=== PATIENT | male | born 1965 | race Caucasian/White ===

== ENCOUNTER 2018-02-02 13:21 | Emergency (ER) | payer OTHER, SELFPAY ==
[2018-02-02 13:27] VITALS: BP 182/104; PULSE 71; RESP 22; TEMP 36.3; O2SAT 99; BMI 25.4
--- NOTE | 2018-02-02 13:41 | ED_ITS ---
HPI - Fall <KEERTHI Chavez - Last Filed: 02/02/18 17:56> General Chief Complaint: Fall Stated Complaint: FELL, PAIN IN RIBS Time Seen by Provider: 02/02/18 13:38 Source: patient Mode of arrival: ambulatory Limitations: no limitations History of Present Illness HPI Narrative: tripped, landed on R side of chest, bruise to front of chest, ribs hurt and pain increases with movement, cough and breathing, denies any other injury MD complaint: fall Onset (ago): day(s) (Saturday) Fall from: standing Place fall occurred: other (hotel) Loss of consciousness: none Symptoms prior to fall: none Context: tripped/slipped (on uneven ground) Location of injury: chest (R side of front of chest) Severity: moderate Associated symptoms (after fall): headache, neck pain, numbness, weakness, shortness of breath and abdominal pain Related Data Home Medications Medication Instructions Recorded Confirmed aspirin 81 mg PO QDAY #0 02/25/16 02/02/18 atorvastatin [Lipitor] 20 mg PO HS #30 tab 02/25/16 02/02/18 esomeprazole magnesium [Nexium] 40 mg PO QDAY #0 02/25/16 02/02/18 hydrochlorothiazide 25 mg PO DAILY #0 02/25/16 02/02/18 [id number]-[id number] acid 1 tab PO DAILY 02/02/18 02/02/18 [Centrum] Previous Rx's Medication Instructions Recorded tramadol [Ultram] 50 mg PO Q6H PRN #20 tab 02/02/18 Allergies Allergy/AdvReac Type Severity Reaction Status Date / Time No Known Drug Allergies Allergy Verified 02/02/18 13:32 Review of Systems <KEERTHI Chavez - Last Filed: 02/02/18 17:56> Review of Systems All systems reviewed & are unremarkable except as noted in HPI and below Constitutional Reports as per HPI, Reports system reviewed and no additional complaints, except as docu and Denies frequent falls ENT Ears, Nose, Mouth, and Throat: Reports nasal congestion Cardiovascular Reports system reviewed and no additional complaints, except as docu, Denies chest pain, Denies chest pain at rest, Denies chest pain with activity, Denies irregular heart rhythm and Denies dyspnea Respiratory Denies chest congestion, Reports cough, Denies hemoptysis, Reports pain on inspiration, Reports pain with cough, Denies dyspnea and Denies wheezing Gastrointestinal Gastrointestinal: Denies abdominal pain Musculoskeletal Reports as per HPI, Denies abnormal gait, Denies back pain and Denies limited range of motion Neurologic Denies abnormal gait and Denies frequent falls Allergic/Immunologic Denies wheezing Exam <Radha GuadalupeKEERTHI - Last Filed: 02/02/18 17:56> Initial Vital Signs Initial Vital Signs: Vital Signs Temperature 97.3 F L 02/02/18 13:27 Pulse Rate 71 02/02/18 13:27 Respiratory Rate 22 02/02/18 13:27 Blood Pressure 182/104 H 02/02/18 13:27 Pulse Oximetry 99 02/02/18 13:27 Const General: cooperative, healthy appearing, comfortable, well developed, well groomed and acute distress Nutritional Appearance: average body habitus Orientation: alert, awake and oriented x3 HENMT Head: normal to inspection, normocephalic and atraumatic Ears: hearing grossly normal bilaterally and external ears normal Nose: external nose normal Face and sinus: normal facial exam Mouth: oral mucosae normal and lip normal Eyes General: appearance normal, both eyes and all related structures Visual Cisneros: normal visual cisneros by confrontation Eyelids: eyelids normal Conjunctivae: conjunctivae normal Sclera: sclerae normal Pupils: PERRL EOM: EOM intact bilaterally Neck Neck: normal visual inspection, full ROM, trachea midline and supple Chest Chest: abnormal inspection of the chest (contusion noted R side of front of chest under nipple area) and localized rib tenderness with anteroposterior compression (tender anterior rib 8-10 area) Resp Effort & Inspection: normal respiratory effort and able to speak in complete sentences Auscultation: clear to auscultation bilaterally Cardio Rate: regular rate Rhythm: regular rhythm Heart Sounds: S1 normal and S2 normal GI Inspection: normal to inspection Palpation: soft Back/Spine/Pelvis Back: normal to inspection Cervical Spine: cervical ROM normal Thoracic/Lumbar Spine: thoracic and lumbar spine normal to inspection Skin General: no rashes or lesions noted, elasticity normal and turgor normal Neuro General: alert, awake and oriented x3 Cranial Nerves: CN's II-XI intact bilaterally Cognition: normal cognition Speech: speech normal Gait: normal gait Motor: muscle tone normal throughout Sensory Exam: no sensory deficits noted Extrem General: normal to inspection and full ROM Psych Appearance: grossly normal Mental Status: mental status grossly normal Speech and Movement: speech and movement normal Mood: congruent mood Affect: normal affect Attitude: cooperative Thought Process: normal Thought Content: normal Judgment: judgment good <Damaris Aguiar DO - Last Filed: 02/03/18 07:47> Initial Vital Signs Initial Vital Signs: Vital Signs Temperature 97.3 F L 02/02/18 13:27 Pulse Rate 71 02/02/18 13:27 Respiratory Rate 22 02/02/18 13:27 Blood Pressure 182/104 H 02/02/18 13:27 Pulse Oximetry 99 02/02/18 13:27 Course <KEERTHI Chavez - Last Filed: 02/02/18 17:56> Course Narrative: results and dc plan discussed, and pt thanked me for the care Orders Ordered: ED Orders 02/02/18 13:45 XR ribs RT min 3V w CXR1V Stat Vital Signs - 8 hr 02/02/18 13:27 02/02/18 15:49 Temperature 97.3 F L Pulse Rate 71 71 Respiratory Rate 22 20 Blood Pressure 182/104 H 162/106 H Pulse Oximetry 99 97 <Damaris Aguiar DO - Last Filed: 02/03/18 07:47> Orders Ordered: ED Orders 02/02/18 13:45 XR ribs RT min 3V w CXR1V Stat Vital Signs - 8 hr 02/02/18 13:27 02/02/18 15:49 Temperature 97.3 F L Pulse Rate 71 71 Respiratory Rate 22 20 Blood Pressure 182/104 H 162/106 H Pulse Oximetry 99 97 MDM - Fall <KEERTHI Chavez - Last Filed: 02/02/18 17:56> Differential Diagnosis Likely other (fall, fx rib, rib contusion, chest wall pain, pneumo, pneumonia, uri, viral illess, bronchitis, abrasion) Imaging Data ribs: Radiologist's impression: PROCEDURE: XR RIBS RT MIN 3V W CXR 1V INDICATIONS: fall and contusion to R anterior ribs TECHNIQUE: 2 views of the right ribs were acquired, along with a single view chest. COMPARISON: None. FINDINGS: Surgical changes and devices: None. Bones and chest wall: Possible nondisplaced fracture of the anterolateral right seventh rib. No suspicious bony lesions. Overlying soft tissues appear unremarkable. Lungs and pleura: No pleural effusions or pneumothorax. Lungs appear clear. Mediastinum: Mediastinal contours appear normal. Heart size is normal. IMPRESSION: Possible nondisplaced fracture of the anterolateral right seventh rib. Correlation for point tenderness suggested. Dictated by: Otis Joe M.D. on 02/02/2018 at 15:01 Approved by: Otis Joe M.D. on 02/02/2018 at 15:05 Discharge Plan Departure Patient Disposition: Home Clinical Impression: Closed rib fracture, Fall Discharge Date/Time: 02/02/18 15:49 Interventions: ED Discharge Assessment Last Done: 02/02/18 15:49 Instructions: DI for Rib Fracture Prescriptions: New tramadol [Ultram] 50 mg tablet 50 mg PO Q6H PRN (Reason: pain) Qty: 20 RF: 0 No Action atorvastatin [Lipitor] 20 MG tablet 20 mg PO HS Qty: 30 RF: 0 esomeprazole magnesium [Nexium] 40 MG capsule,delayed release(DR/EC) 40 mg PO QDAY Qty: 0 RF: 0 hydrochlorothiazide 12.5 mg Capsule 25 mg PO DAILY Qty: 0 RF: 0 aspirin 81 MG tablet,chewable 81 mg PO QDAY Qty: 0 RF: 0 nkqfecytrtjq-serk-hludr acid [Centrum] 18-400 mg-mcg Tablet 1 tab PO DAILY RF: 0 Referrals: William Castrejon MD [Physician] - [facility] [Medical Student] - Lul Gibbons MD [Physician] - Gretchen Leahy [Medical Student] - Brandon Zelaya MD [Physician] - Jaimee Lauren MD [Physician] - (follow up recommended in 5-7 days) <Damaris Aguiar DO - Last Filed: 02/03/18 07:47> Cosign ED Attending Cosignature Attestation: I was immediately available in the department for consultation. Documentation has been reviewed. I agree with assessment and plan.
--- NOTE | 2018-02-02 13:45 | DI.RAD.S_ITS ---
PROCEDURE: XR RIBS RT MIN 3V W CXR 1V INDICATIONS: fall and contusion to R anterior ribs TECHNIQUE: 2 views of the right ribs were acquired, along with a single view chest. COMPARISON: None. FINDINGS: Surgical changes and devices: None. Bones and chest wall: Possible nondisplaced fracture of the anterolateral right seventh rib. No suspicious bony lesions. Overlying soft tissues appear unremarkable. Lungs and pleura: No pleural effusions or pneumothorax. Lungs appear clear. Mediastinum: Mediastinal contours appear normal. Heart size is normal. IMPRESSION: Possible nondisplaced fracture of the anterolateral right seventh rib. Correlation for point tenderness suggested. Dictated by: Otis Joe M.D. on 02/02/2018 at 15:01 Approved by: Otis Joe M.D. on 02/02/2018 at 15:05
[2018-02-02 15:49] VITALS: BP 162/106; PULSE 71; RESP 20; O2SAT 97
== END 2018-02-02 15:49 | disposition home or self-care (01) ==
PROVIDERS: Emergency Provider Nurse Practitioner
DX: S22.31XA Fracture of one rib, right side, initial encounter for closed fracture (principal); W01.0XXA Fall on same level from slipping, tripping and stumbling without subsequent striking against object, initial encounter
CPT/HCPCS: 71101; 99282; 99283

== ENCOUNTER 2018-05-22 00:17 | Emergency (ER) | payer OTHER, SELFPAY ==
--- NOTE | 2018-05-22 00:23 | DI.RAD.S_ITS ---
PROCEDURE: XR CHEST 1V INDICATIONS: chest pain TECHNIQUE: One view of the chest was acquired. COMPARISON: [facility], CR, XR RIBS RT MIN 3V W CXR 1V, 02/02/2018, 13:54. FINDINGS: Surgical changes and devices: None. Lungs and pleura: No pleural effusions or pneumothorax. Bibasilar opacities are likely atelectasis. Mediastinum: Mediastinal contours appear normal. Heart size is normal. Bones and chest wall: No suspicious bony lesions. Old right inferior rib fracture is noted. Overlying soft tissues appear unremarkable. IMPRESSION: Bibasilar atelectasis. Dictated by: Kamar Abdalla M.D. on 05/22/2018 at 8:56 Approved by: Kamar Abdalla M.D. on 05/22/2018 at 8:58
[2018-05-22 00:26] VITALS: BP 122/83; PULSE 98; RESP 17; TEMP 36.4; O2SAT 96; BMI 27.5
[2018-05-22 00:29] VITALS: PULSE 96; RESP 18; O2SAT 93
[2018-05-22] MEDS: ALBUTEROL/IPRATROPIUM 3 ML AMPUL INH (00:29)
[2018-05-22 00:48] LABS: Add Manual Diff / Slide Review NO; Basophils Absolute Auto 100 /uL (0-100); Basophils Percent Auto 0.9 % (0-2); Eosinophils Absolute Auto 400 /uL (0-450); Eosinophils Percent Auto 5.1 % (2-4); Hematocrit 42.5 % (41-53); Hemoglobin 14.7 g/dL (13.5-17.5); Lymphocytes Absolute Auto 1500 /uL (1100-4500); Lymphocytes Percent Auto 21.8 % (25-40); Mean Corpuscular HGB Conc 34.6 % (30-36); Mean Corpuscular Hemoglobin 31.1 PG (26-34); Monocytes Absolute Auto 700 /uL (0-900); Monocytes Percent Auto 9.5 % (3-14); Neutrophils Absolute Auto 4400 /uL (1500-7000); Neutrophils Percent Auto 62.7 % (50-75); Platelet Count 254 X10^3/uL (150-400); Red Blood Cell Count 4.72 X10^6/uL (4.5-5.9); Red Cell Distribution Width 12.5 % (11.6-14.8)
[2018-05-22 01:00] VITALS: BP 102/66; PULSE 99; RESP 15; O2SAT 96
[2018-05-22 01:32] LABS: Alanine Aminotransferase 67 IU/L (21-72); Albumin Globulin Ratio 1.4 (1.0-2.8); Alkaline Phosphatase 71 U/L (38-126); Aspartate Aminotransferase 50 IU/L (17-59); BUN Creatinine Ratio 18.6 (6-22); Bilirubin Total 0.5 mg/dL (0.2-1.3); Blood Urea Nitrogen 13 mg/dL (9-20); Calcium 9.7 mg/dL (8.4-10.2); Carbon Dioxide 27 mmol/L (22-32); Chloride 96 mmol/L (98-107); Creatine Kinase 44 U/L (55-170); Estimated Glomerular Filt Rate > 60.0 mL/min (>60); Globulin 2.9 g/dL (1.7-4.1); Glucose 140 mg/dL (70-100); HEMOLYSIS < 15 (0-50); Lipase 108 U/L (23-300); Potassium 3.5 mmol/L (3.4-5.1); Sodium 133 mmol/L (137-145); Total Protein 6.9 g/dL (6.3-8.2)
[2018-05-22 01:44] LABS: Troponin I < 0.012 ng/mL (0.01-0.034)
--- NOTE | 2018-05-22 01:52 | ED.CHESTPAIN ---
HPI - Chest Pain General Chief Complaint: Chest Pain Stated Complaint: Rib Pain Time Seen by Provider: 05/22/18 00:22 Source: patient and EMS Mode of arrival: EMS Limitations: no limitations History of Present Illness HPI narrative: Patient is a 53-year-old male presenting with chest pain. 1 week ago he had CPR performed he had a syncopal episode and bystander CPR was done. He says his heart never actually stop. Is admitted to a hospital in [place] and released. He said he passed out because his potassium was 3.1. He said it was recheck yesterday by his primary and he says it is 5. He has been having a severe coughing episodes and spells. He has known rib fractures from CPR that was performed. He is having increasing pain and shortness of breath. No fevers. He is on amoxicillin for possible pneumonia. MD complaint: chest pain Related Data Home Medications Medication Instructions Recorded Confirmed aspirin 81 mg PO QDAY #0 02/25/16 05/22/18 atorvastatin [Lipitor] 20 mg PO HS #30 tab 02/25/16 05/22/18 hydrochlorothiazide 25 mg PO DAILY #0 02/25/16 05/22/18 lisinopril 20 mg PO DAILY 05/22/18 05/22/18 omeprazole 40 mg PO DAILY 05/22/18 05/22/18 Previous Rx's Medication Instructions Recorded hydrocodone-acetaminophen [Concord] 1 tab PO Q6H PRN #10 tab 05/22/18 Allergies Allergy/AdvReac Type Severity Reaction Status Date / Time No Known Drug Allergies Allergy Verified 02/02/18 13:32 Review of Systems Review of Systems GENERAL: Denies chills, fatigue, malaise, fever, sweats, travel HEENT: Denies sinus pain, ear pain, sore throat, difficulty swallowing, neck pain RESPIRATORY: Denies dyspnea, cough, wheezing, hemoptysis, sputum. CARDIOVASCULAR: See HPI GASTROINTESTINAL: Denies nausea, vomiting, abdominal pain, diarrhea, constipation, melena. : Denies dysuria, frequency, incontinence, hematuria, urinary retention, flank pain. MUSCULOSKELETAL: Denies weakness, joint pain, or bony pain SKIN: No rash, no erythema, no pruritus NEUROLOGIC: Denies weakness, dizziness, headache, numbness, change in speech, confusion PSYCHIATRIC: No concerning psychosocial issues. 12 point review of systems is negative except for those stated above and HPI [facility] Medical History Hyperlipidemia (Acute) Hypertension (Acute) Social History Smoking Status: Current every day smoker Exam Initial Vital Signs Initial Vital Signs: Vital Signs Temperature 97.6 F 05/22/18 00:26 Pulse Rate 98 H 05/22/18 00:26 Respiratory Rate 17 05/22/18 00:26 Blood Pressure 122/83 05/22/18 00:26 Pulse Oximetry 96 05/22/18 00:26 GENERAL: Well-appearing, well-nourished and in no acute distress. HEENT: Head atraumatic,EOMI, pupils reactive, face symmetric, CARDIOVASCULAR: Regular rate and rhythm without murmurs, rubs or gallops. RESPIRATORY: Coughing with deep breathing no respiratory distress no tachypnea no wheezes rales or rhonchi ABDOMEN: Soft, nontender. Normoactive bowel sounds all 4 quadrants. No guarding or rebound. EXTREMITIES: Normal range of motion, no clubbing or edema. Neurovascularly intact NEUROLOGICAL: Alert and oriented x4.Normal gait and speech. Cranial nerves II through XII grossly intact. SKIN: Warm, dry, no laceration, no petechiae, no rashes or lesions. Course Orders Ordered: ED Orders 05/22/18 00:23 XR chest 1V Stat EKG-12 Lead Stat 05/22/18 00:35 Complete Blood Count AUTO DIFF Stat Comprehensive Metabolic Panel Stat Lipase Stat Troponin & CK Cardiac Panel Stat Discontinued Medications Hydrocodone Bitart/Acetaminophen (Vicodin Prepack) 1 bottle MISC SEEINSTR ONE Stop: 05/22/18 02:15 Last Admin: 05/22/18 02:27 Dose: 1 bottle Albuterol (Ventolin Hfa Prepack) 1 box MISC SEEINSTR ONE Stop: 05/22/18 02:15 Last Admin: 05/22/18 02:27 Dose: 1 box Albuterol/Ipratropium (Duoneb) 3 ml INH NOW ONE Stop: 05/22/18 00:23 Last Admin: 05/22/18 00:29 Dose: 3 ml Vital Signs - 8 hr 05/22/18 00:26 05/22/18 00:29 05/22/18 01:00 Temperature 97.6 F Pulse Rate 98 H 96 H 99 H Respiratory Rate 17 18 15 Blood Pressure 122/83 Blood Pressure [Left Arm] 102/66 Pulse Oximetry 96 93 96 05/22/18 02:21 Temperature Pulse Rate 88 Respiratory Rate 19 Blood Pressure Blood Pressure [Left Arm] 101/61 Pulse Oximetry 95 MDM - Chest Pain Lab Data Attestation: I reviewed the patient's lab results. Result diagrams: 05/22/18 00:35 05/22/18 00:35 Lab Results 05/22/18 05/22/18 Range/Units 00:35 00:35 WBC 7.0 (4.5-11.0) X10^3/uL RBC 4.72 (4.5-5.9) X10^6/uL Hgb 14.7 (13.5-17.5) g/dL Hct 42.5 (41-53) % MCV 90.0 (80-100) fL MCH 31.1 (26-34) PG MCHC 34.6 (30-36) % RDW 12.5 (11.6-14.8) % Plt Count 254 (150-400) X10^3/uL Neut % (Auto) 62.7 (50-75) % Lymph % (Auto) 21.8 L (25-40) % Callaway % (Auto) 9.5 (3-14) % Eos % (Auto) 5.1 H (2-4) % Baso % (Auto) 0.9 (0-2) % Neut # (Auto) 4400 (1738-2261) /uL Lymph # (Auto) 1500 (9036-2386) /uL Callaway # (Auto) 700 (0-900) /uL Eos # (Auto) 400 (0-450) /uL Baso # (Auto) 100 (0-100) /uL Sodium 133 L (137-145) mmol/L Potassium 3.5 (3.4-5.1) mmol/L Chloride 96 L (98-107) mmol/L Carbon Dioxide 27 (22-32) mmol/L BUN 13 (9-20) mg/dL Creatinine 0.70 (0.66-1.25) mg/dL Estimated GFR > 60.0 (>60) mL/min BUN/Creatinine Ratio 18.6 (6-22) Glucose 140 H (70-100) mg/dL Calcium 9.7 (8.4-10.2) mg/dL Total Bilirubin 0.5 (0.2-1.3) mg/dL AST 50 (17-59) IU/L ALT 67 (21-72) IU/L Alkaline Phosphatase 71 (38-126) U/L Total Creatine Kinase 44 L (55-170) U/L CK-MB (CK-2) TNP CK-MB (CK-2) Rel Index TNP Troponin I < 0.012 (0.01-0.034) ng/mL Total Protein 6.9 (6.3-8.2) g/dL Albumin 4.0 (3.5-5.0) g/dL Globulin 2.9 (1.7-4.1) g/dL Albumin/Globulin Ratio 1.4 (1.0-2.8) Lipase 108 (23-300) U/L Imaging Data Chest x-ray: Attestation: I personally reviewed and interpreted this imaging study as follows: My impression: No pneumothorax right-sided rib fractures 4 and 5, left side with 6 fracture no pneumonia ECG Data Attestation: I personally reviewed and interpreted this ECG as follows: Prior ECG tracings: not available for review Interpretation: Normal sinus rhythm rate 93 Q-waves noted in lead [address] changes no priors to compare MDM Narrative Medical decision making narrative: Breathing improved after albuterol. Sleeping. X-ray does reveal is have bilateral rib fractures. Hydrocodone given for pain. He is taught how to use a spacer and given albuterol. All questions have been addressed. Discharge Plan Departure Patient Disposition: Home Clinical Impression: Mild reactive airways disease, Fracture of rib Discharge Date/Time: 05/22/18 02:45 Interventions: ED Discharge Assessment Last Done: 05/22/18 02:45 Instructions: DI for Reactive Airway Disease-Adult Activity Restrictions/Additional Instructions: *You have been diagnosed with reactive airway disease, rib fractures *What to do: Increase activity as tolerated. *Continue to take medications as directed Albuterol with spacer every 4 hr if needed for coughing spell NORCO 1-2 TABLETS EVERY 6 HR IF NEEDED FOR PAIN *Follow up with your primary care provider in 2-3 days *Return to ER if you should have increasing shortness of breath, increasing pain, or any new, worsening or concerning symptoms CONTROLLED SUBSTANCE DISCHARGE (Narcotoic/benzodiazepine/Flexeril/Phenergan) 1. You have been prescribed narcotic medications, it does have acetaminophen/Tylenol/paracetamol in it so do not take extra Tylenol or Tylenol containing products 2. Please understand that we cannot provide further refills of narcotics, benzodiazepines or controlled substances through the ED and her pain management will need to be through your provider. 3. While on these medications you cannot drive or operate heavy machinery. 4. You cannot sign legal documents or perform any duties such as this. 5. As long as you're taking opiate pain medications he should also be taking a stool softener such as Colace, Dulcolax, MiraLAX or prune juice, to help avoid constipation. Prescriptions: New hydrocodone-acetaminophen [Concord] 5-325 mg tablet 1 tab PO Q6H PRN (Reason: pain) Qty: 10 RF: 0 No Action atorvastatin [Lipitor] 20 MG tablet 20 mg PO HS Qty: 30 RF: 0 hydrochlorothiazide 12.5 mg Capsule 25 mg PO DAILY Qty: 0 RF: 0 aspirin 81 MG tablet,chewable 81 mg PO QDAY Qty: 0 RF: 0 lisinopril 20 mg Tablet 20 mg PO DAILY RF: 0 omeprazole 20 mg Capsule,Delayed Release(Dr/Ec) 40 mg PO DAILY RF: 0
[2018-05-22 02:21] VITALS: BP 101/61; PULSE 88; RESP 19; O2SAT 95
[2018-05-22] MEDS: HYDROCODONE/ACET 5/325 PREPACK 1 BOTTLE MISC (02:27)
[2018-05-22] MEDS: ALBUTEROL HFA PREPACK 1 BOX MISC (02:27)
--- NOTE | 2018-05-22 03:28 | ED_ITS ---
HPI - Chest Pain General Chief Complaint: Chest Pain Stated Complaint: Rib Pain Time Seen by Provider: 05/22/18 00:22 Source: patient and EMS Mode of arrival: EMS Limitations: no limitations History of Present Illness HPI narrative: Patient is a 53-year-old male presenting with chest pain. 1 week ago he had CPR performed he had a syncopal episode and bystander CPR was done. He says his heart never actually stop. Is admitted to a hospital in [place] and released. He said he passed out because his potassium was 3.1. He said it was recheck yesterday by his primary and he says it is 5. He has been having a severe coughing episodes and spells. He has known rib fractures from CPR that was performed. He is having increasing pain and shortness of breath. No fevers. He is on amoxicillin for possible pneumonia. MD complaint: chest pain Related Data Home Medications Medication Instructions Recorded Confirmed aspirin 81 mg PO QDAY #0 02/25/16 05/22/18 atorvastatin [Lipitor] 20 mg PO HS #30 tab 02/25/16 05/22/18 hydrochlorothiazide 25 mg PO DAILY #0 02/25/16 05/22/18 lisinopril 20 mg PO DAILY 05/22/18 05/22/18 omeprazole 40 mg PO DAILY 05/22/18 05/22/18 Previous Rx's Medication Instructions Recorded hydrocodone-acetaminophen [Sycamore] 1 tab PO Q6H PRN #10 tab 05/22/18 Allergies Allergy/AdvReac Type Severity Reaction Status Date / Time No Known Drug Allergies Allergy Verified 02/02/18 13:32 Review of Systems Review of Systems GENERAL: Denies chills, fatigue, malaise, fever, sweats, travel HEENT: Denies sinus pain, ear pain, sore throat, difficulty swallowing, neck pain RESPIRATORY: Denies dyspnea, cough, wheezing, hemoptysis, sputum. CARDIOVASCULAR: See HPI GASTROINTESTINAL: Denies nausea, vomiting, abdominal pain, diarrhea, constipation, melena. : Denies dysuria, frequency, incontinence, hematuria, urinary retention, flank pain. MUSCULOSKELETAL: Denies weakness, joint pain, or bony pain SKIN: No rash, no erythema, no pruritus NEUROLOGIC: Denies weakness, dizziness, headache, numbness, change in speech, confusion PSYCHIATRIC: No concerning psychosocial issues. 12 point review of systems is negative except for those stated above and HPI [facility] [place] Medical History Hyperlipidemia (Acute) Hypertension (Acute) Social History Smoking Status: Current every day smoker Exam Initial Vital Signs Initial Vital Signs: Vital Signs Temperature 97.6 F 05/22/18 00:26 Pulse Rate 98 H 05/22/18 00:26 Respiratory Rate 17 05/22/18 00:26 Blood Pressure 122/83 05/22/18 00:26 Pulse Oximetry 96 05/22/18 00:26 GENERAL: Well-appearing, well-nourished and in no acute distress. HEENT: Head atraumatic,EOMI, pupils reactive, face symmetric, CARDIOVASCULAR: Regular rate and rhythm without murmurs, rubs or gallops. RESPIRATORY: Coughing with deep breathing no respiratory distress no tachypnea no wheezes rales or rhonchi ABDOMEN: Soft, nontender. Normoactive bowel sounds all 4 quadrants. No guarding or rebound. EXTREMITIES: Normal range of motion, no clubbing or edema. Neurovascularly intact NEUROLOGICAL: Alert and oriented x4.Normal gait and speech. Cranial nerves II through XII grossly intact. SKIN: Warm, dry, no laceration, no petechiae, no rashes or lesions. Course Orders Ordered: ED Orders 05/22/18 00:23 XR chest 1V Stat EKG-12 Lead Stat 05/22/18 00:35 Complete Blood Count AUTO DIFF Stat Comprehensive Metabolic Panel Stat Lipase Stat Troponin & CK Cardiac Panel Stat Discontinued Medications Hydrocodone Bitart/Acetaminophen (Vicodin Prepack) 1 bottle MISC SEEINSTR ONE Stop: 05/22/18 02:15 Last Admin: 05/22/18 02:27 Dose: 1 bottle Albuterol (Ventolin Hfa Prepack) 1 box MISC SEEINSTR ONE Stop: 05/22/18 02:15 Last Admin: 05/22/18 02:27 Dose: 1 box Albuterol/Ipratropium (Duoneb) 3 ml INH NOW ONE Stop: 05/22/18 00:23 Last Admin: 05/22/18 00:29 Dose: 3 ml Vital Signs - 8 hr 05/22/18 00:26 05/22/18 00:29 05/22/18 01:00 Temperature 97.6 F Pulse Rate 98 H 96 H 99 H Respiratory Rate 17 18 15 Blood Pressure 122/83 Blood Pressure [Left Arm] 102/66 Pulse Oximetry 96 93 96 05/22/18 02:21 Temperature Pulse Rate 88 Respiratory Rate 19 Blood Pressure Blood Pressure [Left Arm] 101/61 Pulse Oximetry 95 MDM - Chest Pain Lab Data Attestation: I reviewed the patient's lab results. Result diagrams: 05/22/18 00:35 05/22/18 00:35 Lab Results 05/22/18 05/22/18 Range/Units 00:35 00:35 WBC 7.0 (4.5-11.0) X10^3/uL RBC 4.72 (4.5-5.9) X10^6/uL Hgb 14.7 (13.5-17.5) g/dL Hct 42.5 (41-53) % MCV 90.0 (80-100) fL MCH 31.1 (26-34) PG MCHC 34.6 (30-36) % RDW 12.5 (11.6-14.8) % Plt Count 254 (150-400) X10^3/uL Neut % (Auto) 62.7 (50-75) % Lymph % (Auto) 21.8 L (25-40) % Blair % (Auto) 9.5 (3-14) % Eos % (Auto) 5.1 H (2-4) % Baso % (Auto) 0.9 (0-2) % Neut # (Auto) 4400 (4184-6922) /uL Lymph # (Auto) 1500 (5821-2287) /uL Blair # (Auto) 700 (0-900) /uL Eos # (Auto) 400 (0-450) /uL Baso # (Auto) 100 (0-100) /uL Sodium 133 L (137-145) mmol/L Potassium 3.5 (3.4-5.1) mmol/L Chloride 96 L (98-107) mmol/L Carbon Dioxide 27 (22-32) mmol/L BUN 13 (9-20) mg/dL Creatinine 0.70 (0.66-1.25) mg/dL Estimated GFR > 60.0 (>60) mL/min BUN/Creatinine Ratio 18.6 (6-22) Glucose 140 H (70-100) mg/dL Calcium 9.7 (8.4-10.2) mg/dL Total Bilirubin 0.5 (0.2-1.3) mg/dL AST 50 (17-59) IU/L ALT 67 (21-72) IU/L Alkaline Phosphatase 71 (38-126) U/L Total Creatine Kinase 44 L (55-170) U/L CK-MB (CK-2) TNP CK-MB (CK-2) Rel Index TNP Troponin I < 0.012 (0.01-0.034) ng/mL Total Protein 6.9 (6.3-8.2) g/dL Albumin 4.0 (3.5-5.0) g/dL Globulin 2.9 (1.7-4.1) g/dL Albumin/Globulin Ratio 1.4 (1.0-2.8) Lipase 108 (23-300) U/L Imaging Data Chest x-ray: Attestation: I personally reviewed and interpreted this imaging study as follows: My impression: No pneumothorax right-sided rib fractures 4 and 5, left side with 6 fracture no pneumonia ECG Data Attestation: I personally reviewed and interpreted this ECG as follows: Prior ECG tracings: not available for review Interpretation: Normal sinus rhythm rate 93 Q-waves noted in lead [address] changes no priors to compare MDM Narrative Medical decision making narrative: Breathing improved after albuterol. Sleeping. X-ray does reveal is have bilateral rib fractures. Hydrocodone given for pain. He is taught how to use a spacer and given albuterol. All questions have been addressed. Discharge Plan Departure Patient Disposition: Home Clinical Impression: Mild reactive airways disease, Fracture of rib Discharge Date/Time: 05/22/18 02:45 Interventions: ED Discharge Assessment Last Done: 05/22/18 02:45 Instructions: DI for Reactive Airway Disease-Adult Activity Restrictions/Additional Instructions: *You have been diagnosed with reactive airway disease, rib fractures *What to do: Increase activity as tolerated. *Continue to take medications as directed Albuterol with spacer every 4 hr if needed for coughing spell NORCO 1-2 TABLETS EVERY 6 HR IF NEEDED FOR PAIN *Follow up with your primary care provider in 2-3 days *Return to ER if you should have increasing shortness of breath, increasing pain , or any new, worsening or concerning symptoms CONTROLLED SUBSTANCE DISCHARGE (Narcotoic/benzodiazepine/Flexeril/Phenergan) 1. You have been prescribed narcotic medications, it does have acetaminophen/ Tylenol/paracetamol in it so do not take extra Tylenol or Tylenol containing products 2. Please understand that we cannot provide further refills of narcotics, benzodiazepines or controlled substances through the ED and her pain management will need to be through your provider. 3. While on these medications you cannot drive or operate heavy machinery. 4. You cannot sign legal documents or perform any duties such as this. 5. As long as you're taking opiate pain medications he should also be taking a stool softener such as Colace, Dulcolax, MiraLAX or prune juice, to help avoid constipation. Prescriptions: New hydrocodone-acetaminophen [Sycamore] 5-325 mg tablet 1 tab PO Q6H PRN (Reason: pain) Qty: 10 RF: 0 No Action atorvastatin [Lipitor] 20 MG tablet 20 mg PO HS Qty: 30 RF: 0 hydrochlorothiazide 12.5 mg Capsule 25 mg PO DAILY Qty: 0 RF: 0 aspirin 81 MG tablet,chewable 81 mg PO QDAY Qty: 0 RF: 0 lisinopril 20 mg Tablet 20 mg PO DAILY RF: 0 omeprazole 20 mg Capsule,Delayed Release(Dr/Ec) 40 mg PO DAILY RF: 0
== END 2018-05-22 02:45 | disposition home or self-care (01) ==
PROVIDERS: Emergency Provider Emergency Medicine
DX: J45.909 Unspecified asthma, uncomplicated (principal); S22.39XA Fracture of one rib, unspecified side, initial encounter for closed fracture
CPT/HCPCS: 36591; 71045; 80053; 82550; 83690; 84484; 85025; 93005; 93010; 94640; 99283

== ENCOUNTER 2019-05-07 00:59 | Emergency (ER) | payer OTHER, SELFPAY ==
[2019-05-07 01:06] VITALS: BP 123/81; PULSE 97; RESP 21; TEMP 37; O2SAT 93
--- NOTE | 2019-05-07 01:51 | ED.URI ---
HPI - URI/Sore Throat General Chief Complaint: Upper Respiratory Symptoms Stated Complaint: Coughing since yesterday/chest hurts/hard breath Time Seen by Provider: 05/07/19 01:45 Source: patient Mode of arrival: Family Vehicle Limitations: no limitations History of Present Illness HPI Narrative: 54-year-old male with no known lung issues however does have an inhaler prescribed in by his primary doctor and has also had pulmonary function test recently which he states he was told he was unremarkable here for evaluation of approximately 24 hours of a cough and wheezing. No fevers. Nonproductive cough. Given this evening because he thought that the cough is getting worse. Related Data Home Medications Medication Instructions Recorded Confirmed aspirin 81 mg PO QDAY #0 02/25/16 05/22/18 atorvastatin [Lipitor] 20 mg PO HS #30 tab 02/25/16 05/22/18 hydrochlorothiazide 25 mg PO DAILY #0 02/25/16 05/22/18 lisinopril 20 mg PO DAILY 05/22/18 05/22/18 omeprazole 40 mg PO DAILY 05/22/18 05/22/18 Previous Rx's Medication Instructions Recorded hydrocodone-acetaminophen [Devens] 1 tab PO Q6H PRN #10 tab 05/22/18 Allergies Allergy/AdvReac Type Severity Reaction Status Date / Time No Known Drug Allergies Allergy Verified 02/02/18 13:32 Review of Systems Constitutional Constitutional: Denies fever(s) Cardiovascular Cardiovascular: Reports dyspnea and Reports dyspnea on exertion Comments: Chest pain with cough Respiratory Respiratory: Reports cough, Reports dyspnea, Reports dyspnea on exertion and Reports wheezing Gastrointestinal Gastrointestinal: Denies abdominal pain, Denies nausea and Denies vomiting Musculoskeletal Musculoskeletal: Denies myalgias and Denies arthralgias Integumentary/Breasts Skin/Breast: Denies rash Neurologic Neurologic: Denies behavioral changes Psychiatric Psychiatric: Denies behavioral changes Hematologic/Lymphatic Hematologic/Lymphatic: Denies easy bleeding and Denies easy bruising Allergic/Immunologic Allergic/Immunologic: Reports wheezing Patient History Medical History Hyperlipidemia (Acute) Hypertension (Acute) Social History Smoking Status: Current every day smoker Smoking Status: Current every day smoker tobacco type: cigarettes alcohol intake frequency: a few times a week Substance Use Type: does not use Exam Initial Vital Signs Initial Vital Signs: Vital Signs Temperature 98.6 F 05/07/19 01:06 Pulse Rate 97 H 05/07/19 01:06 Respiratory Rate 21 05/07/19 01:06 Blood Pressure 123/81 05/07/19 01:06 Pulse Oximetry 93 05/07/19 01:06 Const General: cooperative and comfortable Orientation: awake and oriented x3 Resp Effort & Inspection: normal respiratory effort, not labored, no retractions and not tachypneic Auscultation: wheezes Cardio Rate: regular rate Rhythm: regular rhythm Skin Lesions: no lesions Rashes: no rashes Neuro General: alert and awake Cognition: normal cognition Speech: speech normal Extrem General: normal to inspection and capillary refill normal Psych Appearance: grossly normal and well kempt Course Orders Ordered: Discontinued Medications Albuterol (Ventolin) 5 mg INH NOW ONE Stop: 05/07/19 01:52 Last Admin: 05/07/19 02:13 Dose: 5 mg Documented by: MAY Albuterol (Ventolin) 2.5 mg INH NOW ONE Stop: 05/07/19 02:11 Last Admin: 05/07/19 02:12 Dose: Not Given Documented by: MAY Albuterol (Ventolin) 2.5 mg INH NOW ONE Stop: 05/07/19 02:36 Last Admin: 05/07/19 02:37 Dose: 2.5 mg Documented by: MAY Dexamethasone (Decadron) 12 mg PO NOW ONE Stop: 05/07/19 03:01 Last Admin: 05/07/19 03:02 Dose: 12 mg Documented by: JENNYFER Vital Signs Vital signs: Vital Signs - 8 hr 05/07/19 01:06 05/07/19 02:17 05/07/19 02:39 Temperature 98.6 F Pulse Rate 97 H 76 77 Respiratory Rate 21 20 16 Blood Pressure 123/81 Pulse Oximetry 93 93 94 05/07/19 03:06 05/07/19 03:09 Temperature Pulse Rate 74 86 Respiratory Rate 16 19 Blood Pressure 138/96 H Pulse Oximetry 94 94 MDM - URI/Sore Throat MDM Narrative Medical decision making narrative: Patient was wheezing bilaterally upon arrival with right being greater than left and right upper being greater than right lower. Was given 2 nebulizer treatments which clinically improved his symptoms however patient states that he felt only slightly better. He was sleeping in the room in between the albuterol treatments. I felt like his cough did improve. He is afebrile. Is been a nonproductive cough. I feel that pneumonia is unlikely. Will wait on a chest x-ray for now. He was given a dose of Decadron. He does have an albuterol inhaler with him. He was given a spacer for use with this. Feel free start him on steroids and have him do frequent albuterol treatments at home that this would improve his symptoms. He was given return precautions and follow-up instructions. He expressed understanding and agreement with plan. Discharge Plan Departure Patient Disposition: Home Clinical Impression: Acute bronchospasm Discharge Date/Time: 05/07/19 03:10 Instructions: DI for Reactive Airway Disease-Adult Activity Restrictions/Additional Instructions: Every 4 hours for the next 24 hours while your awake take 3-4 puffs of the albuterol with the spacer. Contact her primary provider for follow-up. Return to the emergency department for any new or worsening symptoms Prescriptions: No Action atorvastatin [Lipitor] 20 MG tablet 20 mg PO HS Qty: 30 RF: 0 hydrochlorothiazide 12.5 mg Capsule 25 mg PO DAILY Qty: 0 RF: 0 aspirin 81 MG tablet,chewable 81 mg PO QDAY Qty: 0 RF: 0 lisinopril 20 mg Tablet 20 mg PO DAILY RF: 0 omeprazole 20 mg Capsule,Delayed Release(Dr/Ec) 40 mg PO DAILY RF: 0 hydrocodone-acetaminophen [Devens] 5-325 mg tablet 1 tab PO Q6H PRN (Reason: pain) Qty: 10 RF: 0
[2019-05-07] MEDS: ALBUTEROL 2.5 MG/3 ML NEB (ADULT) 5 MG INH (02:13)
[2019-05-07 02:17] VITALS: PULSE 76; RESP 20; O2SAT 93
[2019-05-07] MEDS: ALBUTEROL 2.5 MG/3 ML NEB (ADULT) INH (02:37)
[2019-05-07 02:39] VITALS: PULSE 77; RESP 16; O2SAT 94
[2019-05-07] MEDS: dexAMETHasone 4 MG TABLET 12 MG PO (03:02)
[2019-05-07 03:06] VITALS: PULSE 74; RESP 16; O2SAT 94
[2019-05-07 03:09] VITALS: BP 138/96; PULSE 86; RESP 19; O2SAT 94
== END 2019-05-07 03:10 | disposition home or self-care (01) ==
PROVIDERS: Emergency Provider Emergency Medicine
DX: J98.01 Acute bronchospasm (principal); F17.200 Nicotine dependence, unspecified, uncomplicated
CPT/HCPCS: 94640; 99282; 99283; J7613

== ENCOUNTER 2019-06-07 08:32 | Emergency (ER) | payer OTHER, SELFPAY ==
[2019-06-07 08:33] VITALS: BP 123/77; PULSE 94; RESP 18; TEMP 36.6; O2SAT 95
--- NOTE | 2019-06-07 08:40 | DI.RAD.S_ITS ---
PROCEDURE: XR CHEST 1V INDICATIONS: Cough, smoker, eval for pneumonia TECHNIQUE: One view of the chest was acquired. COMPARISON: [facility], CR, XR CHEST 1V, 05/22/2018, 0:53. FINDINGS: Surgical changes and devices: None. Lungs and pleura: Lungs are clear. No pleural effusions or pneumothorax. Mediastinum: Mediastinal contours appear normal. Heart size is normal. Bones and chest wall: No suspicious bony lesions. Overlying soft tissues appear unremarkable. IMPRESSION: No acute process. Dictated by: Bobbi Gonzalez M.D. on 06/07/2019 at 7:53 Approved by: Bobbi Gonzalez M.D. on 06/07/2019 at 7:54
--- NOTE | 2019-06-07 08:53 | ED.URI ---
HPI - URI/Sore Throat General Chief Complaint: Upper Respiratory Symptoms Stated Complaint: Cough,sore body Time Seen by Provider: 06/07/19 08:39 Source: patient Mode of arrival: Ambulatory Limitations: no limitations History of Present Illness HPI Narrative: 54-year-old male here for evaluation of a cough. Been going on for the past several days. No fevers. It is productive. No recent travel. Within the past month he has been treated with steroids and antibiotics for bronchitis. He does have an albuterol inhaler at home. He states that he is having problems sleeping at night because of the cough. Related Data Home Medications Medication Instructions Recorded Confirmed aspirin 81 mg PO QDAY #0 02/25/16 05/22/18 atorvastatin [Lipitor] 20 mg PO HS #30 tab 02/25/16 05/22/18 hydrochlorothiazide 25 mg PO DAILY #0 02/25/16 05/22/18 lisinopril 20 mg PO DAILY 05/22/18 05/22/18 omeprazole 40 mg PO DAILY 05/22/18 05/22/18 Previous Rx's Medication Instructions Recorded hydrocodone-acetaminophen [Sullivan] 1 tab PO Q6H PRN #10 tab 05/22/18 benzonatate [Tessalon Perles] 100 mg PO BID-TID PRN #14 cap 06/07/19 prednisone 40 mg PO DAILY 7 Days #14 tab 06/07/19 Allergies Allergy/AdvReac Type Severity Reaction Status Date / Time No Known Drug Allergies Allergy Verified 02/02/18 13:32 Review of Systems Constitutional Constitutional: Denies fever(s) Cardiovascular Cardiovascular: Denies chest pain Respiratory Respiratory: Reports cough and Reports wheezing Gastrointestinal Gastrointestinal: Denies abdominal pain Integumentary/Breasts Skin/Breast: Denies lesions and Denies rash Neurologic Neurologic: Denies behavioral changes Psychiatric Psychiatric: Denies behavioral changes Hematologic/Lymphatic Hematologic/Lymphatic: Denies easy bleeding and Denies easy bruising Allergic/Immunologic Allergic/Immunologic: Reports wheezing Patient History Medical History Hyperlipidemia (Acute) Hypertension (Acute) Social History Smoking Status: Current every day smoker Smoking Status: Current every day smoker tobacco type: cigarettes alcohol intake frequency: a few times a week Substance Use Type: does not use Exam Initial Vital Signs Initial Vital Signs: Vital Signs Temperature 97.9 F 06/07/19 08:33 Pulse Rate 94 H 06/07/19 08:33 Respiratory Rate 18 06/07/19 08:33 Blood Pressure 123/77 06/07/19 08:33 Pulse Oximetry 95 06/07/19 08:33 Const General: cooperative, comfortable and well developed Limitations: mental status not altered Resp Effort & Inspection: normal respiratory effort, no grunting and not labored Auscultation: wheezes Cardio Rate: regular rate Rhythm: regular rhythm Skin Lesions: no lesions Rashes: no rashes Neuro General: alert, awake and oriented x3 Cognition: normal cognition Speech: speech normal Extrem General: normal to inspection and capillary refill normal Course Orders Ordered: ED Orders 06/07/19 08:40 XR chest 1V Stat Vital Signs Vital signs: Vital Signs - 8 hr 06/07/19 08:33 Temperature 97.9 F Pulse Rate 94 H Respiratory Rate 18 Blood Pressure 123/77 Pulse Oximetry 95 [facility] - URI/Sore Throat Imaging Data Chest x-ray: Radiologist's Impression: [address] [address] XRay Report Signed Patient: Delvin Louis#: [id number] : 1965Acct:[id number] Age/Sex: 54 / MDate of Service: 06/07/19 Loc: ED Accession Number: [id number] Procedure: XR chest 1V Ordering Provider: Lul Barrios D.O. PROCEDURE: XR CHEST 1V INDICATIONS: Cough, smoker, eval for pneumonia TECHNIQUE: One view of the chest was acquired. COMPARISON: [facility], DEJA, XR CHEST 1V, 05/22/2018, 0:53. FINDINGS: Surgical changes and devices: None. Lungs and pleura: Lungs are clear. No pleural effusions or pneumothorax. Mediastinum: Mediastinal contours appear normal. Heart size is normal. Bones and chest wall: No suspicious bony lesions. Overlying soft tissues appear unremarkable. IMPRESSION: No acute process. Dictated by: Bobbi Gonzalez M.D. on 06/07/2019 at 7:53 Approved by: Bobbi Gonzalez M.D. on 06/07/2019 at 7:54 MDM Narrative Medical decision making narrative: Patient is afebrile, chest x-ray shows no signs of pneumonia, does have bilateral wheezing with right being greater than left. Not hypoxic, not tachypneic. Recently treated for bronchitis with antibiotics and steroids. I feel we can hold on antibiotics again. He has albuterol at home. Will send him a with more steroids. Also given Tessalon Perles. He was given return precautions and follow-up instructions. He expressed understanding and agreement plan. Discharge Plan Departure Patient Disposition: Home Clinical Impression: Bronchitis Instructions: DI for Acute Bronchitis Activity Restrictions/Additional Instructions: Continue with the albuterol inhaler. Take the other medications as directed. Contact your primary provider for follow-up. Return to the emergency department for any new or worsening symptoms Prescriptions: New benzonatate [Tessalon Perles] 100 mg capsule 100 mg PO BID-TID PRN (Reason: cough) Qty: 14 RF: 0 prednisone 20 mg tablet 40 mg PO DAILY 7 Days Qty: 14 RF: 0 No Action atorvastatin [Lipitor] 20 MG tablet 20 mg PO HS Qty: 30 RF: 0 hydrochlorothiazide 12.5 mg Capsule 25 mg PO DAILY Qty: 0 RF: 0 aspirin 81 MG tablet,chewable 81 mg PO QDAY Qty: 0 RF: 0 lisinopril 20 mg Tablet 20 mg PO DAILY RF: 0 omeprazole 20 mg Capsule,Delayed Release(Dr/Ec) 40 mg PO DAILY RF: 0 hydrocodone-acetaminophen [Sullivan] 5-325 mg tablet 1 tab PO Q6H PRN (Reason: pain) Qty: 10 RF: 0
== END 2019-06-07 09:15 | disposition home or self-care (01) ==
PROVIDERS: Emergency Provider Emergency Medicine
DX: J40 Bronchitis, not specified as acute or chronic (principal)
CPT/HCPCS: 71045; 99283

== ENCOUNTER 2019-06-22 05:47 | Emergency (ER) | payer OTHER, SELFPAY ==
[2019-06-22 05:48] VITALS: BP 138/81; PULSE 111; RESP 26; TEMP 36.6; O2SAT 93
--- NOTE | 2019-06-22 06:14 | ED_ITS ---
HPI - URI/Sore Throat General Chief Complaint: Upper Respiratory Symptoms Stated Complaint: coughing, body aches Time Seen by Provider: 06/22/19 05:48 Source: patient Mode of arrival: Ambulatory Limitations: no limitations History of Present Illness HPI Narrative: 54-year-old male smoker with history of COPD presents by himself and a chief complaint of persistent nasal congestion cough which is occasionally productive of sputum and wheezing for about 6 weeks. He has been seen 3 times now for similar circumstances and seems to do better on cough medications steroids and occasionally antibiotics. He has seen his primary care provider once for this but still has no resolution. He denies any chest pain nor significant shortness of breath. He does not have any fever or chills. He has had no nausea, vomiting or diarrhea. He states that is no worse today than has been at any point but he is tired of the persistent cough. He denies any hemoptysis, recent travel or history of clot. MD Complaint: cough and nasal congestion Onset (ago): week(s) Duration: constant Severity: moderate Relieving factors: nothing Exacerbating factors: nothing Description of mucous: yellow Able to tolerate fluids by mouth: Yes Associated symptoms: rhinorrhea, nasal congestion and cough Treatments prior to arrival: none Related Data Home Medications Medication Instructions Recorded Confirmed aspirin 81 mg PO QDAY #0 02/25/16 05/22/18 atorvastatin [Lipitor] 20 mg PO HS #30 tab 02/25/16 05/22/18 hydrochlorothiazide 25 mg PO DAILY #0 02/25/16 05/22/18 lisinopril 20 mg PO DAILY 05/22/18 05/22/18 omeprazole 40 mg PO DAILY 05/22/18 05/22/18 Previous Rx's Medication Instructions Recorded hydrocodone-acetaminophen [[place]] 1 tab PO Q6H PRN #10 tab 05/22/18 benzonatate [Tessalon Perles] 100 mg PO BID-TID PRN #14 cap 06/07/19 prednisone 40 mg PO DAILY 7 Days #14 tab 06/07/19 albuterol sulfate 2.5 mg INHALATION Q4-6H PRN #90 ml 06/22/19 benzonatate [Tessalon Perles] 100 mg PO TID PRN #14 cap 06/22/19 doxycycline monohydrate 100 mg PO BID 10 Days #20 cap 06/22/19 prednisone 20 mg PO DAILY #5 tab 06/22/19 Allergies Allergy/AdvReac Type Severity Reaction Status Date / Time No Known Drug Allergies Allergy Verified 02/02/18 13:32 Review of Systems Constitutional Constitutional: Denies chills, Denies fatigue, Denies fever(s), Denies frequent falls, Denies lethargy and Denies weakness Eyes Eyes: Denies change in vision, Denies eye discharge, Denies irritation and Denies loss of vision ENT Ears, Nose, Mouth, and Throat: Denies change in voice, Denies dizziness, Denies neck pain, Denies sore throat and Denies throat swelling Cardiovascular Cardiovascular: Denies chest pain, Denies irregular heart rhythm, Denies lightheadedness, Denies palpitations, Denies dyspnea, Denies dyspnea on exertion and Denies orthopnea Respiratory Respiratory: Reports cough, Denies dyspnea, Denies dyspnea on exertion and Reports wheezing Gastrointestinal Gastrointestinal: Denies abdominal pain, Denies change in bowel habits, Denies diarrhea, Denies nausea and Denies vomiting Genitourinary Genitourinary: Denies hematuria, Denies flank pain, Denies urinary incontinence and Denies urinary urgency Musculoskeletal Musculoskeletal: Denies back pain, Denies muscle weakness, Denies neck pain, Denies numbness and Denies tingling Integumentary/Breasts Skin/Breast: Denies pruritus, Denies erythema, Denies rash and Denies wounds Neurologic Neurologic: Denies behavioral changes, Denies confusion, Denies dizziness, Denies frequent falls, Denies loss of vision, Denies numbness, Denies tingling and Denies weakness Psychiatric Psychiatric: Denies anxiety, Denies behavioral changes, Denies confusion, Denies depression, Denies homicidal ideation and Denies suicidal ideation Endocrine Endocrine: Denies fatigue, Denies flushing and Denies palpitations Hematologic/Lymphatic Hematologic/Lymphatic: Denies easy bruising Allergic/Immunologic Allergic/Immunologic: Denies urticaria, Denies throat swelling and Reports wheezing Patient History Medical History Hyperlipidemia (Acute) Hypertension (Acute) Social History Smoking Status: Current every day smoker Smoking Status: Current every day smoker tobacco type: cigarettes alcohol intake frequency: a few times a week Substance Use Type: does not use Exam Narrative Exam Narrative: GENERAL: [54] year old patient appears stated age. Well- nourished, well-developed patient, in mild distress. HEAD: Atraumatic. Normocephalic. EYES: Pupils equal round and reactive. Extraocular motions intact. No scleral icterus. No injection or drainage. ENT: Nose without bleeding, purulent drainage. Throat without erythema, tonsillar hypertrophy or exudate. Airway patent. NECK: Trachea midline. Non tender CARDIOVASCULAR: Regular rate and rhythm without murmurs, gallops, or rubs. RESPIRATORY: Decreased breath sounds bilaterally with prolonged expiratory phase. Very faint mild crackles in the right base greater than left. GASTROINTESTINAL: Abdomen soft, non-tender, nondistended. EXTREMITIES: No edema or joint tenderness. BACK: Nontender without deformity or crepitance. No flank tenderness. NEURO: AOx3. SKIN: No rash or erythema of visible areas Initial Vital Signs Initial Vital Signs: Vital Signs Temperature 97.8 F 06/22/19 05:48 Pulse Rate 111 H 06/22/19 05:48 Respiratory Rate 26 H 06/22/19 05:48 Blood Pressure 138/81 06/22/19 05:48 Pulse Oximetry 93 06/22/19 05:48 Course Orders Ordered: ED Orders 06/22/19 06:25 XR chest 2V Stat Discontinued Medications Albuterol/Ipratropium (Duoneb) 3 ml INH NOW ONE Stop: 06/22/19 06:41 Last Admin: 06/22/19 06:52 Dose: 3 ml Documented by: SENAIT Doxycycline Hyclate (Vibramycin) 100 mg PO NOW ONE Stop: 06/22/19 06:26 Last Admin: 06/22/19 06:54 Dose: 100 mg Documented by: NILDA Prednisone (Deltasone) 40 mg PO NOW ONE Stop: 06/22/19 06:26 Last Admin: 06/22/19 06:54 Dose: 40 mg Documented by: NILDA Vital Signs Vital signs: Vital Signs - 8 hr 06/22/19 05:48 06/22/19 06:18 Temperature 97.8 F Pulse Rate 111 H 92 H Respiratory Rate 26 H Blood Pressure 138/81 Pulse Oximetry 93 Discharge Plan Departure Patient Disposition: Home Clinical Impression: Acute exacerbation of chronic obstructive pulmonary disease, Atypical pneumonia Instructions: DI for Atypical Pneumonia Activity Restrictions/Additional Instructions: *You have been diagnosed with [atypical pneumonia, exacerbation of COPD] *What to do: *Take medications as directed: Prescriptions have been electronically transmitted to [facility] in [place] *Follow up with your primary care provider in 2-3 days, call for an appointment. Let them know you were seen in the Emergency Department and that we ask that you be seen in follow up *Return to ER if you should have any new, worsening or concerning symptoms Prescriptions: New prednisone 20 mg tablet 20 mg PO DAILY Qty: 5 RF: 0 benzonatate [Tessalon Perles] 100 mg capsule 100 mg PO TID PRN (Reason: cough) Qty: 14 RF: 0 doxycycline monohydrate 100 mg capsule 100 mg PO BID 10 Days Qty: 20 RF: 0 albuterol sulfate 2.5 mg /3 mL (0.083 %) solution for nebulization 2.5 mg INHALATION Q4-6H PRN (Reason: shortness of breath or wheezing) Qty: 90 RF: 0 No Action atorvastatin [Lipitor] 20 MG tablet 20 mg PO HS Qty: 30 RF: 0 hydrochlorothiazide 12.5 mg Capsule 25 mg PO DAILY Qty: 0 RF: 0 aspirin 81 MG tablet,chewable 81 mg PO QDAY Qty: 0 RF: 0 lisinopril 20 mg Tablet 20 mg PO DAILY RF: 0 omeprazole 20 mg Capsule,Delayed Release(Dr/Ec) 40 mg PO DAILY RF: 0 hydrocodone-acetaminophen [[place]] 5-325 mg tablet 1 tab PO Q6H PRN (Reason: pain) Qty: 10 RF: 0 benzonatate [Tessalon Perles] 100 mg capsule 100 mg PO BID-TID PRN (Reason: cough) Qty: 14 RF: 0 prednisone 20 mg tablet 40 mg PO DAILY 7 Days Qty: 14 RF: 0
[2019-06-22 06:18] VITALS: PULSE 92
--- NOTE | 2019-06-22 06:25 | DI.RAD.S_ITS ---
PROCEDURE: XR CHEST 2V INDICATIONS: persistent cough TECHNIQUE: 2 views of the chest were acquired. COMPARISON: [facility], CR, XR CHEST 1V, 06/07/2019, 8:42. FINDINGS: Surgical changes and devices: None. Lungs and pleura: Lungs are clear. No pleural effusions or pneumothorax. Mediastinum: Mediastinal contours are normal. Heart size is normal. Bones and chest wall: Multiple old right anterior fractures are noted. No suspicious bony abnormalities. Soft tissues appear unremarkable. IMPRESSION: No acute cardiopulmonary disease. Dictated by: Kamar Abdalla M.D. on 06/22/2019 at 9:55 Approved by: Kamar Abdalla M.D. on 06/22/2019 at 9:55
[2019-06-22 06:52] VITALS: RESP 18
[2019-06-22] MEDS: ALBUTEROL/IPRATROPIUM 3 ML AMPUL INH (06:52)
[2019-06-22] MEDS: predniSONE 20 MG TABLET 40 MG PO (06:54)
[2019-06-22] MEDS: DOXYCYCLINE HYCLATE 100 MG TABLET PO (06:54)
[2019-06-22 07:15] VITALS: BP 129/77; PULSE 88; RESP 18; TEMP 36.7; O2SAT 96
== END 2019-06-22 07:15 | disposition home or self-care (01) ==
LOC: ED 06:38
PROVIDERS: Emergency Provider Emergency Medicine
DX: J44.1 Chronic obstructive pulmonary disease with (acute) exacerbation (principal); J18.9 Pneumonia, unspecified organism; F17.200 Nicotine dependence, unspecified, uncomplicated
CPT/HCPCS: 71046; 94640; 99283

== ENCOUNTER 2019-07-08 22:44 | Inpatient (IN) | payer OTHER, SELFPAY ==
[2019-07-08 22:54] VITALS: BP 118/78; PULSE 60; RESP 30; TEMP 36.6; O2SAT 98
--- NOTE | 2019-07-08 22:54 | DI.RAD.S_ITS ---
PROCEDURE: XR CHEST 2V INDICATIONS: Shortness of breath, cough for 9 weeks TECHNIQUE: 2 views of the chest were acquired. COMPARISON: [facility], CR, XR CHEST 2V, 06/22/2019, 6:23. FINDINGS: Surgical changes and devices: None. Lungs and pleura: Lungs are clear. No pleural effusions or pneumothorax. Mediastinum: Mediastinal contours are normal. Heart size is normal. Bones and chest wall: No suspicious bony abnormalities. Soft tissues appear unremarkable. IMPRESSION: No acute cardiopulmonary disease process. Dictated by: Ivy Iniguez MD, PhD on 07/09/2019 at 8:19 Approved by: Ivy Iniguez MD, PhD on 07/09/2019 at 8:20
[2019-07-08 23:02] VITALS: PULSE 111; RESP 26; O2SAT 90
[2019-07-08] MEDS: ALBUTEROL/IPRATROPIUM 3 ML AMPUL INH (23:02)
--- NOTE | 2019-07-08 23:17 | ED_ITS ---
HPI - SOB/Dyspnea General Chief Complaint: Shortness of Breath/Dyspnea Stated Complaint: cough, pain Time Seen by Provider: 07/08/19 22:45 Source: patient Mode of arrival: Ambulatory Limitations: no limitations History of Present Illness HPI Narrative: 54-year-old male daily smoker with a history of hypertension and hyperlipidemia presents with ongoing difficulty breathing and a harsh cough with worsening shortness of breath. He denies any headache, runny nose or sore throat. He denies any fever. He has had no nausea or vomiting. He denies any chest pain. He has had upwards of 7 visits to emergency departments and [facility] since early May and [place] does not know the results. He has been on multiple courses of antibiotics and steroids without any resolution or even improvement of symptoms MD Complaint: cough Related Data Home Medications Medication Instructions Recorded Confirmed aspirin 81 mg PO QDAY #0 02/25/16 05/22/18 atorvastatin [Lipitor] 20 mg PO HS #30 tab 02/25/16 05/22/18 hydrochlorothiazide 25 mg PO DAILY #0 02/25/16 05/22/18 lisinopril 20 mg PO DAILY 05/22/18 05/22/18 omeprazole 40 mg PO DAILY 05/22/18 05/22/18 Previous Rx's Medication Instructions Recorded hydrocodone-acetaminophen [[place]] 1 tab PO Q6H PRN #10 tab 05/22/18 benzonatate [Tessalon Perles] 100 mg PO BID-TID PRN #14 cap 06/07/19 albuterol sulfate 2.5 mg INHALATION Q4-6H PRN #90 ml 06/22/19 benzonatate [Tessalon Perles] 100 mg PO TID PRN #14 cap 06/22/19 doxycycline monohydrate 100 mg PO BID 10 Days #20 cap 06/22/19 prednisone 20 mg PO DAILY #5 tab 06/22/19 Allergies Allergy/AdvReac Type Severity Reaction Status Date / Time No Known Drug Allergies Allergy Verified 02/02/18 13:32 Review of Systems Constitutional Constitutional: Denies chills, Denies fatigue, Denies fever(s), Denies frequent falls, Denies lethargy and Reports weakness Eyes Eyes: Denies change in vision, Denies eye discharge, Denies irritation and Den ies loss of vision ENT Ears, Nose, Mouth, and Throat: Denies change in voice, Denies dizziness, Denies neck pain, Denies sore throat and Denies throat swelling Cardiovascular Cardiovascular: Denies chest pain, Denies irregular heart rhythm, Denies lightheadedness, Denies palpitations, Reports dyspnea, Denies dyspnea on exert ion and Denies orthopnea Respiratory Respiratory: Reports cough, Reports dyspnea, Denies dyspnea on exertion and Reports wheezing Gastrointestinal Gastrointestinal: Denies abdominal pain, Denies change in bowel habits, Denies diarrhea, Denies nausea and Denies vomiting Genitourinary Genitourinary: Denies hematuria, Denies flank pain, Denies urinary incontinence and Denies urinary urgency Musculoskeletal Musculoskeletal: Denies back pain, Denies muscle weakness, Denies neck pain, Denies numbness and Denies tingling Integumentary/Breasts Skin/Breast: Denies pruritus, Denies erythema, Denies rash and Denies wounds Neurologic Neurologic: Denies behavioral changes, Denies confusion, Denies dizziness, Denies frequent falls, Denies loss of vision, Denies numbness, Denies tingling and Reports weakness Psychiatric Psychiatric: Denies anxiety, Denies behavioral changes, Denies confusion, Denies depression, Denies homicidal ideation and Denies suicidal ideation Endocrine Endocrine: Denies fatigue, Denies flushing and Denies palpitations Hematologic/Lymphatic Hematologic/Lymphatic: Denies easy bruising Allergic/Immunologic Allergic/Immunologic: Denies urticaria, Denies throat swelling and Reports wheezing Patient History Medical History Hyperlipidemia (Acute) Hypertension (Acute) Social History household members: significant other Smoking Status: Current every day smoker alcohol intake: current Smoking Status: Current every day smoker tobacco type: cigarettes alcohol intake frequency: a few times a week Substance Use Type: does not use Exam Narrative Exam Narrative: GENERAL: [54] year old patient appears stated age. Well- nourished, well-developed patient, in moderate distress with increased work of breathing and use of accessory muscles HEAD: Atraumatic. Normocephalic. EYES: Pupils equal round and reactive. Extraocular motions intact. No scleral icterus. No injection or drainage. ENT: Nose without bleeding, purulent drainage. Throat without erythema, tonsillar hypertrophy or exudate. Airway patent. NECK: Trachea midline. Non tender CARDIOVASCULAR: Regular rate and rhythm without murmurs, gallops, or rubs. RESPIRATORY: Decreased breath sounds bilaterally with prolonged expiratory phase and wheeze noted on left greater than right, crackles on the right GASTROINTESTINAL: Abdomen soft, non-tender, nondistended. EXTREMITIES: No edema or joint tenderness. BACK: Nontender without deformity or crepitance. No flank tenderness. NEURO: AOx3. SKIN: No rash or erythema of visible areas Initial Vital Signs Initial Vital Signs: Vital Signs Temperature 97.9 F 07/08/19 22:54 Pulse Rate 60 07/08/19 22:54 Respiratory Rate 30 H 07/08/19 22:54 Blood Pressure 118/78 07/08/19 22:54 Pulse Oximetry 98 07/08/19 22:54 Scores CURB-65 Confusion: No BUN >19mg/dL (>7mmol/L): No Respiratory rate greater or equal to 30: Yes SBP <90mmHg or DBP less or equal to 60mmHg: No Age 65 or Older: No CURB-65 Total: 1 Score 0-1 Outpatient care, Score 2 Inpt vs. Obs, Score 3 or over Inpt admit with ICU for score of 4-5 Citation:: PSI/PORT Score: Pneumonia Severity Index for CAP from Swarm on 07/09/2019 All calculations should be rechecked by clinician prior to use RESULT SUMMARY: 75 points Risk Class III, 0.9-2.8% mortality. Outpatient or inpatient treatment, depending on clinical judgment. INPUTS: Age ?> 54 years Sex ?> 0 = Male group home resident ?> 0 = No Neoplastic disease ?> 0 = No Liver disease history ?> 0 = No CHF history ?> 0 = No Cerebrovascular disease history ?> 0 = No Renal disease history ?> 0 = No Altered mental status ?> 0 = No Respiratory rate ?30 breaths/min ?> 20 = Yes Systolic blood pressure ?> 0 = No Temperature 39.9?C (103.8?F) ?> 0 = No Pulse ?125 beats/min ?> 0 = No pH ?> 0 = No BUN ?30 mg/dL or ?11 mmol/L ?> 0 = No Sodium ?> 0 = No Glucose ?250 mg/dL or ?14 mmol/L ?> 0 = No Hematocrit ?> 0 = No Partial pressure of oxygen ?> 0 = No Pleural effusion on x-ray ?> 0 = No Course Course Course Narrative: Patient with increased work of breathing and chest x-ray demonstrating pneumonia require supplemental oxygen to remain in the 90s. On room air he had dips into the mid to upper 80s. Patient is flu negative. For respiratory swab ordered. Though patient has not traveled or been exposed to any persons of interest for COVID-19, due to the severity of this patient's lower respiratory symptoms placed a call to Dr. Sachin Arnold whom does recommend I speak with [facility] regarding testing for COVID. After a 2 hour wait, we called back and still no answer at [facility]. Case revisited with Dr. Arnold whom states to admit patient on droplet precautions, obtain nasopharyngeal and oropharyngeal specimens and send to lab. We will continue to pursue input from [facility]. Patient has received about 1L fluids between various meds and saline. Orders Ordered: ED Orders 07/08/19 22:54 XR chest 2V Stat EKG-12 Lead Stat 07/08/19 23:25 Basic Metabolic Panel Stat Complete Blood Count AUTO DIFF Stat D Dimer Stat Influenza A & B (PCR) Stat NT-proBNP (BNP-Adult 18+) Stat Partial Thromboplastin Time Stat Procalcitonin Stat Prothrombin Time INR Stat Troponin & CK Cardiac Panel Stat 07/08/19 23:50 Lactate (Lactic Acid) Stat 07/08/19 23:52 Arterial Blood Gas Stat 07/08/19 23:55 Blood Culture Stat 07/09/19 00:27 Respiratory Panel (Film Array) Stat Sodium Chloride (Normal Saline 0.9%) 1,000 mls @ 125 mls/hr IV CONT MEG Last Infusion: 07/09/19 03:15 Dose: 0 mls/hr Documented by: Admin: 07/08/19 23:28 Dose: 125 mls/hr Documented by: MERCEDES Discontinued Medications Albuterol (Ventolin) 5 mg INH NOW ONE Stop: 07/08/19 23:59 Last Admin: 07/08/19 23:59 Dose: 5 mg Documented by: ALEJANDRO Albuterol/Ipratropium (Duoneb) 3 ml INH NOW ONE Stop: 07/08/19 22:53 Last Admin: 07/08/19 23:02 Dose: 3 ml Documented by: ALEJANDRO Ceftriaxone Sodium/Dextrose (Rocephin) 1 gm in 50 mls @ 100 mls/hr IV NOW ONE Stop: 07/08/19 23:47 Last Infusion: 07/09/19 00:29 Dose: 0 mls/hr Documented by: Admin: 07/08/19 23:31 Dose: 100 mls/hr Documented by: MERCEDES Azithromycin 500 mg/ Dextrose 250 mls @ 250 mls/hr IV NOW ONE Stop: 07/08/19 23:19 Last Infusion: 07/09/19 03:16 Dose: 0 mls/hr Documented by: Admin: 07/09/19 02:06 Dose: 250 mls/hr Documented by: GRECIA Magnesium Sulfate (Magnesium Sulfate) 2 gm in 50 mls @ 25 mls/hr IV NOW ONE Stop: 07/09/19 01:27 Last Infusion: 07/09/19 02:50 Dose: 0 mls/hr Documented by: GRECIA Cosigned by: [email or web address] Admin: 07/09/19 00:48 Dose: 25 mls/hr Documented by: MERCEDES Cosigned by: GRECIA Methylprednisolone (Solu-Medrol 125 Mg Vial) 125 mg IV NOW ONE Stop: 07/08/19 22:53 Last Admin: 07/08/19 23:27 Dose: 125 mg Documented by: MERCEDES Vital Signs Vital signs: Vital Signs - 8 hr 07/08/19 22:54 07/08/19 23:02 07/08/19 23:55 Temperature 97.9 F Pulse Rate 60 111 H 85 Respiratory Rate 30 H 26 H 22 Blood Pressure 118/78 Blood Pressure [Left Arm] 131/72 Pulse Oximetry 98 90 L 92 07/08/19 23:59 07/09/19 01:35 07/09/19 02:34 Temperature Pulse Rate 80 80 76 Respiratory Rate 24 24 24 Blood Pressure Blood Pressure [Left Arm] 136/77 139/88 Pulse Oximetry 92 95 95 MDM - SOB/Dyspnea Lab Data Result diagrams: 07/08/19 23:25 07/08/19 23:25 Labs: Lab Results 07/08/19 07/08/19 07/08/19 Range/Units 23:25 23:25 23:25 WBC 9.6 (4.5-11.0) X10^3/uL RBC 4.61 (4.5-5.9) X10^6/uL Hgb 14.6 (13.5-17.5) g/dL Hct 41.7 (41-53) % MCV 90.4 (80-100) fL MCH 31.6 (26-34) PG MCHC 35.0 (30-36) % RDW 12.7 (11.6-14.8) % Plt Count 278 (150-400) X10^3/uL Neut % (Auto) 56.4 (50-75) % Lymph % (Auto) 18.6 L (25-40) % [place] % (Auto) 8.3 (3-14) % Eos % (Auto) 15.8 H (2-4) % Baso % (Auto) 0.9 (0-2) % Neut # (Auto) 5400 (6038-7721) /uL Lymph # (Auto) 1800 (0087-8482) /uL [place] # (Auto) 800 (0-900) /uL Eos # (Auto) 1500 H (0-450) /uL Baso # (Auto) 100 (0-100) /uL PT 11.3 (10.1-12.7) SECONDS INR 1.0 (0.9-1.3) APTT 32 (26.4-36.2) SECONDS D-Dimer (<230) ng/mL ABG pH (7.35-7.45) ABG pCO2 (35-45) mmHg ABG pO2 (80-100) mmHg ABG HCO3 (22-26) mmol/L ABG Total CO2 (21-31) mmol/L ABG O2 Saturation (95-100) % ABG Base Excess (-2-2) mmol/L FiO2 Sodium 135 L (137-145) mmol/L Potassium 4.4 (3.4-5.1) mmol/L Chloride 100 (98-107) mmol/L Carbon Dioxide 25 (22-32) mmol/L BUN 10 (9-20) mg/dL Creatinine 0.80 (0.66-1.25) mg/dL Estimated GFR > 60.0 (>60) mL/min BUN/Creatinine Ratio 12.5 (6-22) Glucose 120 H (70-100) mg/dL Lactate (0.7-2.1) mmol/L Calcium 9.9 (8.4-10.2) mg/dL Total Creatine Kinase 91 (55-170) U/L CK-MB (CK-2) TNP CK-MB (CK-2) Rel Index TNP Troponin I < 0.012 (0.01-0.034) ng/mL NT-Pro-B Natriuret Pep 26 (<125) pg/mL Procalcitonin (<0.5) ng/mL Chlamy pneumoniae PCR (Not Detect) Adenovirus (PCR) (Not Detect) B.parapertussis DNA PCR (Not Detect) Coronavirus OC43 (PCR) (Not Detect) Coronavirus HKU1 (PCR) (Not Detect) Coronavirus 229E (PCR) (Not Detect) Coronavirus NL63 (PCR) (Not Detect) Human Metapneumovir PCR (Not Detect) Influenza A (RT-PCR) (NEGATIVE) Influenza Type A (PCR) (Not Detect) Influenza B (RT-PCR) (NEGATIVE) Influenza Type B (PCR) (Not Detect) M. pneumoniae (PCR) (Not Detect) Parainfluenza 1 (PCR) (Not Detect) Parainfluenza 2 (PCR) (Not Detect) Parainfluenza 3 (PCR) (Not Detect) Parainfluenza 4 (PCR) (Not Detect) RSV (PCR) (Not Detect) Entero/Rhino (PCR) (Not Detect) 07/08/19 07/08/19 07/08/19 Range/Units 23:25 23:25 23:25 WBC (4.5-11.0) X10^3/uL RBC (4.5-5.9) X10^6/uL Hgb (13.5-17.5) g/dL Hct (41-53) % MCV (80-100) fL MCH (26-34) PG MCHC (30-36) % RDW (11.6-14.8) % Plt Count (150-400) X10^3/uL Neut % (Auto) (50-75) % Lymph % (Auto) (25-40) % [place] % (Auto) (3-14) % Eos % (Auto) (2-4) % Baso % (Auto) (0-2) % Neut # (Auto) (9905-1404) /uL Lymph # (Auto) (0670-7177) /uL [place] # (Auto) (0-900) /uL Eos # (Auto) (0-450) /uL Baso # (Auto) (0-100) /uL PT (10.1-12.7) SECONDS INR (0.9-1.3) APTT (26.4-36.2) SECONDS D-Dimer < 200 (<230) ng/mL ABG pH (7.35-7.45) ABG pCO2 (35-45) mmHg ABG pO2 (80-100) mmHg ABG HCO3 (22-26) mmol/L ABG Total CO2 (21-31) mmol/L ABG O2 Saturation (95-100) % ABG Base Excess (-2-2) mmol/L FiO2 Sodium (137-145) mmol/L Potassium (3.4-5.1) mmol/L Chloride (98-107) mmol/L Carbon Dioxide (22-32) mmol/L BUN (9-20) mg/dL Creatinine (0.66-1.25) mg/dL Estimated GFR (>60) mL/min BUN/Creatinine Ratio (6-22) Glucose (70-100) mg/dL Lactate (0.7-2.1) mmol/L Calcium (8.4-10.2) mg/dL Total Creatine Kinase (55-170) U/L CK-MB (CK-2) CK-MB (CK-2) Rel Index Troponin I (0.01-0.034) ng/mL NT-Pro-B Natriuret Pep (<125) pg/mL Procalcitonin < 0.05 (<0.5) ng/mL Chlamy pneumoniae PCR (Not Detect) Adenovirus (PCR) (Not Detect) B.parapertussis DNA PCR (Not Detect) Coronavirus OC43 (PCR) (Not Detect) Coronavirus HKU1 (PCR) (Not Detect) Coronavirus 229E (PCR) (Not Detect) Coronavirus NL63 (PCR) (Not Detect) Human Metapneumovir PCR (Not Detect) Influenza A (RT-PCR) Flu a negative (NEGATIVE) Influenza Type A (PCR) (Not Detect) Influenza B (RT-PCR) Flu b negative (NEGATIVE) Influenza Type B (PCR) (Not Detect) M. pneumoniae (PCR) (Not Detect) Parainfluenza 1 (PCR) (Not Detect) Parainfluenza 2 (PCR) (Not Detect) Parainfluenza 3 (PCR) (Not Detect) Parainfluenza 4 (PCR) (Not Detect) RSV (PCR) (Not Detect) Entero/Rhino (PCR) (Not Detect) 07/08/19 07/08/19 07/08/19 Range/Units 23:25 23:50 23:52 WBC (4.5-11.0) X10^3/uL RBC (4.5-5.9) X10^6/uL Hgb (13.5-17.5) g/dL Hct (41-53) % MCV (80-100) fL MCH (26-34) PG MCHC (30-36) % RDW (11.6-14.8) % Plt Count (150-400) X10^3/uL Neut % (Auto) (50-75) % Lymph % (Auto) (25-40) % [place] % (Auto) (3-14) % Eos % (Auto) (2-4) % Baso % (Auto) (0-2) % Neut # (Auto) (6747-8444) /uL Lymph # (Auto) (8611-3027) /uL [place] # (Auto) (0-900) /uL Eos # (Auto) (0-450) /uL Baso # (Auto) (0-100) /uL PT (10.1-12.7) SECONDS INR (0.9-1.3) APTT (26.4-36.2) SECONDS D-Dimer (<230) ng/mL ABG pH 7.39 (7.35-7.45) ABG pCO2 35.9 (35-45) mmHg ABG pO2 64 L (80-100) mmHg ABG HCO3 22 (22-26) mmol/L ABG Total CO2 23 (21-31) mmol/L ABG O2 Saturation 92 L (95-100) % ABG Base Excess -4.0 L (-2-2) mmol/L FiO2 21 Sodium (137-145) mmol/L Potassium (3.4-5.1) mmol/L Chloride (98-107) mmol/L Carbon Dioxide (22-32) mmol/L BUN (9-20) mg/dL Creatinine (0.66-1.25) mg/dL Estimated GFR (>60) mL/min BUN/Creatinine Ratio (6-22) Glucose (70-100) mg/dL Lactate 0.8 (0.7-2.1) mmol/L Calcium (8.4-10.2) mg/dL Total Creatine Kinase (55-170) U/L CK-MB (CK-2) CK-MB (CK-2) Rel Index Troponin I (0.01-0.034) ng/mL NT-Pro-B Natriuret Pep (<125) pg/mL Procalcitonin (<0.5) ng/mL Chlamy pneumoniae PCR Not detected (Not Detect) Adenovirus (PCR) Not detected (Not Detect) B.parapertussis DNA PCR Not detected (Not Detect) Coronavirus OC43 (PCR) Not detected (Not Detect) Coronavirus HKU1 (PCR) Not detected (Not Detect) Coronavirus 229E (PCR) Not detected (Not Detect) Coronavirus NL63 (PCR) Not detected (Not Detect) Human Metapneumovir PCR Not detected (Not Detect) Influenza A (RT-PCR) (NEGATIVE) Influenza Type A (PCR) Not detected (Not Detect) Influenza B (RT-PCR) (NEGATIVE) Influenza Type B (PCR) Not detected (Not Detect) M. pneumoniae (PCR) Not detected (Not Detect) Parainfluenza 1 (PCR) Not detected (Not Detect) Parainfluenza 2 (PCR) Not detected (Not Detect) Parainfluenza 3 (PCR) Not detected (Not Detect) Parainfluenza 4 (PCR) Not detected (Not Detect) RSV (PCR) Not detected (Not Detect) Entero/Rhino (PCR) Not detected (Not Detect) Imaging Data Chest x-ray: Attestation: I personally reviewed and interpreted this imaging study as follows: My Impression: RML airspace disease Discharge Plan Departure Patient Disposition: Admitted As Inpatient Clinical Impression: Pneumonia Qualifiers: Pneumonia type: due to unspecified organism Laterality: right Lung location: middle lobe of lung Qualified Code(s): J18.9 - Pneumonia, unspecified organism Respiratory failure with hypoxia Qualifiers: Chronicity: acute Qualified Code(s): J96.01 - Acute respiratory failure with hypoxia Discharge Date/Time: 07/09/19 03:43 Admit Date/Time: 07/09/19 03:09 Admit Provider: Katerin Diane
[2019-07-08] MEDS: methylPREDNISolone 125 MG/2 ML VIAL IV (23:27)
[2019-07-08] MEDS: SODIUM CHLORIDE 0.9% 1,000 ML 125 ML IV (23:28)
[2019-07-08] MEDS: CEFTRIAXONE 1 GM/50 ML FROZ.PIGGY IV (23:31)
[2019-07-08 23:41] LABS: Prothrombin Time 11.3 SECONDS (10.1-12.7)
[2019-07-08 23:44] LABS: PTT Partial Thromboplastin Tim 32 SECONDS (26.4-36.2)
[2019-07-08 23:47] LABS: BUN Creatinine Ratio 12.5 (6-22); Blood Urea Nitrogen 10 mg/dL (9-20); Calcium 9.9 mg/dL (8.4-10.2); Carbon Dioxide 25 mmol/L (22-32); Chloride 100 mmol/L (98-107); Creatine Kinase 91 U/L (55-170); Estimated Glomerular Filt Rate > 60.0 mL/min (>60); Glucose 120 mg/dL (70-100); HEMOLYSIS < 15 (0-50); Potassium 4.4 mmol/L (3.4-5.1); Sodium 135 mmol/L (137-145)
[2019-07-08 23:49] LABS: Add Manual Diff / Slide Review NO; Basophils Absolute Auto 100 /uL (0-100); Basophils Percent Auto 0.9 % (0-2); Eosinophils Absolute Auto 1500 /uL (0-450); Eosinophils Percent Auto 15.8 % (2-4); Hematocrit 41.7 % (41-53); Hemoglobin 14.6 g/dL (13.5-17.5); Lymphocytes Absolute Auto 1800 /uL (1100-4500); Lymphocytes Percent Auto 18.6 % (25-40); Mean Corpuscular Hemoglobin 31.6 PG (26-34); Mean Corpuscular Volume 90.4 fL (80-100); Monocytes Absolute Auto 800 /uL (0-900); Monocytes Percent Auto 8.3 % (3-14); Neutrophils Absolute Auto 5400 /uL (1500-7000); Neutrophils Percent Auto 56.4 % (50-75); Platelet Count 278 X10^3/uL (150-400); Red Blood Cell Count 4.61 X10^6/uL (4.5-5.9); Red Cell Distribution Width 12.7 % (11.6-14.8); White Blood Cell Count 9.6 X10^3/uL (4.5-11.0)
[2019-07-08 23:55] VITALS: BP 131/72; PULSE 85; RESP 22; O2SAT 92
[2019-07-08 23:59] VITALS: PULSE 80; RESP 24; O2SAT 92
[2019-07-08 23:59] LABS: NT-proBNP (BNP-Adult 18+) 26 pg/mL (<125); Troponin I < 0.012 ng/mL (0.01-0.034)
[2019-07-08] MEDS: ALBUTEROL 2.5 MG/3 ML NEB (ADULT) 5 MG INH (23:59)
[2019-07-09] VITALS (12 sets, daily range): BP systolic 128–150; BP diastolic 69–88; PULSE 76–98; RESP 18–24; TEMP 36.4–36.7; O2SAT 91–98; BMI 29.9
[2019-07-09 00:04] LABS: Procalcitonin < 0.05 ng/mL (<0.5)
[2019-07-09 00:05] LABS: D Dimer < 200 ng/mL (<230)
[2019-07-09 00:06] LABS: Fractionated Inspired Oxygen 21; HCO3 ABG 22 mmol/L (22-26); Oxygen Saturation ABG 92 % (95-100); PCO2 ABG 35.9 mmHg (35-45); PO2 ABG 64 mmHg (80-100); TCO2 ABG 23 mmol/L (21-31); pH ABG 7.39 (7.35-7.45)
[2019-07-09 00:16] LABS: Influenza A - CEPHEID Flu A NEGATIVE (NEGATIVE); Influenza B - CEPHEID Flu B NEGATIVE (NEGATIVE)
[2019-07-09 00:21] LABS: Lactate (Lactic Acid) 0.8 mmol/L (0.7-2.1)
[2019-07-09] MEDS: MAGNESIUM SULFATE 2 GM/50 ML PIGGYBACK IV (00:48)
[2019-07-09] MEDS: AZITHROMYCIN 500 MG in DEXTROSE 5% IN WATER 250 ML IV ×2 (02:06→22:24)
--- NOTE | 2019-07-09 03:43 | PC.NURSE ---
Per infection control,droplet precautions maintained while I cared for him in ED and when transported to room 230.
[2019-07-09 04:05] LABS: Adenovirus Not Detected (Not Detect); Bordetella pertussis Not Detected (Not Detect); Chlamydophila pneumoniae Not Detected (Not Detect); Coronavirus 229E Not Detected (Not Detect); Coronavirus HKU1 Not Detected (Not Detect); Coronavirus NL 63 Not Detected (Not Detect); Coronavirus OC43 Not Detected (Not Detect); Human Metapneumovirus Not Detected (Not Detect); Human Rhinovirus/Enterovirus Not Detected (Not Detect); Influenza A Not Detected (Not Detect); Influenza B Not Detected (Not Detect); Mycoplasma pneumoniae Not Detected (Not Detect); Parainfluenza Virus 1 Not Detected (Not Detect); Parainfluenza Virus 2 Not Detected (Not Detect); Parainfluenza Virus 3 Not Detected (Not Detect); Parainfluenza Virus 4 Not Detected (Not Detect); Respiratory Syncytial Virus Not Detected (Not Detect)
[2019-07-09] MEDS: SODIUM CHLORIDE 0.9% 1,000 ML 125 ML IV (06:20)
--- NOTE | 2019-07-09 07:35 | PC.ADMIT ---
[email or web address] [facility] Admission Note: The patient,Delvin Louis,54 y/o, was given written information regarding hospital policies, unit procedures and contact persons. Patient's smoking status: Current every day smoker. Vital Signs - 8 hr 07/08/19 23:55 07/08/19 23:59 07/09/19 01:35 Temperature Pulse Rate 85 80 80 Respiratory Rate 22 24 24 Blood Pressure Blood Pressure [Left Arm] 131/72 136/77 Pulse Oximetry 92 92 95 07/09/19 02:34 07/09/19 03:20 07/09/19 04:39 Temperature 97.8 F Pulse Rate 76 92 H 98 H Respiratory Rate 24 22 24 Blood Pressure 150/84 H Blood Pressure [Left Arm] 139/88 139/88 Pulse Oximetry 95 96 98 Admit Note-Patient admitted to room 230 at 0335-A/Ox4, short of breath with exertion. Placed on 2L NC, SpO2 90-94%, brief apnea noted while asleep, says he does have a C-pap but hasn't used it in a few months Lung sounds have end expiratory rhonchi/wheezes. Patient placed in Droplet Precautions per ED RN who gave report.
[2019-07-09] MEDS: ALBUTEROL/IPRATROPIUM 3 ML AMPUL INH ×3 (08:44→19:06)
--- NOTE | 2019-07-09 09:24 | RT ---
PT IS CURRENTLY IN [facility] PRECAUTIONS.
--- NOTE | 2019-07-09 09:34 | DI.ECHO.S_ITS ---
[facility] +---------+ [facility] +---------+ : : [address] [place] : : : : [id number] : : : : Phone: [phone]+ Echocardiogram Report + + :Name: BRADEN AGUILAR Study Date: 07/10/2019 Height: 72 in : :[facility] Weight: 220 lb : : Gender: Male BSA: 2.2 m2 : :: 1965 Age: 54 yrs BP: 135/89 mmHg: :Reason For Study: BUI : : Performed By: Melvin Campbell : :Referring: RED MARTIN : + + Interpretation Summary The ejection fraction is estimated to be 60-65%. There is no significant valvular heart disease. Procedure: A two-dimensional transthoracic echocardiogram with color flow and Doppler was performed. The study quality was technically difficult. There is no prior echocardiogram noted for this patient. A contrast injection of Definity was performed to improve assessment of LV function. The patient was in normal sinus rhythm during the exam. Left Ventricle: The left ventricle is normal in size. There is normal left ventricular wall thickness. The ejection fraction is estimated to be 60-65%. There are no focal wall motion abnormalities. Right Ventricle: The right ventricle is normal in size and function. Atria: Both atria are normal in size. The interatrial septum is intact with no evidence for an atrial septal defect. Mitral Valve: The mitral valve is normal in structure and function. There is trace mitral regurgitation. Aortic Valve: The aortic valve is trileaflet. The aortic valve opens well. There is trace aortic regurgitation. Tricuspid Valve: The tricuspid valve is normal in structure and function. No tricuspid regurgitation. Pulmonary artery pressures cannot be estimated because of the lack of a measurable TR jet velocity. Pulmonic Valve: The pulmonic valve is normal in structure and function. There is trace pulmonic regurgitation. Great Vessels: The aortic root is normal size. The dimensions of the ascending aorta are normal. The pulmonary artery is normal size. The IVC is of normal diameter and collapses greater than 50% with a sniff. This suggests a low right atrial pressure of 3 mm Hg. Pericardium/ Pleura There is no pericardial effusion. There is no pleural effusion. MMode/2D Measurements & Calculations LVIDd: 4.7 cm LVOT diam: 2.1 cm LVIDs: 3.1 cm Ao root diam: 3.6 cm FS: 34.3 % Aortic Jxn: 2.6 cm EPSS: 0.78 cm asc Aorta Diam: 2.9 cm IVSd: 0.84 cm LVPWd: 0.96 cm LV vázquez. diameter/BSA (cm/m^2): 2.1 LV sys. diameter/BSA (cm/m^2): 1.4 LA dimension: 3.6 cm RA long axis: 4.1 cm LA A2 area: 23.2 cm2 RA area: 13.3 cm2 LA A4 area: 13.8 cm2 RA vol: 36.6 ml LA length (vol): 4.5 cm RA : 16.5 ml/m2 LA vol: 60.6 ml IVC diam: 1.9 cm LA vol index: 27.3 ml/m2 Doppler Measurements & Calculations Ao V2 max: 140.5 cm/sec LVOT Max Hung: 135.4 cm/sec Ao V2 mean: 105.1 cm/sec LV V1 max P.3 mmHg Ao max P.9 mmHg LV V1 VTI: 25.9 cm Ao mean P.8 mmHg JOSE LUIS(I,D): 3.2 cm2 Ao V2 VTI: 28.6 cm JOSE LUIS(V,D): 3.4 cm2 sev ratio: 0.90 JOSE LUIS indexed to BSA (cm^2/m^2): 1.4 MV E max hung: 78.8 cm/sec PA V2 max: 78.1 cm/sec MV A max hung: 68.6 cm/sec PA V2 mean: 55.3 cm/sec MV E/A: 1.1 PA mean P.4 mmHg Med Peak E' Hung: 6.8 cm/sec PA pr(Accel): 26.1 mmHg E/E' med: 11.5 Lat Peak E' Hung: 8.3 cm/sec E/E' lat: 9.5 E/e' average: 10.5 MV dec time: 0.19 sec SV(LVOT): 91.5 ml Reading Physician:12:34 PM
--- NOTE | 2019-07-09 09:35 | P.HP_ITS ---
History of Present Illness History of Present Illness Date Patient Seen: 07/09/19 Time Patient Seen: 09:35 Chief complaint: cough, pain Narrative: Delvin Louis is a 54 year old male with PMH of HTN and HLD who presented to the emergency room with shortness of breath and cough. Patient has been experiencing in dyspnea on exertion intermittently over the past 9 weeks. He has periods where he is completely asymptomatic, but recently he has been getting worse especially over the past 2-3 days with exertion limited to about 15 ft before he gets short of breath. He has been to multiple emergency rooms and clinics for evaluation, including the [facility] yesterday where he had a CT scan done. He has received multiple antibiotics, inhalers, and steroids without much effect in the outpatient setting. 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 He denies any occupational exposures. He denies any fevers. He does endorse a productive cough. He denies any sick contacts or recent travel, and the patient lives in [place] with his girlfriend, 2 children, and a grandchild. He further denies any chills, sore throat, headache, muscle aches, vomiting, abdominal pain or burning, diarrhea, or constipation. He does state that his cough worsens when he lays in bed on his left side but denies orthopnea. He denies any recent lower extremity edema. He denies any chest pain. In the emergency room, patient was tachycardic and tachypneic, and did desaturate into the mid 80s on room air per ED documentation. Lowest documented oxygen is 90%. He was placed on 2 L of nasal cannula and is saturating in the mid 90s now. Chest x-ray performed is read as no acute infiltrate, however there appears to be a right middle lobe infiltrate which is a new finding since his prior x-ray approximately a month ago. Am currently awaiting report to be faxed from the [facility] with his CT. Patient was given a dose of ceftriaxone and azithromycin, as well as a dose of steroids. He was admitted for community-acquired pneumonia. There was concern for possible COVID-19 infection, and the emergency room was unable to contact the health department. I did contact the [facility] department an given the lack of fever, no travel history, time of onset of symptoms, and no known contacts the patient does not meet criteria for COVID 19 testing at this time and can be safely taken off of airborne isolation. Patient History Medical History Hyperlipidemia (Acute) Hypertension (Acute) Family & Social History Social History: household members significant other Prior Living Arrangements House Safety & Behavioral: Feels Safe in Current Yes Environment Been Physically Hurt or No Threatened By a Person Suicidal Ideation Description None Suicide Plan Description No Plan Tobacco & Substance use: Tobacco type cigarettes Smoking Status Current every day smoker alcohol intake current alcohol intake frequency a few times a week Substance Use Type does not use Meds Home Medications and Allergies Home Medications Medication Instructions Recorded Confirmed Type aspirin 81 mg PO QDAY #0 02/25/16 07/09/19 History atorvastatin [Lipitor] 20 mg PO HS #30 tab 02/25/16 07/09/19 History lisinopril 20 mg PO DAILY 05/22/18 07/09/19 History omeprazole 40 mg PO DAILY 05/22/18 07/09/19 History benzonatate [Tessalon Perles] 100 mg PO BID-TID PRN #14 cap 06/07/19 07/09/19 Rx albuterol sulfate 2.5 mg INHALATION Q4-6H PRN #90 ml 06/22/19 07/09/19 Rx doxycycline monohydrate 100 mg PO BID 10 Days #20 cap 06/22/19 07/09/19 Rx prednisone 20 mg PO DAILY #5 tab 06/22/19 07/09/19 Rx amlodipine 10 mg PO DAILY 07/09/19 07/09/19 History Allergies Allergy/AdvReac Type Severity Reaction Status Date / Time No Known Drug Allergies Allergy Verified 02/02/18 13:32 Review of Systems Review of Systems Narrative: All other systems reviewed with the patient and are negative unless otherwise stated. Exam Vital Signs (past 8 hours): - 07/09/19 02:34 07/09/19 03:20 07/09/19 04:39 Temperature 97.8 F Pulse Rate 76 92 H 98 H Respiratory Rate 24 22 24 Blood Pressure 150/84 H Blood Pressure [Left Arm] 139/88 139/88 Pulse Oximetry 95 96 98 07/09/19 07:43 07/09/19 08:44 Temperature 98.0 F Pulse Rate 83 92 H Respiratory Rate 24 20 Blood Pressure 133/69 Blood Pressure [Left Arm] Pulse Oximetry 94 93 Oxygen Delivery Method Room Air Oxygen Flow Rate 2 Narrative Exam Narrative: GENERAL APPEARANCE: Well developed, well nourished, in no acute distress, mildly ill appearing. SKIN: Inspection of the skin reveals no rashes, ulcerations or petechiae. HEENT: The sclerae were anicteric and conjunctivae were pink and moist. Extraocular movements were intact and pupils were equal, round with normal accommodation. External inspection of the ears and nose showed no scars, lesions, or masses. Lips, teeth, and gums showed normal mucosa. The oral mucosa, hard and soft palate, tongue and posterior pharynx were unremarkable. NECK: Supple and symmetric. There was no thyroid enlargement, and no tenderness, or masses were felt. CHEST: Normal AP diameter and normal contour without any kyphoscoliosis. LUNGS: Auscultation of the lungs revealed diminished breath sounds over the right middle lobe, no wheezes rhonchi or rales, poor air movement. CARDIOVASCULAR: There was a regular rate and rhythm without any murmurs, gal lops, rubs. Peripheral pulses were 2+ and symmetric. ABDOMEN: Soft and nontender with normal bowel sounds. No ascites was noted. MUSCULOSKELETAL: There was no tenderness or effusions noted. Muscle strength and tone were normal. EXTREMITIES: No cyanosis, clubbing or edema. NEUROLOGIC: Alert and oriented x 3. Normal affect. Strength is +5/5 in the Upper Extremities and Lower Extremities Bilaterally. Sensation to touch was normal. Objective Labs Result Diagrams: 07/08/19 23:25 07/08/19 23:25 Labs: Laboratory Results - last 24 hr 07/08/19 07/08/19 07/08/19 23:25 23:25 23:25 WBC 9.6 RBC 4.61 Hgb 14.6 Hct 41.7 MCV 90.4 MCH 31.6 MCHC 35.0 RDW 12.7 Plt Count 278 Neut % (Auto) 56.4 Lymph % (Auto) 18.6 L [place] % (Auto) 8.3 Eos % (Auto) 15.8 H Baso % (Auto) 0.9 Neut # (Auto) 5400 Lymph # (Auto) 1800 [place] # (Auto) 800 Eos # (Auto) 1500 H Baso # (Auto) 100 PT 11.3 INR 1.0 APTT 32 D-Dimer ABG pH ABG pCO2 ABG pO2 ABG HCO3 ABG Total CO2 ABG O2 Saturation ABG Base Excess FiO2 Sodium 135 L Potassium 4.4 Chloride 100 Carbon Dioxide 25 BUN 10 Creatinine 0.80 Estimated GFR > 60.0 BUN/Creatinine Ratio 12.5 Glucose 120 H Lactate Calcium 9.9 Total Creatine Kinase 91 CK-MB (CK-2) TNP CK-MB (CK-2) Rel Index TNP Troponin I < 0.012 NT-Pro-B Natriuret Pep 26 Procalcitonin Chlamy pneumoniae PCR Adenovirus (PCR) B.parapertussis DNA PCR Coronavirus OC43 (PCR) Coronavirus HKU1 (PCR) Coronavirus 229E (PCR) Coronavirus NL63 (PCR) Human Metapneumovir PCR Influenza A (RT-PCR) Influenza Type A (PCR) Influenza B (RT-PCR) Influenza Type B (PCR) M. pneumoniae (PCR) Parainfluenza 1 (PCR) Parainfluenza 2 (PCR) Parainfluenza 3 (PCR) Parainfluenza 4 (PCR) RSV (PCR) Entero/Rhino (PCR) 07/08/19 07/08/19 07/08/19 23:25 23:25 23:25 WBC RBC Hgb Hct MCV MCH MCHC RDW Plt Count Neut % (Auto) Lymph % (Auto) [place] % (Auto) Eos % (Auto) Baso % (Auto) Neut # (Auto) Lymph # (Auto) [place] # (Auto) Eos # (Auto) Baso # (Auto) PT INR APTT D-Dimer < 200 ABG pH ABG pCO2 ABG pO2 ABG HCO3 ABG Total CO2 ABG O2 Saturation ABG Base Excess FiO2 Sodium Potassium Chloride Carbon Dioxide BUN Creatinine Estimated GFR BUN/Creatinine Ratio Glucose Lactate Calcium Total Creatine Kinase CK-MB (CK-2) CK-MB (CK-2) Rel Index Troponin I NT-Pro-B Natriuret Pep Procalcitonin < 0.05 Chlamy pneumoniae PCR Adenovirus (PCR) B.parapertussis DNA PCR Coronavirus OC43 (PCR) Coronavirus HKU1 (PCR) Coronavirus 229E (PCR) Coronavirus NL63 (PCR) Human Metapneumovir PCR Influenza A (RT-PCR) Flu a negative Influenza Type A (PCR) Influenza B (RT-PCR) Flu b negative Influenza Type B (PCR) M. pneumoniae (PCR) Parainfluenza 1 (PCR) Parainfluenza 2 (PCR) Parainfluenza 3 (PCR) Parainfluenza 4 (PCR) RSV (PCR) Entero/Rhino (PCR) 07/08/19 07/08/19 07/08/19 23:25 23:50 23:52 WBC RBC Hgb Hct MCV MCH MCHC RDW Plt Count Neut % (Auto) Lymph % (Auto) [place] % (Auto) Eos % (Auto) Baso % (Auto) Neut # (Auto) Lymph # (Auto) [place] # (Auto) Eos # (Auto) Baso # (Auto) PT INR APTT D-Dimer ABG pH 7.39 ABG pCO2 35.9 ABG pO2 64 L ABG HCO3 22 ABG Total CO2 23 ABG O2 Saturation 92 L ABG Base Excess -4.0 L FiO2 21 Sodium Potassium Chloride Carbon Dioxide BUN Creatinine Estimated GFR BUN/Creatinine Ratio Glucose Lactate 0.8 Calcium Total Creatine Kinase CK-MB (CK-2) CK-MB (CK-2) Rel Index Troponin I NT-Pro-B Natriuret Pep Procalcitonin Chlamy pneumoniae PCR Not detected Adenovirus (PCR) Not detected B.parapertussis DNA PCR Not detected Coronavirus OC43 (PCR) Not detected Coronavirus HKU1 (PCR) Not detected Coronavirus 229E (PCR) Not detected Coronavirus NL63 (PCR) Not detected Human Metapneumovir PCR Not detected Influenza A (RT-PCR) Influenza Type A (PCR) Not detected Influenza B (RT-PCR) Influenza Type B (PCR) Not detected M. pneumoniae (PCR) Not detected Parainfluenza 1 (PCR) Not detected Parainfluenza 2 (PCR) Not detected Parainfluenza 3 (PCR) Not detected Parainfluenza 4 (PCR) Not detected RSV (PCR) Not detected Entero/Rhino (PCR) Not detected Assessment & Plan Assessment & Plan narrative: Delvin Louis is a 54 year old male with PMH of HTN and HLD who presented to the emergency room with shortness of breath and cough. Patient has been experiencing in dyspnea on exertion intermittently over the past 9 weeks. 1. Dyspnea on exertion, acute, present on admission - -patient experiencing intermittent episodes of dyspnea on exertion that seemed to have been more progressive. Dyspnea on exertion has been worse over the past 2-3 days, and his exercise tolerance was limited to 15 ft yesterday. -chest x-ray showed a right middle lobe infiltrate based on my read and emergency room read that is new since his last imaging in June. -patient started on ceftriaxone and azithromycin in the emergency room, will continue for treatment of community-acquired pneumonia. Respiratory panel is negative. Sputum culture ordered, blood cultures pending, urine strep and Legionella also pending. -currently working on obtaining CT chest that was done at [facility] yesterday. There is evidence of chronic lung disease on his chest x-ray. If unable to obtain this will order a high-resolution CT chest. -will discontinue lisinopril as patient does have a dry cough in between episodes of dyspnea, however I do not believe that this is related to his symptoms. -will obtain TTE to evaluate for possible cardiac etiologies, however cardiac exam was unremarkable. -there is no evidence of wheezing on exam, however the patient was given steroids in the emergency room. Depending on CT report may initiate prednisone for possible COPD exacerbation, however the patient does not have a known diagnosis of COPD. 2. Community-acquired pneumonia, right middle lobe, acute, present on admission -patient presented with shortness of breath and cough, as well as some right- sided chest pain when he coughs. Chest radiograph does show a right middle lobe infiltrate which appears new since his last radiograph a month ago. -continue ceftriaxone and azithromycin as noted above -patient has had multiple course of outpatient therapies which have not helped his symptoms, including most recently doxycycline. -in the emergency room patient did drop into the mid 80s on room air and required supplemental oxygen to maintain his oxygen saturation in the low 90s. 3. hypertension, essential, present on admission -will discontinue lisinopril as noted above, but continue amlodipine. Will add losartan if necessary based on patient's blood pressures while admitted. 4. Hyperlipidemia, chronic -continue home statin and aspirin daily. Code: Full Dispo: admitted under observation status at this time for community-acquired pneumonia.
[2019-07-09] MEDS: HEPARIN 5,000 UNIT/ML VIAL 5000 UNIT SUBCUT ×2 (11:12→21:12)
--- NOTE | 2019-07-09 11:20 | CM.DANOTE ---
DCP: Case received, EMR reviewed, and discussed at team rounds. Was able to review EMAR, and discuss patient's situation with hospitalist team. DCP assessment was completed based on information available on patient. Patient is a 54 year old male who admitted early this morning to the care of the hospitalist team. PCP: [facility] in [place]. Payer: confirmed: Jered Banks. Patient came to the hospital via family vehicle secondary to increased coughing and shortness of breath. Patient had recently been to the [facility] with same symptoms, and these symptoms have been occurring for some time. At the [facility], they did CT, and hospitalist is attempting to get records sent over here. There had been some concern with COVID 19, and [facility] Department was contacted. Since patient has not travelled outside of the country, and no fever, [facility] indicated that there is no need for further testing, and he can be taken off droplet precautions. Patient does hold diagnosis of community-acquired pneumonia. Patient has been employed at [employer], but has not worked there since December. He is independent, goes to the [facility] for care, but primary care provider name is not known. He resides with his significant other, Poonam, and 2 children, and grand children. P: DCP to continue to follow and be available for any resources needed. Patient should be able to go home when he is medically stable for discharge. Marcela Cifuentes RN/Staffing Recruiter
[2019-07-09] MEDS: ATORVASTATIN 20 MG TABLET PO (21:12)
[2019-07-09] MEDS: CEFTRIAXONE 1 GM/50 ML FROZ.PIGGY IV (21:13)
[2019-07-09] MEDS: SODIUM CHLORIDE 0.9% FLUSH 10 ML IV (21:13)
[2019-07-10] VITALS (9 sets, daily range): BP systolic 118–135; BP diastolic 69–93; PULSE 64–94; RESP 18–22; TEMP 36.4–37.2; O2SAT 91–96
[2019-07-10 05:04] LABS: Add Manual Diff / Slide Review NO; Basophils Absolute Auto 100 /uL (0-100); Basophils Percent Auto 1.1 % (0-2); Eosinophils Absolute Auto 100 /uL (0-450); Eosinophils Percent Auto 1.2 % (2-4); Hematocrit 37.6 % (41-53); Hemoglobin 12.8 g/dL (13.5-17.5); Lymphocytes Absolute Auto 2000 /uL (1100-4500); Lymphocytes Percent Auto 17.1 % (25-40); Mean Corpuscular HGB Conc 33.9 % (30-36); Mean Corpuscular Hemoglobin 30.6 PG (26-34); Mean Corpuscular Volume 90.3 fL (80-100); Monocytes Absolute Auto 800 /uL (0-900); Monocytes Percent Auto 6.8 % (3-14); Neutrophils Absolute Auto 8800 /uL (1500-7000); Neutrophils Percent Auto 73.8 % (50-75); Platelet Count 266 X10^3/uL (150-400); Red Blood Cell Count 4.17 X10^6/uL (4.5-5.9); Red Cell Distribution Width 12.7 % (11.6-14.8); White Blood Cell Count 11.9 X10^3/uL (4.5-11.0)
[2019-07-10 05:09] LABS: Alanine Aminotransferase 30 IU/L (<50); Albumin 3.9 g/dL (3.5-5.0); Albumin Globulin Ratio 1.4 (1.0-2.8); Alkaline Phosphatase 66 U/L (38-126); Aspartate Aminotransferase 23 IU/L (17-59); BUN Creatinine Ratio 14.3 (6-22); Bilirubin Total 0.3 mg/dL (0.2-1.3); Bilirubin Unconjugated 0.3 mg/dL (0.0-1.1); Blood Urea Nitrogen 10 mg/dL (9-20); Calcium 9.8 mg/dL (8.4-10.2); Carbon Dioxide 26 mmol/L (22-32); Chloride 102 mmol/L (98-107); Estimated Glomerular Filt Rate > 60.0 mL/min (>60); Globulin 2.8 g/dL (1.7-4.1); Glucose 125 mg/dL (70-100); HEMOLYSIS < 15 (0-50); Magnesium 2.1 mg/dL (1.6-2.3); Potassium 4.6 mmol/L (3.4-5.1); Sodium 137 mmol/L (137-145); Total Protein 6.7 g/dL (6.3-8.2)
[2019-07-10 05:21] LABS: Hemoglobin A1C% w Est Avg Glu 6.5 % (4.0-6.0)
--- NOTE | 2019-07-10 06:00 | DI.RAD.S_ITS ---
PROCEDURE: XR CHEST 2V INDICATIONS: pneumonia, acute respiratory failure with hypoxia TECHNIQUE: 2 views of the chest were acquired. COMPARISON: [facility], CR, XR CHEST 2V, 07/08/2019, 23:04. FINDINGS: Surgical changes and devices: None. Lungs and pleura: Lungs are clear. No pleural effusions or pneumothorax. Mediastinum: Mediastinal contours are normal. Heart size is normal. Bones and chest wall: No suspicious bony abnormalities. Soft tissues appear unremarkable. IMPRESSION: No acute pulmonary process. Dictated by: Aury Phillips M.D. on 07/10/2019 at 10:42 Approved by: Aury Phillips M.D. on 07/10/2019 at 10:46
[2019-07-10 06:20] LABS: Free T4, Direct Thyroxine 1.52 ng/dL (0.78-2.19)
[2019-07-10] MEDS: AMLODIPINE 5 MG TABLET 10 MG PO (09:54)
[2019-07-10] MEDS: ENOXAPARIN 40 MG/0.4 ML SYRINGE SUBCUT (09:55)
[2019-07-10] MEDS: SODIUM CHLORIDE 0.9% FLUSH 10 ML IV ×2 (09:55→22:09)
[2019-07-10] MEDS: ASPIRIN 81 MG CHEW TAB PO (09:55)
[2019-07-10] MEDS: ALBUTEROL/IPRATROPIUM 3 ML AMPUL INH ×3 (10:11→21:26)
[2019-07-10] MEDS: PANTOPRAZOLE 40 MG TABLET PO (12:05)
--- NOTE | 2019-07-10 12:07 | CM.DPNOTE ---
DCP: continued: case received and discussed in Team Rounds. EMR reviewed. Workup continued for full dx and treatment plan. DCP team will continue to follow up as POC unfolds to assist with any d/c needs that may arise. PT is currently sitting up in bed, eating lunch, appears comfortable. GERMAIN Dukes confirms that pt is no longer on any special precautions (including droplet).
--- NOTE | 2019-07-10 14:44 | PC.NURSE ---
Day Shift Note SpO2 96-98% on RA at rest, ambulated in hospital halls this afternoon. Maintained oxygen saturations 91% or greater, did reports some minor shortness of breath throughout. Sputum sent to lab this AM, sputum white/yellow. Denies pain. Call light within reach. Independent in room.
--- NOTE | 2019-07-10 18:21 | P.PN_ITS ---
Subjective Subjective Date Patient Seen: 07/10/19 Time Patient Seen: 08:20 Interval history: Delvin Louis is a 54 year old male with PMH of HTN and HLD who presented to the emergency room with shortness of breath and cough. He is admitted for community-acquired pneumonia with hypoxia that failed outpatient antibiotic therapy. CT scan was obtained from outside hospital, and it showed evidence of pneumonia, but no evidence of underlying structural lung disease. Patient seems to be slowly improving with antibiotics, however he has not gotten up and ambulated much today. Will ambulate with the nursing staff to see if his dyspnea on exertion is improved. Exam Vital Signs (past 8 hours): - 07/10/19 12:19 07/10/19 15:08 07/10/19 16:07 Temperature 97.8 F 97.9 F Pulse Rate 79 76 94 H Respiratory Rate 18 20 20 Blood Pressure 133/93 H 120/77 Pulse Oximetry 95 96 Oxygen Delivery Method Room Air Oxygen Flow Rate 0 Narrative Exam Narrative: GENERAL APPEARANCE: Well developed, well nourished, in no acute distress. SKIN: Inspection of the skin reveals no rashes, ulcerations or petechiae. HEENT: The sclerae were anicteric and conjunctivae were pink and moist. E xtraocular movements were intact and pupils were equal, round with normal accommodation. External inspection of the ears and nose showed no scars, lesions, or masses. Lips, teeth, and gums showed normal mucosa. The oral mucosa, hard and soft palate, tongue and posterior pharynx were unremarkable. NECK: Supple and symmetric. There was no thyroid enlargement, and no tenderness, or masses were felt. CHEST: Normal AP diameter and normal contour without any kyphoscoliosis. LUNGS: Auscultation of the lungs revealed diminished breath sounds over the right middle lobe, no wheezes rhonchi or rales, improved air movement today. CARDIOVASCULAR: There was a regular rate and rhythm without any murmurs, g allops, rubs. Peripheral pulses were 2+ and symmetric. ABDOMEN: Soft and nontender with normal bowel sounds. No ascites was noted. MUSCULOSKELETAL: There was no tenderness or effusions noted. Muscle strength and tone were normal. EXTREMITIES: No cyanosis, clubbing or edema. NEUROLOGIC: Alert and oriented x 3. Normal affect. Strength is +5/5 in the Upper Extremities and Lower Extremities Bilaterally. Sensation to touch was normal. Objective Labs Result Diagrams: 07/10/19 04:30 07/10/19 04:30 Labs: Laboratory Results - last 24 hr 07/10/19 07/10/19 07/10/19 04:30 04:30 04:30 WBC 11.9 H RBC 4.17 L Hgb 12.8 L Hct 37.6 L MCV 90.3 MCH 30.6 MCHC 33.9 RDW 12.7 Plt Count 266 Neut % (Auto) 73.8 Lymph % (Auto) 17.1 L [place] % (Auto) 6.8 Eos % (Auto) 1.2 L Baso % (Auto) 1.1 Neut # (Auto) 8800 H Lymph # (Auto) 2000 [place] # (Auto) 800 Eos # (Auto) 100 Baso # (Auto) 100 Sodium 137 Potassium 4.6 Chloride 102 Carbon Dioxide 26 BUN 10 Creatinine 0.70 Estimated GFR > 60.0 BUN/Creatinine Ratio 14.3 Glucose 125 H Hemoglobin A1c 6.5 H Calcium 9.8 Magnesium 2.1 Total Bilirubin 0.3 Conjugated Bilirubin 0.0 Unconjugated Bilirubin 0.3 AST 23 ALT 30 Alkaline Phosphatase 66 Total Protein 6.7 Albumin 3.9 Globulin 2.8 Albumin/Globulin Ratio 1.4 TSH Free T4 07/10/19 04:30 WBC RBC Hgb Hct MCV MCH MCHC RDW Plt Count Neut % (Auto) Lymph % (Auto) [place] % (Auto) Eos % (Auto) Baso % (Auto) Neut # (Auto) Lymph # (Auto) [place] # (Auto) Eos # (Auto) Baso # (Auto) Sodium Potassium Chloride Carbon Dioxide BUN Creatinine Estimated GFR BUN/Creatinine Ratio Glucose Hemoglobin A1c Calcium Magnesium Total Bilirubin Conjugated Bilirubin Unconjugated Bilirubin AST ALT Alkaline Phosphatase Total Protein Albumin Globulin Albumin/Globulin Ratio TSH 0.30 L Free T4 1.52 Assessment & Plan Assessment & Plan narrative: Delvin Louis is a 54 year old male with PMH of HTN and HLD who presented to the emergency room with shortness of breath and cough. Patient has been experiencing in dyspnea on exertion intermittently over the past 9 weeks. 1. Dyspnea on exertion, acute, present on admission - -patient experiencing intermittent episodes of dyspnea on exertion that seemed to have been more progressive. Dyspnea on exertion has been worse over the past 2-3 days, and his exercise tolerance was limited to 15 ft yesterday. -chest x-ray showed a right middle lobe infiltrate based on my read and emergency room read that is new since his last imaging in June. -patient started on ceftriaxone and azithromycin in the emergency room, will continue for treatment of community-acquired pneumonia. Respiratory panel is negative. Sputum culture ordered, blood cultures pending, urine strep and Legionella also pending. -CT chest that was done at [facility] on day prior to admission showed no evidence of underlying lung disease, but did show a right middle lobe infiltrate. CT chest is currently located in the patient's paper chart. -will discontinue lisinopril as patient does have a dry cough in between episodes of dyspnea, however I do not believe that this is related to his symp toms. -echocardiogram was unremarkable. -there is no evidence of wheezing on exam, however the patient was given steroids in the emergency room. Have not continued at this point as there has been no evidence of wheezing or COPD exacerbation. 2. Community-acquired pneumonia, right middle lobe, acute, present on admission -patient presented with shortness of breath and cough, as well as some right- sided chest pain when he coughs. Chest radiograph does show a right middle lobe infiltrate which appears new since his last radiograph a month ago. -continue ceftriaxone and azithromycin as noted above -patient has had multiple course of outpatient therapies which have not helped his symptoms, including most recently doxycycline. -in the emergency room patient did drop into the mid 80s on room air and required supplemental oxygen to maintain his oxygen saturation in the low 90s. 3. hypertension, essential, present on admission -will discontinue lisinopril as noted above, but continue amlodipine. Will add losartan if necessary based on patient's blood pressures while admitted. 4. Hyperlipidemia, chronic -continue home statin and aspirin daily. Code: Full Dispo: admitted under inpatient status at this time for community-acquired pneumonia with hypoxia.
[2019-07-10] MEDS: ATORVASTATIN 20 MG TABLET PO (22:09)
[2019-07-10] MEDS: CEFTRIAXONE 1 GM/50 ML FROZ.PIGGY IV (22:10)
[2019-07-10] MEDS: AZITHROMYCIN 500 MG in DEXTROSE 5% IN WATER 250 ML IV (22:41)
[2019-07-11 01:00] VITALS: BP 128/75; PULSE 97; RESP 18; TEMP 36.7; O2SAT 95
[2019-07-11 04:56] VITALS: BP 119/57; PULSE 61; RESP 16; TEMP 36.7; O2SAT 93
[2019-07-11 05:01] LABS: Add Manual Diff / Slide Review NO; Basophils Absolute Auto 100 /uL (0-100); Basophils Percent Auto 0.7 % (0-2); Eosinophils Absolute Auto 1000 /uL (0-450); Eosinophils Percent Auto 13.3 % (2-4); Hematocrit 38.9 % (41-53); Hemoglobin 13.1 g/dL (13.5-17.5); Lymphocytes Absolute Auto 1800 /uL (1100-4500); Lymphocytes Percent Auto 24.9 % (25-40); Mean Corpuscular HGB Conc 33.6 % (30-36); Mean Corpuscular Hemoglobin 30.9 PG (26-34); Mean Corpuscular Volume 92.1 fL (80-100); Monocytes Absolute Auto 600 /uL (0-900); Neutrophils Absolute Auto 3900 /uL (1500-7000); Neutrophils Percent Auto 53.1 % (50-75); Platelet Count 229 X10^3/uL (150-400); Red Blood Cell Count 4.22 X10^6/uL (4.5-5.9); Red Cell Distribution Width 12.6 % (11.6-14.8); White Blood Cell Count 7.3 X10^3/uL (4.5-11.0)
[2019-07-11 05:11] LABS: Alanine Aminotransferase 37 IU/L (<50); Albumin 3.8 g/dL (3.5-5.0); Albumin Globulin Ratio 1.4 (1.0-2.8); Alkaline Phosphatase 77 U/L (38-126); Aspartate Aminotransferase 22 IU/L (17-59); BUN Creatinine Ratio 18.6 (6-22); Bilirubin Total 0.2 mg/dL (0.2-1.3); Bilirubin Unconjugated 0.1 mg/dL (0.0-1.1); Blood Urea Nitrogen 13 mg/dL (9-20); Calcium 9.2 mg/dL (8.4-10.2); Carbon Dioxide 26 mmol/L (22-32); Chloride 102 mmol/L (98-107); Estimated Glomerular Filt Rate > 60.0 mL/min (>60); Globulin 2.8 g/dL (1.7-4.1); Glucose 109 mg/dL (70-100); HEMOLYSIS < 15 (0-50); Magnesium 1.9 mg/dL (1.6-2.3); Potassium 4.3 mmol/L (3.4-5.1); Sodium 135 mmol/L (137-145); Total Protein 6.6 g/dL (6.3-8.2)
[2019-07-11] MEDS: PANTOPRAZOLE 40 MG TABLET PO (06:05)
--- NOTE | 2019-07-11 06:18 | PC.NURSE ---
Afebrile, 2L NC when asleep. Pt. does not have his home CPAP. Lung sounds clear with occasional upper airway wheeze, denies shortness of breath. Tele sinus rhythm. IV TKO on left wrist. Pt. is independent in room.
[2019-07-11 08:36] VITALS: BP 124/89; PULSE 81; RESP 21; TEMP 36.3; O2SAT 94
[2019-07-11 08:46] VITALS: PULSE 81; RESP 19; O2SAT 95
[2019-07-11] MEDS: SODIUM CHLORIDE 0.9% FLUSH 10 ML IV (08:46)
[2019-07-11] MEDS: AMLODIPINE 5 MG TABLET 10 MG PO (08:46)
[2019-07-11] MEDS: ASPIRIN 81 MG CHEW TAB PO (08:46)
[2019-07-11] MEDS: ENOXAPARIN 40 MG/0.4 ML SYRINGE SUBCUT (08:46)
[2019-07-11] MEDS: ALBUTEROL/IPRATROPIUM 3 ML AMPUL INH (08:46)
--- NOTE | 2019-07-11 11:01 | P.DS_ITS ---
History of Present Illness History of Present Illness Date Patient Seen: 07/11/19 Chief complaint: cough, pain Narrative: Delvin Louis is a 54 year old male with PMH of HTN and HLD who p resented to the emergency room with shortness of breath and cough. Patient has been experiencing in dyspnea on exertion intermittently over the past 9 weeks. He has periods where he is completely asymptomatic, but recently he has been getting worse especially over the past 2-3 days with exertion limited to about 15 ft before he gets short of breath. He has been to multiple emergency rooms and clinics for evaluation, including the [facility] yesterday where he had a CT scan done. He has received multiple antibiotics, inhalers, and steroids without much effect in the outpatient setting. Patient works as a milk pickup driver at [employer], however he has not worked since December. He denies any occupational exposures. He denies any fevers. He does endorse a productive cough. He denies any sick contacts or recent travel, and the patient lives in [place] with his girlfriend, 2 children, and a grandchild. He further denies any chills, sore throat, headache, muscle aches, vomiting, abdominal pain or burning, diarrhea, or constipation. He does state that his cough worsens when he lays in bed on his left side but denies orthopnea. He denies any recent lower extremity edema. He denies any chest pain. In the emergency room, patient was tachycardic and tachypneic, and did d esaturate into the mid 80s on room air per ED documentation. Lowest documented oxygen is 90%. He was placed on 2 L of nasal cannula and is saturating in the mid 90s now. Chest x-ray performed is read as no acute infiltrate, however there appears to be a right middle lobe infiltrate which is a new finding since his prior x-ray approximately a month ago. Am currently awaiting report to be faxed from the [facility] with his CT. Patient was given a dose of ceftriaxone and azithromycin, as well as a dose of steroids. He was admitted for community-acquired pneumonia. There was concern for possible COVID-19 infection, and the emergency room was unable to contact the health department. I did contact the [facility] department an given the lack of fever, no travel history, time of onset of symptoms, and no known contacts the patient does not meet criteria for COVID 19 testing at this time and can be safely taken off of airborne isolation. Discharge Providers Provider Date of admission: 07/09/19 03:09 Discharge Date: 07/11/19 Consults: 07/09/19 05:50 Consult to Respiratory Therapy Evaluate & Treat Comment: Physician Instructions: Evaluate and treat Discharge provider: Gely Kearns MD Summary Hospital Course Discharge Diagnosis: 1. Community-acquired pneumonia 2. hypertension 3. hyperlipidemia 4. GERD 5. Obstructive sleep apnea Hospital Course: patient was admitted to the hospital after treatment and evaluation of persistent shortness of breath and cough. Patient was found to be hypoxic in the emergency department with O2 sat of 90%. A CT scan done at an outside hospital was reviewed which revealed right middle lobe pneumonia. Patient was treated with ceftriaxone and azithromycin. He had improvement of his shortness of breath. He was no longer hypoxic at rest or with activity. Patient does use CPAP at night and was noted to be hypoxic when sleeping. the patient was afebrile during his hospital course. White count improved. Patient clinically was deemed appropriate for discharge and arrangements were made for him to be discharged home. Patient will follow-up with his primary care [facility]. Status at Discharge Cognitive/behavioral status at discharge: oriented Functional status at discharge: independent ambulation Overall status at discharge: patient is back to baseline Time Spent with Patient Time spent: Less than 30 minutes Exam Vital Signs (past 8 hours): - 07/11/19 04:56 07/11/19 08:36 07/11/19 08:46 Temperature 98.0 F 97.4 F L Pulse Rate 61 81 81 Respiratory Rate 16 21 19 Blood Pressure 119/57 L 124/89 Pulse Oximetry 93 94 95 Oxygen Delivery Method Room Air Oxygen Flow Rate 0 Narrative Exam Narrative: Pleasant gentleman in no obvious distress lungs: Decreased breath sounds but clear to auscultation cardiac exam: Regular rate and rhythm normal S1-S2 abdomen: Soft nontender nondistended, nontender extremities: No edema Objective Labs Result Diagrams: 07/11/19 04:35 07/11/19 04:35 Labs: Laboratory Results - last 24 hr 07/11/19 07/11/19 04:35 04:35 WBC 7.3 RBC 4.22 L Hgb 13.1 L Hct 38.9 L MCV 92.1 MCH 30.9 MCHC 33.6 RDW 12.6 Plt Count 229 Neut % (Auto) 53.1 D Lymph % (Auto) 24.9 L [place] % (Auto) 8.0 Eos % (Auto) 13.3 H Baso % (Auto) 0.7 Neut # (Auto) 3900 Lymph # (Auto) 1800 [place] # (Auto) 600 Eos # (Auto) 1000 H Baso # (Auto) 100 Sodium 135 L Potassium 4.3 Chloride 102 Carbon Dioxide 26 BUN 13 Creatinine 0.70 Estimated GFR > 60.0 BUN/Creatinine Ratio 18.6 Glucose 109 H Calcium 9.2 Magnesium 1.9 Total Bilirubin 0.2 Conjugated Bilirubin 0.0 Unconjugated Bilirubin 0.1 AST 22 ALT 37 Alkaline Phosphatase 77 Total Protein 6.6 Albumin 3.8 Globulin 2.8 Albumin/Globulin Ratio 1.4 Discharge Plan Discharge Plan Patient Disposition: Home Discharge orders & Medications Prescriptions: New levofloxacin 750 mg tablet 750 mg PO DAILY Qty: 5 RF: 0 Continued atorvastatin [Lipitor] 20 MG tablet 20 mg PO HS Qty: 30 RF: 0 aspirin 81 MG tablet,chewable 81 mg PO QDAY Qty: 0 RF: 0 prednisone 20 mg tablet 20 mg PO DAILY Qty: 5 RF: 0 albuterol sulfate 2.5 mg /3 mL (0.083 %) solution for nebulization 2.5 mg INHALATION Q4-6H PRN (Reason: shortness of breath or wheezing) Qty: 90 RF: 0 lisinopril 20 mg Tablet 20 mg PO DAILY RF: 0 omeprazole 20 mg Capsule,Delayed Release(Dr/Ec) 40 mg PO DAILY RF: 0 benzonatate [Tessalon Perles] 100 mg capsule 100 mg PO BID-TID PRN (Reason: cough) Qty: 14 RF: 0 amlodipine 10 mg Tablet 10 mg PO DAILY RF: 0 Discontinued doxycycline monohydrate 100 mg capsule 100 mg PO BID 10 Days Qty: 20 RF: 0
--- NOTE | 2019-07-11 12:08 | CM.DPC ---
DCP: continued: met with pt during Bedside Team Rounds this morning. Dr. Kearns stated pt would likely be ok for d/c and continue his recovery from pneumonia in the home setting. A d/c order is now in place and pt has called his family with update and is waiting now for ride back home. [facility]. No concern re the d/c home plan for today are noted.
--- NOTE | 2019-07-11 13:03 | PC.NURSE ---
Nursing note Pt A/o x4, indep in room, IV TKO. Removed for shower. Tele off, Pt rec'd d/c orders, Rx sent locally. Reviewed all instructions and follow up care. SO arrived and Pt ambulated to private vehicle with out assist.
[2019-07-11 17:03] LABS: Strep pneumoniae Ag, Urine NOT DETECTED
== END 2019-07-11 13:05 | disposition home or self-care (01) | DRG 193 ==
LOC: ED 22:51 → AC 07-09 03:10 → ICU 07-09 03:50
PROVIDERS: Internal Medicine; Admitting Provider Nurse Practitioner Gerontology; Emergency Provider Emergency Medicine; Referring Provider Emergency Medicine; Visit Provider Nurse Practitioner Gerontology
DX: J18.9 Pneumonia, unspecified organism (principal); J96.01 Acute respiratory failure with hypoxia; I10 Essential (primary) hypertension; E78.5 Hyperlipidemia, unspecified; F17.210 Nicotine dependence, cigarettes, uncomplicated; G47.33 Obstructive sleep apnea (adult) (pediatric)
CPT/HCPCS: 36415; 36600; 71046; 80048; 80076; 82550; 82805; 83036; 83605; 83735; 83880; 84145; 84439; 84443; 84484; 85025; 85379; 85610; 85730; 87040; 87070; 87205; 87449; 87502; 87633; 87797; 93306; 94640; 96365; 96367; 96368; 96375; 99285; J1644; J1650; J2930; J7613; Q9957

== ENCOUNTER 2019-07-18 08:44 | Emergency (ER) | payer OTHER, SELFPAY ==
[2019-07-09 04:00] VITALS: BMI 29.9
[2019-07-18 08:57] VITALS: BP 160/93; PULSE 93; RESP 16; TEMP 36.5; O2SAT 99; BMI 29.8
--- NOTE | 2019-07-18 09:13 | DI.CT.S_ITS ---
PROCEDURE: CT CHEST W CON INDICATIONS: severe back pain, cough, right rib pain, T spine tenderness TECHNIQUE: After the administration of intravenous contrast, 5 mm thick sections acquired from the pulmonary apices to the posterior costophrenic angles. 1 mm axial lung, 5 mm thick coronal and sagittal reformats and 7 mm axial MIP were acquired. For radiation dose reduction, the following was used: automated exposure control, adjustment of mA and/or kV according to patient size. COMPARISON: None. FINDINGS: Image quality: Excellent. Lungs and pleura: There is a single small fairly centralized groundglass opacity in the right middle lobe adjacent to the major fissure. No other airspace consolidations. Moderate bilateral peribronchial thickening, particularly in the lower lobes. No pleural effusions or pneumothorax. The central airway is patent. Mediastinum: Scattered, mildly prominent mediastinal lymph nodes and minor right greater than left hilar adenopathy. Heart size is normal. No pericardial effusion. No mediastinal or hilar adenopathy by size criteria. Thoracic aorta and central pulmonary arteries are normal in size. Esophagus is normal in caliber. No hiatal hernia. Bones and chest wall: Mildly distracted acute posterior right ninth rib fracture. Mild surrounding soft tissue swelling. Partially healed, chronic appearing nondisplaced midsternal fracture. No vertebral body compression fractures. No axillary or supraclavicular adenopathy by size criteria. Thyroid gland is normal. Abdomen: Visualized upper abdominal solid organs appear normal. Upper abdominal bowel loops are normal in caliber. IMPRESSION: 1. Diffuse bilateral peribronchial thickening suggestive of bronchitis. 2. Single very small groundglass opacity in the right middle lobe, nonspecific, but can be seen in early pneumonia, infectious or aspiration. 3. Acute displacement ninth posterior right rib fracture. 4. No visible thoracic spine lesion. Dictated by: Anna Lai M.D. on 07/18/2019 at 10:15 Approved by: Anna Lai M.D. on 07/18/2019 at 10:31
--- NOTE | 2019-07-18 09:17 | ED.BACK ---
HPI - Back Pain/Injury General Chief Complaint: Back Pain/Injury Stated Complaint: Cough, Back Pain Time Seen by Provider: 07/18/19 08:45 Source: EMS Limitations: no limitations History of Present Illness HPI Narrative: The patient is a 54-year-old male who was recently discharged with a diagnosis of pneumonia. He has completed his course of antibiotics. He continues to cough. He denies any fever. He states that the pain in his back started of couple hours ago immediately after coughing. The pain is in his mid and right back underneath his right shoulder blade. The pain is sharp and stabbing worse with coughing deep breathing and sometimes with movement. He is most comfortable sitting upright. He states that he continues to smoke cigarettes and periodically drinks alcohol. He denies a history of asthma COPD myocardial infarction congestive heart failure or diabetes. He admits to having hypertension. He has not fallen or injured himself recently. At present time he denies any fever chills sweats headache nasal drainage sinus congestion sore throat nausea vomiting diarrhea change in bowel habits urinary symptoms. He has had no incontinence of urine or stool with coughing or since he has developed the pain in his back. He has had no shooting pain or discomfort no numbness tingling paresthesias in his seizures paresis or paralysis. He continues to cough. His cough is intermittently productive of a white clear sputum without any blood. Related Data Home Medications Medication Instructions Recorded Confirmed aspirin 81 mg PO QDAY #0 02/25/16 07/09/19 atorvastatin [Lipitor] 20 mg PO HS #30 tab 02/25/16 07/09/19 lisinopril 20 mg PO DAILY 05/22/18 07/09/19 omeprazole 40 mg PO DAILY 05/22/18 07/09/19 amlodipine 10 mg PO DAILY 07/09/19 07/09/19 Previous Rx's Medication Instructions Recorded benzonatate [Tessalon Perles] 100 mg PO BID-TID PRN #14 cap 06/07/19 albuterol sulfate 2.5 mg INHALATION Q4-6H PRN #90 ml 06/22/19 prednisone 20 mg PO DAILY #5 tab 06/22/19 levofloxacin 750 mg PO DAILY #5 tab 07/11/19 cyclobenzaprine 10 mg PO TID PRN #15 tab 07/18/19 hydrocodone-acetaminophen [[place]] 1 tab PO Q4-6H PRN #15 tab 07/18/19 levofloxacin [Levaquin] 500 mg PO DAILY #7 tab 07/18/19 lidocaine [Lidoderm] 1 patch TOP DAILY #14 each 07/18/19 naproxen [Naprosyn] 500 mg PO BID PRN #20 tab 07/18/19 Allergies Allergy/AdvReac Type Severity Reaction Status Date / Time No Known Drug Allergies Allergy Verified 02/02/18 13:32 Review of Systems Review of Systems Narrative: Review of systems is all negative except for those mentioned in history of present illness. Patient History Medical History Hyperlipidemia (Acute) Hypertension (Acute) Social History household members: significant other Smoking Status: Current every day smoker alcohol intake: current Smoking Status: Current every day smoker tobacco type: cigarettes alcohol intake frequency: a few times a week Substance Use Type: does not use Exam Narrative Exam Narrative: PHYSICAL EXAM: CONSTITUTIONAL: Awake, Alert, Oriented, Coherent, Cooperative in moderate distress. The patient appears very uncomfortable leaning forward. Sitting upright and leaning forward is most comfortable. He is not tachypneic. HEAD: AT/NC EENT: PERRL, FROM of eyes, no discharge, No epistaxis or nasal drainage Oral mucosa is moist and pink, posterior pharynx is without erythema or exudate. NECK: Supple, no obvious JVD, Trachea is midline without stridor, no palpable LN or masses. SPINE: No gross deformity, tender to palpation diffusely over the lower thoracic spine but most tender over the posterior right ribs and upper costovertebral angle. No left CVA tenderness. THORAX: No deformity, retractions, , subcutaneous air or crepitice. LUNGS: Clear with symmetrical breath sounds without respiratory distress HEART: Normal heart tones, regular rhythm and rate without murmur. ABDOMEN: Soft, non-tender, normal bowel sounds without guarding, rebound, rigidity or palpable mass EXTREMITIES: No edema, cyanosis, deformity or tenderness. SKIN: No rash, bruising, petechiae or purpura. NEURO: Awake, alert, oriented, conversive, cranial nerves II-XII are symmetrical and normal, moves all 4 extremities and is ambulatory Initial Vital Signs Initial Vital Signs: Vital Signs Temperature 97.7 F 07/18/19 08:57 Pulse Rate 93 H 07/18/19 08:57 Respiratory Rate 16 07/18/19 08:57 Blood Pressure 160/93 H 07/18/19 08:57 Pulse Oximetry 99 07/18/19 08:57 Course Course Course Narrative: 1138 CT scan of the patient's chest reveals diffuse bilateral peribronchial thickening suggestive of bronchitis. 2. Single very small ground-glass opacity in the right middle lobe, nonspecific but can be seen in early pneumonia infectious or aspiration. 3. Acute displacement of the 9th posterior right rib fracture. 4. No visible thoracic spine lesion. The patient will be treated as though he has an acute rib fracture. He will be discharged home on a nonsteroidal anti-inflammatory medication, [place], and a muscle relaxant. He will also be placed on Levaquin 500 mg per day for the next 7 days. Orders Ordered: Discontinued Medications Cyclobenzaprine HCl (Flexeril) 10 mg PO NOW ONE Stop: 07/18/19 09:14 Last Admin: 07/18/19 09:30 Dose: 10 mg Documented by: JUAQUIN Sodium Chloride (Normal Saline 0.9%) 1,000 mls @ 1,000 mls/hr IV BOLUS ONE Stop: 07/18/19 10:12 Last Infusion: 07/18/19 12:39 Dose: 0 mls/hr Documented by: Admin: 07/18/19 09:31 Dose: 1,000 mls/hr Documented by: JUAQUIN Ketorolac Tromethamine (Toradol) 30 mg IV NOW ONE Stop: 07/18/19 09:14 Last Admin: 07/18/19 09:31 Dose: 30 mg Documented by: JUAQUIN Morphine Sulfate (Morphine) 4 mg IV NOW ONE Stop: 07/18/19 09:14 Last Admin: 07/18/19 09:30 Dose: 4 mg Documented by: JUAQUIN Vital Signs Vital signs: Vital Signs - 8 hr 07/18/19 08:57 07/18/19 10:05 Temperature 97.7 F Pulse Rate 93 H 82 Respiratory Rate 16 18 Blood Pressure 160/93 H Pulse Oximetry 99 98 MDM - Back Pain/Injury Lab Data Result diagrams: 07/18/19 09:35 07/18/19 09:35 Labs: Lab Results 07/18/19 07/18/19 07/18/19 Range/Units 09:35 09:35 09:35 WBC 7.8 (4.5-11.0) X10^3/uL RBC 4.60 (4.5-5.9) X10^6/uL Hgb 14.1 (13.5-17.5) g/dL Hct 41.7 (41-53) % MCV 90.6 (80-100) fL MCH 30.6 (26-34) PG MCHC 33.8 (30-36) % RDW 12.7 (11.6-14.8) % Plt Count 298 (150-400) X10^3/uL Neut % (Auto) 61.3 (50-75) % Lymph % (Auto) 16.7 L (25-40) % [place] % (Auto) 6.7 (3-14) % Eos % (Auto) 14.3 H (2-4) % Baso % (Auto) 1.0 (0-2) % Neut # (Auto) 4800 (2217-0964) /uL Lymph # (Auto) 1300 (5196-8362) /uL [place] # (Auto) 500 (0-900) /uL Eos # (Auto) 1100 H (0-450) /uL Baso # (Auto) 100 (0-100) /uL Sodium 134 L (137-145) mmol/L Potassium 4.7 (3.4-5.1) mmol/L Chloride 101 (98-107) mmol/L Carbon Dioxide 25 (22-32) mmol/L BUN 9 (9-20) mg/dL Creatinine 0.70 (0.66-1.25) mg/dL Estimated GFR > 60.0 (>60) mL/min BUN/Creatinine Ratio 12.9 (6-22) Glucose 126 H (70-100) mg/dL Lactate (0.7-2.1) mmol/L Calcium 9.9 (8.4-10.2) mg/dL Total Bilirubin 0.4 (0.2-1.3) mg/dL AST 25 (17-59) IU/L ALT 34 (<50) IU/L Alkaline Phosphatase 88 (38-126) U/L Total Protein 7.4 (6.3-8.2) g/dL Albumin 4.4 (3.5-5.0) g/dL Globulin 3.0 (1.7-4.1) g/dL Albumin/Globulin Ratio 1.5 (1.0-2.8) Procalcitonin < 0.05 (<0.5) ng/mL 07/18/19 Range/Units 09:35 WBC (4.5-11.0) X10^3/uL RBC (4.5-5.9) X10^6/uL Hgb (13.5-17.5) g/dL Hct (41-53) % MCV (80-100) fL MCH (26-34) PG MCHC (30-36) % RDW (11.6-14.8) % Plt Count (150-400) X10^3/uL Neut % (Auto) (50-75) % Lymph % (Auto) (25-40) % [place] % (Auto) (3-14) % Eos % (Auto) (2-4) % Baso % (Auto) (0-2) % Neut # (Auto) (9595-6763) /uL Lymph # (Auto) (4223-5831) /uL [place] # (Auto) (0-900) /uL Eos # (Auto) (0-450) /uL Baso # (Auto) (0-100) /uL Sodium (137-145) mmol/L Potassium (3.4-5.1) mmol/L Chloride (98-107) mmol/L Carbon Dioxide (22-32) mmol/L BUN (9-20) mg/dL Creatinine (0.66-1.25) mg/dL Estimated GFR (>60) mL/min BUN/Creatinine Ratio (6-22) Glucose (70-100) mg/dL Lactate 1.3 (0.7-2.1) mmol/L Calcium (8.4-10.2) mg/dL Total Bilirubin (0.2-1.3) mg/dL AST (17-59) IU/L ALT (<50) IU/L Alkaline Phosphatase (38-126) U/L Total Protein (6.3-8.2) g/dL Albumin (3.5-5.0) g/dL Globulin (1.7-4.1) g/dL Albumin/Globulin Ratio (1.0-2.8) Procalcitonin (<0.5) ng/mL Discharge Plan Departure Patient Disposition: Home Clinical Impression: Rib pain on right side, Cough, Bronchitis Acute back pain Qualifiers: Back pain location: thoracic back pain Back pain laterality: right Qualified Code(s): M54.6 - Pain in thoracic spine Fracture of rib Qualifiers: Encounter type: initial encounter Rib fracture type: single rib Fracture type: closed Laterality: right Qualified Code(s): S22.31XA - Fracture of one rib, right side, initial encounter for closed fracture Discharge Date/Time: 07/18/19 12:58 Instructions: DI for Rib Fracture, DI for Acute Bronchitis Activity Restrictions/Additional Instructions: 1. You need to follow-up with your primary care physician in the next 48-[address] scan of the chest shows that you have acute bronchitis with a displaced fracture of the right 9th rib. 2. For the pain and discomfort you need to take the cyclobenzaprine 10 mg 3 times a day as a muscle relaxant, Naprosyn 500 mg every 12 hours for pain and discomfort, [place] 5 3 25 1-2 tablets every 4-6 hours for severe pain and discomfort. You can apply a lidocaine patch over the area of pain and discomfort. 3. Take the Levaquin orally for your acute bronchitis. 4. Return to the emergency department if you develop worsening pain or discomfort as well as shortness of breath.. Prescriptions: New cyclobenzaprine 10 mg tablet 10 mg PO TID PRN (Reason: muscle spasm) Qty: 15 RF: 0 naproxen [Naprosyn] 500 mg tablet 500 mg PO BID PRN (Reason: pain) Qty: 20 RF: 0 hydrocodone-acetaminophen [[place]] 5-325 mg tablet 1 tab PO Q4-6H PRN (Reason: pain) Qty: 15 RF: 0 levofloxacin [Levaquin] 500 mg tablet 500 mg PO DAILY Qty: 7 RF: 0 lidocaine [Lidoderm] 5 % adhesive patch,medicated 1 patch TOP DAILY Qty: 14 RF: 0 No Action atorvastatin [Lipitor] 20 MG tablet 20 mg PO HS Qty: 30 RF: 0 aspirin 81 MG tablet,chewable 81 mg PO QDAY Qty: 0 RF: 0 prednisone 20 mg tablet 20 mg PO DAILY Qty: 5 RF: 0 albuterol sulfate 2.5 mg /3 mL (0.083 %) solution for nebulization 2.5 mg INHALATION Q4-6H PRN (Reason: shortness of breath or wheezing) Qty: 90 RF: 0 lisinopril 20 mg Tablet 20 mg PO DAILY RF: 0 omeprazole 20 mg Capsule,Delayed Release(Dr/Ec) 40 mg PO DAILY RF: 0 benzonatate [Tessalon Perles] 100 mg capsule 100 mg PO BID-TID PRN (Reason: cough) Qty: 14 RF: 0 amlodipine 10 mg Tablet 10 mg PO DAILY RF: 0 levofloxacin 750 mg tablet 750 mg PO DAILY Qty: 5 RF: 0
[2019-07-18] MEDS: CYCLOBENZAPRINE 10 MG TABLET PO (09:30)
[2019-07-18] MEDS: MORPHINE 4 MG/ML INJ IV (09:30)
[2019-07-18] MEDS: SODIUM CHLORIDE 0.9% 1,000 ML 1000 ML IV (09:31)
[2019-07-18] MEDS: KETOROLAC 60 MG/2 ML VIAL 30 MG IV (09:31)
[2019-07-18 09:42] LABS: Add Manual Diff / Slide Review NO; Basophils Absolute Auto 100 /uL (0-100); Eosinophils Absolute Auto 1100 /uL (0-450); Eosinophils Percent Auto 14.3 % (2-4); Hematocrit 41.7 % (41-53); Hemoglobin 14.1 g/dL (13.5-17.5); Lymphocytes Absolute Auto 1300 /uL (1100-4500); Lymphocytes Percent Auto 16.7 % (25-40); Mean Corpuscular HGB Conc 33.8 % (30-36); Mean Corpuscular Hemoglobin 30.6 PG (26-34); Mean Corpuscular Volume 90.6 fL (80-100); Monocytes Absolute Auto 500 /uL (0-900); Monocytes Percent Auto 6.7 % (3-14); Neutrophils Absolute Auto 4800 /uL (1500-7000); Neutrophils Percent Auto 61.3 % (50-75); Platelet Count 298 X10^3/uL (150-400); Red Cell Distribution Width 12.7 % (11.6-14.8); White Blood Cell Count 7.8 X10^3/uL (4.5-11.0)
[2019-07-18 09:52] LABS: Lactate (Lactic Acid) 1.3 mmol/L (0.7-2.1)
[2019-07-18 09:53] LABS: Alanine Aminotransferase 34 IU/L (<50); Albumin 4.4 g/dL (3.5-5.0); Albumin Globulin Ratio 1.5 (1.0-2.8); Alkaline Phosphatase 88 U/L (38-126); Aspartate Aminotransferase 25 IU/L (17-59); BUN Creatinine Ratio 12.9 (6-22); Bilirubin Total 0.4 mg/dL (0.2-1.3); Blood Urea Nitrogen 9 mg/dL (9-20); Calcium 9.9 mg/dL (8.4-10.2); Carbon Dioxide 25 mmol/L (22-32); Chloride 101 mmol/L (98-107); Estimated Glomerular Filt Rate > 60.0 mL/min (>60); Glucose 126 mg/dL (70-100); HEMOLYSIS < 15 (0-50); Potassium 4.7 mmol/L (3.4-5.1); Sodium 134 mmol/L (137-145); Total Protein 7.4 g/dL (6.3-8.2)
[2019-07-18 10:05] VITALS: PULSE 82; RESP 18; O2SAT 98
[2019-07-18 10:12] LABS: Procalcitonin < 0.05 ng/mL (<0.5)
[2019-07-18 12:04] VITALS: BP 133/88; PULSE 75; O2SAT 95
== END 2019-07-18 12:58 | disposition home or self-care (01) ==
PROVIDERS: Emergency Provider Emergency Medicine
DX: S22.31XA Fracture of one rib, right side, initial encounter for closed fracture (principal); R07.81 Pleurodynia; R05 Cough; J40 Bronchitis, not specified as acute or chronic; M54.6 Pain in thoracic spine
CPT/HCPCS: 36415; 71260; 80053; 83605; 84145; 85025; 96361; 96374; 96375; 99285; J1885; J2270; Q9967

== ENCOUNTER 2019-07-22 15:10 | Inpatient (IN) | payer OTHER, SELFPAY ==
[2019-07-09 04:00] VITALS: BMI 29.9
[2019-07-22] VITALS (10 sets, daily range): BP systolic 128–151; BP diastolic 69–89; PULSE 101–134; RESP 22–40; TEMP 36.5–36.6; O2SAT 91–96; BMI 29.8
[2019-07-22] MEDS: ALBUTEROL/IPRATROPIUM 3 ML AMPUL INH (15:15)
--- NOTE | 2019-07-22 15:15 | ED_ITS ---
HPI - General Adult General Chief complaint: Shortness of Breath/Dyspnea Stated complaint: Short of breath Time Seen by Provider: 07/22/19 15:12 Source: patient and EMS Mode of arrival: EMS Limitations: no limitations History of Present Illness HPI narrative: 54-year-old male arrived by EMS for shortness of breath. EMS states that they were called to patient's home for problems breathing. Has recently been diagnosed and treated with antibiotics for pneumonia. Is currently on antibiotics. Was seen here in the emergency department a couple days ago because he states he coughs so hard that he fractured a rib. He stated that a couple days ago he was feeling better but today started having more problems breathing. No chest pain. EMS reports that they found him hypoxic into the 70s and try potting. He was placed on a non-rebreather and given a nebulizer treatment. This did seem to improve his symptoms tremendously although upon arrival here to the emergency department he states that his symptoms were beginning to worsen again. Patient also has right lower extremity swelling which is new today. Related Data Home Medications Medication Instructions Recorded Confirmed aspirin 81 mg PO QDAY #0 02/25/16 07/09/19 atorvastatin [Lipitor] 20 mg PO HS #30 tab 02/25/16 07/09/19 lisinopril 20 mg PO DAILY 05/22/18 07/09/19 omeprazole 40 mg PO DAILY 05/22/18 07/09/19 amlodipine 10 mg PO DAILY 07/09/19 07/09/19 Previous Rx's Medication Instructions Recorded benzonatate [Tessalon Perles] 100 mg PO BID-TID PRN #14 cap 06/07/19 albuterol sulfate 2.5 mg INHALATION Q4-6H PRN #90 ml 06/22/19 prednisone 20 mg PO DAILY #5 tab 06/22/19 levofloxacin 750 mg PO DAILY #5 tab 07/11/19 cyclobenzaprine 10 mg PO TID PRN #15 tab 07/18/19 hydrocodone-acetaminophen [[place]] 1 tab PO Q4-6H PRN #15 tab 07/18/19 levofloxacin [Levaquin] 500 mg PO DAILY #7 tab 07/18/19 lidocaine [Lidoderm] 1 patch TOP DAILY #14 each 07/18/19 naproxen [Naprosyn] 500 mg PO BID PRN #20 tab 07/18/19 Allergies Allergy/AdvReac Type Severity Reaction Status Date / Time No Known Drug Allergies Allergy Verified 02/02/18 13:32 Review of Systems Constitutional Constitutional: Denies fever(s) and Denies headache(s) ENT Ears, Nose, Mouth, and Throat: Denies headache(s) Cardiovascular Cardiovascular: Denies chest pain, Reports rapid heart rate, Reports leg edema, Reports dyspnea and Reports dyspnea on exertion Respiratory Respiratory: Reports dyspnea and Reports dyspnea on exertion Gastrointestinal Gastrointestinal: Denies abdominal pain, Denies nausea and Denies vomiting Genitourinary Genitourinary: Denies dysuria Musculoskeletal Musculoskeletal: Denies myalgias and Denies arthralgias Integumentary/Breasts Skin/Breast: Denies lesions and Denies rash Neurologic Neurologic: Denies behavioral changes and Denies headache(s) Psychiatric Psychiatric: Denies behavioral changes Hematologic/Lymphatic Hematologic/Lymphatic: Denies easy bleeding and Denies easy bruising Patient History Medical History Hyperlipidemia (Acute) Hypertension (Acute) Social History household members: significant other Smoking Status: Current every day smoker alcohol intake: current Smoking Status: Current every day smoker tobacco type: cigarettes alcohol intake frequency: a few times a week Substance Use Type: does not use Exam Initial Vital Signs Initial Vital Signs: Vital Signs Temperature 97.7 F 07/22/19 15:13 Pulse Rate 134 H 07/22/19 15:13 Respiratory Rate 40 H 07/22/19 15:13 Blood Pressure 149/80 H 07/22/19 15:13 Pulse Oximetry 92 07/22/19 15:13 Const General: cooperative and in distress Limitations: mental status not altered [facility] Head: normal to inspection and normocephalic Resp Effort & Inspection: grunting, labored, retractions and tachypneic Auscultation: rhonchi and wheezes Cardio Rate: tachycardic Rhythm: regular rhythm GI Inspection: non-distended Palpation: soft Skin Lesions: no lesions Rashes: no rashes Neuro General: alert, awake and oriented x3 Cognition: normal cognition Speech: speech normal Extrem General: edema (Right lower extremity) Psych Appearance: grossly normal and well kempt Scores GCS [place] coma scale eye opening: Spontaneous [place] coma scale verbal response: Orientated [place] coma scale motor response: Obey commands [place] coma scale total score: 15 Course Orders Ordered: ED Orders 07/22/19 15:13 Sputum Culture Stat 07/22/19 15:14 EKG-12 Lead Stat 07/22/19 15:20 C-Reactive Protein Quant Stat Complete Blood Count AUTO DIFF Stat Comprehensive Metabolic Panel Stat D Dimer Stat Lactate Dehydrogenase Stat Lipase Stat NT-proBNP (BNP-Adult 18+) Stat Procalcitonin Stat Troponin I Stat 07/22/19 15:28 CT angio chest PE protocol Stat 07/22/19 15:30 Lactate (Lactic Acid) Stat Discontinued Medications Albuterol/Ipratropium (Duoneb) 3 ml INH NOW ONE Stop: 07/22/19 15:14 Last Admin: 07/22/19 15:15 Dose: 3 ml Documented by: KIRAN Albuterol/Ipratropium (Duoneb) 3 ml INH NOW ONE Stop: 07/22/19 15:20 Last Admin: 07/22/19 16:24 Dose: Not Given Documented by: KIRAN Methylprednisolone (Solu-Medrol 125 Mg Vial) 125 mg IV NOW ONE Stop: 07/22/19 15:17 Last Admin: 07/22/19 15:47 Dose: 125 mg Documented by: JONATHAN Vital Signs Vital signs: Vital Signs - 8 hr 07/22/19 15:13 07/22/19 15:20 07/22/19 15:49 Temperature 97.7 F Pulse Rate 134 H 101 H 116 H Respiratory Rate 40 H 36 H Blood Pressure 149/80 H Blood Pressure [Right Arm] 150/79 H Pulse Oximetry 92 96 93 07/22/19 16:20 Temperature Pulse Rate 102 H Respiratory Rate 30 H Blood Pressure Blood Pressure [Right Arm] 128/69 Pulse Oximetry 96 Medical Decision Making Medical Records Medical records reviewed: Yes I reviewed the patient's medical records. Lab Data Lab results reviewed: Yes I reviewed the patient's lab results. Result diagrams: 07/22/19 15:20 07/22/19 15:20 Labs: Lab Results 07/22/19 07/22/19 07/22/19 Range/Units 15:20 15:20 15:20 WBC 10.5 (4.5-11.0) X10^3/uL RBC 4.48 L (4.5-5.9) X10^6/uL Hgb 13.8 (13.5-17.5) g/dL Hct 40.5 L (41-53) % MCV 90.5 (80-100) fL MCH 30.8 (26-34) PG MCHC 34.0 (30-36) % RDW 12.7 (11.6-14.8) % Plt Count 291 (150-400) X10^3/uL Neut % (Auto) 70.0 (50-75) % Lymph % (Auto) 13.6 L (25-40) % [place] % (Auto) 5.1 (3-14) % Eos % (Auto) 10.5 H (2-4) % Baso % (Auto) 0.8 (0-2) % Neut # (Auto) 7300 H (2413-0544) /uL Lymph # (Auto) 1400 (8200-3870) /uL [place] # (Auto) 500 (0-900) /uL Eos # (Auto) 1100 H (0-450) /uL Baso # (Auto) 100 (0-100) /uL D-Dimer (<230) ng/mL Sodium Cancelled 134 L Potassium Cancelled 5.0 Chloride Cancelled 100 Carbon Dioxide Cancelled 24 BUN Cancelled 10 Creatinine Cancelled 0.72 Estimated GFR Cancelled > 60.0 BUN/Creatinine Ratio Cancelled 13.9 Glucose Cancelled 101 H Lactate (0.7-2.1) mmol/L Calcium Cancelled 10.1 Total Bilirubin Cancelled 0.7 AST Cancelled 43 ALT Cancelled 24 Alkaline Phosphatase Cancelled 72 Lactate Dehydrogenase 525 (313-618) U/L Troponin I < 0.012 (0.01-0.034) ng/mL C-Reactive Protein 1.6 H (<1.0) mg/dL Total Protein Cancelled 7.6 Albumin Cancelled 4.4 Globulin Cancelled 3.2 Albumin/Globulin Ratio Cancelled 1.4 Lipase 30 (23-300) U/L Procalcitonin (<0.5) ng/mL 07/22/19 07/22/19 07/22/19 Range/Units 15:20 15:20 15:30 WBC (4.5-11.0) X10^3/uL RBC (4.5-5.9) X10^6/uL Hgb (13.5-17.5) g/dL Hct (41-53) % MCV (80-100) fL MCH (26-34) PG MCHC (30-36) % RDW (11.6-14.8) % Plt Count (150-400) X10^3/uL Neut % (Auto) (50-75) % Lymph % (Auto) (25-40) % [place] % (Auto) (3-14) % Eos % (Auto) (2-4) % Baso % (Auto) (0-2) % Neut # (Auto) (7700-6308) /uL Lymph # (Auto) (8307-7702) /uL [place] # (Auto) (0-900) /uL Eos # (Auto) (0-450) /uL Baso # (Auto) (0-100) /uL D-Dimer 465 H (<230) ng/mL Sodium Potassium Chloride Carbon Dioxide BUN Creatinine Estimated GFR BUN/Creatinine Ratio Glucose Lactate 0.9 (0.7-2.1) mmol/L Calcium Total Bilirubin AST ALT Alkaline Phosphatase Lactate Dehydrogenase (313-618) U/L Troponin I (0.01-0.034) ng/mL C-Reactive Protein (<1.0) mg/dL Total Protein Albumin Globulin Albumin/Globulin Ratio Lipase (23-300) U/L Procalcitonin < 0.05 (<0.5) ng/mL Imaging Data CT scan - chest: Radiologist's Impression: [place] [address] CT Scan Report Signed Patient: Delvin Louis#: [id number] : 1965Acct:[id number] Age/Sex: 54 / MDate of Service: 07/22/19 Loc: ED Accession Number: [id number] Procedure: CT angio chest PE protocol Ordering Provider: Lul Barrios D.O. PROCEDURE: CT ANGIO CHEST PE PROTOCOL INDICATIONS: shortness of breath, tachycardia TECHNIQUE: After the administration of intravenous contrast, 2 mm thick sections acquired from the pulmonary apices to the posterior costophrenic angles. 3-dimensional maximum intensity projection (MIP) coronal and sagittal reformats were then acquired through the thorax. For radiation dose reduction, the following was used: automated exposure control, adjustment of mA and/or kV according to patient size. COMPARISON: None. FINDINGS: Image quality: Timing is slightly off, with suboptimal opacification of small pulmonary material vessels. No motion artifact. Pulmonary arteries: Pulmonary arteries are normal in size. Large and moderate sized pulmonary emboli are not present. Small peripheral pulmonary emboli could potentially be missed. Lungs and pleura: Minimal peripheral density, extreme right lung base, consistent with atelectasis versus consolidation. Subtle groundglass opacities, anterior segment right upper lobe and focally in the medial portion of the left upper lobe., No pleural effusions or pneumothorax. Small peripheral mucous plug, basilar bronchus, left lower lobe. Central and peripheral airways are otherwise patent. Mild diffuse bronchial wall thickening. Mediastinum: Heart size is normal, without pericardial effusion. No mediastinal or hilar adenopathy. Thoracic aorta is normal in caliber and enhancement. Esophagus is normal in caliber, without hiatal hernia. Bones and chest wall: No suspicious bony lesions. Ribs and thoracic spine appear intact throughout. Thyroid gland is unremarkable. No axillary or supraclavicular adenopathy. Abdomen: Visualized upper abdominal solid organs appear normal in the early arterial phase of enhancement. IMPRESSION: 1. Somewhat suboptimal bolus timing. No large or moderate sized pulmonary emboli. Cannot exclude small peripheral pulmonary emboli. 2. Small focal area of consolidation versus atelectasis, extreme right lung base. 3. Subtle groundglass opacities, anterior segment right upper lobe and medial focal area in left upper lobe. Cannot exclude viral pneumonia. 4. Mild diffuse bronchial wall thickening. Dictated by: Mo Cardenas M.D. on 07/22/2019 at 16:03 Approved by: Mo Cardenas M.D. on 07/22/2019 at 16:10 ECG Data Attestation: I personally reviewed and interpreted this ECG as follows: Prior ECG tracings: not available for review Interpretation: Sinus rhythm Ventricular rate of 100 Normal axis Normal QRS Normal QTC No ST T wave changes MDM Narrative Medical decision making narrative: Patient without prior history of lung issues. Was admitted earlier in the month for pneumonia. Was treated with antibiotics. He states that he did start to feel better afterwards. On Saturday of last week started having coughing. At the end of last week cough so hard that he fractured a rib. Came into the emergency department. Since then has had continued coughing and then today had shortness of breath. Was found hypoxic and tachypneic by EMS. Did improve with a nebulizer treatment EN route. Upon arrival here patient again stated that he was feeling worse. Had coarse breath sounds bilateral. Was given another nebulizer treatment which again helped his symptoms. He does state that he thinks that the coughing makes symptoms worse. No fevers. Here in the ER he was afebrile. Was tachycardic. Maintain oxygen saturations with 2 L of nasal cannula however became hypoxic when he was taken off of the oxygen. Does not have a white count. Procalcitonin is negative. CT scan of the chest shows no signs of pulmonary embolism however potentially has right-sided lower lobe atelectasis and bilateral ground-glass opacities. Given the current situation with COVID-19 he was tested for this. Patient is currently taking antibiotics for his pneumonia per his report. Will hold on antibiotics here in the emergency department. I have a stronger suspicion for viral illness. Discussed the case with Dr. Vernon who will admit for further evaluation and treatment. Discussed the admission with the patient. He expressed understanding and agreement. Discharge Plan Departure Patient Disposition: Admitted As Inpatient Clinical Impression: Acute respiratory distress, Hypoxia Reactive airway disease Qualifiers: Asthma severity: unspecified severity Asthma persistence: unspecified Asthma complication type: uncomplicated Qualified Code(s): J45.909 - Unspecified asthma, uncomplicated Admit Date/Time: 07/22/19 16:49 Admit Provider: Brennen Vernon
--- NOTE | 2019-07-22 15:28 | DI.CT.S_ITS ---
PROCEDURE: CT ANGIO CHEST PE PROTOCOL INDICATIONS: shortness of breath, tachycardia TECHNIQUE: After the administration of intravenous contrast, 2 mm thick sections acquired from the pulmonary apices to the posterior costophrenic angles. 3-dimensional maximum intensity projection (MIP) coronal and sagittal reformats were then acquired through the thorax. For radiation dose reduction, the following was used: automated exposure control, adjustment of mA and/or kV according to patient size. COMPARISON: None. FINDINGS: Image quality: Timing is slightly off, with suboptimal opacification of small pulmonary material vessels. No motion artifact. Pulmonary arteries: Pulmonary arteries are normal in size. Large and moderate sized pulmonary emboli are not present. Small peripheral pulmonary emboli could potentially be missed. Lungs and pleura: Minimal peripheral density, extreme right lung base, consistent with atelectasis versus consolidation. Subtle groundglass opacities, anterior segment right upper lobe and focally in the medial portion of the left upper lobe., No pleural effusions or pneumothorax. Small peripheral mucous plug, basilar bronchus, left lower lobe. Central and peripheral airways are otherwise patent. Mild diffuse bronchial wall thickening. Mediastinum: Heart size is normal, without pericardial effusion. No mediastinal or hilar adenopathy. Thoracic aorta is normal in caliber and enhancement. Esophagus is normal in caliber, without hiatal hernia. Bones and chest wall: No suspicious bony lesions. Ribs and thoracic spine appear intact throughout. Thyroid gland is unremarkable. No axillary or supraclavicular adenopathy. Abdomen: Visualized upper abdominal solid organs appear normal in the early arterial phase of enhancement. IMPRESSION: 1. Somewhat suboptimal bolus timing. No large or moderate sized pulmonary emboli. Cannot exclude small peripheral pulmonary emboli. 2. Small focal area of consolidation versus atelectasis, extreme right lung base. 3. Subtle groundglass opacities, anterior segment right upper lobe and medial focal area in left upper lobe. Cannot exclude viral pneumonia. 4. Mild diffuse bronchial wall thickening. Dictated by: Mo Cardenas M.D. on 07/22/2019 at 16:03 Approved by: Mo Cardenas M.D. on 07/22/2019 at 16:10
[2019-07-22 15:31] LABS: Add Manual Diff / Slide Review NO; Basophils Absolute Auto 100 /uL (0-100); Basophils Percent Auto 0.8 % (0-2); Eosinophils Absolute Auto 1100 /uL (0-450); Eosinophils Percent Auto 10.5 % (2-4); Hematocrit 40.5 % (41-53); Hemoglobin 13.8 g/dL (13.5-17.5); Lymphocytes Absolute Auto 1400 /uL (1100-4500); Lymphocytes Percent Auto 13.6 % (25-40); Mean Corpuscular Hemoglobin 30.8 PG (26-34); Mean Corpuscular Volume 90.5 fL (80-100); Monocytes Absolute Auto 500 /uL (0-900); Monocytes Percent Auto 5.1 % (3-14); Neutrophils Absolute Auto 7300 /uL (1500-7000); Platelet Count 291 X10^3/uL (150-400); Red Blood Cell Count 4.48 X10^6/uL (4.5-5.9); Red Cell Distribution Width 12.7 % (11.6-14.8); White Blood Cell Count 10.5 X10^3/uL (4.5-11.0)
[2019-07-22] MEDS: methylPREDNISolone 125 MG/2 ML VIAL IV (15:47)
[2019-07-22 15:50] LABS: Lactate (Lactic Acid) 0.9 mmol/L (0.7-2.1)
[2019-07-22 15:56] LABS: Alanine Aminotransferase 24 IU/L (<50); Albumin 4.4 g/dL (3.5-5.0); Albumin Globulin Ratio 1.4 (1.0-2.8); Alkaline Phosphatase 72 U/L (38-126); Aspartate Aminotransferase 43 IU/L (17-59); BUN Creatinine Ratio 13.9 (6-22); Bilirubin Total 0.7 mg/dL (0.2-1.3); Blood Urea Nitrogen 10 mg/dL (9-20); C-Reactive Protein Quant 1.6 mg/dL (<1.0); Calcium 10.1 mg/dL (8.4-10.2); Carbon Dioxide 24 mmol/L (22-32); Chloride 100 mmol/L (98-107); D Dimer 465 ng/mL (<230); Estimated Glomerular Filt Rate > 60.0 mL/min (>60); Globulin 3.2 g/dL (1.7-4.1); Glucose 101 mg/dL (70-100); Lactate Dehydrogenase 525 U/L (313-618); Lipase 30 U/L (23-300); Sodium 134 mmol/L (137-145); Total Protein 7.6 g/dL (6.3-8.2)
[2019-07-22 15:57] LABS: HEMOLYSIS 67 (0-50)
[2019-07-22 16:04] LABS: Troponin I < 0.012 ng/mL (0.01-0.034)
[2019-07-22 16:08] LABS: Procalcitonin < 0.05 ng/mL (<0.5)
--- NOTE | 2019-07-22 17:54 | P.HP_ITS ---
History of Present Illness History of Present Illness Date Patient Seen: 07/22/19 Time Patient Seen: 17:00 Chief complaint: Short of breath Narrative: Patient is a 54-year-old male smoker who was transported to the ER due to persistent cough and shortness of breath. He was admitted here from July 08, 2019 to July 11, 2019 due to right middle lobe pneumonia. The pneumonia was not apparent on x-ray but was seen on a CT from the [facility]. However he was not having fever and his presentation was more subacute or chronic symptoms of cough and dyspnea over the preceding couple of months. His sputum culture, blood culture and urine Legionella antigen were all negative. Patient got discharged on Levaquin and 5 day prednisone course. He was feeling better for a few days but came back into the ER on July 17 because of severe pain due to rib fracture from coughing. He had another CT done at that ER visit which showed diffuse peribronchial thickening suggestive of bronchitis and a very small right middle lobe infiltrate and he was discharged a gain on Levaquin for 7 day course which she has been taking to present time. He states his rib pain has completely resolved. He was had also been seen in the ER in May and June for his cough and treated for bronchitis. Patient states he has had no improvement in his cough since the last ER visit on July 17. He uses albuterol nebulizer as needed. Upon evaluation by medics patient was noted to be acutely dyspnea and wheezing with sats in the 70s. He was put on non-rebreather and given nebulizer treatment which consider bili helped his breathing. His sats in the ER have been 94-96% on 2 L nasal cannula but he does desaturate to the upper 80s on room air. The ER provider also noted wheezing on exam and provided additional nebulizer treatment and IV Solu-Medrol. Patient continues to deny fever or chills and cough is productive of clear sputum. He does note some new swelling in the right lower leg. His D-dimer was mildly elevated and a chest CTA of was done which showed no PE, small focal area of consolidation right lung base which could also be atelectasis, subtle ground- glass opacities right upper lobe and left upper lobe and mild diffuse bronchial wall thickening. Patient's labs indicate normal WBC, procalcitonin less than 0.05, CRP 1.6. Patient History Medical History Hyperlipidemia (Acute) Hypertension (Acute) Family & Social History Social History: household members significant other Safety & Behavioral: Feels Safe in Current Yes Environment Been Physically Hurt or No Threatened By a Person Tobacco & Substance use: Tobacco type cigarettes Smoking Status Current every day smoker alcohol intake current alcohol intake frequency a few times a week Substance Use Type does not use Meds Home Medications and Allergies Home Medications Medication Instructions Recorded Confirmed Type aspirin 81 mg PO QDAY #0 02/25/16 07/09/19 History atorvastatin [Lipitor] 20 mg PO HS #30 tab 02/25/16 07/09/19 History lisinopril 20 mg PO DAILY 05/22/18 07/09/19 History omeprazole 40 mg PO DAILY 05/22/18 07/09/19 History benzonatate [Tessalon Perles] 100 mg PO BID-TID PRN #14 cap 06/07/19 07/09/19 Rx albuterol sulfate 2.5 mg INHALATION Q4-6H PRN #90 ml 06/22/19 07/09/19 Rx prednisone 20 mg PO DAILY #5 tab 06/22/19 07/09/19 Rx amlodipine 10 mg PO DAILY 07/09/19 07/09/19 History levofloxacin 750 mg PO DAILY #5 tab 07/11/19 Rx cyclobenzaprine 10 mg PO TID PRN #15 tab 07/18/19 Rx hydrocodone-acetaminophen [[place]] 1 tab PO Q4-6H PRN #15 tab 07/18/19 Rx levofloxacin [Levaquin] 500 mg PO DAILY #7 tab 07/18/19 Rx lidocaine [Lidoderm] 1 patch TOP DAILY #14 each 07/18/19 Rx naproxen [Naprosyn] 500 mg PO BID PRN #20 tab 07/18/19 Rx Allergies Allergy/AdvReac Type Severity Reaction Status Date / Time No Known Drug Allergies Allergy Verified 02/02/18 13:32 Review of Systems Review of Systems ROS: Yes All systems reviewed with the patient and are negative except as otherwise documented Exam Vital Signs (past 8 hours): - 07/22/19 15:13 07/22/19 15:20 07/22/19 15:49 Temperature 97.7 F Pulse Rate 134 H 101 H 116 H Respiratory Rate 40 H 36 H Blood Pressure 149/80 H Blood Pressure [Right Arm] 150/79 H Pulse Oximetry 92 96 93 07/22/19 16:20 07/22/19 17:09 Temperature Pulse Rate 102 H 102 H Respiratory Rate 30 H 22 Blood Pressure Blood Pressure [Right Arm] 128/69 138/81 Pulse Oximetry 96 94 Oxygen Delivery Method Nasal Cannula Oxygen Flow Rate 2 Narrative Exam Narrative: General: Patient is alert sitting up in ER bed and appears mildly short of breath HEENT: Pupils equal and reactive Neck: No lymphadenopathy Lungs: Clear to auscultation except mild prolonged expiratory phase, no crackles or wheeze Heart: Regular rhythm without murmur Abdomen: Soft and nontender, no organomegaly Extremities: Trace right lower extremity pretibial edema Neurological: Normal affect, oriented x3, nonfocal Objective Labs Result Diagrams: 07/22/19 15:20 07/22/19 15:20 Labs: Laboratory Results - last 24 hr 07/22/19 07/22/19 07/22/19 15:20 15:20 15:20 WBC 10.5 RBC 4.48 L Hgb 13.8 Hct 40.5 L MCV 90.5 MCH 30.8 MCHC 34.0 RDW 12.7 Plt Count 291 Neut % (Auto) 70.0 Lymph % (Auto) 13.6 L [place] % (Auto) 5.1 Eos % (Auto) 10.5 H Baso % (Auto) 0.8 Neut # (Auto) 7300 H Lymph # (Auto) 1400 [place] # (Auto) 500 Eos # (Auto) 1100 H Baso # (Auto) 100 D-Dimer Sodium Cancelled 134 L Potassium Cancelled 5.0 Chloride Cancelled 100 Carbon Dioxide Cancelled 24 BUN Cancelled 10 Creatinine Cancelled 0.72 Estimated GFR Cancelled > 60.0 BUN/Creatinine Ratio Cancelled 13.9 Glucose Cancelled 101 H Lactate Calcium Cancelled 10.1 Total Bilirubin Cancelled 0.7 AST Cancelled 43 ALT Cancelled 24 Alkaline Phosphatase Cancelled 72 Lactate Dehydrogenase 525 Troponin I < 0.012 C-Reactive Protein 1.6 H NT-Pro-B Natriuret Pep 30 Total Protein Cancelled 7.6 Albumin Cancelled 4.4 Globulin Cancelled 3.2 Albumin/Globulin Ratio Cancelled 1.4 Lipase 30 Procalcitonin 07/22/19 07/22/19 07/22/19 15:20 15:20 15:30 WBC RBC Hgb Hct MCV MCH MCHC RDW Plt Count Neut % (Auto) Lymph % (Auto) [place] % (Auto) Eos % (Auto) Baso % (Auto) Neut # (Auto) Lymph # (Auto) [place] # (Auto) Eos # (Auto) Baso # (Auto) D-Dimer 465 H Sodium Potassium Chloride Carbon Dioxide BUN Creatinine Estimated GFR BUN/Creatinine Ratio Glucose Lactate 0.9 Calcium Total Bilirubin AST ALT Alkaline Phosphatase Lactate Dehydrogenase Troponin I C-Reactive Protein NT-Pro-B Natriuret Pep Total Protein Albumin Globulin Albumin/Globulin Ratio Lipase Procalcitonin < 0.05 Assessment & Plan Assessment & Plan narrative: 1. Acute hypoxic respiratory failure, present on admission, active -patient presenting as severe bronchospasm with sats in the 70s by medics and quickly recovered with non-rebreather and nebulizer treatment, currently satting in the high 90s on 2 L nasal cannula but desaturates to upper 80s on room air, clinical presentation supports bronchospastic disease -CT scan with appearance of chronic bronchiectasis, as well there is subtle consolidation in the right upper and lower lung and left upper lobe, no PE -clinically he is not presenting as having a bacterial pneumonia, noting absence of fever, elevated WBC, and procalcitonin less than 0.05 -negative respiratory panel including for influenza a and B -COVID-19 sent from ER due to presence of ground-glass infiltrates on CT although both viral and bacterial pneumonia are unlikely based on chronicity of symptoms -CHF ruled out, echo 07/10/2019 showed normal LVEF 60-65%, no significant valvular disease, troponin negative 2. Chronic bronchitis/COPD with exacerbation, present on admission, active -CT scan current and July 17 both noting appearance of chronic bronchiectasis which is likely associated with COPD in this patient who is a smoker -not sure what to make of subtle opacities on his CT -patient needs more aggressive inhaler management and might benefit from another course of prednisone -prednisone 40 mg q.d. x 10 days -start Combivent Respimat 1 puff Q 6 hours with RT -start Advair 250/50 1 puff b.i.d. with RT -albuterol MDI with spacer 2 puffs q.4 hours as needed -benzonatate 100 mg t.i.d. as needed -continue Levaquin 500 mg q.d. started on 07/17 through 07/23 to complete 1 week course -consider outpatient pulmonology consultation, patient states he had PFTs done in April last year which were normal, however report is not available to verify findings 3. Hypertension, chronic, active -continue routine meds lisinopril, amlodipine 4. Cigarette dependency, active -encouraged smoking cessation -nicotine patch DVT prophylaxis: Lovenox Patient admitted to hospital observation services due to COPD exacerbation and respiratory failure expecting rapid resolution.
--- NOTE | 2019-07-22 18:23 | PC.NURSE ---
1745 Pt arrived on unit via gurney from ED, A/Ox4, connected to 2LNC, pulse ox placed on Left index finger, oriented to room and call light, dinner has arrived, no further needs at this time will continue to monitor.
[2019-07-22] MEDS: FLUTICASONE/SALMETEROL 250/50 60 PUFF DISKUS INH (20:28)
[2019-07-22] MEDS: NICOTINE 21 MG PATCH TOP (20:28)
[2019-07-22] MEDS: ATORVASTATIN 20 MG TABLET PO (20:28)
[2019-07-22 21:01] LABS: NT-proBNP (BNP-Adult 18+) 30 pg/mL (<125)
[2019-07-22] MEDS: ALBUTEROL/IPRATROPIUM MDI 1 PUFF INH (21:04)
--- NOTE | 2019-07-22 22:03 | PM.EVENT ---
Event Note Event Note: Despite having a nasal cannula, patient continued to complain of shortness of breath. ABG was order and his PO2 was 69 and recommended for humidified high flow O2. Due to current precautions, and his pending Coronavirus rule out will need to be placed in a negative pressure room and managed with airborne precautions.
[2019-07-22 22:10] LABS: Fractionated Inspired Oxygen 28; HCO3 ABG 26 mmol/L (22-26); Oxygen Saturation ABG 93 % (95-100); PCO2 ABG 43.2 mmHg (35-45); PO2 ABG 69 mmHg (80-100); TCO2 ABG 28 mmol/L (21-31)
[2019-07-23] VITALS (17 sets, daily range): BP systolic 130–142; BP diastolic 76–92; PULSE 80–121; RESP 18–22; TEMP 36–36.8; O2SAT 89–99
[2019-07-23] MEDS: ALBUTEROL/IPRATROPIUM MDI 1 PUFF INH ×4 (02:02→20:30)
[2019-07-23] MEDS: guaiFENesin ER 600 MG TAB PO ×2 (02:55→14:03)
--- NOTE | 2019-07-23 06:00 | DI.US.S_ITS ---
PROCEDURE: US PERIPH VENOUS LOW EXTREM RT INDICATIONS: RIGHT LEG PAIN TECHNIQUE: Real-time imaging, as well as color and pulse Doppler interrogation, were performed of the lower extremity deep veins from the inguinal ligament to the popliteal fossa. COMPARISON: None. FINDINGS: The common femoral, femoral and popliteal veins are normally compressible, and free of intraluminal thrombus. Color and pulse Doppler demonstrate normal phasic intraluminal flow. There is normal augmentation response to distal compression maneuver. IMPRESSION: No evidence for deep venous thrombosis in the right lower extremity. Dictated by: Kamar Abdalla M.D. on 07/23/2019 at 8:27 Approved by: Kamar Abdalla M.D. on 07/23/2019 at 8:27
[2019-07-23] MEDS: PANTOPRAZOLE 40 MG TABLET PO (06:20)
--- NOTE | 2019-07-23 06:37 | PC.NURSE ---
Noc Note Pt has been up for most of the night with a rattling moist cough, guaifenesin given per orders with minimal relief, encouraged pt to take it every 12 routinely for full effectiveness. LS are coarse but clear somewhat with cough and occ wheezes noted bilat. Pt on HFLC with FIO2 at 50% and 40L O2 keeping sats in upper 90's. Pt is SOB with exertion even with the HFNC. Using the urinal with SBA at the bedside. Pt has denied pain this shift. HR 87-100. HOB elevated and pt is independent with bed mobility.
[2019-07-23] MEDS: ENOXAPARIN 40 MG/0.4 ML SYRINGE SUBCUT (08:30)
[2019-07-23] MEDS: ASPIRIN 81 MG CHEW TAB PO (08:30)
[2019-07-23] MEDS: SODIUM CHLORIDE 0.9% FLUSH 10 ML IV ×2 (08:30→21:07)
[2019-07-23] MEDS: AMLODIPINE 5 MG TABLET 10 MG PO (08:30)
[2019-07-23] MEDS: predniSONE 20 MG TABLET 40 MG PO (08:30)
[2019-07-23] MEDS: BENZONATATE 100 MG CAPSULE PO (08:30)
[2019-07-23] MEDS: LIDOCAINE PATCH 1 EACH ADH..PATCH TOP (08:31)
[2019-07-23] MEDS: FLUTICASONE/SALMETEROL 250/50 60 PUFF DISKUS INH ×2 (09:29→20:30)
[2019-07-23] MEDS: lisinopriL 20 MG TABLET PO (10:28)
--- NOTE | 2019-07-23 11:07 | CM.DANOTE ---
DCP: Case received, EMR reviewed and spoke to patient over the phone. Introduced self and role. Was able to obtain some information from patient regarding baseline health, activity, and living situation. DCP assessment completed with information currently available. Patient is a 54 year old male who admitted yesterday afternoon to the care of the hospitalist team. PCP: ABEL Hunter. Payer: confirmed: [facility]. Patient came to the hospital via ambulance secondary to increased shortness of breath, and fever. Patient was recently here in the hospital from 07-07 to 07-08 for middle lobe pneumonia, and was discharged on antibiotics. Patient was starting to feel worse, having difficulty breathing. Patient had rib fracture due to excessive coughing. Patient holds diagnosis of COPD, and is being ruled out for COVID-19, and is on droplet precautions. He has been treated for middle lobe pneumonia. He is currently on oxygen. Called patient on the phone in his room. He is alert and oriented. Patient is retired [employer], and is independent. Confirmed that he does reside with his significant other, Poonam Warren, in [place]. He seeks medical care at the [facility] in [place]. P: DCP to continue to follow and be available for any resources that are needed. He should be able to go home when he is medically stable, but is unclear if he will need home oxygen. Marcela Cifuentes RN/Slp
[2019-07-23] MEDS: levoFLOXacin 500 MG TABLET PO (12:26)
--- NOTE | 2019-07-23 16:43 | P.PN_ITS ---
Subjective Subjective Date Patient Seen: 07/23/19 Interval history: Delvin Louis is a 54-year-old male with a past medical history significant for hypertension, hyperlipidemia, and current active smoker who presented to the ED for persistent and progressive cough and shortness of breath for the last 2 months. The patient is resting in bed comfortably. He continues to be on heated high- flow oxygen for work of breathing and will plan to slowly titrate off of heated high-flow to supplemental oxygen as tolerated. The patient is no longer having subjective shortness of breath and feels that his breathing and cough overall have improved. Requested records from his help desk assistant Dr. Kent at [facility] which show mild COPD. The patient inquires as to why he continues to be short of breath several months after that this initially started in May. Discussed COPD in detail and the progression of his lung disease if he continues smoking. Recommend he quit smoking indefinitely. The patient reports that he is not ?an addictive smoker? and it will not be difficult for him to quit. He is voiding without difficulty. He is up ambulating independently in the room. Exam Vital Signs (past 8 hours): - 07/23/19 09:00 07/23/19 09:01 07/23/19 10:19 Temperature 97.4 F L Pulse Rate 85 88 Respiratory Rate 22 18 Blood Pressure 141/84 H Pulse Oximetry 98 99 98 07/23/19 10:27 07/23/19 10:29 07/23/19 12:00 Temperature 97.5 F L Pulse Rate 91 H Respiratory Rate 22 Blood Pressure 142/78 H Pulse Oximetry 97 98 99 07/23/19 13:15 07/23/19 15:49 07/23/19 16:22 Temperature 98.1 F Pulse Rate 89 121 H Respiratory Rate 18 22 Blood Pressure 137/77 Pulse Oximetry 99 99 89 L Fraction of Inspired Oxygen 40 Oxygen Delivery Method Heated High Flow Oxygen Flow Rate 40 Narrative Exam Narrative: General: Middle-aged gentleman sitting in bed and in no acute distress, well- developed, well-nourished, appropriately interactive. HEENT: Normocephalic, atraumatic. External ears without defect. Pupils equal, round, and reactive to light. Anicteric sclerae, moist conjunctivae, and no lid lag. Oropharynx free of erythema and cobble stoning with moist mucosa. Neck: Supple with full range of motion. No jugular venous distension. No lymphadenopathy or thyromegaly. Cardiovascular: Regular rhythm, tachycardic, without murmurs, rubs, or gallops appreciated. Pulmonary: Difficult to auscultate due to PAPR but appears to be moving air well with scattered rhonchi throughout all lung smyth. No wheezes or crackles. Normal respiratory effort with no use of accessory muscles. Abdomen: Soft, bowel sounds present, nontender, nondistended. No hepatosplen omegaly or masses appreciated. Extremities: No clubbing or cyanosis. Mild pitting edema of right lower extremity to ankle. Skin: Normal temperature, turgor, and texture; no rash, ulcers, or subcutaneous nodules appreciated. Neurological: Cranial nerves grossly intact. Psychiatric: Normal mood and affect. Alert and oriented to person, place, and time. Objective Labs Result Diagrams: 07/22/19 15:20 07/22/19 15:20 Labs: Laboratory Results - last 24 hr 07/22/19 07/22/19 15:20 21:55 ABG pH 7.40 ABG pCO2 43.2 ABG pO2 69 L ABG HCO3 26 ABG Total CO2 28 ABG O2 Saturation 93 L ABG Base Excess 2.0 FiO2 28 NT-Pro-B Natriuret Pep 30 Assessment & Plan Assessment & Plan narrative: Delvin Louis is a 54-year-old male with a past medical history significant for hypertension, hyperlipidemia, and current active smoker who presented to the ED for persistent and progressive cough and shortness of breath for the last 2 months. 1. Acute hypoxemic respiratory failure, present on admission. Resolving. -Patient presented with severe bronchospasm and oxygen saturations in the 70s recorded by EMS. The patient quickly recovered with non-rebreather and nebulizer treatments. -CTA chest demonstrated no large or moderate sized pulmonary emboli but cannot exclude small peripheral pulmonary emboli; small focal area of consolidation versus atelectasis, extreme right lung base, subtle groundglass opacities, anterior segment right upper lobe and medial focal area in left upper lobe and mild diffuse bronchial wall thickening. -Clinically he is not presenting as having a bacterial or viral pneumonia, noting absence of fever, elevated WBC, and procalcitonin less than 0.05. -Previously completed pneumonia workup including: Respiratory viral PCR negative but will plan to repeat since 3 weeks since tested. Sputum Gram stain demonstrated WBC, gram-positive cocci, Gram-negative francisca and gram variable francisca with sputum culture with early growth and reincubated. Blood cultures x2 not obtained. -COVID 19 PCR ordered and pending from ED due to presence of ground-glass infiltrates on CT although both viral and bacterial pneumonia are unlikely based on chronicity of symptoms. -CHF ruled out, echo 07/10/2019 showed normal LVEF 60-65%, no significant valvular disease, troponin negative. -Continue respiratory therapy evaluation and treatment. Continue supplemental oxygen to keep oxygen saturations 88-92%. Patient currently titrated off heated high-flow to 2 L supplemental oxygen and maintaining saturations in low 90s. 2. Acute on chronic bronchitis/COPD with exacerbation, present on admission. Improving. -CTA chest demonstrated no large or moderate sized pulmonary emboli but cannot exclude small peripheral pulmonary emboli; small focal area of consolidation versus atelectasis, extreme right lung base, subtle groundglass opacities, anterior segment right upper lobe and medial focal area in left upper lobe and mild diffuse bronchial wall thickening. -Patient needs more aggressive inhaler management and another round of glucocorticoids. Continue prednisone 40 mg daily for 10 days. Started and continue Combivent Respimat 1 puff every 6 hours, Advair 250/51 puff twice daily, and albuterol MDI with spacer 2 puffs every 4 hours as needed. Continue benzonatate 100 mg 3 times daily as needed for cough. Continue Mucinex 1200 mg twice daily. Continue Acapella 10 times every 1 hour while awake. -Continue respiratory therapy evaluation and treatment. Continue supplemental oxygen to keep oxygen saturations 88-92%. Patient currently titrated off heated high-flow to 2 L supplemental oxygen and maintaining saturations in low 90s. -Continue Levaquin 500 mg daily started on 07/17 through 07/23 to complete 1 week course. -Recommend follow-up with outpatient pulmonology, Dr. Kent. Reviewed outpatient PFTs which demonstrated mild COPD. 3. Hypertension, chronic, present on admission. Stable. -Continue home amlodipine 10 mg daily and lisinopril 20 mg daily. 4. Tobacco dependency, present on admission. Active. -Discussed and highly recommended smoking cessation indefinitely. Patient reports he does not have an addictive personality and it would not be hard for him to quit. -Ordered nicotine patch daily as needed for nicotine withdrawal. Code status: Full code DVT prophylaxis: Lovenox Disposition: Patient likely to discharge home in 1-2 days depending on i mprovement in COPD exacerbation with glucocorticoids and Levaquin. Quality VTE Deep Vein Thrombosis/Pulmonary Embolism Present on Admission: No
[2019-07-23 19:33] LABS: Add Manual Diff / Slide Review NO; Basophils Absolute Auto 100 /uL (0-100); Basophils Percent Auto 0.6 % (0-2); Eosinophils Absolute Auto 100 /uL (0-450); Eosinophils Percent Auto 0.4 % (2-4); Hematocrit 38.9 % (41-53); Hemoglobin 13.1 g/dL (13.5-17.5); Lymphocytes Absolute Auto 1000 /uL (1100-4500); Lymphocytes Percent Auto 7.6 % (25-40); Mean Corpuscular HGB Conc 33.7 % (30-36); Mean Corpuscular Hemoglobin 30.7 PG (26-34); Mean Corpuscular Volume 91.2 fL (80-100); Monocytes Absolute Auto 600 /uL (0-900); Monocytes Percent Auto 4.9 % (3-14); Neutrophils Absolute Auto 11300 /uL (1500-7000); Neutrophils Percent Auto 86.5 % (50-75); Platelet Count 288 X10^3/uL (150-400); Red Blood Cell Count 4.26 X10^6/uL (4.5-5.9); Red Cell Distribution Width 12.5 % (11.6-14.8); White Blood Cell Count 13.1 X10^3/uL (4.5-11.0)
[2019-07-23 19:48] LABS: Alanine Aminotransferase 29 IU/L (<50); Albumin 4.3 g/dL (3.5-5.0); Albumin Globulin Ratio 1.4 (1.0-2.8); Alkaline Phosphatase 76 U/L (38-126); Aspartate Aminotransferase 27 IU/L (17-59); BUN Creatinine Ratio 26.3 (6-22); Bilirubin Total 0.3 mg/dL (0.2-1.3); Blood Urea Nitrogen 20 mg/dL (9-20); Calcium 10.1 mg/dL (8.4-10.2); Carbon Dioxide 26 mmol/L (22-32); Chloride 98 mmol/L (98-107); Estimated Glomerular Filt Rate > 60.0 mL/min (>60); Glucose 148 mg/dL (70-100); HEMOLYSIS < 15 (0-50); Potassium 3.9 mmol/L (3.4-5.1); Sodium 132 mmol/L (137-145); Total Protein 7.3 g/dL (6.3-8.2)
[2019-07-23 19:49] LABS: Magnesium 1.9 mg/dL (1.6-2.3)
[2019-07-23 20:29] LABS: Procalcitonin < 0.05 ng/mL (<0.5)
[2019-07-23] MEDS: guaiFENesin ER 600 MG TAB 1200 MG PO (21:06)
[2019-07-23] MEDS: ATORVASTATIN 20 MG TABLET PO (21:06)
[2019-07-23] MEDS: NAPROXEN 250 MG TABLET 500 MG PO (22:45)
[2019-07-23 23:35] LABS: Adenovirus Not Detected (Not Detect); Bordetella pertussis Not Detected (Not Detect); Chlamydophila pneumoniae Not Detected (Not Detect); Coronavirus 229E Not Detected (Not Detect); Coronavirus HKU1 Not Detected (Not Detect); Coronavirus NL 63 Not Detected (Not Detect); Coronavirus OC43 Not Detected (Not Detect); Human Metapneumovirus Not Detected (Not Detect); Human Rhinovirus/Enterovirus Not Detected (Not Detect); Influenza A Not Detected (Not Detect); Influenza B Not Detected (Not Detect); Mycoplasma pneumoniae Not Detected (Not Detect); Parainfluenza Virus 1 Not Detected (Not Detect); Parainfluenza Virus 2 Not Detected (Not Detect); Parainfluenza Virus 3 Not Detected (Not Detect); Parainfluenza Virus 4 Not Detected (Not Detect); Respiratory Syncytial Virus Not Detected (Not Detect)
[2019-07-24] VITALS (15 sets, daily range): BP systolic 115–140; BP diastolic 72–86; PULSE 76–95; RESP 18–20; TEMP 36.3–36.6; O2SAT 90–95
[2019-07-24 05:08] LABS: Add Manual Diff / Slide Review NO; Basophils Absolute Auto 100 /uL (0-100); Basophils Percent Auto 0.7 % (0-2); Eosinophils Absolute Auto 100 /uL (0-450); Eosinophils Percent Auto 1.3 % (2-4); Hematocrit 37.3 % (41-53); Hemoglobin 12.4 g/dL (13.5-17.5); Lymphocytes Absolute Auto 1800 /uL (1100-4500); Lymphocytes Percent Auto 17.3 % (25-40); Mean Corpuscular HGB Conc 33.4 % (30-36); Mean Corpuscular Hemoglobin 30.5 PG (26-34); Mean Corpuscular Volume 91.3 fL (80-100); Monocytes Absolute Auto 700 /uL (0-900); Monocytes Percent Auto 6.2 % (3-14); Neutrophils Absolute Auto 7900 /uL (1500-7000); Neutrophils Percent Auto 74.5 % (50-75); Platelet Count 289 X10^3/uL (150-400); Red Blood Cell Count 4.08 X10^6/uL (4.5-5.9); Red Cell Distribution Width 12.8 % (11.6-14.8); White Blood Cell Count 10.7 X10^3/uL (4.5-11.0)
[2019-07-24 05:13] LABS: Alanine Aminotransferase 25 IU/L (<50); Albumin 3.6 g/dL (3.5-5.0); Albumin Globulin Ratio 1.3 (1.0-2.8); Alkaline Phosphatase 63 U/L (38-126); Aspartate Aminotransferase 25 IU/L (17-59); Bilirubin Total 0.3 mg/dL (0.2-1.3); Blood Urea Nitrogen 19 mg/dL (9-20); Calcium 9.5 mg/dL (8.4-10.2); Carbon Dioxide 27 mmol/L (22-32); Chloride 100 mmol/L (98-107); Estimated Glomerular Filt Rate > 60.0 mL/min (>60); Globulin 2.8 g/dL (1.7-4.1); Glucose 117 mg/dL (70-100); HEMOLYSIS < 15 (0-50); Sodium 134 mmol/L (137-145); Total Protein 6.4 g/dL (6.3-8.2)
[2019-07-24 05:37] LABS: Procalcitonin < 0.05 ng/mL (<0.5)
[2019-07-24] MEDS: PANTOPRAZOLE 40 MG TABLET PO (06:12)
[2019-07-24] MEDS: guaiFENesin ER 600 MG TAB 1200 MG PO ×2 (07:31→21:07)
[2019-07-24] MEDS: BENZONATATE 100 MG CAPSULE PO (07:31)
[2019-07-24] MEDS: ALBUTEROL/IPRATROPIUM MDI 1 PUFF INH ×3 (08:34→20:08)
[2019-07-24] MEDS: FLUTICASONE/SALMETEROL 250/50 60 PUFF DISKUS INH ×2 (08:35→20:08)
[2019-07-24] MEDS: levoFLOXacin 500 MG TABLET PO (09:26)
[2019-07-24] MEDS: ENOXAPARIN 40 MG/0.4 ML SYRINGE SUBCUT (09:26)
[2019-07-24] MEDS: ASPIRIN 81 MG CHEW TAB PO (09:26)
[2019-07-24] MEDS: AMLODIPINE 5 MG TABLET 10 MG PO (09:26)
[2019-07-24] MEDS: predniSONE 20 MG TABLET 40 MG PO (09:27)
[2019-07-24] MEDS: lisinopriL 20 MG TABLET PO (09:27)
[2019-07-24] MEDS: LIDOCAINE PATCH 1 EACH ADH..PATCH TOP (09:27)
[2019-07-24] MEDS: ACETAMINOPHEN 325 MG TABLET 650 MG PO (09:27)
[2019-07-24] MEDS: NAPROXEN 250 MG TABLET 500 MG PO (09:27)
--- NOTE | 2019-07-24 12:08 | P.PN_ITS ---
Subjective Subjective Date Patient Seen: 07/24/19 Interval history: He is seen in his room today to follow-up the COPD exacerbation and rule out ko virus 19. His CBC, CMP and procalcitonin are all normal today. His sputum is growing mold which upon further discussion with microbiology is likely to be aspergillosis, partly because it is such a fast grower. Apparently identifying cultures can take up to 6 weeks. They are not routinely sent. With his recurrent steroid treatments and his somewhat resistant COPD symptoms aspergillosis is certainly a possible contributing explanation for his persisting and recurrent Pulmonary symptoms.. Exam Vital Signs (past 8 hours): - 07/24/19 05:00 07/24/19 07:23 07/24/19 08:35 Temperature 97.4 F L Pulse Rate 76 89 Respiratory Rate 18 18 Blood Pressure 127/79 Pulse Oximetry 90 L 92 92 07/24/19 09:00 Temperature Pulse Rate Respiratory Rate Blood Pressure Pulse Oximetry 95 Fraction of Inspired Oxygen 40 Oxygen Delivery Method Nasal Cannula Oxygen Flow Rate 2 Narrative Exam Narrative: He remains quite symptomatic with wheezing and coughing and also anxious about the outcome and understanding of his illness. Heart is regular rate and rhythm without murmur. Lungs have mild wheezes bilaterally. Extremities have no ankle edema. Objective Labs Result Diagrams: 07/24/19 04:30 07/24/19 04:30 Labs: Laboratory Results - last 24 hr 07/23/19 07/23/19 07/23/19 19:25 19:25 19:25 WBC 13.1 H RBC 4.26 L Hgb 13.1 L Hct 38.9 L MCV 91.2 MCH 30.7 MCHC 33.7 RDW 12.5 Plt Count 288 Neut % (Auto) 86.5 H Lymph % (Auto) 7.6 L [place] % (Auto) 4.9 Eos % (Auto) 0.4 L Baso % (Auto) 0.6 Neut # (Auto) 07318 H Lymph # (Auto) 1000 L [place] # (Auto) 600 Eos # (Auto) 100 Baso # (Auto) 100 Sodium 132 L Potassium 3.9 Chloride 98 Carbon Dioxide 26 BUN 20 Creatinine 0.76 Estimated GFR > 60.0 BUN/Creatinine Ratio 26.3 H Glucose 148 H Calcium 10.1 Magnesium 1.9 Total Bilirubin 0.3 AST 27 ALT 29 Alkaline Phosphatase 76 Total Protein 7.3 Albumin 4.3 Globulin 3.0 Albumin/Globulin Ratio 1.4 Procalcitonin Chlamy pneumoniae PCR Adenovirus (PCR) B.parapertussis DNA PCR Coronavirus OC43 (PCR) Coronavirus HKU1 (PCR) Coronavirus 229E (PCR) Coronavirus NL63 (PCR) Human Metapneumovir PCR Influenza Type A (PCR) Influenza Type B (PCR) M. pneumoniae (PCR) Parainfluenza 1 (PCR) Parainfluenza 2 (PCR) Parainfluenza 3 (PCR) Parainfluenza 4 (PCR) RSV (PCR) Entero/Rhino (PCR) 07/23/19 07/23/19 07/24/19 19:25 21:29 04:30 WBC 10.7 RBC 4.08 L Hgb 12.4 L Hct 37.3 L MCV 91.3 MCH 30.5 MCHC 33.4 RDW 12.8 Plt Count 289 Neut % (Auto) 74.5 Lymph % (Auto) 17.3 L [place] % (Auto) 6.2 Eos % (Auto) 1.3 L Baso % (Auto) 0.7 Neut # (Auto) 7900 H Lymph # (Auto) 1800 [place] # (Auto) 700 Eos # (Auto) 100 Baso # (Auto) 100 Sodium Potassium Chloride Carbon Dioxide BUN Creatinine Estimated GFR BUN/Creatinine Ratio Glucose Calcium Magnesium Total Bilirubin AST ALT Alkaline Phosphatase Total Protein Albumin Globulin Albumin/Globulin Ratio Procalcitonin < 0.05 Chlamy pneumoniae PCR Not detected Adenovirus (PCR) Not detected B.parapertussis DNA PCR Not detected Coronavirus OC43 (PCR) Not detected Coronavirus HKU1 (PCR) Not detected Coronavirus 229E (PCR) Not detected Coronavirus NL63 (PCR) Not detected Human Metapneumovir PCR Not detected Influenza Type A (PCR) Not detected Influenza Type B (PCR) Not detected M. pneumoniae (PCR) Not detected Parainfluenza 1 (PCR) Not detected Parainfluenza 2 (PCR) Not detected Parainfluenza 3 (PCR) Not detected Parainfluenza 4 (PCR) Not detected RSV (PCR) Not detected Entero/Rhino (PCR) Not detected 07/24/19 07/24/19 04:30 04:30 WBC RBC Hgb Hct MCV MCH MCHC RDW Plt Count Neut % (Auto) Lymph % (Auto) [place] % (Auto) Eos % (Auto) Baso % (Auto) Neut # (Auto) Lymph # (Auto) [place] # (Auto) Eos # (Auto) Baso # (Auto) Sodium 134 L Potassium 4.0 Chloride 100 Carbon Dioxide 27 BUN 19 Creatinine 0.76 Estimated GFR > 60.0 BUN/Creatinine Ratio 25.0 H Glucose 117 H Calcium 9.5 Magnesium 2.0 Total Bilirubin 0.3 AST 25 ALT 25 Alkaline Phosphatase 63 Total Protein 6.4 Albumin 3.6 Globulin 2.8 Albumin/Globulin Ratio 1.3 Procalcitonin < 0.05 Chlamy pneumoniae PCR Adenovirus (PCR) B.parapertussis DNA PCR Coronavirus OC43 (PCR) Coronavirus HKU1 (PCR) Coronavirus 229E (PCR) Coronavirus NL63 (PCR) Human Metapneumovir PCR Influenza Type A (PCR) Influenza Type B (PCR) M. pneumoniae (PCR) Parainfluenza 1 (PCR) Parainfluenza 2 (PCR) Parainfluenza 3 (PCR) Parainfluenza 4 (PCR) RSV (PCR) Entero/Rhino (PCR) Assessment & Plan Assessment & Plan narrative: Delvin Louis is a 54-year-old male with a past medical history significant for hypertension, hyperlipidemia, and current active smoker who presented to the ED for persistent and progressive cough and shortness of breath for the last 2 months. 1. Acute hypoxemic respiratory failure, present on admission. -Patient presented with severe bronchospasm and oxygen saturations in the 70s recorded by EMS. The patient quickly recovered with non-rebreather and nebulizer treatments. -CTA chest demonstrated no large or moderate sized pulmonary emboli but cannot exclude small peripheral pulmonary emboli; small focal area of consolidation versus atelectasis, extreme right lung base, subtle groundglass opacities, anterior segment right upper lobe and medial focal area in left upper lobe and mild diffuse bronchial wall thickening. -Clinically he is not presenting as having a bacterial or viral pneumonia, noting absence of fever, elevated WBC, and procalcitonin less than 0.05. The sputum culture is growing mold, due to the rapid growth microbiology suspects this is aspergillosis. Identifying cultures are not routinely sent as they would take up to 6 weeks. -Previously completed pneumonia workup including: Respiratory viral PCR negative. Sputum Gram stain demonstrated WBC, gram-positive cocci, Gram-negative francisca and gram variable francisca with sputum culture with early growth and reincubated. Blood cultures x2 not obtained. -COVID 19 PCR ordered and pending from ED due to presence of ground-glass infilt rates on CT although both viral and bacterial pneumonia are unlikely based on chronicity of symptoms. -CHF ruled out, echo 07/10/2019 showed normal LVEF 60-65%, no significant valvular disease, troponin negative. -Continue respiratory therapy evaluation and treatment. Continue supplemental oxygen to keep oxygen saturations 88-92%. Patient currently titrated off heated high-flow to 2 L supplemental oxygen and maintaining saturations in low 90s. 2. Acute on chronic bronchitis/COPD with exacerbation, present on admission. Improving. -CTA chest demonstrated no large or moderate sized pulmonary emboli but cannot exclude small peripheral pulmonary emboli; small focal area of consolidation versus atelectasis, extreme right lung base, subtle groundglass opacities, anterior segment right upper lobe and medial focal area in left upper lobe and mild diffuse bronchial wall thickening. -Continue prednisone 40 mg daily for 10 days. Started and continue Combivent Respimat 1 puff every 6 hours, Advair 250/51 puff twice daily, and albuterol MDI with spacer 2 puffs every 4 hours as needed. Continue benzonatate 100 mg 3 times daily as needed for cough. Continue Mucinex 1200 mg twice daily. Con tinue Acapella 10 times every 1 hour while awake. -Continue respiratory therapy evaluation and treatment. Continue supplemental oxygen to keep oxygen saturations 88-92%. Patient currently titrated off heated high-flow to 2 L supplemental oxygen and maintaining saturations in low 90s. -Levaquin 500 mg daily 07/17 through 07/23 completed 1 week course. -Recommend follow-up with outpatient pulmonology, Dr. Kent. Reviewed outpatient PFTs which demonstrated mild COPD. -probable aspergillosis, will begin voriconazole 200 mg oral b.i.d. 3. Hypertension, chronic, present on admission. Stable. -Continue home amlodipine 10 mg daily and lisinopril 20 mg daily. 4. Tobacco dependency, present on admission. Active. -Discussed and highly recommended smoking cessation indefinitely. Patient says that he does not have an addictive personality and it would not be hard for him to quit. -Ordered nicotine patch daily as needed for nicotine withdrawal. 5. Fungal Pneumonia -Begin oral Voriconazole as first line Aspergillosis treatment Code status: Full code DVT prophylaxis: Lovenox Quality VTE Deep Vein Thrombosis/Pulmonary Embolism Present on Admission: No
--- NOTE | 2019-07-24 16:00 | CM.DPC ---
DCP: continued: case received, EMR reviewed. Discussed in Team Rounds. READMIT: noted: pt was here 07/08-07/10 with a d/c to home setting to continue recovery from dx of pneumonia. Sputum now with dx of fungal pneumonia. Dr. Estrada stated he would be discussing this today with ID. His progress note/in draft currently states mold is likely aspergillosis and he has been started on an oral antibiotic specific for same. Pt is also on a rule out COVID 19 protocol. Will be following for d/c issues and options as these unfold.
[2019-07-24] MEDS: VORICONAZOLE 200 MG TABLET PO (19:22)
[2019-07-24] MEDS: SODIUM CHLORIDE 0.9% FLUSH 10 ML IV (21:07)
[2019-07-24] MEDS: ATORVASTATIN 20 MG TABLET PO (21:08)
[2019-07-25] VITALS (12 sets, daily range): BP systolic 129–142; BP diastolic 75–88; PULSE 62–99; RESP 16–24; TEMP 36.4–36.8; O2SAT 88–98
[2019-07-25] MEDS: ALBUTEROL/IPRATROPIUM MDI 1 PUFF INH ×4 (02:05→19:29)
[2019-07-25] MEDS: BENZONATATE 100 MG CAPSULE PO ×3 (02:17→21:23)
[2019-07-25] MEDS: PANTOPRAZOLE 40 MG TABLET PO (05:41)
[2019-07-25] MEDS: FLUTICASONE/SALMETEROL 250/50 60 PUFF DISKUS INH ×2 (07:46→19:29)
[2019-07-25] MEDS: lisinopriL 20 MG TABLET PO (08:57)
[2019-07-25] MEDS: LIDOCAINE PATCH 1 EACH ADH..PATCH TOP (08:57)
[2019-07-25] MEDS: guaiFENesin ER 600 MG TAB 1200 MG PO ×2 (08:57→21:23)
[2019-07-25] MEDS: AMLODIPINE 5 MG TABLET 10 MG PO (08:57)
[2019-07-25] MEDS: predniSONE 20 MG TABLET 40 MG PO (08:57)
[2019-07-25] MEDS: ASPIRIN 81 MG CHEW TAB PO (08:57)
[2019-07-25] MEDS: ENOXAPARIN 40 MG/0.4 ML SYRINGE SUBCUT (08:58)
[2019-07-25] MEDS: VORICONAZOLE 200 MG TABLET PO ×2 (10:45→21:23)
[2019-07-25] MEDS: NAPROXEN 250 MG TABLET 500 MG PO ×2 (13:33→21:23)
--- NOTE | 2019-07-25 15:43 | PC.NURSE ---
Pt denies pain except with forceful cough. Morena escobedo given x1. Lost iv access, pt on po's. Dr Vernon ok'd no access. Per pulmonology, pt should stay until covid, results are in. Pt agreeable. Less fatigued and sob this shift. 2L 88-92 goal.
--- NOTE | 2019-07-25 16:27 | P.PN_ITS ---
Subjective Subjective Date Patient Seen: 07/25/19 Interval history: Patient is 54-year-old male being treated for COPD exacerbation and rule out ko virus 19. His sputum is growing mold which upon further discussion with microbiology is likely to be aspergillosis, partly because it is such a fast grower. Apparently identifying cultures can take up to 6 weeks. He was empirically started on voriconazole for possible invasive aspergillosis or allergic bronchopulmonary aspergillosis. Patient states his cough and shortness of breath are improving. Exam Vital Signs (past 8 hours): - 07/25/19 09:00 07/25/19 12:20 07/25/19 14:48 Temperature 97.5 F L Pulse Rate 82 Respiratory Rate 22 18 Blood Pressure 129/84 Pulse Oximetry 88 L 93 95 Fraction of Inspired Oxygen 40 Oxygen Delivery Method Nasal Cannula Oxygen Flow Rate 2.5 Narrative Exam Narrative: General: Alert and cooperative male in no acute distress Lungs: Slight increased expiration otherwise clear to auscultation bilaterally Heart: Regular rhythm Extremities: No edema Objective Labs Result Diagrams: 07/24/19 04:30 07/24/19 04:30 Labs: Laboratory Results - last 24 hr 07/22/19 21:52 ABG pH 7.40 ABG pCO2 43.2 ABG pO2 69 L ABG HCO3 26 ABG Total CO2 28 ABG O2 Saturation 93 L ABG Base Excess 2.0 FiO2 28 Assessment & Plan Assessment & Plan narrative: Delvin Louis is a 54-year-old male with a past medical history significant for hypertension, hyperlipidemia, and current active smoker who presented to the ED for persistent and progressive cough and sh ortness of breath for at least the last 2 months. 1. Acute hypoxemic respiratory failure, present on admission. -Patient presented with severe bronchospasm and oxygen saturations in the 70s recorded by EMS. The patient quickly recovered with non-rebreather and nebulizer treatments. -CTA chest demonstrated no large or moderate sized pulmonary emboli but cannot exclude small peripheral pulmonary emboli; small focal area of consolidation versus atelectasis, extreme right lung base, subtle groundglass opacities, anterior segment right upper lobe and medial focal area in left upper lobe and mild diffuse bronchial wall thickening. -Clinically he is not presenting as having a typical bacterial or viral pneumonia, noting absence of fever, elevated WBC, and procalcitonin less than 0.05. The sputum culture is growing mold, due to the rapid growth microbiology suspects this is aspergillosis. -Previously completed pneumonia workup including: Respiratory viral PCR negative. Sputum culture positive for mixed marie and scant mole. Blood cultures x2 not obtained. -COVID 19 PCR ordered and pending from ED due to presence of ground-glass infiltrates on CT although both viral and bacterial pneumonia are unlikely based on chronicity of symptoms. -CHF ruled out, echo 07/10/2019 showed normal LVEF 60-65%, no significant valvular disease, troponin negative. -Continue respiratory therapy evaluation and treatment. Continue supplemental oxygen to keep oxygen saturations 88-92%. Patient currently titrated off heated high-flow to 2 L supplemental oxygen and maintaining saturations in low 90s. On room air his O2 sat is 88%. 2. Rule out allergic bronchopulmonary aspergillosis, present on admission, active -patient who is chronic smoker presenting with chronic cough, peripheral eosinophilia, central bronchiectasis on CT, and mold growing in sputum concerning for ABPA -differential includes other causes of bronchiectasis, diffuse interstitial pneumonitis, and pulmonary disease associated with hypereosinophilia syndromes -patient is established with Dr. Colt Kent at [facility] pulmonology clinic; reviewed clinical findings with on-call provider, Dr. Juan Neal, who recommended we obtain aspergillus specific IgE and total IgE, and we could empirically start patient on itraconazole 200 mg b.i.d. and prednisone 40 mg q.d. if he tests negative for COVID -19 -after findings of mold in sputum, patient was started on voriconazole 200 mg b.i.d. and continued on prednisone 40 mg q.d. empiric treatment for ABPA pending further workup and outpatient pulmonary consultation -Dr Neal recommended we keep patient in hospital until ruled out COVID 19 3. COPD with possible exacerbation, present on admission, active -Continue prednisone 40 mg daily. Started and continue Combivent Respimat 1 puff every 6 hours, Advair 250/51 puff twice daily, and albuterol MDI with spacer 2 puffs every 4 hours as needed. Continue benzonatate 100 mg 3 times daily as needed for cough. Continue Mucinex 1200 mg twice daily. Continue Acapella 10 times every 1 hour while awake. 4. Hypertension, chronic, present on admission. Stable. -Continue home amlodipine 10 mg daily and lisinopril 20 mg daily. 5. Tobacco dependency, present on admission. Active. -Discussed and highly recommended smoking cessation indefinitely. Patient says that he does not have an addictive personality and it would not be hard for him to quit. -Ordered nicotine patch daily as needed for nicotine withdrawal. Quality VTE Deep Vein Thrombosis/Pulmonary Embolism Present on Admission: No
[2019-07-25] MEDS: ATORVASTATIN 20 MG TABLET PO (21:23)
[2019-07-26] VITALS (15 sets, daily range): BP systolic 131–159; BP diastolic 71–92; PULSE 65–94; RESP 16–20; TEMP 36.5–37.1; O2SAT 91–99
[2019-07-26] MEDS: PANTOPRAZOLE 40 MG TABLET PO (05:09)
[2019-07-26] MEDS: lisinopriL 20 MG TABLET PO (08:26)
[2019-07-26] MEDS: predniSONE 20 MG TABLET 40 MG PO (08:26)
[2019-07-26] MEDS: ENOXAPARIN 40 MG/0.4 ML SYRINGE SUBCUT (08:26)
[2019-07-26] MEDS: AMLODIPINE 5 MG TABLET 10 MG PO (08:26)
[2019-07-26] MEDS: ASPIRIN 81 MG CHEW TAB PO (08:27)
[2019-07-26] MEDS: BENZONATATE 100 MG CAPSULE PO ×2 (08:27→20:52)
[2019-07-26] MEDS: guaiFENesin ER 600 MG TAB 1200 MG PO ×2 (08:27→20:43)
[2019-07-26] MEDS: VORICONAZOLE 200 MG TABLET PO ×2 (08:35→20:44)
[2019-07-26] MEDS: FLUTICASONE/SALMETEROL 250/50 60 PUFF DISKUS INH ×2 (12:33→20:44)
[2019-07-26] MEDS: ALBUTEROL/IPRATROPIUM MDI 1 PUFF INH ×2 (12:34→20:45)
--- NOTE | 2019-07-26 13:50 | CM.DPC ---
DCP: continued: pt has now moved to room 213. Discussed case in Team Rounds with Dr. Vernon confirming that he had reached out yesterday afternoon to the pulmonology clinic pt is established with and talked to the telephone installer side seam envelope machine operator. Plan is now in place to continue a rule out of bronchopulmonary aspergillosis and continued treatment for the mold growing in pt's sputum. Painter Barrel advised not to send pt home until the COVID -19 test result is received and Dr. Vernon agreed with same. Dr. Castañeda was present in Rounds and aware of this plan.j Pt's brought him some personal items today but did not enter building. Pt and are aware of the POC thus far and plan for a d/c to home once pt is stable for same.
--- NOTE | 2019-07-26 14:15 | PC.NURSE ---
Patient alert, oriented, denies pain shortness of breath. Sats on RA94-95%.
--- NOTE | 2019-07-26 16:00 | PM.PN.1 ---
Subjective Subjective Date Patient Seen: 07/26/19 Interval history: Patient is 54-year-old male being treated for COPD exacerbation and rule out ko virus 19. His sputum is growing mold which upon further discussion with microbiology is likely to be aspergillosis, partly because it is such a fast grower. Apparently identifying cultures can take up to 6 weeks. He was empirically started on voriconazole for possible allergic bronchopulmonary aspergillosis. Patient endorses his cough and shortness of breath are continuing to improve and actually we were able to take him off of O2 nasal cannula today. Exam Vital Signs (past 8 hours): - 07/26/19 08:55 07/26/19 08:58 07/26/19 12:00 Temperature 97.7 F 98.7 F Pulse Rate 74 78 Respiratory Rate 20 20 Blood Pressure 140/89 138/92 H Pulse Oximetry 98 96 92 07/26/19 12:14 07/26/19 12:42 07/26/19 14:15 Temperature Pulse Rate 94 H Respiratory Rate 16 Blood Pressure Pulse Oximetry 92 98 94 Fraction of Inspired Oxygen 40 Oxygen Delivery Method Room Air Oxygen Flow Rate 0 Narrative Exam Narrative: General: Alert and cooperative male in no acute distress Lungs: Slight increased expiration otherwise clear to auscultation bilaterally Heart: Regular rhythm Extremities: No edema Objective Labs Result Diagrams: 07/24/19 04:30 07/24/19 04:30 Assessment & Plan Assessment & Plan narrative: Delvin Louis is a 54-year-old male with a past medical history significant for hypertension, hyperlipidemia, and current active smoker who presented to the ED for persistent and progressive cough and shortness of breath for at least the last 2 months. 1. Acute hypoxemic respiratory failure, present on admission. -Patient presented with severe bronchospasm and oxygen saturations in the 70s recorded by EMS. The patient quickly recovered with non-rebreather and nebulizer treatments. -CTA chest demonstrated no large or moderate sized pulmonary emboli but cannot exclude small peripheral pulmonary emboli; small focal area of consolidation versus atelectasis, extreme right lung base, subtle groundglass opacities, anterior segment right upper lobe and medial focal area in left upper lobe and mild diffuse bronchial wall thickening. -Clinically he is not presenting as having a typical bacterial or viral pneumonia, noting absence of fever, elevated WBC, and procalcitonin less than 0.05. The sputum culture is growing mold, due to the rapid growth microbiology suspects this is aspergillosis. -Previously completed pneumonia workup including: Respiratory viral PCR negative. Sputum culture positive for mixed marie and scant mole. Blood cultures x2 not obtained. -COVID 19 PCR ordered and pending from ED due to presence of ground-glass infiltrates on CT although both viral and bacterial pneumonia are unlikely based on chronicity of symptoms. -CHF ruled out, echo 07/10/2019 showed normal LVEF 60-65%, no significant valvular disease, troponin negative. -definite improving course and now off nasal cannula with O2 sat 94-95% room air 2. Rule out allergic bronchopulmonary aspergillosis, present on admission, active -patient who is chronic smoker presenting with chronic cough, peripheral eosinophilia, central bronchiectasis on CT, and mold growing in sputum concerning for ABPA -differential includes other causes of bronchiectasis, diffuse interstitial pneumonitis, and pulmonary disease associated with hypereosinophilia syndromes -patient is established with Dr. Colt Kent at [facility] pulmonology clinic; reviewed clinical findings with Dr. Juan Neal at [facility], who recommended we obtain aspergillus specific IgE and total IgE, and we could empirically start patient on itraconazole 200 mg b.i.d. and prednisone 40 mg q.d. if he tests negative for COVID -19 -after findings of mold in sputum, patient had already been started on voriconazole 200 mg b.i.d. and continued on prednisone 40 mg q.d. empiric treatment for ABPA pending further workup and outpatient pulmonary consultation -Dr Neal recommended we keep patient in hospital until ruled out COVID 19 3. COPD with possible exacerbation, present on admission, active -Continue prednisone 40 mg daily. Started and continue Combivent Respimat 1 puff every 6 hours, Advair 250/51 puff twice daily, and albuterol MDI with spacer 2 puffs every 4 hours as needed. -Continue benzonatate 100 mg 3 times daily as needed for cough. Continue Mucinex 1200 mg twice daily. Continue Acapella 10 times every 1 hour while awake. -definite improving course 4. Hypertension, chronic, present on admission. Stable. -Continue home amlodipine 10 mg daily and lisinopril 20 mg daily. 5. Tobacco dependency, present on admission. Active. -Discussed and highly recommended smoking cessation indefinitely. Patient says that he does not have an addictive personality and it would not be hard for him to quit. -Ordered nicotine patch daily as needed for nicotine withdrawal. Quality VTE Deep Vein Thrombosis/Pulmonary Embolism Present on Admission: No
[2019-07-26] MEDS: ATORVASTATIN 20 MG TABLET PO (20:43)
--- NOTE | 2019-07-26 22:50 | PC.NURSE ---
Pt is A and O x 4, LS exp wheezes LLL, otherwise clear. Dry infrequent cough. Other VSS. Afebrile. Eating, drinking, voiding and +BT x 4. Pt is frustrated because his COVID-19 results are not all in.
[2019-07-27] VITALS (13 sets, daily range): BP systolic 126–148; BP diastolic 79–94; PULSE 73–102; RESP 17–20; TEMP 36.1–36.8; O2SAT 92–97
[2019-07-27] MEDS: PANTOPRAZOLE 40 MG TABLET PO (06:10)
[2019-07-27] MEDS: BENZONATATE 100 MG CAPSULE PO ×2 (07:52→21:01)
[2019-07-27] MEDS: guaiFENesin ER 600 MG TAB 1200 MG PO ×2 (07:52→21:00)
[2019-07-27] MEDS: ENOXAPARIN 40 MG/0.4 ML SYRINGE SUBCUT (07:52)
[2019-07-27] MEDS: LIDOCAINE PATCH 1 EACH ADH..PATCH TOP (07:52)
[2019-07-27] MEDS: predniSONE 20 MG TABLET 40 MG PO (07:53)
[2019-07-27] MEDS: lisinopriL 20 MG TABLET PO (07:53)
[2019-07-27] MEDS: ASPIRIN 81 MG CHEW TAB PO (07:53)
[2019-07-27] MEDS: AMLODIPINE 5 MG TABLET 10 MG PO (07:53)
[2019-07-27] MEDS: VORICONAZOLE 200 MG TABLET PO ×2 (07:54→21:00)
[2019-07-27] MEDS: FLUTICASONE/SALMETEROL 250/50 60 PUFF DISKUS INH ×2 (07:55→18:13)
[2019-07-27] MEDS: ALBUTEROL/IPRATROPIUM MDI 1 PUFF INH ×3 (07:55→18:13)
--- NOTE | 2019-07-27 14:16 | CM.DPC ---
DCP Cont: Spoke to Prasad, he is patient's insurance case manager from [facility] [employer]. Asked if there were any needs for patient. Asked Prasad how to put in home health referral, if he needs it, for agencies rely on hospital piano case maker to do this before discharge. Stated to go to [employer], and click on providers. Under authorization, a form may be printed out and faxed to [facility], or this can be filled on-line. Prasad asked about discharge plan, and indicated that the plan is for patient to go home with support of . Let him also know that there is a possibility that he can benefit with home health, but will depend upon how he does, and if he is home bound. Tc's phone number at [facility] is: [phone]. P: DCP to continue to follow closely, and be available for any needs. Marcela Cifuentes RN/[employer]
--- NOTE | 2019-07-27 16:54 | PM.PN.1 ---
Subjective Subjective Date Patient Seen: 07/27/19 Interval history: Delvin Louis is a 54-year-old male with a past medical history significant for hypertension, hyperlipidemia, and current active smoker who presented to the ED for persistent and progressive cough and shortness of breath for the last 2 months. The patient is resting in bed comfortably and in no acute distress. He reports his cough continues to improve. His shortness of breath has resolved. He is currently off of oxygen and maintaining oxygen saturations in low to mid 90s. He has no other complaints and denies headache, sore throat, shortness of breath, chest pain, abdominal pain, nausea, vomiting, fever, chills, dysuria, diarrhea or constipation. Consulted patient's pulmonology group over the phone and recommended ruling out ko virus before discharge. Due to previous CoV-2 PCR being a send out with long turnaround have reordered CoV-2 PCR which is now being sent to the [facility] with faster turnaround time. He is voiding and eliminating without difficulty. He is up ambulating independently. Exam Vital Signs (past 8 hours): - 07/27/19 12:48 07/27/19 14:02 07/27/19 15:50 Temperature 97.7 F Pulse Rate 90 102 H Respiratory Rate 20 17 Blood Pressure 130/79 148/80 H Pulse Oximetry 93 95 94 Fraction of Inspired Oxygen 40 Oxygen Delivery Method Room Air Oxygen Flow Rate 0 Narrative Exam Narrative: General: Middle-aged gentleman sitting in bed and in no acute distress, well-developed, well-nourished, appropriately interactive. HEENT: Normocephalic, atraumatic. External ears without defect. Pupils equal, round, and reactive to light. Anicteric sclerae, moist conjunctivae, and no lid lag. Oropharynx free of erythema and cobble stoning with moist mucosa. Neck: Supple with full range of motion. No jugular venous distension. No lymphadenopathy or thyromegaly. Cardiovascular: Regular rhythm, mild tachycardia, without murmurs, rubs, or gallops appreciated. Pulmonary: Clear to auscultation bilaterally throughout all lung [place] without wheeze, rhonchi or crackles. Normal respiratory effort with no use of accessory muscles. Abdomen: Soft, bowel sounds present, nontender, nondistended. No hepatosplenomegaly or masses appreciated. Extremities: No clubbing, cyanosis or edema. Skin: Normal temperature, turgor, and texture; no rash, ulcers, or subcutaneous nodules appreciated. Neurological: Cranial nerves grossly intact. Psychiatric: Normal mood and affect. Alert and oriented to person, place, and time. Objective Labs Result Diagrams: 07/24/19 04:30 07/24/19 04:30 Assessment & Plan Assessment & Plan narrative: Delvin Louis is a 54-year-old male with a past medical history significant for hypertension, hyperlipidemia, and current active smoker who presented to the ED for persistent and progressive cough and shortness of breath for at least the last 2 months. 1. Acute hypoxemic respiratory failure, present on admission. Resolved. -Patient presented with severe bronchospasm and oxygen saturations in the 70s recorded by EMS. The patient quickly recovered with non-rebreather and nebulizer treatments. -CTA chest demonstrated no large or moderate sized pulmonary emboli but cannot exclude small peripheral pulmonary emboli; small focal area of consolidation versus atelectasis, extreme right lung base, subtle groundglass opacities, anterior segment right upper lobe and medial focal area in left upper lobe and mild diffuse bronchial wall thickening. -Clinically he is not presenting as having a typical bacterial or viral pneumonia, noting absence of fever, elevated WBC, and procalcitonin less than 0.05. The sputum culture is growing mold, due to the rapid growth microbiology lab suspects this is aspergillosis. -Previously completed pneumonia workup including: Respiratory viral PCR negative. Sputum culture positive for mixed marie and scant mold. Blood cultures x2 not obtained. -COVID 19 PCR ordered and pending from ED due to presence of ground-glass infiltrates on CT although both viral and bacterial pneumonia are unlikely based on chronicity of symptoms. -CHF ruled out, echo 07/10/2019 showed normal LVEF 60-65%, no significant valvular disease, troponin negative. -Definite improving course and now off nasal cannula with O2 sat 94-95% room air. 2. 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 Active. -Patient who is chronic smoker presenting with chronic cough, peripheral eosinophilia, central bronchiectasis on CT, and mold growing in sputum concerning for ABPA -Differential includes other causes of bronchiectasis, diffuse interstitial pneumonitis, and pulmonary disease associated with hypereosinophilia syndromes. -Patient is established with Dr. Colt Kent at [facility] pulmonology clinic; previous provider reviewed clinical findings with Dr. Juan Neal at [facility], who recommended we obtain aspergillus specific IgE and total IgE, and we could empirically start patient on itraconazole 200 mg twice daily and prednisone 40 mg daily if he tests negative for COVID -19. However, after findings of mold in sputum, patient had already been started on voriconazole 200 mg twice daily and continued on prednisone 40 mg daily for empiric treatment of ABPA pending further workup and outpatient pulmonary evaluation. -Dr. Neal recommended we keep patient in hospital until COVID 19 has been ruled out. Re-sent CoV-2 PCR to [facility] as we now have faster turnaround times and is pending. 3. COPD with possible exacerbation, present on admission. Resolved. -Continue prednisone 40 mg daily. Started and continue Combivent Respimat 1 puff every 6 hours, Advair 250/51 puff twice daily, and albuterol MDI with spacer 2 puffs every 4 hours as needed. -Continue benzonatate 100 mg 3 times daily as needed for cough. Continue Mucinex 1200 mg twice daily. Continue Acapella 10 times every 1 hour while awake. 4. Hypertension, chronic, present on admission. Stable. -Continue home amlodipine 10 mg daily and lisinopril 20 mg daily. 5. Tobacco dependency, present on admission. Active. -Discussed and highly recommended smoking cessation indefinitely. Patient says that he does not have an addictive personality and it would not be hard for him to quit. -Ordered nicotine patch daily as needed for nicotine withdrawal. Disposition: Patient likely to discharge home in 1-2 days once CoV-2 PCR results. Quality VTE Deep Vein Thrombosis/Pulmonary Embolism Present on Admission: No
[2019-07-27] MEDS: ATORVASTATIN 20 MG TABLET PO (21:00)
[2019-07-28] VITALS (7 sets, daily range): BP systolic 121–129; BP diastolic 79–89; PULSE 75–97; RESP 16–19; TEMP 35.8–36.3; O2SAT 93–96
--- NOTE | 2019-07-28 00:12 | PC.NURSE ---
Patient is alert and oriented. Breath sounds diminished with scattered inspiratory wheezes. On oxygen at 2L/min per NC with sat of 95%; has sleep apnea and did not bring in home CPAP machine. Occasional cough reportedly productive of small amounts white sputum. HRR. Denies nausea. BT present and abdomen is soft. Denies dysuria, frequency or urgency with urination. Independent with bed mobility and up in room independently; fall risk score is low. Denies pain. Contact + droplet isolation until results back on COVID-19 swab.
[2019-07-28] MEDS: PANTOPRAZOLE 40 MG TABLET PO (05:56)
[2019-07-28] MEDS: FLUTICASONE/SALMETEROL 250/50 60 PUFF DISKUS INH (07:10)
[2019-07-28] MEDS: ALBUTEROL/IPRATROPIUM MDI 1 PUFF INH ×2 (07:10→13:07)
[2019-07-28] MEDS: predniSONE 20 MG TABLET 40 MG PO (08:33)
[2019-07-28] MEDS: guaiFENesin ER 600 MG TAB 1200 MG PO (08:33)
[2019-07-28] MEDS: VORICONAZOLE 200 MG TABLET PO (08:33)
[2019-07-28] MEDS: LIDOCAINE PATCH 1 EACH ADH..PATCH TOP (08:33)
[2019-07-28] MEDS: ENOXAPARIN 40 MG/0.4 ML SYRINGE SUBCUT (08:33)
[2019-07-28] MEDS: AMLODIPINE 5 MG TABLET 10 MG PO (08:33)
[2019-07-28] MEDS: lisinopriL 20 MG TABLET PO (08:33)
[2019-07-28] MEDS: ASPIRIN 81 MG CHEW TAB PO (08:33)
[2019-07-28] MEDS: BENZONATATE 100 MG CAPSULE PO (08:45)
--- NOTE | 2019-07-28 09:22 | PM.DS.1 ---
History of Present Illness History of Present Illness Date Patient Seen: 07/22/19 Chief complaint: Short of breath Narrative: Written by Dr. Vernon: Patient is a 54-year-old male smoker who was transported to the ER due to persistent cough and shortness of breath. He was admitted here from July 08, 2019 to July 11, 2019 due to right middle lobe pneumonia. The pneumonia was not apparent on x-ray but was seen on a CT from the [facility]. However he was not having fever and his presentation was more subacute or chronic symptoms of cough and dyspnea over the preceding couple of months. His sputum culture, blood culture and urine Legionella antigen were all negative. Patient got discharged on Levaquin and 5 day prednisone course. He was feeling better for a few days but came back into the ER on July 17 because of severe pain due to rib fracture from coughing. He had another CT done at that ER visit which showed diffuse peribronchial thickening suggestive of bronchitis and a very small right middle lobe infiltrate and he was discharged again on Levaquin for 7 day course which she has been taking to present time. He states his rib pain has completely resolved. He was had also been seen in the ER in May and June for his cough and treated for bronchitis. Patient states he has had no improvement in his cough since the last ER visit on July 17. He uses albuterol nebulizer as needed. Upon evaluation by medics patient was noted to be acutely dyspnea and wheezing with sats in the 70s. He was put on non-rebreather and given nebulizer treatment which consider bili helped his breathing. His sats in the ER have been 94-96% on 2 L nasal cannula but he does desaturate to the upper 80s on room air. The ER provider also noted wheezing on exam and provided additional nebulizer treatment and IV Solu-Medrol. Patient continues to deny fever or chills and cough is productive of clear sputum. He does note some new swelling in the right lower leg. His D-dimer was mildly elevated and a chest CTA of was done which showed no PE, small focal area of consolidation right lung base which could also be atelectasis, subtle ground-glass opacities right upper lobe and left upper lobe and mild diffuse bronchial wall thickening. Patient's labs indicate normal WBC, procalcitonin less than 0.05, CRP 1.6. Discharge Providers Provider Date of admission: 07/22/19 16:49 Discharge Date: 07/29/19 Discharge provider: Brenda Duff DO Summary Hospital Course Discharge Diagnosis: 1. Acute hypoxemic respiratory failure, present on admission. Resolved. 2. 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 Improving. 3. COPD with possible exacerbation, present on admission. Resolved. 4. Hypertension, chronic, present on admission. Stable. 5. Tobacco dependency, present on admission. Active. Hospital Course: Delvin Louis is a 54-year-old male with a past medical history significant for hypertension, hyperlipidemia, and current active smoker who presented to the ED for persistent and progressive cough and shortness of breath for at least the last 2 months. 1. Acute hypoxemic respiratory failure, present on admission. Resolved. -Patient presented with severe bronchospasm and oxygen saturations in the 70s recorded by EMS. The patient quickly recovered with non-rebreather and nebulizer treatments. -CTA chest demonstrated no large or moderate sized pulmonary emboli but cannot exclude small peripheral pulmonary emboli; small focal area of consolidation versus atelectasis, extreme right lung base, subtle groundglass opacities, anterior segment right upper lobe and medial focal area in left upper lobe and mild diffuse bronchial wall thickening. -Clinically he is not presenting as having a typical bacterial or viral pneumonia, noting absence of fever, elevated WBC, and procalcitonin less than 0.05. The sputum culture is growing mold, due to the rapid growth microbiology lab suspects this is aspergillosis. -Previously completed pneumonia workup including: Respiratory viral PCR negative. Sputum culture positive for mixed marie and scant mold. Blood cultures x2 not obtained. -COVID 19 PCR ordered and pending from ED due to presence of ground-glass infiltrates on CT although both viral and bacterial pneumonia are unlikely based on chronicity of symptoms. -CHF ruled out, echo 07/10/2019 showed normal LVEF 60-65%, no significant valvular disease, troponin negative. -Patient course improved with treatment ABPA. Continue supplemental oxygen as necessary to maintain oxygen saturations 88-92%. Patient off oxygen and maintaining oxygen saturation in mid 90s. 2. 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 Improving. -Patient who is chronic smoker presenting with chronic cough, peripheral eosinophilia, central bronchiectasis on CT, and mold growing in sputum concerning for ABPA -Differential includes other causes of bronchiectasis, diffuse interstitial pneumonitis, and pulmonary disease associated with hypereosinophilia syndromes. -Patient is established with Dr. Colt Kent at [facility] pulmonology clinic; previous provider reviewed clinical findings with Dr. Juan Neal at [facility], who recommended we obtain aspergillus specific IgE and total IgE, and we could empirically start patient on itraconazole 200 mg twice daily and prednisone 40 mg daily if he tests negative for COVID -19. However, after findings of mold in sputum, patient had already been started on voriconazole 200 mg twice daily and continued on prednisone 40 mg daily for empiric treatment of ABPA pending further workup and outpatient pulmonary evaluation. -Re-sent CoV-2 PCR to [facility] as we now have faster turnaround times and is pending. Discharged patient home with treatment for ABPA as patient was off oxygen and was stable and improving from a respiratory standpoint with treatment for APBA. 3. COPD with possible exacerbation, present on admission. Resolved. -Continued prednisone 40 mg daily. Started and continued Combivent Respimat 1 puff every 6 hours, Advair 250/51 puff twice daily, and albuterol MDI with spacer 2 puffs every 4 hours as needed. -Continued benzonatate 100 mg 3 times daily as needed for cough. Continued Mucinex 1200 mg twice daily. Continued Acapella 10 times every 1 hour while awake. 4. Hypertension, chronic, present on admission. Stable. -Continued home amlodipine 10 mg daily and lisinopril 20 mg daily. 5. Tobacco dependency, present on admission. Active. -Discussed and highly recommended smoking cessation indefinitely. Patient says that he does not have an addictive personality and it would not be hard for him to quit. -Ordered nicotine patch daily as needed for nicotine withdrawal. Exam Vital Signs (past 8 hours): - 07/28/19 05:55 07/28/19 07:18 07/28/19 08:10 Temperature 97.2 F L 96.4 F L Pulse Rate 84 16 L 75 Respiratory Rate 19 16 Blood Pressure 127/87 121/89 Pulse Oximetry 93 95 95 07/28/19 08:30 Temperature Pulse Rate Respiratory Rate Blood Pressure Pulse Oximetry 95 Fraction of Inspired Oxygen 40 Oxygen Delivery Method Room Air Oxygen Flow Rate 0 Narrative Exam Narrative: General: Middle-aged gentleman sitting in bed and in no acute distress, well-developed, well-nourished, appropriately interactive. HEENT: Normocephalic, atraumatic. External ears without defect. Pupils equal, round, and reactive to light. Anicteric sclerae, moist conjunctivae, and no lid lag. Oropharynx free of erythema and cobble stoning with moist mucosa. Neck: Supple with full range of motion. No lymphadenopathy or thyromegaly. Cardiovascular: Regular rhythm, mild tachycardia, without murmurs, rubs, or gallops appreciated. Pulmonary: Clear to auscultation bilaterally throughout all lung [place] without wheeze, rhonchi or crackles. Normal respiratory effort with no use of accessory muscles. Abdomen: Soft, bowel sounds present, nontender, nondistended. No hepatosplenomegaly or masses appreciated. Extremities: No clubbing, cyanosis or edema. Skin: Normal temperature, turgor, and texture; no rash, ulcers, or subcutaneous nodules appreciated. Neurological: Cranial nerves grossly intact. Psychiatric: Normal mood and affect. Alert and oriented to person, place, and time. Objective Labs Result Diagrams: 07/24/19 04:30 07/24/19 04:30 Discharge Plan Discharge Plan Patient Disposition: Home Discharge comment: You are being discharged home. You have mold growing in your sputum which is likely aspergillosis and you have been prescribed voriconazole 200 mg twice daily and prednisone 40 mg daily and you will likely need to be on this treatment long-term and possibly up to 6 months. 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 Kent as soon as possible to continue treatment. You are being ruled out for COVID-19 and will need to remain in self isolation until your test has resulted and we will call you with your results. You will need to remain in self isolation until you're at least 3 days without fever (without the aid of medication such as Tylenol or Ibuprofen), you have improvement in your respiratory symptoms, and 7 days have elapsed since your symptoms first developed. If you go out into public after this you will need to wear mask at all times until your symptoms have resolved or until 14 days after illness onset. Please try to stay well hydrated get plenty of rest. You may take Tylenol as directed on bottle and as needed for fever and/or muscle aches. Please do not take ibuprofen or any NSAID as early studies show this has been associated with bad outcomes with novel coronavirus. Discharge orders & Medications Prescriptions: New fluticasone propion-salmeterol [Advair Diskus] 250-50 mcg/dose Blister With Device 1 puff INH BID Qty: 1 RF: 0 Combivent Respimat 20-100 mcg/actuation Mist 1 puff inhalation Q6H Qty: 4 RF: 0 prednisone 20 mg Tablet 40 mg PO DAILY Qty: 30 RF: 0 voriconazole [Vfend] 200 mg Tablet 200 mg PO BID Qty: 60 RF: 0 benzonatate 100 mg Capsule 100 mg PO TID PRN (Reason: cough) Qty: 20 RF: 0 guaifenesin [Mucus Relief ER] 600 mg Tablet Extended Release 12hr 1,200 mg PO BID Qty: 20 RF: 0 Continued atorvastatin [Lipitor] 20 MG tablet 20 mg PO HS Qty: 30 RF: 0 aspirin 81 MG tablet,chewable 81 mg PO QDAY Qty: 0 RF: 0 prednisone 20 mg tablet 20 mg PO DAILY Qty: 5 RF: 0 albuterol sulfate 2.5 mg /3 mL (0.083 %) solution for nebulization 2.5 mg INHALATION Q4-6H PRN (Reason: shortness of breath or wheezing) Qty: 90 RF: 0 cyclobenzaprine 10 mg tablet 10 mg PO TID PRN (Reason: muscle spasm) Qty: 15 RF: 0 naproxen [Naprosyn] 500 mg tablet 500 mg PO BID PRN (Reason: pain) Qty: 20 RF: 0 hydrocodone-acetaminophen [[place]] 5-325 mg tablet 1 tab PO Q4-6H PRN (Reason: pain) Qty: 15 RF: 0 levofloxacin [Levaquin] 500 mg tablet 500 mg PO DAILY Qty: 7 RF: 0 lidocaine [Lidoderm] 5 % adhesive patch,medicated 1 patch TOP DAILY Qty: 14 RF: 0 lisinopril 20 mg Tablet 20 mg PO DAILY RF: 0 omeprazole 20 mg Capsule,Delayed Release(Dr/Ec) 40 mg PO DAILY RF: 0 benzonatate [Tessalon Perles] 100 mg capsule 100 mg PO BID-TID PRN (Reason: cough) Qty: 14 RF: 0 amlodipine 10 mg Tablet 10 mg PO DAILY RF: 0 levofloxacin 750 mg tablet 750 mg PO DAILY Qty: 5 RF: 0 Diet/Activity/Treatments Diet: Diet as Tolerated, Low-fat, Low-sodium and Low-cholesterol Activity: Activity as tolerated Visit Report/Discharge Packet Instructions: Allergic Bronchopulmonary Aspergillosis (ABPA), Voriconazole, DI for Allergic Bronchopulmonary Aspergillosis Discharges patient from system. Discharge Date/Time: 07/28/19 17:30 Quality VTE Deep Vein Thrombosis/Pulmonary Embolism Present on Admission: No
--- NOTE | 2019-07-28 13:34 | PC.NURSE ---
Addendum entered by Sophia Dillard R.N. 07/28/19 15:01: Called Dr Kent's office at [facility]-pulmonology. They will call pt back to set up a f/u apt within 1 month for medication refills. Original Note: Discharge Pt needs Rx for Voriconazole at d/c. Rx were sent to [facility] in [place], they were out of stock of this medication. Called multiple pharmacies in [facility] and surrounding areas and only location that has medication is in [place], pt states he is unable to pick that up in [place]. He would like med at [facility]. Called over there and Voriconazole and itraconazole are both non-formulary at [facility]. THey are unable to even order the medications there to be picked up. Pt notified and aware that he will not be able to get those medications at the [facility]. He states it is fine and he will get all his medications at [facility] this evening. Pt is receiving 6 pills of Voriconazole from pharmacy here at hospital on emergency basis since they are out of stock everywhere pt could pick them up.
--- NOTE | 2019-07-28 21:09 | PC.NURSE ---
Discharge Note-m Patient discharged home. Discahrge [facility] and [facility] Paperwork signed. Patient packed up personal belongings and got dressed. No IV access noted. Patient left via wheelchair to private car with all personal belongings at 1730.
[2019-07-29 11:44] LABS: Immunoglobulin E 300 IU/mL (6-495)
[2019-07-29 12:40] LABS: Aspergillus fumigatus IgE <0.10 kU/L (Class 0)
[2019-07-30 10:10] LABS: COVID19 Sendout NONE DETECTED
== END 2019-07-28 17:30 | disposition home or self-care (01) | DRG 196 ==
LOC: ED 16:25 → AC 16:49 → ICU 07-23 09:43 → AC 07-26 08:03
PROVIDERS: Internal Medicine; Nurse Practitioner Family; Admitting Provider Internal Medicine; Emergency Provider Emergency Medicine; Referring Provider Emergency Medicine; Visit Provider Internal Medicine
DX: B44.81 Allergic bronchopulmonary aspergillosis (principal); J96.01 Acute respiratory failure with hypoxia; J44.1 Chronic obstructive pulmonary disease with (acute) exacerbation; M79.604 Pain in right leg; I10 Essential (primary) hypertension; E78.5 Hyperlipidemia, unspecified; F17.210 Nicotine dependence, cigarettes, uncomplicated; Z03.818 Encounter for observation for suspected exposure to other biological agents ruled out
CPT/HCPCS: 36415; 36600; 71275; 80053; 82785; 82805; 83605; 83615; 83690; 83735; 83880; 84145; 84484; 85025; 85379; 86003; 86140; 87070; 87077; 87107; 87205; 87633; 87635; 93005; 93971; 94640; 94760; 96374; 99285; J1650; J2930; Q9967

== ENCOUNTER 2019-09-13 09:43 | Emergency (ER) | payer OTHER, SELFPAY ==
[2019-07-22 17:43] VITALS: BMI 29.8
[2019-09-13] VITALS (7 sets, daily range): BP systolic 114–125; BP diastolic 67–75; PULSE 71–110; RESP 14–24; TEMP 36.1; O2SAT 93–99; BMI 30.5
--- NOTE | 2019-09-13 11:05 | DI.RAD.S_ITS ---
PROCEDURE: XR CHEST 1V INDICATIONS: Cough, wheezing, tachypnea, COPD flair TECHNIQUE: One view of the chest was acquired. COMPARISON: [facility], CT, CT ANGIO CHEST PE PROTOCOL, 07/22/2019, 15:47. [facility], CR, XR CHEST 1V, 05/22/2018, 0:53. [facility], CR, XR CHEST 1V, 06/07/2019, 8:42. [facility], CR, XR CHEST 2V, 06/22/2019, 6:23. [facility], CR, XR CHEST 2V, 07/08/2019, 23:04. [facility], CT, CT ABDOMEN PELVIS WO CON, 09/13/2019, 11:29. [facility], CR, XR CHEST 2V, 07/10/2019, 8:50. FINDINGS: Surgical changes and devices: None. Lungs and pleura: Lungs are clear. No pleural effusions or pneumothorax. Mediastinum: Mediastinal contours appear normal. Heart size is normal. Bones and chest wall: No suspicious bony lesions. Age-appropriate bony degenerative changes are seen. Overlying soft tissues appear unremarkable. IMPRESSION: Unremarkable imaging examination for age. Dictated by: Joaquín Saxena M.D. on 09/13/2019 at 10:42 Approved by: Joaquín Saxena M.D. on 09/13/2019 at 10:43
--- NOTE | 2019-09-13 11:11 | DI.CT.S_ITS ---
PROCEDURE: CT ABDOMEN PELVIS WO CON INDICATIONS: right falnk pain, stone study. TECHNIQUE: Noncontrast 5 mm thick sections acquired from the diaphragms to the symphysis. 5 mm thick coronal and sagittal reformats were then performed. For radiation dose reduction, the following was used: automated exposure control, adjustment of mA and/or kV according to patient size. COMPARISON: [facility], CR, XR CHEST 1V, 09/13/2019, 11:29. [facility], CT, CT ANGIO CHEST PE PROTOCOL, 07/22/2019, 15:47. FINDINGS: Image quality: Excellent. Lung bases: Lung bases are clear. Heart size is normal. Urinary system: Both kidneys are. No right-sided kidney stones. No hydronephrosis. Bilateral symmetric senescent perinephric cobwebbing can be seen. Both ureters appear non-dilated throughout their expected courses. Bladder wall thickness is normal; no calcified bladder stones. Other solid organs: Liver is normal in size. Gallbladder wall is not thickened. Pancreas is normal in contours. Spleen is normal in size. No adrenal nodules. Peritoneum and bowel: Unenhanced bowel loops demonstrate normal wall thickness and caliber. No free fluid or air. Diverticulosis is seen, without findings of active diverticulitis. Incidental note is made of a normal-appearing appendix. Nodes and vessels: No retroperitoneal or mesenteric adenopathy by size criteria. Aorta and inferior vena cava are normal in caliber. Abdominal wall: A mild periumbilical hernia is seen, containing fat. Pelvis: No free pelvic fluid. No inguinal adenopathy. Bilateral fat-containing inguinal hernias are seen. Bones: Remote right posterior rib fractures are seen, with relatively poor healing. No suspicious bony lesions. No vertebral body compression fractures. Mild dextroconvex scoliotic curvature is seen. IMPRESSION: No ureteral stones. Negative for obstructive uropathy. No hydronephrosis. There is a 1 mm nonobstructing stone noted within the left kidney. Normal appendix. Incidental note is made of: Remote right posterior rib fractures. Mild fat-containing periumbilical hernia Diverticulosis, without findings of active diverticulitis. Fat-containing bilateral inguinal hernias Dictated by: Joaquín Saxena M.D. on 09/13/2019 at 10:43 Approved by: Joaquín Saxena M.D. on 09/13/2019 at 10:48
--- NOTE | 2019-09-13 11:14 | ED_ITS ---
HPI - Back Pain/Injury General Chief Complaint: Back Pain/Injury Stated Complaint: right lower back pain/Prednisone doseage incorrect Time Seen by Provider: 09/13/19 10:49 Source: patient Limitations: no limitations History of Present Illness HPI Narrative: CC:right flank pain HPI: The patient is a 54-year-old male who appears older than his stated age. He is complaining of right flank and back pain today. He states that for the last 3 weeks he has been taking prednisone. He has been taking 2 tablets per day for the last 3 weeks and has developed increased swelling of his legs and fluid retention. He denies any fall or injury. He believes that he has overdosed on his some steroids and developed the pain and discomfort in his right back. The patient admits to being a type 2 diabetic. He denies a previous history of kidney stones pyelonephritis burning dysuria. He denies any fall or injury. He denies a history of being exposed to coronavirus or having COVID-19. He has had a persistent cough for the last 3 weeks productive of a clear sputum without hemoptysis. He has been short of breath with wheezing. He has had no significant chest pain palpitations or dizziness. He has had backache as described. He has had increased bruising of his arms and hands. He only takes a baby aspirin. He is on no other anti coagulant. He denies any nasal drainage sinus drainage sore throat headache numbness tingling paresthe shanel anesthesia is or paralysis. He has had no fever chills or sweats. He denies any other abdominal pain nausea vomiting diarrhea change in bowel habits melena hematochezia. He continues to smoke cigarettes but does not drink alcohol or use any drugs. Related Data Home Medications Medication Instructions Recorded Confirmed aspirin 81 mg PO QDAY #0 02/25/16 07/23/19 atorvastatin [Lipitor] 20 mg PO HS #30 tab 02/25/16 07/23/19 lisinopril 20 mg PO DAILY 05/22/18 07/23/19 omeprazole 40 mg PO DAILY 05/22/18 07/23/19 amlodipine 10 mg PO DAILY 07/09/19 07/23/19 Previous Rx's Medication Instructions Recorded benzonatate [Tessalon Perles] 100 mg PO BID-TID PRN #14 cap 06/07/19 albuterol sulfate 2.5 mg INHALATION Q4-6H PRN #90 ml 06/22/19 prednisone 20 mg PO DAILY #5 tab 06/22/19 levofloxacin 750 mg PO DAILY #5 tab 07/11/19 cyclobenzaprine 10 mg PO TID PRN #15 tab 07/18/19 hydrocodone-acetaminophen [Glenwood] 1 tab PO Q4-6H PRN #15 tab 07/18/19 levofloxacin [Levaquin] 500 mg PO DAILY #7 tab 07/18/19 lidocaine [Lidoderm] 1 patch TOP DAILY #14 each 07/18/19 naproxen [Naprosyn] 500 mg PO BID PRN #20 tab 07/18/19 benzonatate 100 mg PO TID PRN #20 cap 07/28/19 fluticasone propion-salmeterol 1 puff INH BID #1 ea 07/28/19 [Advair Diskus] guaifenesin [Mucus Relief ER] 1,200 mg PO BID #20 tab 07/28/19 ipratropium-albuterol [Combivent 1 puff INHALATION Q6H #4 gram 07/28/19 Respimat] prednisone 40 mg PO DAILY #30 tab 07/28/19 voriconazole [Vfend] 200 mg PO BID #60 tab 07/28/19 hydrocodone-acetaminophen [G[place]wood] 1 tab PO Q6H PRN #10 tab 09/13/19 ipratropium-albuterol [Combivent 1 puff INHALATION Q6H #4 gram 09/13/19 Respimat] Allergies Allergy/AdvReac Type Severity Reaction Status Date / Time No Known Drug Allergies Allergy Verified 09/13/19 10:31 Review of Systems Review of Systems Narrative: Does review of systems were all negative except for those mentioned in the history of present illness per Patient History Medical History Hyperlipidemia (Acute) Hypertension (Acute) Social History household members: significant other Smoking Status: Current some day smoker alcohol intake: current Smoking Status: Current some day smoker tobacco type: cigarettes alcohol intake frequency: 0-2 drinks per day Substance Use Type: does not use Exam Narrative Exam Narrative: PHYSICAL EXAM: CONSTITUTIONAL: Awake, Alert, Oriented, Coherent, Cooperative . He appears to be mildly uncomfortable tachypneic with audible wheezing and her raspy respirations. HEAD: AT/NC EENT: PERRL, FROM of eyes, no discharge, no nystagmus MOUTH: Is wearing a mask. NECK: Supple, no obvious JVD, Trachea is midline without stridor, no palpable LN. He has a short neck SPINE: Palpationof the cervical, Thoracic, Lumbar or Sacral spine reveals no gross deformity or tenderness. The patient's right costovertebral angle is very tender. THORAX: No deformity, retractions, chest wall tenderness. LUNGS: Decreased breath sounds bilaterally with inspiratory crackles and diffuse expiratory wheezes and rhonchi bilaterally. HEART: Normal heart tones, regular rhythm and rate without murmur. ABDOMEN: Soft, globular, doughy, rotund, no palpable organomegaly. No specific point tenderness guarding or rebound. LYMPHATIC: no palpable spleen. EXTREMITIES: No calf tenderness. The patient has asymmetrical swelling of his legs with 2+ pitting edema of his right leg compared to the left leg. Left leg is 1+ pitting edema SKIN: No rash,. There is extensive bruising of the patient's right upper arm. NEURO: Awake, alert, oriented, conversive, cranial nerves II-XII are symmetrical , moves all 4 extremities and is ambulatory. Initial Vital Signs Initial Vital Signs: Vital Signs Temperature 97.0 F L 09/13/19 10:19 Pulse Rate 80 09/13/19 10:19 Respiratory Rate 22 09/13/19 10:19 Blood Pressure 114/70 09/13/19 10:19 Pulse Oximetry 97 09/13/19 10:19 Course Course Course Narrative: 1400: The patient is not being discharged. I do not know how the button got pushed for discharge. The patient has been hypoxic and cannot explain other than a flare of his COPD. A D-dimer will be checked to see if he has a possible pulmonary embolism. We are waiting for his Covid 19 to be resulted. Re-examination of his right posterior costovertebral angle it is not at as tender as it was when he was initially evaluated. 0126 I discussed the patient with Dr. Massey, he will come down and evaluate the patient. He reviewed Dr. Duff's note from his last admission. The patient has extensive pulmonary disease. It sounds like he desatted when he was snoring and sleeping and is consistent with his sleep apnea. His D-dimer is 222 within the normal range. A CT scan of his chest will not be obtained at this time. His Covid Swab is pending. He has had multiple negative Covid tests in the past. Will take the patient off oxygen and see what he does at his bedside and will ambulate the patient and see what his oxygen saturation does when he is ambulating. The patient may be able to be discharged home. The patient admits to using his apnea machine when sleeping at home. 1614: Waiting for Dr. Og to evaluate the patient. The patient has sleep apnea and uses his apnea monitor at nighttime. He does not have oxygen to use at nighttime. On ambulation his oxygen was approximately 95% without nasal oxygen, at rest his oxygen saturation is between 93 and 95%. I just entered the room and was watching the patient as he was sleeping and snoring. His oxygen saturation dropped to 81% and was 85% without oxygen. I question whether not the patient needs oxygen at night along with his sleep apnea. I explained this to the patient. The patient needs to be evaluated for the possibility of home oxygen therapy at night. 1630: The patient was evaluated by . 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 The patient will follow up tomorrow with the [facility] to have his sleep apnea machine adjusted in settings changed. The patient understands the risk and would like to be discharged and will be discharged. Orders Ordered: Discontinued Medications Albuterol (Ventolin Hfa) 2 puff INH NOW ONE Stop: 09/13/19 12:53 Last Admin: 09/13/19 13:06 Dose: Not Given Documented by: SENAIT Albuterol/Ipratropium (Duoneb) 3 ml INH Q1H PRN PRN Reason: Shortness Of Breath Albuterol/Ipratropium (Combivent Respimat) 4 puff INH NOW ONE Stop: 09/13/19 12:53 Last Admin: 09/13/19 13:05 Dose: 4 puff Documented by: SENAIT Furosemide (Lasix) 40 mg IV NOW ONE Stop: 09/13/19 13:22 Last Admin: 09/13/19 13:48 Dose: 40 mg Documented by: JONATHAN Morphine Sulfate (Morphine) 4 mg IV NOW ONE Stop: 09/13/19 11:08 Last Admin: 09/13/19 11:50 Dose: 4 mg Documented by: BILLY Ondansetron HCl (Zofran) 4 mg IV NOW ONE Stop: 09/13/19 11:08 Last Admin: 09/13/19 11:50 Dose: 4 mg Documented by: BILLY Vital Signs Vital signs: Vital Signs - 8 hr 09/13/19 10:19 09/13/19 12:30 09/13/19 13:07 Temperature 97.0 F L Pulse Rate 80 71 Respiratory Rate 22 14 18 Blood Pressure [Right Arm] 114/70 116/72 Pulse Oximetry 97 97 95 09/13/19 13:57 09/13/19 15:30 09/13/19 15:32 Temperature Pulse Rate 76 110 H 81 Respiratory Rate 18 24 18 Blood Pressure [Right Arm] 115/75 125/67 Pulse Oximetry 97 93 99 MDM - Back Pain/Injury Lab Data Result diagrams: 09/13/19 10:50 09/13/19 10:50 Labs: Lab Results 09/13/19 09/13/19 09/13/19 Range/Units 10:50 10:50 10:50 WBC 9.6 (4.5-11.0) X10^3/uL RBC 4.05 L (4.5-5.9) X10^6/uL Hgb 12.5 L (13.5-17.5) g/dL Hct 36.3 L (41-53) % MCV 89.7 (80-100) fL MCH 31.0 (26-34) PG MCHC 34.5 (30-36) % RDW 14.1 (11.6-14.8) % Plt Count 243 (150-400) X10^3/uL Neut % (Auto) 85.4 H (50-75) % Lymph % (Auto) 9.4 L (25-40) % Creek % (Auto) 3.8 (3-14) % Eos % (Auto) 0.5 L (2-4) % Baso % (Auto) 0.9 (0-2) % Neut # (Auto) 8200 H (8361-3515) /uL Lymph # (Auto) 900 L (8923-6470) /uL Creek # (Auto) 400 (0-900) /uL Eos # (Auto) 100 (0-450) /uL Baso # (Auto) 100 (0-100) /uL ESR 9 (0-15) MM/HR D-Dimer (<230) ng/mL Sodium 131 L (137-145) mmol/L Potassium 4.9 (3.4-5.1) mmol/L Chloride 97 L (98-107) mmol/L Carbon Dioxide 30 (22-32) mmol/L BUN 13 (9-20) mg/dL Creatinine 0.69 (0.66-1.25) mg/dL Estimated GFR > 60.0 (>60) mL/min BUN/Creatinine Ratio 18.8 (6-22) Glucose 156 H (70-100) mg/dL Lactate (0.7-2.1) mmol/L Calcium 9.8 (8.4-10.2) mg/dL Total Bilirubin 0.7 (0.2-1.3) mg/dL AST 42 (17-59) IU/L ALT 41 (<50) IU/L Alkaline Phosphatase 58 (38-126) U/L Total Creatine Kinase 37 L (55-170) U/L CK-MB (CK-2) TNP CK-MB (CK-2) Rel Index TNP Troponin I < 0.012 (0.01-0.034) ng/mL NT-Pro-B Natriuret Pep 265 H (<125) pg/mL Total Protein 6.7 (6.3-8.2) g/dL Albumin 4.2 (3.5-5.0) g/dL Globulin 2.5 (1.7-4.1) g/dL Albumin/Globulin Ratio 1.7 (1.0-2.8) Urine Color Urine Appearance Urine pH (4.5-8.0) Ur Specific Bailey (1.000-1.035) Urine Protein (Negative) Urine Glucose (UA) (Negative) g/dL Urine Ketones (NEGATIVE) Urine Occult Blood (Negative) Urine Nitrate (Negative) Urine Bilirubin (NEGATIVE) Urine Urobilinogen (0.2) E.U./dL Ur Leukocyte Esterase (NEGATIVE) Urine RBC (0-5/HPF) Urine WBC (0-5/HPF) Urine Bacteria (None) Ur Culture Indicated? COVID-19 PCR 09/13/19 09/13/19 09/13/19 Range/Units 10:50 10:50 11:58 WBC (4.5-11.0) X10^3/uL RBC (4.5-5.9) X10^6/uL Hgb (13.5-17.5) g/dL Hct (41-53) % MCV (80-100) fL MCH (26-34) PG MCHC (30-36) % RDW (11.6-14.8) % Plt Count (150-400) X10^3/uL Neut % (Auto) (50-75) % Lymph % (Auto) (25-40) % Creek % (Auto) (3-14) % Eos % (Auto) (2-4) % Baso % (Auto) (0-2) % Neut # (Auto) (8692-3903) /uL Lymph # (Auto) (6412-7448) /uL Creek # (Auto) (0-900) /uL Eos # (Auto) (0-450) /uL Baso # (Auto) (0-100) /uL ESR (0-15) MM/HR D-Dimer 222 (<230) ng/mL Sodium (137-145) mmol/L Potassium (3.4-5.1) mmol/L Chloride (98-107) mmol/L Carbon Dioxide (22-32) mmol/L BUN (9-20) mg/dL Creatinine (0.66-1.25) mg/dL Estimated GFR (>60) mL/min BUN/Creatinine Ratio (6-22) Glucose (70-100) mg/dL Lactate 1.3 (0.7-2.1) mmol/L Calcium (8.4-10.2) mg/dL Total Bilirubin (0.2-1.3) mg/dL AST (17-59) IU/L ALT (<50) IU/L Alkaline Phosphatase (38-126) U/L Total Creatine Kinase (55-170) U/L CK-MB (CK-2) CK-MB (CK-2) Rel Index Troponin I (0.01-0.034) ng/mL NT-Pro-B Natriuret Pep (<125) pg/mL Total Protein (6.3-8.2) g/dL Albumin (3.5-5.0) g/dL Globulin (1.7-4.1) g/dL Albumin/Globulin Ratio (1.0-2.8) Urine Color Yellow Urine Appearance Clear Urine pH 7.5 (4.5-8.0) Ur Specific Bailey 1.010 (1.000-1.035) Urine Protein Negative (Negative) Urine Glucose (UA) Negative (Negative) g/dL Urine Ketones Negative (NEGATIVE) Urine Occult Blood Negative (Negative) Urine Nitrate Negative (Negative) Urine Bilirubin Negative (NEGATIVE) Urine Urobilinogen 0.2 (0.2) E.U./dL Ur Leukocyte Esterase Negative (NEGATIVE) Urine RBC None seen (0-5/HPF) Urine WBC None seen (0-5/HPF) Urine Bacteria None seen (None) Ur Culture Indicated? Cult not indicated COVID-19 PCR 09/13/19 09/13/19 Range/Units 11:58 11:58 WBC (4.5-11.0) X10^3/uL RBC (4.5-5.9) X10^6/uL Hgb (13.5-17.5) g/dL Hct (41-53) % MCV (80-100) fL MCH (26-34) PG MCHC (30-36) % RDW (11.6-14.8) % Plt Count (150-400) X10^3/uL Neut % (Auto) (50-75) % Lymph % (Auto) (25-40) % Creek % (Auto) (3-14) % Eos % (Auto) (2-4) % Baso % (Auto) (0-2) % Neut # (Auto) (3302-9092) /uL Lymph # (Auto) (6927-0600) /uL Creek # (Auto) (0-900) /uL Eos # (Auto) (0-450) /uL Baso # (Auto) (0-100) /uL ESR (0-15) MM/HR D-Dimer (<230) ng/mL Sodium (137-145) mmol/L Potassium (3.4-5.1) mmol/L Chloride (98-107) mmol/L Carbon Dioxide (22-32) mmol/L BUN (9-20) mg/dL Creatinine (0.66-1.25) mg/dL Estimated GFR (>60) mL/min BUN/Creatinine Ratio (6-22) Glucose (70-100) mg/dL Lactate (0.7-2.1) mmol/L Calcium (8.4-10.2) mg/dL Total Bilirubin (0.2-1.3) mg/dL AST (17-59) IU/L ALT (<50) IU/L Alkaline Phosphatase (38-126) U/L Total Creatine Kinase (55-170) U/L CK-MB (CK-2) CK-MB (CK-2) Rel Index Troponin I (0.01-0.034) ng/mL NT-Pro-B Natriuret Pep (<125) pg/mL Total Protein (6.3-8.2) g/dL Albumin (3.5-5.0) g/dL Globulin (1.7-4.1) g/dL Albumin/Globulin Ratio (1.0-2.8) Urine Color Urine Appearance Urine pH (4.5-8.0) Ur Specific Bailey (1.000-1.035) Urine Protein (Negative) Urine Glucose (UA) (Negative) g/dL Urine Ketones (NEGATIVE) Urine Occult Blood (Negative) Urine Nitrate (Negative) Urine Bilirubin (NEGATIVE) Urine Urobilinogen (0.2) E.U./dL Ur Leukocyte Esterase (NEGATIVE) Urine RBC (0-5/HPF) Urine WBC (0-5/HPF) Urine Bacteria (None) Ur Culture Indicated? COVID-19 PCR Cancelled Negative Discharge Plan Departure Patient Disposition: Home Clinical Impression: COPD exacerbation, Productive cough, Edema, peripheral, Acute right flank pain, Hypoxia, Periumbilical hernia Right rib fracture Qualifiers: Encounter type: initial encounter Rib fracture type: single rib Fracture type: closed Qualified Code(s): S22.31XA - Fracture of one rib, right side, initial encounter for closed fracture Bilateral inguinal hernia Qualifiers: Obstruction and gangrene presence: with obstruction but without gangrene Recurrence: not specified as recurrent Qualified Code(s): K40.00 - Bilateral inguinal hernia, with obstruction, without gangrene, not specified as recurrent Discharge Date/Time: 09/13/19 17:05 Instructions: DI for Chronic Obstructive Pulmonary Disease, DI for Obstructive Sleep Apnea -- Adult, DI for Back Spasm Activity Restrictions/Additional Instructions: 1. As directed and per follow-up with the [facility] tomorrow and pulmonary to evaluate your lungs and your apnea machine. 2. If you develop worsening shortness of breath chest pain return to the emergency department. 3 you sure Combivent inhalers. You can take 1-2 puffs every 4-6 hours. 4. Older steroids at this time until you are seen and re-evaluated at the [facility]. Prescriptions: New Combivent Respimat 20-100 mcg/actuation mist 1 puff INHALATION Q6H Qty: 4 RF: 0 hydrocodone-acetaminophen [Glenwood] 5-325 mg tablet 1 tab PO Q6H PRN (Reason: pain) Qty: 10 RF: 0 No Action atorvastatin [Lipitor] 20 MG tablet 20 mg PO HS Qty: 30 RF: 0 aspirin 81 MG tablet,chewable 81 mg PO QDAY Qty: 0 RF: 0 prednisone 20 mg tablet 20 mg PO DAILY Qty: 5 RF: 0 albuterol sulfate 2.5 mg /3 mL (0.083 %) solution for nebulization 2.5 mg INHALATION Q4-6H PRN (Reason: shortness of breath or wheezing) Qty: 90 RF: 0 cyclobenzaprine 10 mg tablet 10 mg PO TID PRN (Reason: muscle spasm) Qty: 15 RF: 0 naproxen [Naprosyn] 500 mg tablet 500 mg PO BID PRN (Reason: pain) Qty: 20 RF: 0 hydrocodone-acetaminophen [G[place]wood] 5-325 mg tablet 1 tab PO Q4-6H PRN (Reason: pain) Qty: 15 RF: 0 levofloxacin [Levaquin] 500 mg tablet 500 mg PO DAILY Qty: 7 RF: 0 lidocaine [Lidoderm] 5 % adhesive patch,medicated 1 patch TOP DAILY Qty: 14 RF: 0 lisinopril 20 mg Tablet 20 mg PO DAILY RF: 0 omeprazole 20 mg Capsule,Delayed Release(Dr/Ec) 40 mg PO DAILY RF: 0 benzonatate [Tessalon Perles] 100 mg capsule 100 mg PO BID-TID PRN (Reason: cough) Qty: 14 RF: 0 amlodipine 10 mg Tablet 10 mg PO DAILY RF: 0 levofloxacin 750 mg tablet 750 mg PO DAILY Qty: 5 RF: 0 fluticasone propion-salmeterol [Advair Diskus] 250-50 mcg/dose Blister With Device 1 puff INH BID Qty: 1 RF: 0 Combivent Respimat 20-100 mcg/actuation Mist 1 puff inhalation Q6H Qty: 4 RF: 0 prednisone 20 mg Tablet 40 mg PO DAILY Qty: 30 RF: 0 voriconazole [Vfend] 200 mg Tablet 200 mg PO BID Qty: 60 RF: 0 benzonatate 100 mg Capsule 100 mg PO TID PRN (Reason: cough) Qty: 20 RF: 0 guaifenesin [Mucus Relief ER] 600 mg Tablet Extended Release 12hr 1,200 mg PO BID Qty: 20 RF: 0 Referrals: Janet Graham [Primary Care Provider] -
[2019-09-13 11:21] LABS: Add Manual Diff / Slide Review NO; Basophils Absolute Auto 100 /uL (0-100); Basophils Percent Auto 0.9 % (0-2); Eosinophils Absolute Auto 100 /uL (0-450); Eosinophils Percent Auto 0.5 % (2-4); Hematocrit 36.3 % (41-53); Hemoglobin 12.5 g/dL (13.5-17.5); Lymphocytes Absolute Auto 900 /uL (1100-4500); Lymphocytes Percent Auto 9.4 % (25-40); Mean Corpuscular HGB Conc 34.5 % (30-36); Mean Corpuscular Volume 89.7 fL (80-100); Monocytes Absolute Auto 400 /uL (0-900); Monocytes Percent Auto 3.8 % (3-14); Neutrophils Absolute Auto 8200 /uL (1500-7000); Neutrophils Percent Auto 85.4 % (50-75); Platelet Count 243 X10^3/uL (150-400); Red Blood Cell Count 4.05 X10^6/uL (4.5-5.9); Red Cell Distribution Width 14.1 % (11.6-14.8); White Blood Cell Count 9.6 X10^3/uL (4.5-11.0)
[2019-09-13 11:26] LABS: Alanine Aminotransferase 41 IU/L (<50); Albumin 4.2 g/dL (3.5-5.0); Albumin Globulin Ratio 1.7 (1.0-2.8); Alkaline Phosphatase 58 U/L (38-126); Aspartate Aminotransferase 42 IU/L (17-59); BUN Creatinine Ratio 18.8 (6-22); Bilirubin Total 0.7 mg/dL (0.2-1.3); Blood Urea Nitrogen 13 mg/dL (9-20); Calcium 9.8 mg/dL (8.4-10.2); Carbon Dioxide 30 mmol/L (22-32); Chloride 97 mmol/L (98-107); Creatine Kinase 37 U/L (55-170); Estimated Glomerular Filt Rate > 60.0 mL/min (>60); Globulin 2.5 g/dL (1.7-4.1); Glucose 156 mg/dL (70-100); Potassium 4.9 mmol/L (3.4-5.1); Sodium 131 mmol/L (137-145); Total Protein 6.7 g/dL (6.3-8.2)
[2019-09-13 11:27] LABS: Lactate (Lactic Acid) 1.3 mmol/L (0.7-2.1)
[2019-09-13 11:36] LABS: Erythrocyte Sedimentation Rate 9 MM/HR (0-15); HEMOLYSIS 115 (0-50)
[2019-09-13 11:37] LABS: NT-proBNP (BNP-Adult 18+) 265 pg/mL (<125); Troponin I < 0.012 ng/mL (0.01-0.034)
[2019-09-13] MEDS: ONDANSETRON 4 MG/2 ML INJ IV (11:50)
[2019-09-13] MEDS: MORPHINE 4 MG/ML INJ IV (11:50)
[2019-09-13 12:13] LABS: Bacteria Urine None Seen; RBC Urine None Seen (0-5/HPF); WBC Urine None Seen (0-5/HPF)
[2019-09-13 12:15] LABS: Appearance Urine UA CLEAR; Bilirubin Urine UA NEGATIVE (NEGATIVE); Color Urine UA YELLOW; Glucose Urine UA NEGATIVE (Negative); Ketones Urine UA NEGATIVE (NEGATIVE); Leukocyte Esterase Urine UA NEGATIVE (NEGATIVE); Nitrite Urine UA NEGATIVE (Negative); Occult Blood Urine UA NEGATIVE (Negative); Protein Urine UA NEGATIVE (Negative); Urobilinogen Urine UA 0.2 E.U./dL (0.2); pH Urine UA 7.5 (4.5-8.0)
[2019-09-13 12:28] LABS: Culture Indicated Urine Cult Not Indicated
[2019-09-13] MEDS: ALBUTEROL/IPRATROPIUM MDI 4 PUFF INH (13:05)
[2019-09-13] MEDS: FUROSEMIDE 40 MG/4 ML VIAL IV (13:48)
[2019-09-13 14:23] LABS: D Dimer 222 ng/mL (<230)
--- NOTE | 2019-09-13 15:31 | PC.NURSE ---
Dr. Galvez aware. room air sat prior to ambulation 95 percent. heart rate 73
--- NOTE | 2019-09-13 16:31 | P.CONS_ITS ---
History of Present Illness Consult details Date Patient Seen: 09/13/19 Time Patient Seen: 16:31 Chief complaint: right lower back pain/Prednisone doseage incorrect Reason for consult: hypoxi Requesting provider: Farhat Galvez Narrative: Delvin Louis is a 54-year-old male with past medical history of hypertension, hyperlipidemia, ABPA, EVELYN, and current smoker who presented with right lower back pain concerned that he had a problem with his kidneys. Patient has a known right rib fracture, but states that his pain worsened this morning. He denies increased frequency of cough, worsening dyspnea on exertion, and increased sputum production. He states over the past week or so he has been waking up frequently to P during the middle the night, and not getting as much sleep as he usually does. He is still taking her steroids in antifungals for the ABPA but is due to stop steroids hopefully in a couple of months. In the emergency room, vital signs were unremarkable, except for noted hypoxia when the patient was sleeping. Patient does have a CPAP at home and endorses using it. He was not hypoxic when ambulating around the nursing station. His labs showed a WBC of 9.6, hemoglobin of 12.5, platelet count of 243. Chemistry shows sodium of 131, chloride of 97, normal creatinine at 0.69 and a D-dimer 222 . Sed rate was unremarkable. UA was negative. COVID-19 PCR was sent and is pending. Chest x-ray was unremarkable, CT abdomen pelvis did not show any obstructing nephrolithiasis. Meds Home Medications and Allergies Home Medications Medication Instructions Recorded Confirmed Type aspirin 81 mg PO QDAY #0 02/25/16 07/23/19 History atorvastatin [Lipitor] 20 mg PO HS #30 tab 02/25/16 07/23/19 History lisinopril 20 mg PO DAILY 05/22/18 07/23/19 History omeprazole 40 mg PO DAILY 05/22/18 07/23/19 History benzonatate [Tessalon Perles] 100 mg PO BID-TID PRN #14 cap 06/07/19 07/23/19 Rx albuterol sulfate 2.5 mg INHALATION Q4-6H PRN #90 ml 06/22/19 07/23/19 Rx prednisone 20 mg PO DAILY #5 tab 06/22/19 07/23/19 Rx amlodipine 10 mg PO DAILY 07/09/19 07/23/19 History levofloxacin 750 mg PO DAILY #5 tab 07/11/19 07/23/19 Rx cyclobenzaprine 10 mg PO TID PRN #15 tab 07/18/19 07/23/19 Rx hydrocodone-acetaminophen [Morgan] 1 tab PO Q4-6H PRN #15 tab 07/18/19 07/23/19 Rx levofloxacin [Levaquin] 500 mg PO DAILY #7 tab 07/18/19 07/23/19 Rx lidocaine [Lidoderm] 1 patch TOP DAILY #14 each 07/18/19 07/23/19 Rx naproxen [Naprosyn] 500 mg PO BID PRN #20 tab 07/18/19 07/23/19 Rx benzonatate 100 mg PO TID PRN #20 cap 07/28/19 Rx fluticasone propion-salmeterol 1 puff INH BID #1 ea 07/28/19 Rx [Advair Diskus] guaifenesin [Mucus Relief ER] 1,200 mg PO BID #20 tab 07/28/19 Rx ipratropium-albuterol [Combivent 1 puff INHALATION Q6H #4 gram 07/28/19 Rx Respimat] prednisone 40 mg PO DAILY #30 tab 07/28/19 Rx voriconazole [Vfend] 200 mg PO BID #60 tab 07/28/19 Rx hydrocodone-acetaminophen [Morgan] 1 tab PO Q6H PRN #10 tab 09/13/19 Rx ipratropium-albuterol [Combivent 1 puff INHALATION Q6H #4 gram 09/13/19 Rx Respimat] Allergies Allergy/AdvReac Type Severity Reaction Status Date / Time No Known Drug Allergies Allergy Verified 09/13/19 10:31 Exam Vital Signs (past 8 hours): - 09/13/19 10:19 09/13/19 12:30 09/13/19 13:07 Temperature 97.0 F L Pulse Rate 80 71 Respiratory Rate 22 14 18 Blood Pressure [Right Arm] 114/70 116/72 Pulse Oximetry 97 97 95 09/13/19 13:57 09/13/19 15:30 09/13/19 15:32 Temperature Pulse Rate 76 110 H 81 Respiratory Rate 18 24 18 Blood Pressure [Right Arm] 115/75 125/67 Pulse Oximetry 97 93 99 Oxygen Delivery Method Room Air Oxygen Flow Rate 2 Narrative Exam Narrative: GENERAL APPEARANCE: Well developed, well nourished, in no acute distress. SKIN: Inspection of the skin reveals no rashes, ulcerations or petechiae. HEENT: Normocephalic atraumatic, extraocular muscles are intact, oropharynx is clear and mucous membranes are moist, neck is supple without adenopathy NECK: Supple and symmetric. There was no thyroid enlargement, and no tenderness, or masses were felt. CHEST: Normal AP diameter and normal contour without any kyphoscoliosis. There is right posterior chest wall tenderness. LUNGS: Auscultation of the lungs revealed no wheezes. There are bibasilar rhonchi. CARDIOVASCULAR: There was a regular rate and rhythm without any murmurs, gallops, rubs. Peripheral pulses were 2+ and symmetric. ABDOMEN: Soft and nontender with normal bowel sounds. No ascites was noted. MUSCULOSKELETAL: There was no tenderness or effusions noted. Muscle strength and tone were normal. EXTREMITIES: No cyanosis, clubbing or edema. NEUROLOGIC: Alert and oriented x 3. Normal affect. Gait was normal. Strength is +5/5 in the Upper Extremities and Lower Extremities Bilaterally. Sensation to touch was normal. Objective Labs Result Diagrams: 09/13/19 10:50 09/13/19 10:50 Labs: Laboratory Results - last 24 hr 09/13/19 09/13/19 09/13/19 10:50 10:50 10:50 WBC 9.6 RBC 4.05 L Hgb 12.5 L Hct 36.3 L MCV 89.7 MCH 31.0 MCHC 34.5 RDW 14.1 Plt Count 243 Neut % (Auto) 85.4 H Lymph % (Auto) 9.4 L [place] % (Auto) 3.8 Eos % (Auto) 0.5 L Baso % (Auto) 0.9 Neut # (Auto) 8200 H Lymph # (Auto) 900 L [place] # (Auto) 400 Eos # (Auto) 100 Baso # (Auto) 100 ESR 9 D-Dimer Sodium 131 L Potassium 4.9 Chloride 97 L Carbon Dioxide 30 BUN 13 Creatinine 0.69 Estimated GFR > 60.0 BUN/Creatinine Ratio 18.8 Glucose 156 H Lactate Calcium 9.8 Total Bilirubin 0.7 AST 42 ALT 41 Alkaline Phosphatase 58 Total Creatine Kinase 37 L CK-MB (CK-2) TNP CK-MB (CK-2) Rel Index TNP Troponin I < 0.012 NT-Pro-B Natriuret Pep 265 H Total Protein 6.7 Albumin 4.2 Globulin 2.5 Albumin/Globulin Ratio 1.7 Urine Color Urine Appearance Urine pH Ur Specific [place] Urine Protein Urine Glucose (UA) Urine Ketones Urine Occult Blood Urine Nitrate Urine Bilirubin Urine Urobilinogen Ur Leukocyte Esterase Urine RBC Urine WBC Urine Bacteria Ur Culture Indicated? COVID-19 PCR 09/13/19 09/13/19 09/13/19 10:50 10:50 11:58 WBC RBC Hgb Hct MCV MCH MCHC RDW Plt Count Neut % (Auto) Lymph % (Auto) [place] % (Auto) Eos % (Auto) Baso % (Auto) Neut # (Auto) Lymph # (Auto) [place] # (Auto) Eos # (Auto) Baso # (Auto) ESR D-Dimer 222 Sodium Potassium Chloride Carbon Dioxide BUN Creatinine Estimated GFR BUN/Creatinine Ratio Glucose Lactate 1.3 Calcium Total Bilirubin AST ALT Alkaline Phosphatase Total Creatine Kinase CK-MB (CK-2) CK-MB (CK-2) Rel Index Troponin I NT-Pro-B Natriuret Pep Total Protein Albumin Globulin Albumin/Globulin Ratio Urine Color Yellow Urine Appearance Clear Urine pH 7.5 Ur Specific [place] 1.010 Urine Protein Negative Urine Glucose (UA) Negative Urine Ketones Negative Urine Occult Blood Negative Urine Nitrate Negative Urine Bilirubin Negative Urine Urobilinogen 0.2 Ur Leukocyte Esterase Negative Urine RBC None seen Urine WBC None seen Urine Bacteria None seen Ur Culture Indicated? Cult not indicated COVID-19 PCR 09/13/19 11:58 WBC RBC Hgb Hct MCV MCH MCHC RDW Plt Count Neut % (Auto) Lymph % (Auto) [place] % (Auto) Eos % (Auto) Baso % (Auto) Neut # (Auto) Lymph # (Auto) [place] # (Auto) Eos # (Auto) Baso # (Auto) ESR D-Dimer Sodium Potassium Chloride Carbon Dioxide BUN Creatinine Estimated GFR BUN/Creatinine Ratio Glucose Lactate Calcium Total Bilirubin AST ALT Alkaline Phosphatase Total Creatine Kinase CK-MB (CK-2) CK-MB (CK-2) Rel Index Troponin I NT-Pro-B Natriuret Pep Total Protein Albumin Globulin Albumin/Globulin Ratio Urine Color Urine Appearance Urine pH Ur Specific [place] Urine Protein Urine Glucose (UA) Urine Ketones Urine Occult Blood Urine Nitrate Urine Bilirubin Urine Urobilinogen Ur Leukocyte Esterase Urine RBC Urine WBC Urine Bacteria Ur Culture Indicated? COVID-19 PCR Cancelled Assessment & Plan Assessment & Plan narrative: Delvin Louis is a 54-year-old male with past medical history of hypertension, hyperlipidemia, ABPA, EVELYN, and current smoker who presented with right lower back pain concerned that he had a problem with his kidneys. Imaging was unremarkable and patient has a known right rib fracture. With regards to his hypoxia while sleeping, suspect his EVELYN slightly worse than baseline due to his continued steroids over the past few months. [facility], and he can call him tomorrow to see if he needs his settings adjusted. Patient was agreeable to this plan, and can be safely discharged home.
[2019-09-13 16:48] LABS: COVID19 -Nasal RAPID Negative (Negative)
== END 2019-09-13 17:05 | disposition home or self-care (01) ==
PROVIDERS: Emergency Provider Emergency Medicine; PCP Family Medicine
DX: R10.9 Unspecified abdominal pain (principal); J44.1 Chronic obstructive pulmonary disease with (acute) exacerbation; R05 Cough; R09.02 Hypoxemia; K42.9 Umbilical hernia without obstruction or gangrene; S22.31XA Fracture of one rib, right side, initial encounter for closed fracture; K40.00 Bilateral inguinal hernia, with obstruction, without gangrene, not specified as recurrent; I10 Essential (primary) hypertension; E78.5 Hyperlipidemia, unspecified
CPT/HCPCS: 36415; 71045; 74176; 80053; 81001; 82550; 83605; 83880; 84484; 85025; 85379; 85651; 87635; 93005; 94640; 96374; 96375; 99284; 99285; J1940; J2270; J2405

== ENCOUNTER → 2019-10-16 09:41 | Outpatient (CLI) | payer OTHER, SELFPAY ==
[2019-07-22 17:43] VITALS: BMI 29.8
--- NOTE | 2019-10-16 09:46 | DI.CT.S_ITS ---
PROCEDURE: CT CHEST WO CON INDICATIONS: PNEUMONIA TECHNIQUE: Noncontrast 5 mm thick sections acquired from the pulmonary apices to the posterior costophrenic angles. 1 mm lung window, 5 mm thick coronal and sagittal and 7 mm axial MIP reformats were then acquired. For radiation dose reduction, the following was used: automated exposure control, adjustment of mA and/or kV according to patient size. COMPARISON: [facility], CT, CT CHEST W CON, 07/18/2019, 9:18. [facility], CR, XR CHEST 1V, 09/13/2019, 11:29. FINDINGS: Image quality: Excellent. Lungs and pleura: Previously described subtle right middle lobe groundglass opacity is no longer present consistent with resolved infiltrate. No new air space opacity is seen. Scattered atelectasis in periphery of bilateral lung smyth are noted. No pleural effusions or pneumothorax. Central and peripheral airways are patent and normal in caliber. Previously described diffuse bilateral peribronchial thickening is no longer present. Mediastinum: Heart size is normal. No pericardial effusion. No mediastinal adenopathy by size criteria. Thoracic aorta and central pulmonary arteries are normal in size. Esophagus is normal in caliber. No hiatal hernia. Bones and chest wall: No suspicious bony lesions. No vertebral body compression fractures. No axillary or supraclavicular adenopathy by size criteria. Thyroid gland is within normal limits. Abdomen: Visualized upper abdominal solid organs and bowel loops appear normal in the absence of contrast. IMPRESSION: 1. Interval resolution of previously noted subtle small groundglass opacity in posterior right middle lobe consistent with resolved pneumonitis/infiltrate. No air space opacity is seen on the current study. Mild scattered bilateral atelectasis. No pleural effusion or pneumothorax. 2. Airway is patent. Interval resolution of previously noted bilateral diffuse peribronchial wall thickening. 3. No mediastinal or hilar lymphadenopathy. Dictated by: Arjun Rehman M.D. on 10/16/2019 at 10:17 Approved by: Arjun Rehman M.D. on 10/16/2019 at 10:25
== END ==
PROVIDERS: PCP Family Medicine; Referring Provider Internal Medicine Critical Care Medicine; Visit Provider Internal Medicine Critical Care Medicine
DX: J18.9 Pneumonia, unspecified organism (principal)
CPT/HCPCS: 71250

== ENCOUNTER 2020-06-09 03:08 | Emergency (ER) | payer OTHER, SELFPAY ==
[2019-07-22 17:43] VITALS: BMI 29.8
[2020-06-09 03:10] VITALS: BP 109/72; PULSE 104; RESP 20; TEMP 36.5; O2SAT 93; BMI 29.5
--- NOTE | 2020-06-09 03:12 | ED_ITS ---
HPI - Back Pain/Injury General Chief Complaint: Back Pain/Injury Stated Complaint: R leg and Low Back Pain Time Seen by Provider: 06/09/20 03:09 Source: patient and EMS Mode of arrival: EMS History of Present Illness HPI Narrative: Patient brought in by ambulance from home. Patient is ambulatory but has antalgic gait due to back pain. Ongoing right lower back pain radiating to his right foot for the past 5 weeks. Awoke 1 morning 5 weeks ago and had pain. No known injury. No bowel or bladder incontinence or retention since then. No saddle paresthesia. No numbness tingling or weakness to the foot. Patient has appointment with Spine doctor, Dr. Brenner, in [place] tomorrow, Saturday. MRIs in the past but none recently. No physical therapy or surgeries. Denies any IV drug use. No recent illness fever chills cough cold or congestion nausea vomiting or diarrhea. No immune suppression medications. Patient is ambulatory. Patient was seen by [facility]. X-rays were done and prescribed naproxen. Pain is not improved. This was done 5 weeks ago. MD Complaint: back pain Related Data Home Medications Medication Instructions Recorded Confirmed aspirin 81 mg PO QDAY #0 02/25/16 07/23/19 atorvastatin [Lipitor] 20 mg PO HS #30 tab 02/25/16 07/23/19 lisinopril 20 mg PO DAILY 05/22/18 07/23/19 omeprazole 40 mg PO DAILY 05/22/18 07/23/19 amlodipine 10 mg PO DAILY 07/09/19 07/23/19 Previous Rx's Medication Instructions Recorded benzonatate [Tessalon Perles] 100 mg PO BID-TID PRN #14 cap 06/07/19 albuterol sulfate 2.5 mg INHALATION Q4-6H PRN #90 ml 06/22/19 prednisone 20 mg PO DAILY #5 tab 06/22/19 levofloxacin 750 mg PO DAILY #5 tab 07/11/19 cyclobenzaprine 10 mg PO TID PRN #15 tab 07/18/19 hydrocodone-acetaminophen [Moulton] 1 tab PO Q4-6H PRN #15 tab 07/18/19 levofloxacin [Levaquin] 500 mg PO DAILY #7 tab 07/18/19 lidocaine [Lidoderm] 1 patch TOP DAILY #14 each 07/18/19 naproxen [Naprosyn] 500 mg PO BID PRN #20 tab 07/18/19 benzonatate 100 mg PO TID PRN #20 cap 07/28/19 fluticasone propion-salmeterol 1 puff INH BID #1 ea 07/28/19 [Advair Diskus] guaifenesin [Mucus Relief ER] 1,200 mg PO BID #20 tab 07/28/19 ipratropium-albuterol [Combivent 1 puff INHALATION Q6H #4 gram 07/28/19 Respimat] prednisone 40 mg PO DAILY #30 tab 07/28/19 voriconazole [Vfend] 200 mg PO BID #60 tab 07/28/19 hydrocodone-acetaminophen [Moulton] 1 tab PO Q6H PRN #10 tab 09/13/19 ipratropium-albuterol [Combivent 1 puff INHALATION Q6H #4 gram 09/13/19 Respimat] Allergies Allergy/AdvReac Type Severity Reaction Status Date / Time No Known Drug Allergies Allergy Verified 06/09/20 03:17 Review of Systems Review of Systems Narrative: GENERAL: Denies chills, fatigue, malaise, fever, sweats. HEENT: Denies sinus pain, ear pain, sore throat RESPIRATORY: Denies dyspnea, cough CARDIOVASCULAR: Denies chest pain, palpitations GASTROINTESTINAL: Denies nausea, vomiting, abdominal pain : Denies dysuria, frequency, hematuria MUSCULOSKELETAL: Complains muscle or bony pain SKIN: Denies rash, skin lesions NEUROLOGIC: Denies weakness, numbness ROS Unobtainable: All systems reviewed & are unremarkable except as noted in HPI and below Patient History Medical History (Updated 06/09/20 @ 03:38 by Johan Walker MD) Hyperlipidemia Hypertension Social History household members: significant other Smoking Status: Current some day smoker alcohol intake: current Smoking Status: Current some day smoker tobacco type: cigarettes alcohol intake frequency: 0-2 drinks per day Substance Use Type: does not use Exam Narrative Exam Narrative: GENERAL: in no distress, not toxic not dyspneic, shoe and sock removed on right side, patient able to get off of EMS bed and walk to his bed. Antalgic gait, no footdrop HEAD: Normocephalic. CARDIOVASCULAR: Regular rate and rhythm without murmurs RESPIRATORY: Clear to auscultation. Breath sounds equal bilaterally. No wheezes, rales, or rhonchi. EXTREMITIES: No gross deformities. BACK: No flank tenderness. There is reproducible right lower paralumbar muscle tenderness. Limited range of motion at the waist due to pain. Pain with 30? straight leg raise on the right. NEURO: AOx4. Light touch intact to right foot and toes. Strong ankle flexion extension. Foot is warm soft and pink with strong radial pulse. SKIN: Warm and dry PSYCH: Not anxious, is cooperative Initial Vital Signs Initial Vital Signs: Vital Signs Temperature 97.7 F 06/09/20 03:10 Pulse Rate 104 H 06/09/20 03:10 Respiratory Rate 20 06/09/20 03:10 Blood Pressure 109/72 06/09/20 03:10 Pulse Oximetry 93 06/09/20 03:10 Course Course Course Narrative: No new issues during course of stay Orders Ordered: Discontinued Medications Hydrocodone Bitart/Acetaminophen (Hydrocodone/Acet 5/325 Prepack) 1 bottle MISC SEEINSTR ONE Stop: 06/09/20 05:06 Last Admin: 06/09/20 05:11 Dose: 1 bottle Documented by: KATHY Ketorolac Tromethamine (Ketorolac 60 Mg/2 Ml Vial) 30 mg IM NOW ONE Stop: 06/09/20 04:11 Last Admin: 06/09/20 04:37 Dose: 30 mg Documented by: KATHY Morphine Sulfate (Morphine 4 Mg/Ml Inj) 4 mg IM NOW ONE Stop: 06/09/20 03:11 Last Admin: 06/09/20 03:31 Dose: 4 mg Documented by: GRECIA Ondansetron HCl (Ondansetron 4 Mg Odt) 4 mg SL NOW ONE Stop: 06/09/20 03:11 Last Admin: 06/09/20 03:31 Dose: 4 mg Documented by: GRECIA Reevaluation(s) Reevaluation #1: Pain controlled during course of stay. Patient desires discharge home after pain medication. Spoke with patient regarding pain medication. His blood pressure slightly low while here. Has history of hypoxia and COPD. Has had pneumonia in the past. Informed him must be judicious about narcotics as it can cause respiratory depression. He does have office appointment tomorrow with child protective services specialist. Symptoms have been going on for 5 weeks. He only received naproxen from his primary care. I did send him home with prepack hydrocodone pain pills. He did receive morphine while here Vital Signs Vital signs: Vital Signs - 8 hr 06/09/20 03:10 06/09/20 04:38 Temperature 97.7 F Pulse Rate 104 H 93 H Respiratory Rate 20 18 Blood Pressure 109/72 110/65 Pulse Oximetry 93 92 MDM - Back Pain/Injury MDM Narrative Medical decision making narrative: Appropriate for discharge home. Patient has appoint with spine provider tomorrow Saturday. No neuro deficits. No imaging or laboratory indicated at this time. Ongoing for 5 weeks Discharge Plan Departure Patient Disposition: Home Clinical Impression: Sciatica Qualifiers: Laterality: right Qualified Code(s): M54.31 - Sciatica, right side Activity Restrictions/Additional Instructions: No driving or operating machinery today. See child protective services specialist tomorrow as scheduled. Return if worse if any questions or concerns Prescriptions: No Action atorvastatin [Lipitor] 20 MG tablet 20 mg PO HS Qty: 30 RF: 0 aspirin 81 MG tablet,chewable 81 mg PO QDAY Qty: 0 RF: 0 prednisone 20 mg tablet 20 mg PO DAILY Qty: 5 RF: 0 albuterol sulfate 2.5 mg /3 mL (0.083 %) solution for nebulization 2.5 mg INHALATION Q4-6H PRN (Reason: shortness of breath or wheezing) Qty: 90 RF: 0 cyclobenzaprine 10 mg tablet 10 mg PO TID PRN (Reason: muscle spasm) Qty: 15 RF: 0 naproxen [Naprosyn] 500 mg tablet 500 mg PO BID PRN (Reason: pain) Qty: 20 RF: 0 hydrocodone-acetaminophen [Moulton] 5-325 mg tablet 1 tab PO Q4-6H PRN (Reason: pain) Qty: 15 RF: 0 levofloxacin [Levaquin] 500 mg tablet 500 mg PO DAILY Qty: 7 RF: 0 lidocaine [Lidoderm] 5 % adhesive patch,medicated 1 patch TOP DAILY Qty: 14 RF: 0 Combivent Respimat 20-100 mcg/actuation mist 1 puff INHALATION Q6H Qty: 4 RF: 0 hydrocodone-acetaminophen [Moulton] 5-325 mg tablet 1 tab PO Q6H PRN (Reason: pain) Qty: 10 RF: 0 lisinopril 20 mg Tablet 20 mg PO DAILY RF: 0 omeprazole 20 mg Capsule,Delayed Release(Dr/Ec) 40 mg PO DAILY RF: 0 benzonatate [Tessalon Perles] 100 mg capsule 100 mg PO BID-TID PRN (Reason: cough) Qty: 14 RF: 0 amlodipine 10 mg Tablet 10 mg PO DAILY RF: 0 levofloxacin 750 mg tablet 750 mg PO DAILY Qty: 5 RF: 0 fluticasone propion-salmeterol [Advair Diskus] 250-50 mcg/dose Blister With Device 1 puff INH BID Qty: 1 RF: 0 Combivent Respimat 20-100 mcg/actuation Mist 1 puff inhalation Q6H Qty: 4 RF: 0 prednisone 20 mg Tablet 40 mg PO DAILY Qty: 30 RF: 0 voriconazole [Vfend] 200 mg Tablet 200 mg PO BID Qty: 60 RF: 0 benzonatate 100 mg Capsule 100 mg PO TID PRN (Reason: cough) Qty: 20 RF: 0 guaifenesin [Mucus Relief ER] 600 mg Tablet Extended Release 12hr 1,200 mg PO BID Qty: 20 RF: 0 Referrals: Janet Graham [Primary Care Provider] -
[2020-06-09] MEDS: ONDANSETRON 4 MG ODT SL (03:31)
[2020-06-09] MEDS: MORPHINE 4 MG/ML INJ IM (03:31)
[2020-06-09] MEDS: KETOROLAC 60 MG/2 ML VIAL 30 MG IM (04:37)
[2020-06-09 04:38] VITALS: BP 110/65; PULSE 93; RESP 18; O2SAT 92
[2020-06-09] MEDS: HYDROCODONE/ACET 5/325 PREPACK 1 BOTTLE MISC (05:11)
--- NOTE | 2020-06-09 05:16 | PC.NURSE ---
Pt is refusing to leave. He states that his pain has not improved after the morphine and torodol. Pt was then ordered a Hydrocodone pre-pack to get him through until his doctor's appt tomorrow. Pt is still refusing to leave. informed again and will speak with pt
== END 2020-06-09 05:28 | disposition home or self-care (01) ==
PROVIDERS: Emergency Provider Emergency Medicine; PCP Family Medicine
DX: M54.31 Sciatica, right side (principal); E78.5 Hyperlipidemia, unspecified; I10 Essential (primary) hypertension; Z79.82 Long term (current) use of aspirin
CPT/HCPCS: 96372; 99281; 99283; J1885; J2270

== ENCOUNTER → 2020-06-22 13:32 | Outpatient (CLI) | payer OTHER, SELFPAY ==
[2019-07-22 17:43] VITALS: BMI 29.8
--- NOTE | 2020-06-22 | DI.MRI.S_ITS ---
PROCEDURE: MR LUMBAR SPINE WO CON INDICATIONS: Lumbago with sciatica, left side TECHNIQUE: Noncontrast sagittal T1 spin echo and T2 fast echo, sagittal STIR, axial T1 and T2 fast spin echo through the lumbar spine. In cases with scoliosis, additional coronal T2 fast spin echo may be performed. COMPARISON: None. FINDINGS: Image quality: Excellent. Alignment and Curvature: There is normal bony alignment. Bone Marrow: Marrow is of normal overall signal. No acute vertebral body compression fractures. Spinal Cord: Conus medullaris terminates at the normal level. Visualized cord demonstrates normal signal and size. Paraspinous Soft Tissues: No paravertebral masses. T12-L1: No spinal canal or neural foraminal stenosis. L1-L2: No spinal canal or neural foraminal stenosis. L2-L3: No spinal canal or neural foraminal stenosis. L3-L4: Disc bulge flattens the ventral thecal sac. No spinal canal or neural foraminal stenosis. L4-L5: Disc desiccation and disc height loss with a diffuse disc bulge which flattens the ventral thecal sac. Small annular fissures posteriorly. No mass effect upon the traversing S1 nerve roots. Mild bilateral neural foraminal stenosis related to foraminal components of the disc bulge and neural foraminal height loss in conjunction with facet hypertrophy. L5-S1: Normal appearance. IMPRESSION: Small annular fissures of the L5-S1 disc, potential sources of axial nonradicular back pain. No findings of focal nerve root impingement to explain radicular symptoms. Dictated by: Honorio Roberts M.D. on 06/22/2020 at 14:52 Approved by: Honorio Roberts M.D. on 06/22/2020 at 14:55
== END ==
PROVIDERS: PCP Internal Medicine; Referring Provider Physician Assistant Surgical; Visit Provider Physician Assistant Surgical
DX: M54.42 Lumbago with sciatica, left side (principal)
CPT/HCPCS: 72148

== ENCOUNTER → 2020-08-22 10:08 | Outpatient (CLI) | payer OTHER, SELFPAY ==
[2019-07-22 17:43] VITALS: BMI 29.8
--- NOTE | 2020-08-22 | DI.ECHO.S_ITS ---
[place] [facility]---------+ [facility] +---------+ : : [address] : [address] : : : : [id number] : : : : Phone: [phone] Echocardiogram Report + + :Name: BRADEN AGUILAR Study Date: 08/22/2020 Height: 72 in : :[facility] ReadingLocation: Weight: 235 lb : : Gender: Male BSA: 2.3 m2 : :: 1965 Age: 55 yrs BP: 143/97 mmHg: :Reason For Study: Edema : :Ordering Physician: GUME, : :LISA Performed By: Marito Corea : :Referring: LISA DUNAWAY : + + Interpretation Summary Normal left ventricle size with ejection fraction 60-65%. Mild tricuspid regurgitation. The right ventricular systolic pressure is estimated to be at least 30 mmHg based on an estimated right atrial pressure of 3 mm Hg. Comparison is made with the echocardiogram of 07/10/2019, there has been no significant change. Procedure: A two-dimensional transthoracic echocardiogram with color flow and Doppler was performed. The study quality was technically good. Comparison is made with the echocardiogram of 07/10/2019. Left Ventricle: The left ventricle is normal in size and wall thickness. The ejection fraction is estimated to be 60-65%. There are no focal wall motion abnormalities. Diastolic parameters suggest probable normal left ventricular diastolic function and normal filling pressures. Right Ventricle: The right ventricle is normal in size and function. Atria: Both atria are normal in size. There is no Doppler evidence for an interatrial shunt. Mitral Valve: The mitral valve is normal in structure and function. There is trace mitral regurgitation. Aortic Valve: The aortic valve is normal in structure and function. No aortic regurgitation is present. Tricuspid Valve: The tricuspid valve is normal in structure and function. There is mild tricuspid regurgitation. The right ventricular systolic pressure is estimated to be at least 30 mmHg based on an estimated right atrial pressure of 3 mm Hg. Pulmonic Valve: The pulmonic valve is not well visualized. There is no pulmonic valvular regurgitation. Great Vessels: The aortic root is normal size. The dimensions of the ascending aorta are normal. The IVC is of normal diameter and collapses greater than 50% with a sniff. This suggests a low right atrial pressure of 3 mm Hg. Pericardium/ Pleura There is no pericardial effusion. There is no pleural effusion. MMode/2D Measurements & Calculations LVIDd: 4.5 cm LVOT diam: 1.9 cm LVIDs: 2.9 cm Ao root diam: 3.5 cm FS: 36.1 % asc Aorta Diam: 2.6 cm IVSd: 0.88 cm LVPWd: 0.88 cm LV vázquez. diameter/BSA (cm/m^2): 2.0 LV sys. diameter/BSA (cm/m^2): 1.3 LA A2 area: 13.6 cm2 RA area: 13.2 cm2 LA A4 area: 14.4 cm2 IVC diam: 1.3 cm LA length (vol): 4.6 cm LA vol: 36.1 ml LA vol index: 15.8 ml/m2 RVD1 (basal): 3.2 cm TAPSE: 2.6 cm Doppler Measurements & Calculations Ao V2 max: 130.8 cm/sec LVOT Max Hung: 121.4 cm/sec Ao V2 mean: 87.8 cm/sec LV V1 max P.9 mmHg Ao max P.8 mmHg LV V1 VTI: 23.8 cm Ao mean P.5 mmHg JOSE LUIS(I,D): 3.0 cm2 Ao V2 VTI: 23.1 cm JOSE LUIS(V,D): 2.7 cm2 sev ratio: 1.0 JOSE LUIS indexed to BSA (cm^2/m^2): 1.3 MV E max hung: 96.3 cm/sec TR max hung: 257.5 cm/sec MV A max hung: 92.2 cm/sec TR max P.5 mmHg MV E/A: 1.0 PA V2 max: 91.3 cm/sec Med Peak E' Hung: 7.5 cm/sec PA V2 mean: 70.7 cm/sec E/E' med: 12.9 PA mean P.1 mmHg Lat Peak E' Hung: 10.7 cm/sec PA pr(Accel): 45.8 mmHg E/E' lat: 9.0 E/e' average: 10.9 MV dec time: 0.24 sec SV(LVOT): 69.0 ml Electronically signed by: Arturo Whiteside on Reading Physician:08/22/2020 12:48 PM
== END ==
PROVIDERS: PCP Internal Medicine; Referring Provider Internal Medicine; Visit Provider Internal Medicine
DX: I07.1 Rheumatic tricuspid insufficiency (principal); R60.0 Localized edema
CPT/HCPCS: 93306

== ENCOUNTER 2021-09-23 14:20 | Emergency (ER) | payer OTHER, SELFPAY ==
[2019-07-22 17:43] VITALS: BMI 29.8
[2021-09-23 14:32] VITALS: BP 130/72; PULSE 91; RESP 18; TEMP 36.6; O2SAT 96; BMI 29.2
--- NOTE | 2021-09-23 14:36 | DI.RAD.S_ITS ---
PROCEDURE: XR CHEST 2V INDICATIONS: shortness of breath TECHNIQUE: 2 views of the chest were acquired. COMPARISON: [facility], , XR CHEST 1V, 05/22/2018, 0:53. FINDINGS: Surgical changes and devices: None. Lungs and pleura: Lungs are clear. No pleural effusions or pneumothorax. Mediastinum: Mediastinal contours are normal. Heart size is normal. Bones and chest wall: No suspicious bony abnormalities. Soft tissues appear unremarkable. Old healed right-sided rib fractures IMPRESSION: No acute cardiopulmonary findings Approved by: Naeem Danielson M.D. on 09/23/2021 at 14:53
--- NOTE | 2021-09-23 16:35 | ED_ITS ---
HPI - SOB/Dyspnea General Chief Complaint: Shortness of Breath/Dyspnea Stated Complaint: chronic cough,SOB wants CT scan Time Seen by Provider: 09/23/21 16:21 History of Present Illness HPI Narrative: Patient is a 56-year-old male history of hypertension hyperlipidemia presenting today with increasing shortness of breath. He had surgery on his hip in July. Starting in August he started having increasing shortness of breath. It seems to be worse with exertion he has positive orthopnea. [place] he recommended he come to the ED for CT scan. He denies any fever or chills. No abdominal pain nausea or vomiting. He has no chest pain. He does have a dry productive cough. He has no weight gain or peripheral edema. He has been trying to take cuzc-xpu-bjqkzxv medications but no improvement. Related Data Home Medications Medication Instructions Recorded Confirmed aspirin 81 mg chewable tablet 81 mg PO QDAY #0 02/25/16 07/23/19 atorvastatin 20 mg tablet (Lipitor) 20 mg PO HS #30 tab 02/25/16 07/23/19 lisinopril 20 mg tablet 20 mg PO DAILY 05/22/18 07/23/19 omeprazole 20 mg capsule,delayed 40 mg PO DAILY 05/22/18 07/23/19 release amlodipine 10 mg tablet 10 mg PO DAILY 07/09/19 07/23/19 Previous Rx's Medication Instructions Recorded benzonatate 100 mg capsule 100 mg PO BID-TID PRN #14 cap 06/07/19 (Tessalon Perles) albuterol sulfate 2.5 mg (3 mL) INHALATION Q4-6H PRN 06/22/19 #90 ml prednisone 20 mg tablet 20 mg PO DAILY #5 tab 06/22/19 levofloxacin 750 mg tablet 750 mg PO DAILY #5 tab 07/11/19 cyclobenzaprine 10 mg tablet 10 mg PO TID PRN #15 tab 07/18/19 hydrocodone 5 mg-acetaminophen 325 1 tab PO Q4-6H PRN #15 tab 07/18/19 mg tablet (Clifton) levofloxacin 500 mg tablet 500 mg PO DAILY #7 tab 07/18/19 (Levaquin) lidocaine 5 % topical patch 1 patch TOP DAILY #14 each 07/18/19 (Lidoderm) naproxen 500 mg tablet (Naprosyn) 500 mg PO BID PRN #20 tab 07/18/19 benzonatate 100 mg capsule 100 mg PO TID PRN #20 cap 07/28/19 fluticasone 250 mcg-salmeterol 50 1 puff INH BID #1 ea 07/28/19 mcg/dose blistr powdr for inhalation (Advair Diskus) guaifenesin 600 mg tablet, 1,200 mg PO BID #20 tab 07/28/19 extended release 12 hr (Mucus Relief ER) ipratropium 20 mcg-albuterol 100 1 puff INHALATION Q6H #4 gram 07/28/19 mcg/actuation mist for inhalation (Combivent Respimat) prednisone 20 mg tablet 40 mg PO DAILY #30 tab 07/28/19 voriconazole 200 mg tablet (Vfend) 200 mg PO BID #60 tab 07/28/19 hydrocodone 5 mg-acetaminophen 325 1 tab PO Q6H PRN #10 tab 20 mg tablet (Clifton) ipratropium 20 mcg-albuterol 100 1 puff INHALATION Q6H #4 gram 20 mcg/actuation mist for inhalation (Combivent Respimat) Allergies Allergy/AdvReac Type Severity Reaction Status Date / Time No Known Drug Allergies Allergy Verified 09/23/21 14:35 Review of Systems Review of Systems Narrative: GENERAL: Denies chills, fatigue, malaise, fever, sweats, travel HEENT: Denies sinus pain, ear pain, sore throat, difficulty swallowing, neck pain RESPIRATORY: See HPI CARDIOVASCULAR: Denies chest pain, palpitations, orthopnea, edema GASTROINTESTINAL: Denies nausea, vomiting, abdominal pain, diarrhea, constipation, melena. : Denies dysuria, frequency, incontinence, hematuria, urinary retention, flank pain. MUSCULOSKELETAL: Denies weakness, joint pain, or bony pain SKIN: No rash, no erythema, no pruritus NEUROLOGIC: Denies weakness, dizziness, headache, numbness, change in speech, confusion PSYCHIATRIC: No concerning psychosocial issues. 12 point review of systems is negative except for those stated above and HPI Patient History Medical History (Updated 09/23/21 @ 18:58 by Damaris Aguiar DO) Hyperlipidemia Hypertension Social History household members: significant other Smoking Status: Current some day smoker alcohol intake: current Smoking Status: Current some day smoker tobacco type: cigarettes alcohol intake frequency: 0-2 drinks per day Alcohol type: beer Substance Use Type: does not use Exam Initial Vital Signs Initial Vital Signs: Vital Signs Temperature 97.8 F 09/23/21 14:32 Pulse Rate 91 H 09/23/21 14:32 Respiratory Rate 18 09/23/21 14:32 Blood Pressure 130/72 09/23/21 14:32 Pulse Oximetry 96 09/23/21 14:32 GENERAL: Alert 56-year-old male appears in no acute distress in no acute distress. HEENT: Head atraumatic,EOMI, pupils reactive, face symmetric, moist mucous membranes CARDIOVASCULAR: Regular rate and rhythm without murmurs, rubs or gallops. RESPIRATORY: Slightly coarse breath sounds no respiratory distress speaks in full sentences without difficulty ABDOMEN: Soft, nontender. Normoactive bowel sounds all 4 quadrants. No guarding or rebound. EXTREMITIES: Normal range of motion, no clubbing or edema. Neurovascularly intact NEUROLOGICAL: Alert and oriented x4.Normal gait and speech. SKIN: Warm, dry, no laceration, no petechiae, no rashes or lesions. Course Orders Ordered: ED Orders 09/23/21 14:36 XR chest 2V Stat EKG-12 Lead Stat Measure peak expiratory flow ONCE RT Consult Eval and Treat Now 09/23/21 16:48 Complete Blood Count AUTO DIFF Stat Lactate (Lactic Acid) Stat 09/23/21 17:15 Comprehensive Metabolic Panel Stat D Dimer Stat NT-proBNP (BNP-Adult 18+) Stat Troponin & CK Cardiac Panel Stat Vital Signs Vital signs: Vital Signs - 8 hr 09/23/21 14:32 09/23/21 16:50 Temperature 97.8 F Pulse Rate 91 H 78 Respiratory Rate 18 16 Blood Pressure 130/72 116/70 Pulse Oximetry 96 99 MDM - SOB/Dyspnea Lab Data Result diagrams: 09/23/21 16:48 09/23/21 17:15 Labs: Lab Results 09/23/21 09/23/21 09/23/21 Range/Units 16:48 16:48 16:48 WBC 10.1 (4.5-11.0) X10^3/uL RBC 5.03 (4.5-5.9) X10^6/uL Hgb 14.0 (13.5-17.5) g/dL Hct 42.6 (41-53) % MCV 84.6 (80-100) fL MCH 27.8 (26-34) PG MCHC 32.9 (30-36) % RDW 14.2 (11.6-14.8) % Plt Count 282 (150-400) X10^3/uL Neut % (Auto) 64.3 (50-75) % Lymph % (Auto) 19.2 L (25-40) % Cloud % (Auto) 5.6 (3-14) % Eos % (Auto) 9.8 H (2-4) % Baso % (Auto) 1.1 (0-2) % Neut # (Auto) 6500 (9878-7718) /uL Lymph # (Auto) 1900 (8831-0793) /uL Cloud # (Auto) 600 (0-900) /uL Eos # (Auto) 1000 H (0-450) /uL Baso # (Auto) 100 (0-100) /uL D-Dimer (<230) ng/mL Sodium (137-145) mmol/L Potassium (3.4-5.1) mmol/L Chloride (98-107) mmol/L Carbon Dioxide (22-32) mmol/L BUN (9-20) mg/dL Creatinine (0.66-1.25) mg/dL Estimated GFR (>60) mL/min BUN/Creatinine Ratio (6-22) Glucose (70-100) mg/dL Lactate 1.6 (0.7-2.1) mmol/L Calcium (8.4-10.2) mg/dL Total Bilirubin (0.2-1.3) mg/dL AST (17-59) IU/L ALT (<50) IU/L Alkaline Phosphatase (38-126) U/L Total Creatine Kinase Cancelled CK-MB (CK-2) Cancelled CK-MB (CK-2) Rel Index Cancelled Troponin I Cancelled NT-Pro-B Natriuret Pep (<125) pg/mL Total Protein (6.3-8.2) g/dL Albumin (3.5-5.0) g/dL Globulin (1.7-4.1) g/dL Albumin/Globulin Ratio (1.0-2.8) 05/21/22 05/21/22 Range/Units 17:15 17:15 WBC (4.5-11.0) X10^3/uL RBC (4.5-5.9) X10^6/uL Hgb (13.5-17.5) g/dL Hct (41-53) % MCV (80-100) fL MCH (26-34) PG MCHC (30-36) % RDW (11.6-14.8) % Plt Count (150-400) X10^3/uL Neut % (Auto) (50-75) % Lymph % (Auto) (25-40) % Cloud % (Auto) (3-14) % Eos % (Auto) (2-4) % Baso % (Auto) (0-2) % Neut # (Auto) (3246-5614) /uL Lymph # (Auto) (5495-4115) /uL Cloud # (Auto) (0-900) /uL Eos # (Auto) (0-450) /uL Baso # (Auto) (0-100) /uL D-Dimer < 200 (<230) ng/mL Sodium 135 L (137-145) mmol/L Potassium 4.2 (3.4-5.1) mmol/L Chloride 99 (98-107) mmol/L Carbon Dioxide 29 (22-32) mmol/L BUN 11 (9-20) mg/dL Creatinine 0.78 (0.66-1.25) mg/dL Estimated GFR > 60 (>60) mL/min BUN/Creatinine Ratio 14.1 (6-22) Glucose 117 H (70-100) mg/dL Lactate (0.7-2.1) mmol/L Calcium 9.1 (8.4-10.2) mg/dL Total Bilirubin 0.5 (0.2-1.3) mg/dL AST 23 (17-59) IU/L ALT 22 (<50) IU/L Alkaline Phosphatase 77 (38-126) U/L Total Creatine Kinase 32 L CK-MB (CK-2) TNP CK-MB (CK-2) Rel Index TNP Troponin I < 0.012 NT-Pro-B Natriuret Pep 29 (<125) pg/mL Total Protein 7.2 (6.3-8.2) g/dL Albumin 4.1 (3.5-5.0) g/dL Globulin 3.1 (1.7-4.1) g/dL Albumin/Globulin Ratio 1.3 (1.0-2.8) Imaging Data Chest x-ray: Radiologist's Impression: ient: Delvin Louis MR#: [id number] : 1965 Acct:[id number] Age/Sex: 56 / M Date of Service: 09/23/21 Loc: ED Accession Number: [id number] ?? Procedure: XR chest 2V Ordering Provider: Damaris Aguiar D.O. PROCEDURE:? XR CHEST 2V ? INDICATIONS:? shortness of breath ? TECHNIQUE:? 2 views of the chest were acquired.? ? COMPARISON:? [facility], , XR CHEST 1V, 05/22/2018, 0:53. ? FINDINGS:? ? Surgical changes and devices:? None.? ? Lungs and pleura:? Lungs are clear.? No pleural effusions or pneumothorax.? ? Mediastinum:? Mediastinal contours are normal.? Heart size is normal.? ? Bones and chest wall:? No suspicious bony abnormalities.? Soft tissues appear unremarkable.? Old healed right-sided rib fractures ? IMPRESSION:? No acute cardiopulmonary findings ? ? ? Approved by: Naeem Danielson M.D. on 09/23/2021 at 14:53? ECG Data Interpretation: Normal sinus rhythm rate 71 MS interval 146 QRS [address] changes no T- wave inversion MDM Narrative Medical decision making narrative: Patient presents with increasing shortness of breath orthopnea after recent surgery. Symptoms seem like CHF. He had echocardiogram in 2020 showed an EF of 60-65%. Checks x-ray is clear. Blood work is overall reassuring. D-dimer is negative. No evidence of infection. Possible ongoing viral illness or chronic cough. Which would include acid reflux postnasal drip. Patient actually does sound congested in his nose. We discussed hagn-mkh-jwrbyzn allergy medications and Benadryl. He is already taking acid reflux medication. He does not seem in acute respiratory distress at this time. Discharge Plan Departure Patient Disposition: Home Clinical Impression: Chronic cough Instructions: DI for Cough -- Adult, DI for Viral Upper Respiratory Infection -- Adult Activity Restrictions/Additional Instructions: *You have been diagnosed with possible viral infection *What to do: At this time no evidence blood clot or fluid on her lungs. No need for antibiotics at this time. Recommend follow-up with her primary care provider for chronic ongoing cough workup. *Continue to take medications as directed You may try ihib-tmo-hdhtkge allergy medicine such as Rossy or Claritin, take as directed may try Benadryl at night. *Follow up with your primary care provider in 2-3 days or call [phone] *Return to ER if you should have increasing shortness of breath, chest pain, fever or any new, worsening or concerning symptoms Prescriptions: No Action atorvastatin [Lipitor] 20 MG tablet 20 mg PO HS Qty: 30 0RF aspirin 81 MG tablet,chewable 81 mg PO QDAY Qty: 0 0RF prednisone 20 mg tablet 20 mg PO DAILY Qty: 5 0RF Rx Instructions: administer with food or milk albuterol sulfate 2.5 mg /3 mL (0.083 %) solution for nebulization 2.5 mg INHALATION Q4-6H PRN (Reason: shortness of breath or wheezing) Qty: 90 0RF cyclobenzaprine 10 mg tablet 10 mg PO TID PRN (Reason: muscle spasm) Qty: 15 0RF naproxen [Naprosyn] 500 mg tablet 500 mg PO BID PRN (Reason: pain) Qty: 20 0RF hydrocodone-acetaminophen [Clifton] 5-325 mg tablet 1 tab PO Q4-6H PRN (Reason: pain) Qty: 15 0RF Rx Instructions: take 1-2 tablets every 4-6 hours for severe pain unrelieved by the naprosyn levofloxacin [Levaquin] 500 mg tablet 500 mg PO DAILY Qty: 7 0RF lidocaine [Lidoderm] 5 % adhesive patch,medicated 1 patch TOP DAILY Qty: 14 0RF Rx Instructions: leave on most painful area for up to 12 hrs Combivent Respimat 20-100 mcg/actuation mist 1 puff INHALATION Q6H Qty: 4 0RF hydrocodone-acetaminophen [Clifton] 5-325 mg tablet 1 tab PO Q6H PRN (Reason: pain) Qty: 10 0RF lisinopril 20 mg Tablet 20 mg PO DAILY 0RF omeprazole 20 mg Capsule,Delayed Release(Dr/Ec) 40 mg PO DAILY 0RF benzonatate [Tessalon Perles] 100 mg capsule 100 mg PO BID-TID PRN (Reason: cough) Qty: 14 0RF amlodipine 10 mg Tablet 10 mg PO DAILY 0RF levofloxacin 750 mg tablet 750 mg PO DAILY Qty: 5 0RF fluticasone propion-salmeterol [Advair Diskus] 250-50 mcg/dose Blister With Device 1 puff INH BID Qty: 1 0RF Combivent Respimat 20-100 mcg/actuation Mist 1 puff inhalation Q6H Qty: 4 0RF prednisone 20 mg Tablet 40 mg PO DAILY Qty: 30 0RF voriconazole [Vfend] 200 mg Tablet 200 mg PO BID Qty: 60 0RF benzonatate 100 mg Capsule 100 mg PO TID PRN (Reason: cough) Qty: 20 0RF guaifenesin [Mucus Relief ER] 600 mg Tablet Extended Release 12hr 1,200 mg PO BID Qty: 20 0RF Referrals: Janae King MD [Primary Care Provider] -
[2021-09-23 16:50] VITALS: BP 116/70; PULSE 78; RESP 16; O2SAT 99
[2021-09-23 16:58] LABS: Add Manual Diff / Slide Review NO; Basophils Absolute Auto 100 /uL (0-100); Basophils Percent Auto 1.1 % (0-2); Eosinophils Absolute Auto 1000 /uL (0-450); Eosinophils Percent Auto 9.8 % (2-4); Hematocrit 42.6 % (41-53); Lymphocytes Absolute Auto 1900 /uL (1100-4500); Lymphocytes Percent Auto 19.2 % (25-40); Mean Corpuscular HGB Conc 32.9 % (30-36); Mean Corpuscular Hemoglobin 27.8 PG (26-34); Mean Corpuscular Volume 84.6 fL (80-100); Monocytes Absolute Auto 600 /uL (0-900); Monocytes Percent Auto 5.6 % (3-14); Neutrophils Absolute Auto 6500 /uL (1500-7000); Neutrophils Percent Auto 64.3 % (50-75); Platelet Count 282 X10^3/uL (150-400); Red Blood Cell Count 5.03 X10^6/uL (4.5-5.9); Red Cell Distribution Width 14.2 % (11.6-14.8); White Blood Cell Count 10.1 X10^3/uL (4.5-11.0)
[2021-09-23 17:10] LABS: Lactate (Lactic Acid) 1.6 mmol/L (0.7-2.1)
[2021-09-23 17:32] LABS: D Dimer < 200 ng/mL (<230)
[2021-09-23 17:33] LABS: Alanine Aminotransferase 22 IU/L (<50); Albumin 4.1 g/dL (3.5-5.0); Albumin Globulin Ratio 1.3 (1.0-2.8); Alkaline Phosphatase 77 U/L (38-126); Aspartate Aminotransferase 23 IU/L (17-59); BUN Creatinine Ratio 14.1 (6-22); Bilirubin Total 0.5 mg/dL (0.2-1.3); Blood Urea Nitrogen 11 mg/dL (9-20); Calcium 9.1 mg/dL (8.4-10.2); Carbon Dioxide 29 mmol/L (22-32); Chloride 99 mmol/L (98-107); Creatine Kinase 32 U/L (55-170); Estimated Glomerular Filt Rate > 60 mL/min (>60); Globulin 3.1 g/dL (1.7-4.1); Glucose 117 mg/dL (70-100); HEMOLYSIS 27 (0-50); Potassium 4.2 mmol/L (3.4-5.1); Sodium 135 mmol/L (137-145); Total Protein 7.2 g/dL (6.3-8.2)
[2021-09-23 17:45] LABS: NT-proBNP (BNP-Adult 18+) 29 pg/mL (<125); Troponin I < 0.012 ng/mL (0.01-0.034)
== END 2021-09-23 19:05 | disposition home or self-care (01) ==
PROVIDERS: Emergency Provider Emergency Medicine; PCP Internal Medicine
DX: R05.9 Cough, unspecified (principal); R06.02 Shortness of breath
CPT/HCPCS: 36415; 71046; 80053; 82550; 83605; 83880; 84484; 85025; 85379; 93005; 93010; 99283

== ENCOUNTER 2021-10-10 11:52 | Emergency (ER) | payer OTHER, SELFPAY ==
[2019-07-22 17:43] VITALS: BMI 29.8
[2021-10-10] VITALS (13 sets, daily range): BP systolic 100–128; BP diastolic 60–73; PULSE 79–113; RESP 20–28; TEMP 36.4; O2SAT 91–98; BMI 29.1
--- NOTE | 2021-10-10 16:06 | DI.RAD.S_ITS ---
PROCEDURE: XR CHEST 2V INDICATIONS: SOB TECHNIQUE: 2 views of the chest were acquired. COMPARISON: [facility], CR, XR CHEST 2V, 09/23/2021, 14:48. FINDINGS: Surgical changes and devices: None. Lungs and pleura: Lungs are clear. No pleural effusions or pneumothorax. Mediastinum: Mediastinal contours are normal. Heart size is normal. Bones and chest wall: No suspicious bony abnormalities. Soft tissues appear unremarkable. IMPRESSION: No acute cardiopulmonary findings. Dictated by: Mili Reyna M.D. on 10/10/2021 at 16:43 Approved by: Mili Reyna M.D. on 10/10/2021 at 16:43
[2021-10-10 16:24] LABS: Add Manual Diff / Slide Review NO; Basophils Absolute Auto 100 /uL (0-100); Eosinophils Absolute Auto 1300 /uL (0-450); Hematocrit 42.4 % (41-53); Hemoglobin 13.9 g/dL (13.5-17.5); Lymphocytes Absolute Auto 1900 /uL (1100-4500); Lymphocytes Percent Auto 22.9 % (25-40); Mean Corpuscular HGB Conc 32.7 % (30-36); Mean Corpuscular Hemoglobin 27.2 PG (26-34); Mean Corpuscular Volume 83.2 fL (80-100); Monocytes Absolute Auto 600 /uL (0-900); Monocytes Percent Auto 6.9 % (3-14); Neutrophils Absolute Auto 4300 /uL (1500-7000); Neutrophils Percent Auto 53.2 % (50-75); Platelet Count 339 X10^3/uL (150-400); Red Cell Distribution Width 13.8 % (11.6-14.8); White Blood Cell Count 8.1 X10^3/uL (4.5-11.0)
[2021-10-10 16:28] LABS: D Dimer < 200 ng/mL (<230)
[2021-10-10] MEDS: MAGNESIUM SULFATE 2 GM/50 ML PIGGYBACK IV (16:33)
[2021-10-10] MEDS: predniSONE 20 MG TABLET 60 MG PO (16:35)
[2021-10-10 16:38] LABS: Alanine Aminotransferase 26 IU/L (<50); Albumin 4.4 g/dL (3.5-5.0); Albumin Globulin Ratio 1.5 (1.0-2.8); Alkaline Phosphatase 91 U/L (38-126); Aspartate Aminotransferase 43 IU/L (17-59); Bilirubin Total 0.5 mg/dL (0.2-1.3); Blood Urea Nitrogen 16 mg/dL (9-20); Calcium 9.7 mg/dL (8.4-10.2); Carbon Dioxide 25 mmol/L (22-32); Chloride 100 mmol/L (98-107); Estimated Glomerular Filt Rate > 60 mL/min (>60); Globulin 2.9 g/dL (1.7-4.1); Glucose 106 mg/dL (70-100); HEMOLYSIS < 15 (0-50); Potassium 4.4 mmol/L (3.4-5.1); Sodium 134 mmol/L (137-145); Total Protein 7.3 g/dL (6.3-8.2)
[2021-10-10 16:41] LABS: COVID19 -Nasal RAPID Negative (Negative)
[2021-10-10 16:45] LABS: NT-proBNP (BNP-Adult 18+) 43 pg/mL (<125); Troponin I < 0.012 ng/mL (0.01-0.034)
[2021-10-10] MEDS: ALBUTEROL/IPRATROPIUM 3 ML AMPUL INH ×2 (16:48→17:23)
--- NOTE | 2021-10-10 18:31 | ED.SOB ---
HPI - SOB/Dyspnea <Ene Roblero PA-C - Last Filed: 10/10/21 19:56> General Chief Complaint: Shortness of Breath/Dyspnea Stated Complaint: SOB COUGH Time Seen by Provider: 10/10/21 14:41 Source: patient Mode of arrival: Ambulatory Limitations: no limitations History of Present Illness HPI Narrative: 56-year-old male with past medical history COPD, type 2 diabetes, hypertension presents to the ED with 5 weeks of worsening shortness of breath. Patient states that he is on 5 different inhalers for his COPD that he is compliant with, including albuterol as a rescue inhaler. Patient states that for the past 5 weeks he has had worsening shortness of breath, especially worse with exertion. Patient states that he gets very out of breath after only taking a couple of steps. Patient endorses a cough. Patient endorses increased sputum, but not purulent sputum. Patient denies fever, chills, chest pain, nausea, vomiting, abdominal pain, dysuria, lightheadedness, dizziness, syncope. Patient is a daily smoker. Related Data Home Medications Medication Instructions Recorded Confirmed aspirin 81 mg chewable tablet 81 mg PO QDAY #0 02/25/16 07/23/19 atorvastatin 20 mg tablet (Lipitor) 20 mg PO HS #30 tab 02/25/16 07/23/19 lisinopril 20 mg tablet 20 mg PO DAILY 05/22/18 07/23/19 omeprazole 20 mg capsule,delayed 40 mg PO DAILY 05/22/18 07/23/19 release amlodipine 10 mg tablet 10 mg PO DAILY 07/09/19 07/23/19 Previous Rx's Medication Instructions Recorded benzonatate 100 mg capsule 100 mg PO BID-TID PRN #14 cap 06/07/19 (Naty Jackson) albuterol sulfate 2.5 mg (3 mL) INHALATION Q4-6H PRN 06/22/19 #90 ml prednisone 20 mg tablet 20 mg PO DAILY #5 tab 06/22/19 levofloxacin 750 mg tablet 750 mg PO DAILY #5 tab 07/11/19 cyclobenzaprine 10 mg tablet 10 mg PO TID PRN #15 tab 07/18/19 hydrocodone 5 mg-acetaminophen 325 1 tab PO Q4-6H PRN #15 tab 07/18/19 mg tablet ([place]) levofloxacin 500 mg tablet 500 mg PO DAILY #7 tab 07/18/19 (Levaquin) lidocaine 5 % topical patch 1 patch TOP DAILY #14 each 07/18/19 (Lidoderm) naproxen 500 mg tablet (Naprosyn) 500 mg PO BID PRN #20 tab 07/18/19 benzonatate 100 mg capsule 100 mg PO TID PRN #20 cap 07/28/19 fluticasone 250 mcg-salmeterol 50 1 puff INH BID #1 ea 07/28/19 mcg/dose blistr powdr for inhalation (Advair Diskus) guaifenesin 600 mg tablet, 1,200 mg PO BID #20 tab 07/28/19 extended release 12 hr (Mucus Relief ER) ipratropium 20 mcg-albuterol 100 1 puff INHALATION Q6H #4 gram 07/28/19 mcg/actuation mist for inhalation (Combivent Respimat) prednisone 20 mg tablet 40 mg PO DAILY #30 tab 07/28/19 voriconazole 200 mg tablet (Vfend) 200 mg PO BID #60 tab 07/28/19 hydrocodone 5 mg-acetaminophen 325 1 tab PO Q6H PRN #10 tab 10/20 mg tablet ([place]) ipratropium 20 mcg-albuterol 100 1 puff INHALATION Q6H #4 gram 05/10/20 mcg/actuation mist for inhalation (Combivent Respimat) azithromycin 500 mg tablet 500 mg PO DAILY 5 Days #5 tab 10/10/21 prednisone 20 mg tablet 40 mg PO DAILY 5 Days tab 10/10/21 azithromycin 250 mg tablet See Rx Instructions .ROUTE 10/11/21 .COMPLEX #5 tab prednisone 20 mg tablet 40 mg PO DAILY 5 Days #10 tab 10/11/21 Allergies Allergy/AdvReac Type Severity Reaction Status Date / Time No Known Drug Allergies Allergy Verified 10/10/21 12:08 Review of Systems <Ene Roblero PA-C - Last Filed: 10/10/21 19:56> Review of Systems ROS Unobtainable: All systems reviewed & are unremarkable except as noted in HPI and below Constitutional Constitutional: Denies chills, Denies fatigue, Denies fever(s), Denies frequent falls, Denies lethargy and Denies weakness Eyes Eyes: Denies change in vision, Denies eye discharge, Denies irritation and Denies loss of vision ENT Ears, Nose, Mouth, and Throat: Denies change in voice, Denies dizziness, Denies neck pain, Denies sore throat and Denies throat swelling Cardiovascular Cardiovascular: Denies chest pain, Denies irregular heart rhythm, Denies lightheadedness, Denies palpitations, Reports dyspnea, Reports dyspnea on exertion and Denies orthopnea Respiratory Respiratory: Reports cough, Reports dyspnea, Reports dyspnea on exertion and Denies wheezing Gastrointestinal Gastrointestinal: Denies abdominal pain, Denies change in bowel habits, Denies diarrhea, Denies nausea and Denies vomiting Genitourinary Genitourinary: Denies hematuria, Denies flank pain, Denies urinary incontinence and Denies urinary urgency Musculoskeletal Musculoskeletal: Denies back pain, Denies muscle weakness, Denies neck pain, Denies numbness and Denies tingling Integumentary/Breasts Skin/Breast: Denies pruritus, Denies erythema, Denies rash and Denies wounds Neurologic Neurologic: Denies behavioral changes, Denies confusion, Denies dizziness, Denies frequent falls, Denies loss of vision, Denies numbness, Denies tingling and Denies weakness Psychiatric Psychiatric: Denies anxiety, Denies behavioral changes, Denies confusion, Denies depression, Denies homicidal ideation and Denies suicidal ideation Endocrine Endocrine: Denies fatigue, Denies flushing and Denies palpitations Hematologic/Lymphatic Hematologic/Lymphatic: Denies easy bruising Allergic/Immunologic Allergic/Immunologic: Denies urticaria, Denies throat swelling and Denies wheezing Patient History <Ene Roblero PA-C - Last Filed: 10/10/21 19:56> Medical History Hyperlipidemia Hypertension Social History household members: significant other Smoking Status: Current some day smoker alcohol intake: current Smoking Status: Current some day smoker tobacco type: cigarettes alcohol intake frequency: holidays/special occasions only Alcohol type: beer Substance Use Type: does not use Exam <Ene Roblero PA-C - Last Filed: 10/10/21 19:56> Narrative Exam Narrative: Const General:?cooperative, healthy appearing and comfortable HENMT Head:?normal to inspection Ears:?hearing grossly normal bilaterally Nose:?external nose normal Face and sinus:?normal facial exam and sinuses nontender Mouth:?oral mucosae normal Throat:?posterior oropharynx normal Eyes General:?appearance normal, both eyes and all related structures Neck Neck:?normal visual inspection and no lymphadenopathy noted Resp Effort & Inspection:?moderate work of breathing. Auscultation:?diffuse wheezes Cardio Rate:?regular rate Rhythm:?regular rhythm Neuro General:?patient alert, patient awake and patient oriented x3 Initial Vital Signs Initial Vital Signs: Vital Signs Temperature 97.5 F L 10/10/21 12:08 Pulse Rate 113 H 10/10/21 12:08 Respiratory Rate 24 10/10/21 12:08 Blood Pressure 100/67 10/10/21 12:08 Pulse Oximetry 92 10/10/21 12:08 Course <Ene Roblero PA-C - Last Filed: 10/10/21 19:56> Orders Ordered: Discontinued Medications Albuterol/Ipratropium (Albuterol/Ipratropium 3 Ml Ampul) 3 ml INH NOW ONE Stop: 10/10/21 16:07 Last Admin: 10/10/21 16:48 Dose: 3 ml Documented by: DENIS Albuterol/Ipratropium (Albuterol/Ipratropium 3 Ml Ampul) 3 ml INH NOW ONE Stop: 10/10/21 17:15 Last Admin: 10/10/21 17:23 Dose: 3 ml Documented by: AGVIN Azithromycin (Azithromycin 250 Mg Tablet) 500 mg PO NOW ONE Stop: 10/10/21 19:47 Last Admin: 10/10/21 19:51 Dose: 500 mg Documented by: FRANK Magnesium Sulfate (Magnesium Sulfate) 2 gm in 50 mls @ 25 mls/hr IV NOW ONE Stop: 10/10/21 18:16 Last Infusion: 10/10/21 18:38 Dose: 0 mls/hr Documented by: CHRISTIAN Cosigned by: RSKD Admin: 10/10/21 16:33 Dose: 25 mls/hr Documented by: CHRISTIAN Cosigned by: JOANN Prednisone (Prednisone 20 Mg Tablet) 60 mg PO NOW ONE Stop: 10/10/21 16:13 Last Admin: 10/10/21 16:35 Dose: 60 mg Documented by: CHRISTIAN Vital Signs Vital signs: Vital Signs - 8 hr 10/10/21 12:08 10/10/21 14:36 10/10/21 15:00 Temperature 97.5 F L Pulse Rate 113 H 101 H 81 Respiratory Rate 24 Blood Pressure 100/67 128/60 114/65 Pulse Oximetry 92 93 91 10/10/21 15:30 10/10/21 16:05 10/10/21 16:31 Temperature Pulse Rate 86 99 H 108 H Respiratory Rate 20 Blood Pressure Pulse Oximetry 92 93 92 10/10/21 17:23 Temperature Pulse Rate 86 Respiratory Rate 20 Blood Pressure Pulse Oximetry 95 MDM - SOB/Dyspnea <Ene Roblero PA-C - Last Filed: 10/10/21 19:56> Lab Data Attestation: I reviewed the patient's lab results. Lab results narrative: LAbs WNL Result diagrams: 10/10/21 15:10 10/10/21 15:10 Labs: Lab Results 10/10/21 10/10/21 10/10/21 Range/Units 15:10 15:10 15:10 WBC 8.1 (4.5-11.0) X10^3/uL RBC 5.10 (4.5-5.9) X10^6/uL Hgb 13.9 (13.5-17.5) g/dL Hct 42.4 (41-53) % MCV 83.2 (80-100) fL MCH 27.2 (26-34) PG MCHC 32.7 (30-36) % RDW 13.8 (11.6-14.8) % Plt Count 339 (150-400) X10^3/uL Neut % (Auto) 53.2 (50-75) % Lymph % (Auto) 22.9 L (25-40) % [place] % (Auto) 6.9 (3-14) % Eos % (Auto) 16.0 H (2-4) % Baso % (Auto) 1.0 (0-2) % Neut # (Auto) 4300 (2886-3508) /uL Lymph # (Auto) 1900 (6861-5928) /uL [place] # (Auto) 600 (0-900) /uL Eos # (Auto) 1300 H (0-450) /uL Baso # (Auto) 100 (0-100) /uL D-Dimer (<230) ng/mL Sodium 134 L (137-145) mmol/L Potassium 4.4 (3.4-5.1) mmol/L Chloride 100 (98-107) mmol/L Carbon Dioxide 25 (22-32) mmol/L BUN 16 (9-20) mg/dL Creatinine 0.84 (0.66-1.25) mg/dL Estimated GFR > 60 (>60) mL/min BUN/Creatinine Ratio 19.0 (6-22) Glucose 106 H (70-100) mg/dL Lactate 1.0 (0.7-2.1) mmol/L Calcium 9.7 (8.4-10.2) mg/dL Total Bilirubin 0.5 (0.2-1.3) mg/dL AST 43 (17-59) IU/L ALT 26 (<50) IU/L Alkaline Phosphatase 91 (38-126) U/L Troponin I (0.01-0.034) ng/mL NT-Pro-B Natriuret Pep (<125) pg/mL Total Protein 7.3 (6.3-8.2) g/dL Albumin 4.4 (3.5-5.0) g/dL Globulin 2.9 (1.7-4.1) g/dL Albumin/Globulin Ratio 1.5 (1.0-2.8) SARS-CoV-2 (PCR) (Negative) 10/10/21 10/10/21 10/10/21 Range/Units 15:10 15:10 15:10 WBC (4.5-11.0) X10^3/uL RBC (4.5-5.9) X10^6/uL Hgb (13.5-17.5) g/dL Hct (41-53) % MCV (80-100) fL MCH (26-34) PG MCHC (30-36) % RDW (11.6-14.8) % Plt Count (150-400) X10^3/uL Neut % (Auto) (50-75) % Lymph % (Auto) (25-40) % [place] % (Auto) (3-14) % Eos % (Auto) (2-4) % Baso % (Auto) (0-2) % Neut # (Auto) (5382-4931) /uL Lymph # (Auto) (8766-5763) /uL [place] # (Auto) (0-900) /uL Eos # (Auto) (0-450) /uL Baso # (Auto) (0-100) /uL D-Dimer < 200 (<230) ng/mL Sodium (137-145) mmol/L Potassium (3.4-5.1) mmol/L Chloride (98-107) mmol/L Carbon Dioxide (22-32) mmol/L BUN (9-20) mg/dL Creatinine (0.66-1.25) mg/dL Estimated GFR (>60) mL/min BUN/Creatinine Ratio (6-22) Glucose (70-100) mg/dL Lactate (0.7-2.1) mmol/L Calcium (8.4-10.2) mg/dL Total Bilirubin (0.2-1.3) mg/dL AST (17-59) IU/L ALT (<50) IU/L Alkaline Phosphatase (38-126) U/L Troponin I < 0.012 (0.01-0.034) ng/mL NT-Pro-B Natriuret Pep 43 (<125) pg/mL Total Protein (6.3-8.2) g/dL Albumin (3.5-5.0) g/dL Globulin (1.7-4.1) g/dL Albumin/Globulin Ratio (1.0-2.8) SARS-CoV-2 (PCR) Negative (Negative) Imaging Data Chest x-ray: Radiologist's Impression: PROCEDURE:? XR CHEST 2V ? INDICATIONS:? SOB ? TECHNIQUE:? 2 views of the chest were acquired.? ? COMPARISON:? [facility], , XR CHEST 2V, 09/23/2021, 14:48. ? FINDINGS:? ? Surgical changes and devices:? None.? ? Lungs and pleura:? Lungs are clear.? No pleural effusions or pneumothorax.? ? Mediastinum:? Mediastinal contours are normal.? Heart size is normal.? ? Bones and chest wall:? No suspicious bony abnormalities.? Soft tissues appear unremarkable.? ? IMPRESSION:? No acute cardiopulmonary findings. ? ? Dictated by: Mili Reyna M.D. on 10/10/2021 at 16:43 ? ? Approved by: Mili Reyna M.D. on 10/10/2021 at 16:43 ? ECG Data Interpretation: NSR, non specific T wave abnormailty, no axis deviation MDM Narrative Medical decision making narrative: 56-year-old male with past medical history COPD, type 2 diabetes, hypertension presents to the ED with 5 weeks of worsening shortness of breath. Concern for COPD exacerbation versus pneumonia versus COVID-19 infection versus other viral syndrome versus ACS versus CHF exacerbation versus PE. Will obtain labs, EKG, chest x-ray, troponin, BNP, D-dimer, COVID test. Will treat with Albuterol/ipratropium nebulizer, prednisone, magnesium sulfate. Will reassess. Patients symptoms likely d/t an acute COPD exacerbation given SOB, wheezing, dyspnea, cough, increased volume of sputum. Workup was negative. Patient's lung sounds vastly improved on 2 nebulizer treatments of albuterol and ipratropium. Patient is no longer wheezing, with good air entry bilaterally. Patient on 2 L of oxygen, patient still states he feels dyspneic. Patient is saturating at 93% on room air at rest, 96% on 2 L. Will do an ambulation trial on room air. Will reassess. Patient did well on the ambulation trial stated he feels less dypneic , satting at 91-93% on room air. ED return precautions discussed with patient, patient verbalized understanding. Patient dicharged home with prescriptions for Azithromycin, prednisone. First dose of Azithromycin given in the ED. Discharge Plan Departure Patient Disposition: Home Clinical Impression: Acute exacerbation of chronic obstructive airways disease Instructions: DI for Chronic Obstructive Pulmonary Disease Activity Restrictions/Additional Instructions: You were evaluated in the ED for a cough and shortness of breath. Your labs, chest xray, EKG were normal. Your symptoms are likely due to a COPD exacerbation. Your symptoms improved with albuterol nebulizer treatments, prednisone, magnesium. You are being prescribed prednisone and the antibiotic Azithromycin to take for the next 5 days. Return to the ED if you have worsening shortness of breath, chest pain, fever, lightheadedness. Patient prescriptions did not transmit and were resent [place] Prescriptions: New azithromycin 500 mg tablet 500 mg PO DAILY 5 Days Qty: 5 0RF prednisone 20 mg tablet 40 mg PO DAILY 5 Days 0RF azithromycin 250 mg tablet See Rx Instructions .ROUTE .COMPLEX Qty: 5 0RF Rx Instructions: For 250 mg dose pack: take 500 mg today (day 1), then 250 mg for 4 days (days 2-5) prednisone 20 mg tablet 40 mg PO DAILY 5 Days Qty: 10 0RF No Action atorvastatin [Lipitor] 20 MG tablet 20 mg PO HS Qty: 30 0RF aspirin 81 MG tablet,chewable 81 mg PO QDAY Qty: 0 0RF prednisone 20 mg tablet 20 mg PO DAILY Qty: 5 0RF Rx Instructions: administer with food or milk albuterol sulfate 2.5 mg /3 mL (0.083 %) solution for nebulization 2.5 mg INHALATION Q4-6H PRN (Reason: shortness of breath or wheezing) Qty: 90 0RF cyclobenzaprine 10 mg tablet 10 mg PO TID PRN (Reason: muscle spasm) Qty: 15 0RF naproxen [Naprosyn] 500 mg tablet 500 mg PO BID PRN (Reason: pain) Qty: 20 0RF hydrocodone-acetaminophen [[place]] 5-325 mg tablet 1 tab PO Q4-6H PRN (Reason: pain) Qty: 15 0RF Rx Instructions: take 1-2 tablets every 4-6 hours for severe pain unrelieved by the naprosyn levofloxacin [Levaquin] 500 mg tablet 500 mg PO DAILY Qty: 7 0RF lidocaine [Lidoderm] 5 % adhesive patch,medicated 1 patch TOP DAILY Qty: 14 0RF Rx Instructions: leave on most painful area for up to 12 hrs Combivent Respimat 20-100 mcg/actuation mist 1 puff INHALATION Q6H Qty: 4 0RF hydrocodone-acetaminophen [[place]] 5-325 mg tablet 1 tab PO Q6H PRN (Reason: pain) Qty: 10 0RF lisinopril 20 mg Tablet 20 mg PO DAILY 0RF omeprazole 20 mg Capsule,Delayed Release(Dr/Ec) 40 mg PO DAILY 0RF benzonatate [Tessalon Perles] 100 mg capsule 100 mg PO BID-TID PRN (Reason: cough) Qty: 14 0RF amlodipine 10 mg Tablet 10 mg PO DAILY 0RF levofloxacin 750 mg tablet 750 mg PO DAILY Qty: 5 0RF fluticasone propion-salmeterol [Advair Diskus] 250-50 mcg/dose Blister With Device 1 puff INH BID Qty: 1 0RF Combivent Respimat 20-100 mcg/actuation Mist 1 puff inhalation Q6H Qty: 4 0RF prednisone 20 mg Tablet 40 mg PO DAILY Qty: 30 0RF voriconazole [Vfend] 200 mg Tablet 200 mg PO BID Qty: 60 0RF benzonatate 100 mg Capsule 100 mg PO TID PRN (Reason: cough) Qty: 20 0RF guaifenesin [Mucus Relief ER] 600 mg Tablet Extended Release 12hr 1,200 mg PO BID Qty: 20 0RF Referrals: Janae King MD [Primary Care Provider] - Visit Report Forms: Patient Portal/API
[2021-10-10] MEDS: AZITHROMYCIN 250 MG TABLET 500 MG PO (19:51)
== END 2021-10-10 20:02 | disposition home or self-care (01) ==
PROVIDERS: Emergency Provider Student in an Organized Health Care Education/Training Program; PCP Internal Medicine
DX: J44.1 Chronic obstructive pulmonary disease with (acute) exacerbation (principal); Z20.822 Contact with and (suspected) exposure to COVID-19
CPT/HCPCS: 36415; 71046; 80053; 83605; 83880; 84484; 85025; 85379; 87635; 93005; 93010; 94640; 96360; 96361; 99284; C9803; J3475

== ENCOUNTER 2022-01-17 10:15 | Outpatient (RCR) | payer OTHER, SELFPAY ==
[2019-07-22 17:43] VITALS: BMI 29.8
== END 2022-01-17 14:15 ==
LOC: PUL 10:15
PROVIDERS: PCP Internal Medicine; Referring Provider Physician Assistant; Visit Provider Physician Assistant
DX: J44.9 Chronic obstructive pulmonary disease, unspecified (principal)
CPT/HCPCS: 94626

== ENCOUNTER 2022-01-17 13:14 | Emergency (ER) | payer OTHER, SELFPAY ==
[2019-07-22 17:43] VITALS: BMI 29.8
[2022-01-17 13:18] VITALS: BP 110/72; PULSE 204; RESP 22; TEMP 36.7; O2SAT 92; BMI 29.1
--- NOTE | 2022-01-17 13:32 | DI.RAD.S_ITS ---
PROCEDURE: XR CHEST 1V INDICATIONS: chest pain TECHNIQUE: One view of the chest was acquired. COMPARISON: Located Within [facility], CR, XR CHEST 2V, 10/10/2021, 16:14. Located Within [facility], CR, XR CHEST 2V, 09/23/2021, 14:48. FINDINGS: Surgical changes and devices: None. Lungs and pleura: Lungs are clear. No pleural effusions or pneumothorax. Mediastinum: Cardiac silhouette is at the upper limit of normal in size. Mediastinal and hilar contours appear similar to before. Bones and chest wall: No suspicious bony lesions. Overlying soft tissues appear unremarkable. IMPRESSION: No acute cardiopulmonary abnormality. Dictated by: Yazan Vera M.D. on 01/17/2022 at 13:57 Approved by: Yazan Vera M.D. on 01/17/2022 at 13:58
[2022-01-17 13:40] LABS: Add Manual Diff / Slide Review NO; Basophils Absolute Auto 100 /uL (0-100); Basophils Percent Auto 0.7 % (0-2); Eosinophils Absolute Auto 800 /uL (0-450); Eosinophils Percent Auto 9.4 % (2-4); Hematocrit 40.3 % (41-53); Hemoglobin 13.5 g/dL (13.5-17.5); Lymphocytes Absolute Auto 1700 /uL (1100-4500); Lymphocytes Percent Auto 19.3 % (25-40); Mean Corpuscular HGB Conc 33.5 % (30-36); Mean Corpuscular Hemoglobin 27.9 PG (26-34); Mean Corpuscular Volume 83.3 fL (80-100); Monocytes Absolute Auto 500 /uL (0-900); Monocytes Percent Auto 6.3 % (3-14); Neutrophils Absolute Auto 5600 /uL (1500-7000); Neutrophils Percent Auto 64.3 % (50-75); Platelet Count 228 X10^3/uL (150-400); Red Blood Cell Count 4.84 X10^6/uL (4.5-5.9); Red Cell Distribution Width 15.3 % (11.6-14.8); White Blood Cell Count 8.7 X10^3/uL (4.5-11.0)
[2022-01-17 13:51] LABS: Alanine Aminotransferase 32 IU/L (<50); Albumin 4.2 g/dL (3.5-5.0); Albumin Globulin Ratio 1.6 (1.0-2.8); Alkaline Phosphatase 72 U/L (38-126); Aspartate Aminotransferase 31 IU/L (17-59); Bilirubin Total 0.4 mg/dL (0.2-1.3); Blood Urea Nitrogen 10 mg/dL (9-20); Calcium 9.2 mg/dL (8.4-10.2); Carbon Dioxide 21 mmol/L (22-32); Chloride 102 mmol/L (98-107); Creatine Kinase 56 U/L (55-170); Estimated Glomerular Filt Rate > 60 mL/min (>60); Globulin 2.7 g/dL (1.7-4.1); Glucose 122 mg/dL (70-100); HEMOLYSIS 17 (0-50); Lipase 178 U/L (23-300); Magnesium 1.5 mg/dL (1.6-2.3); Potassium 3.9 mmol/L (3.4-5.1); Sodium 138 mmol/L (137-145); Total Protein 6.9 g/dL (6.3-8.2)
[2022-01-17 13:52] VITALS: BP 111/69; PULSE 108
[2022-01-17] MEDS: dilTIAZem 5 MG/ML SDV 10 MG IV (13:52)
--- NOTE | 2022-01-17 13:53 | ED.SOB ---
HPI - SOB/Dyspnea General Chief Complaint: Arrhythmia/Palpitations Stated Complaint: heart rate up Time Seen by Provider: 01/17/22 13:37 History of Present Illness HPI Narrative: Patient is a 56-year-old male history of hypertension hyperlipidemia and COPD presenting today from cardiac rehab concern for cardiac arrhythmia and elevated heart rate into the s. He says he started pulmonary rehab yesterday he said he was short of breath just does he has not done anything for so long however he recovered. Today he just felt more short of breath. ST an elevated heart rate and low blood pressure. He presents today with heart rate like SVT but easily converted with vagal maneuvers. He denies any chest pain palpitations dizziness lightheadedness. He has is only short of breath. With completely asymptomatic sitting in the emergency department. Heart rate quickly elevating comes back down. Does not stay elevated for long. Does appear he is in sinus rhythm. Related Data Home Medications Medication Instructions Recorded Confirmed aspirin 81 mg chewable tablet 81 mg PO QDAY ##0 02/25/16 07/23/19 atorvastatin 20 mg tablet (Lipitor) 20 mg PO HS #30 tabs 02/25/16 07/23/19 lisinopril 20 mg tablet 20 mg PO DAILY 05/22/18 07/23/19 omeprazole 20 mg capsule,delayed 40 mg PO DAILY 05/22/18 07/23/19 release amlodipine 10 mg tablet 10 mg PO DAILY 07/09/19 07/23/19 Previous Rx's Medication Instructions Recorded benzonatate 100 mg capsule 100 mg PO BID-TID PRN cough #14 06/07/19 (Naty Jackson) caps albuterol sulfate 2.5 mg/3 mL 2.5 mg (3 mL) inhalation Q4-6H PRN 06/22/19 (0.083 %) solution for nebulization shortness of breath or wheezing #90 mL prednisone 20 mg tablet 20 mg PO DAILY #5 tabs 06/22/19 levofloxacin 750 mg tablet 750 mg PO DAILY #5 tabs 07/11/19 cyclobenzaprine 10 mg tablet 10 mg PO TID PRN muscle spasm #15 07/18/19 tabs hydrocodone 5 mg-acetaminophen 325 1 tab PO Q4-6H PRN pain #15 tabs 07/18/19 mg tablet ([place]) levofloxacin 500 mg tablet 500 mg PO DAILY #7 tabs 07/18/19 (Levaquin) lidocaine 5 % topical patch 1 patch topical DAILY #14 ea 07/18/19 (Lidoderm) naproxen 500 mg tablet (Naprosyn) 500 mg PO BID PRN pain #20 tabs 07/18/19 benzonatate 100 mg capsule 100 mg PO TID PRN cough #20 caps 07/28/19 fluticasone 250 mcg-salmeterol 50 1 puff INH BID #1 ea 07/28/19 mcg/dose blistr powdr for inhalation (Advair Diskus) guaifenesin 600 mg tablet, 1,200 mg PO BID #20 tabs 07/28/19 extended release 12 hr (Mucus Relief ER) ipratropium 20 mcg-albuterol 100 1 puff inhalation Q6H #4 grams 07/27/20 mcg/actuation mist for inhalation (Combivent Respimat) prednisone 20 mg tablet 40 mg PO DAILY #30 tabs 07/28/19 voriconazole 200 mg tablet (Vfend) 200 mg PO BID #60 tabs 07/28/19 hydrocodone 5 mg-acetaminophen 325 1 tab PO Q6H PRN pain #10 tabs 05/10/20 mg tablet ([place]) ipratropium 20 mcg-albuterol 100 1 puff inhalation Q6H #4 grams 05/10/20 mcg/actuation mist for inhalation (Combivent Respimat) azithromycin 250 mg tablet See Rx Instructions PO .COMPLEX #5 10/11/21 tabs Allergies Allergy/AdvReac Type Severity Reaction Status Date / Time No Known Drug Allergies Allergy Verified 10/10/21 12:08 Review of Systems Review of Systems Narrative: GENERAL: Denies chills, fatigue, malaise, fever, sweats, travel HEENT: Denies sinus pain, ear pain, sore throat, difficulty swallowing, neck pain RESPIRATORY: See HPI CARDIOVASCULAR: See HPI GASTROINTESTINAL: Denies nausea, vomiting, abdominal pain, diarrhea, constipation, melena. : Denies dysuria, frequency, incontinence, hematuria, urinary retention, flank pain. MUSCULOSKELETAL: Denies weakness, joint pain, or bony pain SKIN: No rash, no erythema, no pruritus NEUROLOGIC: Denies weakness, dizziness, headache, numbness, change in speech, confusion PSYCHIATRIC: No concerning psychosocial issues. 12 point review of systems is negative except for those stated above and HPI Patient History Medical History (Updated 01/17/22 @ 16:05 by Damaris Aguiar DO) Hyperlipidemia Hypertension Social History household members: significant other Smoking Status: Current some day smoker alcohol intake: current Smoking Status: Current some day smoker tobacco type: cigarettes alcohol intake frequency: holidays/special occasions only Alcohol type: beer Substance Use Type: does not use Exam Initial Vital Signs Initial Vital Signs: Vital Signs Temperature 98.1 F 01/17/22 13:18 Pulse Rate 204 H 01/17/22 13:18 Respiratory Rate 22 01/17/22 13:18 Blood Pressure 110/72 01/17/22 13:18 Pulse Oximetry 92 01/17/22 13:18 Oxygen Delivery Method 01/17/22 13:18 GENERAL: Alert pleasant well-appearing 56-year-old male HEENT: Head atraumatic,EOMI, pupils reactive, face symmetric, moist mucous membranes CARDIOVASCULAR: Irregular RESPIRATORY: Breath sounds equal bilaterally, no wheezes rales or rhonchi. ABDOMEN: Soft, nontender. Normoactive bowel sounds all 4 quadrants. No guarding or rebound. EXTREMITIES: Normal range of motion, no clubbing or edema. Neurovascularly intact NEUROLOGICAL: Alert and oriented x4. SKIN: Warm, dry, no laceration, no petechiae, no rashes or lesions. Course Orders Ordered: Discontinued Medications Diltiazem HCl (Diltiazem 5 Mg/Ml Sdv) 10 mg IV NOW ONE Stop: 01/17/22 13:38 Last Admin: 01/17/22 13:52 Dose: 10 mg Documented By: RLS Vital Signs Vital signs: Vital Signs - 8 hr 01/17/22 13:52 01/17/22 13:18 Temperature 98.1 F Pulse Rate 108 H 204 H Respiratory Rate 22 Blood Pressure 111/69 110/72 Pulse Oximetry 92 Oxygen Delivery Method Room Air MDM - SOB/Dyspnea Lab Data Result diagrams: 01/17/22 13:30 01/17/22 13:30 Labs: Lab Results 01/17/22 01/17/22 01/17/22 Range/Units 13:30 13:30 13:30 WBC 8.7 (4.5-11.0) X10^3/uL RBC 4.84 (4.5-5.9) X10^6/uL Hgb 13.5 (13.5-17.5) g/dL Hct 40.3 L (41-53) % MCV 83.3 (80-100) fL MCH 27.9 (26-34) PG MCHC 33.5 (30-36) % RDW 15.3 H (11.6-14.8) % Plt Count 228 (150-400) X10^3/uL Neut % (Auto) 64.3 (50-75) % Lymph % (Auto) 19.3 L (25-40) % Meigs % (Auto) 6.3 (3-14) % Eos % (Auto) 9.4 H (2-4) % Baso % (Auto) 0.7 (0-2) % Neut # (Auto) 5600 (1448-6913) /uL Lymph # (Auto) 1700 (2627-4493) /uL Meigs # (Auto) 500 (0-900) /uL Eos # (Auto) 800 H (0-450) /uL Baso # (Auto) 100 (0-100) /uL PT 11.1 (10.1-12.7) SECONDS INR 1.0 (0.9-1.3) APTT 28 (26-36) SECONDS Sodium 138 (137-145) mmol/L Potassium 3.9 (3.4-5.1) mmol/L Chloride 102 (98-107) mmol/L Carbon Dioxide 21 L (22-32) mmol/L BUN 10 (9-20) mg/dL Creatinine 0.91 (0.66-1.25) mg/dL Estimated GFR > 60 (>60) mL/min BUN/Creatinine Ratio 11.0 (6-22) Glucose 122 H (70-100) mg/dL Calcium 9.2 (8.4-10.2) mg/dL Magnesium 1.5 L (1.6-2.3) mg/dL Total Bilirubin 0.4 (0.2-1.3) mg/dL AST 31 (17-59) IU/L ALT 32 (<50) IU/L Alkaline Phosphatase 72 (38-126) U/L Total Creatine Kinase 56 (55-170) U/L CK-MB (CK-2) TNP CK-MB (CK-2) Rel Index TNP Troponin I < 0.012 (0.01-0.034) ng/mL Total Protein 6.9 (6.3-8.2) g/dL Albumin 4.2 (3.5-5.0) g/dL Globulin 2.7 (1.7-4.1) g/dL Albumin/Globulin Ratio 1.6 (1.0-2.8) Lipase 178 (23-300) U/L Imaging Data Chest x-ray: Radiologist's Impression: Signed Patient: Delvin Louis MR#: [id number] : 1965 Acct:[id number] Age/Sex: 56 / M Date of Service: 01/17/22 Loc: ED Accession Number: [id number] ?? Procedure: XR chest 1V Ordering Provider: Damaris Aguiar D.O. PROCEDURE:? XR CHEST 1V ? INDICATIONS:? chest pain ? TECHNIQUE:? One view of the chest was acquired.? ? COMPARISON:? [facility], CR, XR CHEST 2V, 10/10/2021, 16:14.? [facility], CR, XR CHEST 2V, 09/23/2021, 14:48. ? FINDINGS:? ? Surgical changes and devices:? None.? ? Lungs and pleura:? Lungs are clear.? No pleural effusions or pneumothorax.? ? Mediastinum:? Cardiac silhouette is at the upper limit of normal in size.? Mediastinal and hilar contours appear similar to before. ? Bones and chest wall:? No suspicious bony lesions.? Overlying soft tissues appear unremarkable.? ? IMPRESSION:? No acute cardiopulmonary abnormality. ? ? Dictated by: Yazan Vera M.D. on 01/17/2022 at 13:57 ? ? Approved by: Yazan Vera M.D. on 01/17/2022 at 13:58 ? ECG Data Interpretation: Normal sinus rhythm rate 119 p.r. interval 142 QRS 80 QTC 436 MDM Narrative Medical decision making narrative: Patient has obvious SVT which is not consistent and a with rate of 190. He is relatively asymptomatic. He says he was short of breath this happened to be while he was exerting himself a pulmonary rehab. While sitting in the ED he is not symptomatic. He is given a dose of Cardizem which has stabilized his heart rate into the 70s. At this time does not meet any sort of admission criteria. Recommend outpatient Holter monitor. Discharge Plan Departure Patient Disposition: Home Clinical Impression: Paroxysmal supraventricular tachycardia Instructions: Paroxysmal Supraventricular Tachycardia Activity Restrictions/Additional Instructions: *You have been diagnosed with SVT *What to do: At this time I strongly recommend a Holter monitor. Please follow-up with your primary care provider you may need a Cardiology referral *Continue to take medications as directed *Follow up with your primary care provider in 2-3 days or call [phone] *Return to ER if you should have increasing shortness of breath chest pain palpitations dizziness lightheadedness or any new, worsening or concerning symptoms Prescriptions: No Action atorvastatin [Lipitor] 20 MG tablet 20 mg PO HS Qty: 30 aspirin 81 MG tablet,chewable 81 mg PO QDAY Qty: 0 prednisone 20 mg tablet 20 mg PO DAILY Qty: 5 0RF Rx Instructions: administer with food or milk albuterol sulfate 2.5 mg /3 mL (0.083 %) solution for nebulization 2.5 mg INHALATION Q4-6H PRN (Reason: shortness of breath or wheezing) Qty: 90 0RF cyclobenzaprine 10 mg tablet 10 mg PO TID PRN (Reason: muscle spasm) Qty: 15 0RF naproxen [Naprosyn] 500 mg tablet 500 mg PO BID PRN (Reason: pain) Qty: 20 0RF hydrocodone-acetaminophen [[place]] 5-325 mg tablet 1 tab PO Q4-6H PRN (Reason: pain) Qty: 15 0RF Rx Instructions: take 1-2 tablets every 4-6 hours for severe pain unrelieved by the naprosyn levofloxacin [Levaquin] 500 mg tablet 500 mg PO DAILY Qty: 7 0RF lidocaine [Lidoderm] 5 % adhesive patch,medicated 1 patch TOP DAILY Qty: 14 0RF Rx Instructions: leave on most painful area for up to 12 hrs Combivent Respimat 20-100 mcg/actuation mist 1 puff INHALATION Q6H Qty: 4 0RF hydrocodone-acetaminophen [[place]] 5-325 mg tablet 1 tab PO Q6H PRN (Reason: pain) Qty: 10 0RF azithromycin 250 mg tablet See Rx Instructions .ROUTE .COMPLEX Qty: 5 0RF Rx Instructions: For 250 mg dose pack: take 500 mg today (day 1), then 250 mg for 4 days (days 2-5) lisinopril 20 mg Tablet 20 mg PO DAILY omeprazole 20 mg Capsule,Delayed Release(Dr/Ec) 40 mg PO DAILY benzonatate [Tessalon Perles] 100 mg capsule 100 mg PO BID-TID PRN (Reason: cough) Qty: 14 0RF amlodipine 10 mg Tablet 10 mg PO DAILY levofloxacin 750 mg tablet 750 mg PO DAILY Qty: 5 0RF fluticasone propion-salmeterol [Advair Diskus] 250-50 mcg/dose Blister With Device 1 puff INH BID Qty: 1 0RF Combivent Respimat 20-100 mcg/actuation Mist 1 puff inhalation Q6H Qty: 4 0RF prednisone 20 mg Tablet 40 mg PO DAILY Qty: 30 0RF voriconazole [Vfend] 200 mg Tablet 200 mg PO BID Qty: 60 0RF benzonatate 100 mg Capsule 100 mg PO TID PRN (Reason: cough) Qty: 20 0RF guaifenesin [Mucus Relief ER] 600 mg Tablet Extended Release 12hr 1,200 mg PO BID Qty: 20 0RF Referrals: Janae King MD [Primary Care Provider] - Visit Report Forms: Patient Portal/API
[2022-01-17 14:02] LABS: Troponin I < 0.012 ng/mL (0.01-0.034)
[2022-01-17 14:08] LABS: Prothrombin Time 11.1 SECONDS (10.1-12.7)
[2022-01-17 14:11] LABS: PTT Partial Thromboplastin Tim 28 SECONDS (26-36)
== END 2022-01-17 16:20 | disposition home or self-care (01) ==
PROVIDERS: Emergency Provider Emergency Medicine; PCP Internal Medicine
DX: I47.1 Supraventricular tachycardia (principal)
CPT/HCPCS: 36415; 71045; 80053; 82550; 83690; 83735; 84484; 85025; 85610; 85730; 93005; 96374; 99284

== ENCOUNTER → 2022-07-23 11:44 | Outpatient (CLI) | payer OTHER, SELFPAY ==
[2019-07-22 17:43] VITALS: BMI 29.8
[2022-07-23 12:56] LABS: Alanine Aminotransferase 32 IU/L (<50); Albumin 4.2 g/dL (3.5-5.0); Albumin Globulin Ratio 1.6 (1.0-2.8); Alkaline Phosphatase 81 U/L (38-126); Aspartate Aminotransferase 23 IU/L (17-59); BUN Creatinine Ratio 15.6 (6-22); Bilirubin Total 0.3 mg/dL (0.2-1.3); Blood Urea Nitrogen 12 mg/dL (9-20); Calcium 9.2 mg/dL (8.4-10.2); Carbon Dioxide 28 mmol/L (22-32); Chloride 99 mmol/L (98-107); Cholesterol 161 mg/dL (140-199); Estimated Glomerular Filt Rate > 60 mL/min (>60); Globulin 2.7 g/dL (1.7-4.1); Glucose 113 mg/dL (70-100); HDL Cholesterol 44 mg/dL (40-60); HEMOLYSIS < 15 (0-50); LDL Cholesterol Calculated 82 mg/dL (<100); Magnesium 1.7 mg/dL (1.6-2.3); Potassium 4.2 mmol/L (3.4-5.1); Sodium 134 mmol/L (137-145); Total Protein 6.9 g/dL (6.3-8.2); Triglycerides 174 mg/dL (35-150)
[2022-07-23 13:59] LABS: Thyroid Stimulating Hormone 0.642 uIU/mL (0.47-4.68)
== END ==
PROVIDERS: PCP Family Medicine; Referring Provider Nurse Practitioner Family; Visit Provider Nurse Practitioner Family
DX: I47.1 Supraventricular tachycardia (principal); E78.2 Mixed hyperlipidemia; R06.02 Shortness of breath; E11.9 Type 2 diabetes mellitus without complications
CPT/HCPCS: 36415; 80053; 80061; 83735; 84443

== ENCOUNTER 2022-12-03 10:55 | Emergency (ER) | payer OTHER, SELFPAY ==
[2019-07-22 17:43] VITALS: BMI 29.8
[2022-12-03 10:59] VITALS: BP 130/82; PULSE 82; RESP 18; TEMP 36.7; O2SAT 93; BMI 29.1
--- NOTE | 2022-12-03 11:25 | DI.RAD.S_ITS ---
PROCEDURE: XR CHEST 2V INDICATIONS: cough, SOB 1 month TECHNIQUE: 2 views of the chest were acquired. COMPARISON: [facility], CR, XR CHEST 1V, 01/17/2022, 13:31. FINDINGS: Surgical changes and devices: None. Lungs and pleura: Horizontal bibasilar strand-like opacities. Angular opacity projecting over the left heart border, possibly atelectasis or loculated fluid. No layering pleural effusion or pneumothorax. Mediastinum: Mediastinal contours are normal. Heart size is normal. Bones and chest wall: No suspicious bony abnormalities. Prior rib fractures. Soft tissues appear unremarkable. IMPRESSION: 1. Bibasilar atelectatic changes or scarring. 2. Angular left medial lower lung opacity, potentially loculated fluid or atelectasis. Further evaluation with chest CT on a routine basis recommended. Dictated by: Anna Lai M.D. on 12/03/2022 at 11:55 Approved by: Anna Lai M.D. on 12/03/2022 at 12:21
--- NOTE | 2022-12-03 11:36 | ED_ITS ---
HPI - URI/Sore Throat <Jaimee Golden PA-C - Last Filed: 12/03/22 13:05> General Chief Complaint: Upper Respiratory Symptoms Stated Complaint: Sinus issues, clogged for month Time Seen by Provider: 12/03/22 10:56 Source: patient Mode of arrival: Ambulatory History of Present Illness HPI Narrative: 57-year-old male with a history of chronic smoker, COPD and chronic sinus issues presents with concern for sinus issues for the past month. Patient states he is had a lot of congestion and some pressure in his face and sinuses for the past month. He says he goes through periods where it seems like things dry up and then the opposite occurs. He does not think he is taken antibiotics for sinus issues for over a year and has not seen a specialist for sinus issues. Does state he has a cough but feels that the production of sputum has been fairly normal for him, he has not had fevers, chills, nausea, vomiting, sore throat, chest pain, shortness of breath, change in appetite, unexpected weight loss or any other symptoms. Related Data Home Medications Medication Instructions Recorded Confirmed atorvastatin 20 mg tablet (Lipitor) 20 mg PO HS #30 tabs 02/25/16 07/23/19 omeprazole 20 mg capsule,delayed 40 mg PO DAILY 05/22/18 07/23/19 release amlodipine 10 mg tablet 10 mg PO DAILY 07/09/19 07/23/19 apixaban 5 mg tablet (Eliquis) 5 mg PO BID 12/03/22 12/03/22 Previous Rx's Medication Instructions Recorded albuterol sulfate 2.5 mg/3 mL 2.5 mg (3 mL) inhalation Q4-6H PRN 06/22/19 (0.083 %) solution for nebulization shortness of breath or wheezing #90 mL fluticasone 250 mcg-salmeterol 50 1 puff INH BID #1 ea 07/28/19 mcg/dose blistr powdr for inhalation (Advair Diskus) ipratropium 20 mcg-albuterol 100 1 puff inhalation Q6H #4 grams 07/28/19 mcg/actuation mist for inhalation (Combivent Respimat) voriconazole 200 mg tablet (Vfend) 200 mg PO BID #60 tabs 07/28/19 ipratropium 20 mcg-albuterol 100 1 puff inhalation Q6H #4 grams 09/12/ mcg/actuation mist for inhalation (Combivent Respimat) amoxicillin 875 mg-potassium 1 tab PO Q12H 10 days #20 tabs 12/03/22 clavulanate 125 mg tablet Allergies Allergy/AdvReac Type Severity Reaction Status Date / Time No Known Drug Allergies Allergy Verified 10/10/21 12:08 Review of Systems <Jaimee Golden PA-C - Last Filed: 12/03/22 13:05> Review of Systems Narrative: See HPI Patient History <Jaimee Golden PA-C - Last Filed: 12/03/22 13:05> Medical History (Updated 12/03/22 @ 12:40 by Jaimee Golden PA-C) Hyperlipidemia Hypertension Social History household members: significant other Smoking Status: Current some day smoker alcohol intake: current Smoking Status: Current some day smoker tobacco type: cigarettes alcohol intake frequency: holidays/special occasions only Alcohol type: beer Substance Use Type: does not use Exam <Jaimee Golden PA-C - Last Filed: 12/03/22 13:05> Narrative Exam Narrative: GENERAL: 57 year old patient appears stated age. Well-developed patient, in mild distress. HEAD: Atraumatic. Normocephalic. EYES: Pupils equal round and reactive. Extraocular motions intact. No scleral icterus. No injection or drainage. ENT: Nose without bleeding, purulent drainage. Throat without erythema, tonsillar hypertrophy or exudate. Airway patent. Bilateral ear canals occluded by impacted cerumen unable to visualize TM manipulation of the pinna and tragus is without pain or discomfort bilaterally. There is mild erythema of the posterior oropharynx, there are small approximately 1 mm lesions sparsely scattered in the posterior oropharynx and tonsillar pillar consistent with apthous ulcers/chronic irritation NECK: Trachea midline. Non tender, no lymphadenopathy CARDIOVASCULAR: Regular rate and rhythm without murmurs, gallops, or rubs. RESPIRATORY: Very coarse lung sounds with rhonchi bilaterally middle and lower [place] Breath sounds equal bilaterally. No wheezes, rales. GASTROINTESTINAL: Abdomen slightly protuberant, nondistended. EXTREMITIES: No edema or joint tenderness. BACK: Nontender without deformity or crepitance. No flank tenderness. NEURO: AOx3. SKIN: No rash or erythema of visible areas Initial Vital Signs Initial Vital Signs: Vital Signs Temperature 98.1 F 12/03/22 10:59 Pulse Rate 82 12/03/22 10:59 Respiratory Rate 18 12/03/22 10:59 Blood Pressure 130/82 12/03/22 10:59 Pulse Oximetry 93 12/03/22 10:59 Oxygen Delivery Method Room Air 12/03/22 10:59 <González Samayoa DO - Last Filed: 12/03/22 18:59> Initial Vital Signs Initial Vital Signs: Vital Signs Temperature 98.1 F 12/03/22 10:59 Pulse Rate 82 12/03/22 10:59 Respiratory Rate 18 12/03/22 10:59 Blood Pressure 130/82 12/03/22 10:59 Pulse Oximetry 93 12/03/22 10:59 Oxygen Delivery Method Room Air 12/03/22 10:59 Course <Jaimee Golden PA-C - Last Filed: 12/03/22 13:05> Orders Ordered: ED Orders 12/03/22 11:25 Chest [XR chest 2V] Stat Vital Signs Vital signs: Vital Signs - 8 hr 12/03/22 12:45 Pulse Rate 88 Respiratory Rate 16 Blood Pressure 130/72 Pulse Oximetry 96 Oxygen Delivery Method Room Air <González Samayoa DO - Last Filed: 12/03/22 18:59> Orders Ordered: ED Orders 12/03/22 11:25 Chest [XR chest 2V] Stat Vital Signs Vital signs: Vital Signs - 8 hr 12/03/22 12:45 Pulse Rate 88 Respiratory Rate 16 Blood Pressure 130/72 Pulse Oximetry 96 Oxygen Delivery Method Room Air MDM - URI/Sore Throat <ALLEN Null Last Filed: 12/03/22 13:05> Medical Records Attestation: I reviewed the patient's medical records. Imaging Data Chest x-ray: My Impression: Agree with Radiology interpretation Radiologist's Impression: [address] [address] XRay Report Signed Patient: Delvin Louis MR#: [id number] : 1965 Acct:[id number] Age/Sex: 57 / M Date of Service: 12/03/22 Loc: ED Accession Number: [id number] ?? Procedure: XR chest 2V Ordering Provider: Jaimee Golden P.A-C PROCEDURE:? XR CHEST 2V ? INDICATIONS:? cough, SOB 1 month ? TECHNIQUE:? 2 views of the chest were acquired.? ? COMPARISON:? [facility], CR, XR CHEST 1V, 01/17/2022, 13:31. ? FINDINGS:? ? Surgical changes and devices:? None.? ? Lungs and pleura:? Horizontal bibasilar strand-like opacities.? Angular opacity projecting over the left heart border, possibly atelectasis or loculated fluid.? No layering pleural effusion or pneumothorax. ? Mediastinum:? Mediastinal contours are normal.? Heart size is normal.? ? Bones and chest wall:? No suspicious bony abnormalities.? Prior rib fractures.? Soft tissues appear unremarkable.? ? IMPRESSION:? ? 1. Bibasilar atelectatic changes or scarring. ? 2. Angular left medial lower lung opacity, potentially loculated fluid or atelectasis.? Further evaluation with chest CT on a routine basis recommended.? ? ? Dictated by: Anna Lai M.D. on 12/03/2022 at 11:55 ? ? Approved by: Anna Lai M.D. on 12/03/2022 at 12:21?? [facility] Narrative Medical decision making narrative: This is a 57-year-old male with a history of COPD, chronic smoker who presents with concern for persistent sinus congestion symptoms for the past month. Pat neema also has a chronic cough associated with his smoking as well as productive sputum, on exam he has bilateral rhonchi frequent cough and coarse lung sounds, history and exam findings are consistent with a bacterial sinusitis given duration of his sinus symptoms; chest x-ray is obtained for further evaluation he is not had fevers chills or other concerning symptoms suggestive of sepsis or severe pneumonia and labs are not obtained today. Given the duration of his symptoms viral testing is also not obtained. 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 He is placed on Augmentin today for bacterial sinusitis, advised to follow up closely with primary care provider, return precautions provided, follow-up plan discussed, all questions answered. Discharge Plan Departure Patient Disposition: Home Clinical Impression: Acute bacterial sinusitis, Abnormal finding on imaging Activity Restrictions/Additional Instructions: *You have been diagnosed with [bacterial sinusitis] *What to do: *Please continue to take your regular medications as directed. [ 1] New medication prescriptions sent to your pharmacy: [ ] [ ] New medication written as a paper prescription [ ] No new medications given *Please follow up with your primary care provider in 2-3 days, call for an appointment. Let them know you were seen in the Emergency Department and that we ask that you be seen in follow up. We will electronically transmit a record of today's note if your PCP is in our system. Based on the duration of her symptoms I am going to place her on antibiotics for a sinus infection, I recommend you stop taking the Sudafed, please take the entire course of antibi otics as prescribed even if you are feeling better. It is also important to note we did a chest x-ray today that is showing an area of your lung on the left side possibly consistent with an area of non functioning lung also called atelectasis but the radiologist felt it could also represent a fluid collection, this may be related to some chronic changes associated with your lung and they recommend routine CT follow-up I encourage you to talk to your primary care provider about having this done for further evaluation, there is no evidence of pneumonia today on your chest x-ray, he do develop new or worsening symptoms despite the antibiotics please make sure you get re-evaluated.. *If you do not have a primary care provider please contact the [facility] Resource line at [phone]. They will ask some questions about your medical history and help get you set up with a doctor in the community. *Return to Emergency Department if you should have any new, worsening or concerning symptoms, such as [fever greater than 101 F, shaking chills, worsening pain, persistent vomiting or other bothersome symptoms] Prescriptions: New amoxicillin-pot clavulanate 875-125 mg tablet 1 tab PO Q12H 10 Days Qty: 20 0RF No Action atorvastatin [Lipitor] 20 MG tablet 20 mg PO HS Qty: 30 albuterol sulfate 2.5 mg /3 mL (0.083 %) solution for nebulization 2.5 mg INHALATION Q4-6H PRN (Reason: shortness of breath or wheezing) Qty: 90 0RF Combivent Respimat 20-100 mcg/actuation mist 1 puff INHALATION Q6H Qty: 4 0RF omeprazole 20 mg Capsule,Delayed Release(Dr/Ec) 40 mg PO DAILY amlodipine 10 mg Tablet 10 mg PO DAILY fluticasone propion-salmeterol [Advair Diskus] 250-50 mcg/dose Blister With Device 1 puff INH BID Qty: 1 0RF Combivent Respimat 20-100 mcg/actuation Mist 1 puff inhalation Q6H Qty: 4 0RF voriconazole [Vfend] 200 mg Tablet 200 mg PO BID Qty: 60 0RF Eliquis 5 mg tablet 5 mg PO BID Referrals: [facility] [Primary Care Provider] - Stand Alone Forms: Patient Portal/API <González Samayoa DO - Last Filed: 12/03/22 18:59> Cosign ED Attending Abelature Attestation: I was immediately available in the department for consultation. Documentation has been reviewed. I agree with assessment and plan.
[2022-12-03 12:45] VITALS: BP 130/72; PULSE 88; RESP 16; O2SAT 96
== END 2022-12-03 12:46 | disposition home or self-care (01) ==
PROVIDERS: Emergency Provider Student in an Organized Health Care Education/Training Program
DX: J01.90 Acute sinusitis, unspecified (principal); R93.89 Abnormal findings on diagnostic imaging of other specified body structures; R05.9 Cough, unspecified
CPT/HCPCS: 71046; 99283

== ENCOUNTER → 2022-12-31 08:16 | Outpatient (CLI) | payer OTHER, SELFPAY ==
[2019-07-22 17:43] VITALS: BMI 29.8
--- NOTE | 2023-01-01 00:34 | DI.NM.S_ITS ---
DATE OF SERVICE: 12/31/2022 PROCEDURE: Pharmacologic vasodilator stress and rest myocardial perfusion imaging with gating to assess ejection fraction and regional wall motion. ORDERING PROVIDER: KEERTHI Krueger INDICATIONS: The patient is a 57-year-old diabetic smoker with COPD, recently diagnosed paroxysmal atrial fibrillation, and exertional dyspnea. CARDIAC STRESS: Per protocol, 0.4 mg of regadenoson was infused, augmented by walking with an appropriate heart rate and blood pressure response. He had no chest discomfort or other anginal symptoms. His resting ECG showed sinus rhythm with normal ST segments and there were no significant ST-segment shifts with stress. He had occasional PACs and short bursts of probable atrial fibrillation just lasting a few seconds, but nothing sustained. Per protocol, 25.8 millicuries of technetium-99m Myoview was injected and he was imaged 10 minutes later using a gated SPECT acquisition protocol. Earlier in the day while at rest, he had been injected with 12.4 millicuries of technetium-99m Myoview and was imaged 15 minutes later, again using a gated SPECT acquisition protocol. FINDINGS: 1. Raw data: There is fair myocardial tracer uptake. The lung/heart ratio is mildly elevated at 0.45, which can be a sign of pulmonary congestion but requires clinical correlation. The TID ratio is normal at 0.84. 2. Quantitated gated SPECT: Post-stress ejection fraction is 73% without any focal wall motion abnormality, and specifically the inferior wall has normal contractility. Resting ejection fraction of 69% with a normal resting end-diastolic volume of 75 mL. 3. Myocardial perfusion imaging: Post-stress supine images show a moderate perfusion defect in the proximal and mid inferior wall, extending into the inferior septum in a pattern consistent with diaphragmatic attenuation, supported by its complete resolution on the prone images, revealing a normal, homogeneous perfusion pattern. The resting images show an identical perfusion pattern to that of the post- stress supine images. IMPRESSION: 1. Probable normal myocardial perfusion study. 2. Moderate, fixed inferior perfusion defect that resolves on prone imaging, most consistent with diaphragmatic attenuation artifact. While previous nontransmural infarction cannot be entirely excluded, the absence of any wall motion abnormality in this distribution and normal perfusion imaging on the prone position would mitigate against this. 3. Normal left ventricular size and function without any focal wall motion abnormality. 4. No angina or ECG evidence of ischemia with pharmacologic vasodilator stress. He had occasional PACs and brief episodes of atrial fibrillation but no sustained arrhythmias. Delvin Louis - MARIEL/mary jane/DICKSON doc#: [id number]/job#: [id number] dd: 12/31/2022 17:19:00 dt: 01/01/2023 00:22:00 DICTATING MD/COPIES TO: Brandon Stack MD; KEERTHI Krueger COPIES MNE: ENRIQUE;
== END ==
PROVIDERS: Referring Provider Nurse Practitioner Acute Care; Visit Provider Nurse Practitioner Acute Care
DX: I47.1 Supraventricular tachycardia (principal); R06.09 Other forms of dyspnea; I48.0 Paroxysmal atrial fibrillation
CPT/HCPCS: 78452; 93017; A9502; J2785

== ENCOUNTER 2023-11-25 12:22 | Emergency (ER) | payer OTHER, SELFPAY ==
[2023-08-08 16:17] VITALS: BMI 29.8
[2023-11-25] VITALS (17 sets, daily range): BP systolic 104–162; BP diastolic 65–90; PULSE 56–157; RESP 18–21; TEMP 36.7–36.9; O2SAT 95–98; BMI 30.7
--- NOTE | 2023-11-25 12:55 | DI.RAD.S_ITS ---
PROCEDURE: XR CHEST 1V INDICATIONS: chest pain TECHNIQUE: One view of the chest was acquired. COMPARISON: [facility], CR, XR CHEST 2V, 12/03/2022, 11:26. FINDINGS: Surgical changes and devices: None. Lungs and pleura: Chronic bibasilar scarring. Lungs are grossly clear. No pleural effusions or pneumothorax. Mediastinum: Mediastinal contours appear normal. Heart size is normal. Prominent bilateral epicardial fat pads. Bones and chest wall: No suspicious bony lesions. Overlying soft tissues appear unremarkable. IMPRESSION: No gross infiltrates. Dictated by: Mo Cardenas M.D. on 11/25/2023 at 13:32 Approved by: Mo Cardenas M.D. on 11/25/2023 at 13:34
--- NOTE | 2023-11-25 13:00 | EKG_ITS ---
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
[2023-11-25 13:34] LABS: Add Manual Diff / Slide Review NO; Basophils Absolute Auto 0 /uL (0-100); Basophils Percent Auto 0.7 % (0-2); Eosinophils Absolute Auto 300 /uL (0-450); Eosinophils Percent Auto 4.9 % (2-4); Hematocrit 34.9 % (41-53); Lymphocytes Absolute Auto 1300 /uL (1100-4500); Lymphocytes Percent Auto 19.4 % (25-40); Mean Corpuscular HGB Conc 31.5 % (30-36); Mean Corpuscular Hemoglobin 24.6 PG (26-34); Mean Corpuscular Volume 77.9 fL (80-100); Monocytes Absolute Auto 500 /uL (0-900); Monocytes Percent Auto 7.6 % (3-14); Neutrophils Absolute Auto 4500 /uL (1500-7000); Neutrophils Percent Auto 67.4 % (50-75); Platelet Count 239 X10^3/uL (150-400); Red Blood Cell Count 4.48 X10^6/uL (4.5-5.9); Red Cell Distribution Width 15.4 % (11.6-14.8); White Blood Cell Count 6.6 X10^3/uL (4.5-11.0)
[2023-11-25 13:39] LABS: INR 1.2 (0.9-1.3); Prothrombin Time 13.6 SECONDS (9.4-12.5)
[2023-11-25 13:41] LABS: PTT Partial Thromboplastin Tim 34 SECONDS (25.1-36.5)
[2023-11-25 13:44] LABS: Alanine Aminotransferase 29 IU/L (<50); Albumin 4.5 g/dL (3.5-5.0); Albumin Globulin Ratio 1.8 (1.0-2.8); Alkaline Phosphatase 75 U/L (38-126); Aspartate Aminotransferase 41 IU/L (17-59); BUN Creatinine Ratio 15.4 (6-22); Bilirubin Total 0.5 mg/dL (0.2-1.3); Blood Urea Nitrogen 14 mg/dL (9-20); Calcium 9.4 mg/dL (8.4-10.2); Carbon Dioxide 26 mmol/L (22-32); Chloride 103 mmol/L (98-107); Creatine Kinase 59 U/L (55-170); Estimated Glomerular Filt Rate > 60 mL/min (>60); Globulin 2.5 g/dL (1.7-4.1); Glucose 114 mg/dL (70-100); Lipase 121 U/L (23-300); Magnesium 1.9 mg/dL (1.6-2.3); Potassium 4.4 mmol/L (3.4-5.1); Sodium 136 mmol/L (137-145)
[2023-11-25 13:55] LABS: HEMOLYSIS < 15 (0-50); NT-proBNP (BNP-Adult 18+) 290 pg/mL (<125); Troponin I < 0.012 ng/mL (0.01-0.034)
[2023-11-25] MEDS: dilTIAZem 25 MG/5 ML SDV 10 MG IV (13:58)
[2023-11-25] MEDS: dilTIAZem 25 MG/5 ML SDV 20 MG IV (15:11)
--- NOTE | 2023-11-25 15:37 | EKG_ITS ---
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
--- NOTE | 2023-11-25 15:47 | PC.NURSE ---
moved code cart over to room at 1530 in preparation for cardioversion, patient converted to sinus rhythm as of 1540. Provider made aware
--- NOTE | 2023-11-25 16:13 | ED_ITS ---
HPI - Dizziness General Chief Complaint: Dizziness Stated Complaint: lightheaded comes and goes Time Seen by Provider: 11/25/23 13:49 History of Present Illness HPI Narrative: Patient 58-year-old male history of atrial fibrillation on Eliquis diltiazem and metoprolol followed by Dr. May, presents today with dizziness that comes and goes. Started a little bit yesterday he denies absolutely any chest pain palpitations shortness of breath nausea vomiting or any other symptoms. No numbness tingling or weakness. He does have a history of atrial fibrillation on Eliquis but is mostly asymptomatic Related Data Home Medications Medication Instructions Recorded Confirmed atorvastatin 20 mg tablet (Lipitor) 20 mg PO HS #30 tabs 02/25/16 09/11/23 omeprazole 20 mg capsule,delayed 40 mg PO DAILY 05/22/18 09/11/23 release apixaban 5 mg tablet (Eliquis) 5 mg PO BID 12/03/22 09/11/23 diltiazem HCl 60 mg 60 mg PO BID 09/11/23 09/11/23 capsule,extended release 12 hr finasteride 5 mg tablet 5 mg PO DAILY 09/11/23 09/11/23 lisinopril 10 mg tablet 10 mg PO DAILY 09/11/23 09/11/23 metformin 500 mg tablet 500 mg PO DAILY 09/11/23 09/11/23 tamsulosin 0.4 mg capsule 0.4 mg PO BEDTIME 09/11/23 09/11/23 Previous Rx's Medication Instructions Recorded albuterol sulfate 2.5 mg/3 mL 2.5 mg (3 mL) inhalation Q4-6H PRN 06/22/19 (0.083 %) solution for nebulization shortness of breath or wheezing #90 mL prednisone 10 mg tablet 10 mg PO DIRECTED #20 tabs 09/11/23 metoprolol succinate 50 mg 50 mg PO BID #60 tabs 11/25/23 tablet,extended release 24 hr Allergies Allergy/AdvReac Type Severity Reaction Status Date / Time No Known Drug Allergies Allergy Verified 09/11/23 10:46 Patient History Medical History (Updated 11/25/23 @ 17:31 by Damaris Aguiar DO) Hypertension Hyperlipidemia Social History household members: significant other Smoking Status: Current some day smoker alcohol intake: current Smoking Status: Current some day smoker tobacco type: cigarettes alcohol intake frequency: holidays/special occasions only Alcohol type: beer Substance Use Type: does not use Exam Initial Vital Signs Initial Vital Signs: Vital Signs Temperature 98.5 F 11/25/23 12:50 Pulse Rate 70 11/25/23 12:50 Respiratory Rate 18 11/25/23 12:50 Blood Pressure 162/90 H 11/25/23 12:50 Pulse Oximetry 97 11/25/23 12:50 Oxygen Delivery Method Room Air 11/25/23 12:50 GENERAL: Alert well-appearing 58-year-old and in [no acute] distress. HEENT: Head atraumatic,EOMI, pupils reactive, face symmetric, [moist] mucous membranes CARDIOVASCULAR: Irregularly irregular RESPIRATORY: Breath sounds equal bilaterally, no wheezes rales or rhonchi. ABDOMEN: Soft, nontender. Normoactive bowel sounds all 4 quadrants. No guarding or rebound. EXTREMITIES: Normal range of motion, no clubbing or edema. Neurovascularly intact NEUROLOGICAL: Alert and oriented x4.Normal gait and speech. SKIN: Warm, dry, no laceration, no petechiae, no rashes or lesions. Course Orders Ordered: ED Orders 11/25/23 12:55 XR chest 1V Stat EKG-12 Lead Stat 11/25/23 13:17 Complete Blood Count AUTO DIFF Stat Comprehensive Metabolic Panel Stat Lipase Stat Magnesium Stat NT-proBNP (BNP-Adult 18+) Stat PTT Partial Thromboplastin Juan J Stat Prothrombin Time INR Stat Troponin & CK Cardiac Panel Stat 11/25/23 15:37 EKG-12 Lead Routine Discontinued Medications Aspirin (Aspirin 81 Mg Chew Tab) 324 mg PO NOW ONE Stop: 11/25/23 12:56 Last Admin: 11/25/23 13:57 Dose: Not Given Documented By: ES Diltiazem HCl (Diltiazem 25 Mg/5 Ml Sdv) 10 mg IV NOW ONE Stop: 11/25/23 13:50 Last Admin: 11/25/23 13:58 Dose: 10 mg Documented By: ES Diltiazem HCl (Diltiazem 25 Mg/5 Ml Sdv) 20 mg IV NOW ONE Stop: 11/25/23 14:57 Last Admin: 11/25/23 15:11 Dose: 20 mg Documented By: NADEEM Metoprolol Succinate (Metoprolol Er 50 Mg Tablet) 50 mg PO NOW ONE Stop: 11/25/23 16:23 Last Admin: 11/25/23 16:37 Dose: 50 mg Documented By: NADEEM Metoprolol Tartrate (Metoprolol Tartrate 5 Mg/5 Ml Inj) 5 mg IV NOW ONE Stop: 11/25/23 16:53 Last Admin: 11/25/23 17:06 Dose: 5 mg Documented By: Vital Signs Vital signs: Vital Signs - 8 hr 11/25/23 12:50 11/25/23 13:09 11/25/23 13:09 Temperature 98.5 F Pulse Rate 70 97 H Respiratory Rate 18 18 Blood Pressure 162/90 H 119/82 Pulse Oximetry 97 97 Oxygen Delivery Method Room Air Room Air 11/25/23 13:30 11/25/23 13:58 11/25/23 13:58 Temperature Pulse Rate 96 H 155 H Respiratory Rate 18 Blood Pressure 123/83 123/83 Pulse Oximetry 96 Oxygen Delivery Method 11/25/23 13:58 11/25/23 14:00 11/25/23 14:00 Temperature Pulse Rate 157 H 156 H Respiratory Rate 21 18 Blood Pressure 104/82 Pulse Oximetry 95 96 Oxygen Delivery Method 11/25/23 14:30 11/25/23 14:30 11/25/23 15:00 Temperature Pulse Rate 154 H Respiratory Rate 18 Blood Pressure 110/74 118/84 Pulse Oximetry 97 Oxygen Delivery Method Room Air 11/25/23 15:00 11/25/23 15:11 11/25/23 15:30 Temperature Pulse Rate 157 H 126 H Respiratory Rate 19 Blood Pressure 118/84 112/75 Pulse Oximetry 98 Oxygen Delivery Method 11/25/23 15:30 11/25/23 16:00 11/25/23 16:00 Temperature Pulse Rate 56 L 59 L Respiratory Rate 18 20 Blood Pressure 117/68 Pulse Oximetry 97 96 Oxygen Delivery Method 11/25/23 16:30 11/25/23 16:37 11/25/23 17:00 Temperature Pulse Rate 112 H 132 H 140 H Respiratory Rate 18 18 Blood Pressure 117/68 Pulse Oximetry 97 97 Oxygen Delivery Method 11/25/23 17:08 11/25/23 17:08 11/25/23 17:12 Temperature Pulse Rate 106 H 133 H Respiratory Rate 19 Blood Pressure 127/65 Pulse Oximetry 96 Oxygen Delivery Method 11/25/23 17:30 11/25/23 17:30 11/25/23 17:43 Temperature 98.0 F Pulse Rate 63 Respiratory Rate 18 Blood Pressure 127/84 Pulse Oximetry 97 Oxygen Delivery Method MDM - Dizziness Lab Data 11/25/23 13:17 11/25/23 13:17 Labs: Lab Results 11/25/23 Range/Units 13:17 WBC 6.6 (4.5-11.0) X10^3/uL RBC 4.48 L (4.5-5.9) X10^6/uL Hgb 11.0 L (13.5-17.5) g/dL Hct 34.9 L (41-53) % MCV 77.9 L (80-100) fL MCH 24.6 L (26-34) PG MCHC 31.5 (30-36) % RDW 15.4 H (11.6-14.8) % Plt Count 239 (150-400) X10^3/uL Neut % (Auto) 67.4 (50-75) % Lymph % (Auto) 19.4 L (25-40) % [place] % (Auto) 7.6 (3-14) % Eos % (Auto) 4.9 H (2-4) % Baso % (Auto) 0.7 (0-2) % Neut # (Auto) 4500 (4987-8985) /uL Lymph # (Auto) 1300 (1642-4709) /uL [place] # (Auto) 500 (0-900) /uL Eos # (Auto) 300 (0-450) /uL Baso # (Auto) 0 (0-100) /uL PT 13.6 H (9.4-12.5) SECONDS INR 1.2 (0.9-1.3) APTT 34 (25.1-36.5) SECONDS Sodium 136 L (137-145) mmol/L Potassium 4.4 (3.4-5.1) mmol/L Chloride 103 (98-107) mmol/L Carbon Dioxide 26 (22-32) mmol/L BUN 14 (9-20) mg/dL Creatinine 0.91 (0.66-1.25) mg/dL Estimated GFR > 60 (>60) mL/min BUN/Creatinine Ratio 15.4 (6-22) Glucose 114 H (70-100) mg/dL Calcium 9.4 (8.4-10.2) mg/dL Magnesium 1.9 (1.6-2.3) mg/dL Total Bilirubin 0.5 (0.2-1.3) mg/dL AST 41 (17-59) IU/L ALT 29 (<50) IU/L Alkaline Phosphatase 75 (38-126) U/L Total Creatine Kinase 59 (55-170) U/L Troponin I < 0.012 (0.01-0.034) ng/mL NT-Pro-B Natriuret Pep 290 H (<125) pg/mL Total Protein 7.0 (6.3-8.2) g/dL Albumin 4.5 (3.5-5.0) g/dL Globulin 2.5 (1.7-4.1) g/dL Albumin/Globulin Ratio 1.8 (1.0-2.8) Lipase 121 (23-300) U/L Imaging Data Chest x-ray: Radiologist's Impression: PROCEDURE: XR CHEST 1V INDICATIONS: chest pain TECHNIQUE: One view of the chest was acquired. COMPARISON: [facility], , XR CHEST 2V, 12/03/2022, 11:26. FINDINGS: Surgical changes and devices: None. Lungs and pleura: Chronic bibasilar scarring. Lungs are grossly clear. No pleural effusions or pneumothorax. Mediastinum: Mediastinal contours appear normal. Heart size is normal. Prominent bilateral epicardial fat pads. Bones and chest wall: No suspicious bony lesions. Overlying soft tissues appear unremarkable. IMPRESSION: No gross infiltrates. Dictated by: Mo Cardenas M.D. on 11/25/2023 at 13:32 ECG Data Interpretation: Atrial flutter rate 110 no ischemic changes Normal sinus rhythm rate 61 WI interval 160 QRS [address] changes no T- wave inversions MDM Narrative Medical decision making narrative: Patient 58-year-old male history of atrial fibrillation presents today with atrial for the RVR on diltiazem metoprolol and Eliquis. He was given 10 mg of diltiazem slowed him briefly and then given 20 mg of diltiazem any actually converted into sinus rhythm. He then had episodes where he went into sinus rhythm and then quickly back into an arrhythmia. He is completely asymptomatic during this whole time. Blood work has been reviewed WBC 6.6, hemoglobin 11.0, hematocrit 34.9, platelets 239, sodium 136, potassium 4.4, chloride 103, carbon dioxide 26, BUN 14, creatinine 0.91, glucose 114 troponin negative BNP 290, bilirubin 0.5 AST 41 ALT 29 alk-phos 70 Chest x-ray reviewed no acute cardiopulmonary process EKGs reviewed there his atrial flutter and a sinus rhythm Dr. Dias, on-call cardiology has reviewed patient's note states that patient is not maxed out on medication recommends going up to metoprolol 50 mg twice a day and following up with Dr. Hobbs Discharge Plan Departure Patient Disposition: Home Clinical Impression: Atrial flutter with rapid ventricular response Instructions: DI for Atrial Flutter Activity Restrictions/Additional Instructions: *You have been diagnosed with atrial flutter *What to do: At this time your dizziness may or may not be related to your heart. Your heart rate was quite fast when he got here. 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 *Return to ER if you should have increasing dizziness lightheadedness chest pain or any new, worsening or concerning symptoms Prescriptions: New metoprolol succinate 50 mg tablet extended release 24 hr 50 mg PO BID Qty: 60 0RF No Action atorvastatin [Lipitor] 20 MG tablet 20 mg PO HS Qty: 30 albuterol sulfate 2.5 mg /3 mL (0.083 %) solution for nebulization 2.5 mg INHALATION Q4-6H PRN (Reason: shortness of breath or wheezing) Qty: 90 0RF omeprazole 20 mg Capsule,Delayed Release(Dr/Ec) 40 mg PO DAILY Eliquis 5 mg tablet 5 mg PO BID finasteride 5 mg tablet 5 mg PO DAILY metformin 500 mg tablet 500 mg PO DAILY tamsulosin 0.4 mg capsule 0.4 mg PO BEDTIME diltiazem HCl 60 mg capsule,extended release 12 hr 60 mg PO BID lisinopril 10 mg tablet 10 mg PO DAILY prednisone 10 mg tablet 10 mg PO DIRECTED Qty: 20 1RF Rx Instructions: If needed, take 2 tabs daily for 5 days Referrals: [facility] [Primary Care Provider] - Stand Alone Forms: Patient Portal/API
[2023-11-25] MEDS: METOPROLOL ER 50 MG TABLET PO (16:37)
[2023-11-25] MEDS: METOPROLOL TARTRATE 5 MG/5 ML INJ IV (17:06)
--- NOTE | 2023-11-25 17:32 | PC.NURSE ---
Pt noted to convert to NSR at 1718. HR 60s. Provider at the bedside.
== END 2023-11-25 17:37 | disposition home or self-care (01) ==
PROVIDERS: Emergency Provider Emergency Medicine
DX: I48.92 Unspecified atrial flutter (principal); Z79.01 Long term (current) use of anticoagulants
CPT/HCPCS: 36415; 71045; 80053; 82550; 83690; 83735; 83880; 84484; 85025; 85610; 85730; 93005; 96374; 96375; 96376; 99284; 99285

== ENCOUNTER → 2024-01-08 11:03 | Outpatient (CLI) | payer OTHER, SELFPAY ==
[2023-08-08 16:17] VITALS: BMI 29.8
--- NOTE | 2024-01-08 11:14 | DI.RAD.S_ITS ---
PROCEDURE: XR CHEST 2V INDICATIONS: PROSTATE CANCER TECHNIQUE: 2 views of the chest were acquired. COMPARISON: [facility], , XR CHEST 1V, 11/25/2023, 12:54. FINDINGS: Surgical changes and devices: None. Lungs and pleura: Lungs are clear. No pleural effusions or pneumothorax. Mediastinum: Mediastinal contours are normal. Heart size is normal. Bones and chest wall: No suspicious bony abnormalities. Soft tissues appear unremarkable. IMPRESSION: No acute pulmonary process. Dictated by: Aury Phillips M.D. on 01/08/2024 at 15:57 Approved by: Aury Phillips M.D. on 01/08/2024 at 15:57
--- NOTE | 2024-01-08 11:45 | EKG_ITS ---
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
[2024-01-08 11:54] LABS: Add Manual Diff / Slide Review NO; Basophils Absolute Auto 100 /uL (0-100); Basophils Percent Auto 0.7 % (0-2); Eosinophils Absolute Auto 400 /uL (0-450); Eosinophils Percent Auto 5.3 % (2-4); Hemoglobin 10.3 g/dL (13.5-17.5); Lymphocytes Absolute Auto 1400 /uL (1100-4500); Lymphocytes Percent Auto 19.5 % (25-40); Mean Corpuscular HGB Conc 32.1 % (30-36); Mean Corpuscular Hemoglobin 23.8 PG (26-34); Mean Corpuscular Volume 74.2 fL (80-100); Monocytes Absolute Auto 600 /uL (0-900); Monocytes Percent Auto 7.5 % (3-14); Neutrophils Absolute Auto 5000 /uL (1500-7000); Platelet Count 226 X10^3/uL (150-400); Red Blood Cell Count 4.31 X10^6/uL (4.5-5.9); Red Cell Distribution Width 15.7 % (11.6-14.8); White Blood Cell Count 7.4 X10^3/uL (4.5-11.0)
[2024-01-08 12:05] LABS: INR 1.3 (0.9-1.3); Prothrombin Time 15.2 SECONDS (9.4-12.5)
[2024-01-08 12:08] LABS: PTT Partial Thromboplastin Tim 36 SECONDS (25.1-36.5)
[2024-01-08 12:36] LABS: BUN Creatinine Ratio 15.4 (6-22); Blood Urea Nitrogen 12 mg/dL (9-20); Calcium 9.1 mg/dL (8.4-10.2); Carbon Dioxide 26 mmol/L (22-32); Chloride 101 mmol/L (98-107); Estimated Glomerular Filt Rate > 60 mL/min (>60); Glucose 102 mg/dL (70-100); HEMOLYSIS 25 (0-50); Potassium 4.5 mmol/L (3.4-5.1); Sodium 133 mmol/L (137-145)
== END ==
PROVIDERS: Referring Provider Urology; Visit Provider Urology
DX: Z01.818 Encounter for other preprocedural examination (principal)
CPT/HCPCS: 36415; 71046; 80048; 85025; 85610; 85730; 93005; 93010

== ENCOUNTER 2024-01-27 11:52 | Emergency (ER) | payer OTHER, SELFPAY ==
[2023-08-08 16:17] VITALS: BMI 29.8
[2024-01-27 11:55] VITALS: BP 146/87; PULSE 70; RESP 18; TEMP 36.4; O2SAT 97; BMI 29.8
--- NOTE | 2024-01-27 12:32 | ED.EXTPRO ---
HPI - Extremity Problem <Ene Roblero PA-C - Last Filed: 01/27/24 13:43> General Chief complaint: Extremity Problem,Nontraumatic Stated complaint: Rt shoulder and arm px Time Seen by Provider: 01/27/24 12:26 History of Present Illness HPI Narrative: 58-year-old male with past medical history COPD, atrial fibrillation, on Eliquis presents to the ED with 3 weeks of left-sided shoulder pain. Patient denies any trauma. Patient states he awoke 1 morning with pain in his left shoulder. Patient states the pain goes down his left arm. He denies numbness, tingling, weakness. He has been taking Tylenol and applying topical numbing cream without much relief. Patient endorses pain with movement of the left arm. Patient denies fever, chills, chest pain, shortness of breath, nausea, vomiting. Related Data Home Medications Medication Instructions Recorded Confirmed atorvastatin 20 mg tablet (Lipitor) 20 mg PO HS #30 tabs 02/25/16 01/08/24 omeprazole 20 mg capsule,delayed 40 mg PO DAILY 05/22/18 01/08/24 release apixaban 5 mg tablet (Eliquis) 5 mg PO BID 12/03/22 01/08/24 diltiazem HCl 60 mg 60 mg PO BID 09/11/23 01/08/24 capsule,extended release 12 hr finasteride 5 mg tablet 5 mg PO DAILY 09/11/23 01/08/24 lisinopril 10 mg tablet 10 mg PO DAILY 09/11/23 01/08/24 metformin 500 mg tablet 500 mg PO DAILY 09/11/23 01/08/24 tamsulosin 0.4 mg capsule 0.4 mg PO BEDTIME 09/11/23 01/08/24 Previous Rx's Medication Instructions Recorded prednisone 10 mg tablet 10 mg PO DIRECTED #20 tabs 09/11/23 metoprolol succinate 50 mg 50 mg PO BID #60 tabs 11/25/23 tablet,extended release 24 hr albuterol sulfate 2.5 mg/3 mL 2.5 mg (3 mL) inhalation Q4-6H PRN 12/06/23 (0.083 %) solution for nebulization shortness of breath or wheezing #90 mL fluticasone 250 mcg-salmeterol 50 1 inh inhalation BID #60 ea 12/06/23 mcg/dose blistr powdr for inhalation (Advair Diskus) tiotropium bromide 2.5 2 puff inhalation DAILY #4 grams 12/06/23 mcg/actuation mist for inhalation (Spiriva Respimat) fluticasone fur. 200 mcg-umeclid 1 inh inhalation DAILY #180 ea 01/08/24 62.5 mcg-vilant 25 mcg inhalat.powder (Trelegy Ellipta) Allergies Allergy/AdvReac Type Severity Reaction Status Date / Time No Known Drug Allergies Allergy Verified 01/08/24 10:28 Review of Systems <Ene Roblero PA-C - Last Filed: 01/27/24 13:43> Constitutional Constitutional: Denies chills, Denies fatigue, Denies fever(s), Denies frequent falls, Denies lethargy and Denies weakness Eyes Eyes: Denies change in vision, Denies eye discharge, Denies irritation and Denies loss of vision ENT Ears, Nose, Mouth, and Throat: Denies change in voice, Denies dizziness, Denies neck pain, Denies sore throat and Denies throat swelling Cardiovascular Cardiovascular: Denies chest pain, Denies irregular heart rhythm, Denies lightheadedness, Denies palpitations, Denies dyspnea, Denies dyspnea on exertion and Denies orthopnea Respiratory Respiratory: Denies cough, Denies dyspnea, Denies dyspnea on exertion and Denies wheezing Gastrointestinal Gastrointestinal: Denies abdominal pain, Denies change in bowel habits, Denies diarrhea, Denies nausea and Denies vomiting Musculoskeletal Musculoskeletal: Denies neck pain and Denies numbness Comments: Left shoulder pain. No numbness, tingling, weakness Integumentary/Breasts Skin/Breast: Denies pruritus, Denies erythema, Denies rash and Denies wounds Neurologic Neurologic: Denies behavioral changes, Denies confusion, Denies dizziness, Denies frequent falls, Denies loss of vision, Denies numbness and Denies weakness Psychiatric Psychiatric: Denies anxiety, Denies behavioral changes, Denies confusion, Denies depression, Denies homicidal ideation and Denies suicidal ideation Endocrine Endocrine: Denies fatigue, Denies flushing and Denies palpitations Hematologic/Lymphatic Hematologic/Lymphatic: Denies easy bruising Allergic/Immunologic Allergic/Immunologic: Denies urticaria, Denies throat swelling and Denies wheezing Patient History <Ene Roblero PA-C - Last Filed: 01/27/24 13:43> Medical History (Updated 01/27/24 @ 13:32 by Ene Roblero PA-C) Hypertension Hyperlipidemia Social History household members: significant other Smoking Status: Current some day smoker alcohol intake: current Smoking Status: Current some day smoker tobacco type: cigarettes alcohol intake frequency: holidays/special occasions only Alcohol type: beer Substance Use Type: does not use Exam <Ene Roblero PA-C - Last Filed: 01/27/24 13:43> Narrative Exam Narrative: Const General:?cooperative, healthy appearing and comfortable HENMT Head:?normal to inspection Ears:?hearing grossly normal bilaterally Nose:?external nose normal Face and sinus:?normal facial exam and sinuses nontender Mouth:?oral mucosae normal Throat:?posterior oropharynx normal Eyes General:?appearance normal, both eyes and all related structures Neck Neck:?normal visual inspection and no lymphadenopathy noted Resp Effort & Inspection:?normal respiratory effort Auscultation:?clear to auscultation bilaterally Cardio Rate:?regular rate Rhythm:?regular rhythm Musculoskeletal No deformities, erythema. There is some tenderness to palpation of the anterior shoulder in the area of the biceps tendon. Strength and sensation is intact. Full range of motion, although patient reports pain with movement of the arm. Neurovascularly intact. Neuro General:?patient alert, patient awake and patient oriented x3 Initial Vital Signs Initial Vital Signs: Vital Signs Temperature 97.6 F 01/27/24 11:55 Pulse Rate 70 01/27/24 11:55 Respiratory Rate 18 01/27/24 11:55 Blood Pressure 146/87 H 01/27/24 11:55 Pulse Oximetry 97 01/27/24 11:55 Oxygen Delivery Method Room Air 01/27/24 11:55 <Pritesh Jordan DO - Last Filed: 01/28/24 10:31> Initial Vital Signs Initial Vital Signs: Vital Signs Temperature 97.6 F 01/27/24 11:55 Pulse Rate 70 01/27/24 11:55 Respiratory Rate 18 01/27/24 11:55 Blood Pressure 146/87 H 01/27/24 11:55 Pulse Oximetry 97 01/27/24 11:55 Oxygen Delivery Method Room Air 01/27/24 11:55 Course <Ene Roblero PA-C - Last Filed: 01/27/24 13:43> Orders Ordered: ED Orders 01/27/24 12:40 XR shoulder LT min 2V Stat Vital Signs Vital signs: Vital Signs - 8 hr 01/27/24 11:55 01/27/24 13:36 Temperature 97.6 F 98 F Pulse Rate 70 74 Respiratory Rate 18 20 Blood Pressure 146/87 H 144/72 H Pulse Oximetry 97 100 Oxygen Delivery Method Room Air Room Air <Pritesh Jordan DO - Last Filed: 01/28/24 10:31> Orders Ordered: ED Orders 01/27/24 12:40 XR shoulder LT min 2V Stat Vital Signs Vital signs: Vital Signs - 8 hr 01/27/24 11:55 01/27/24 13:36 Temperature 97.6 F 98 F Pulse Rate 70 74 Respiratory Rate 18 20 Blood Pressure 146/87 H 144/72 H Pulse Oximetry 97 100 Oxygen Delivery Method Room Air Room Air MDM - Extremity (Nontraumatic) <Ene Roblero PA-C - Last Filed: 01/27/24 13:43> [facility] Narrative Medical decision making narrative: 58-year-old male with past medical history COPD, atrial fibrillation, on Eliquis presents to the ED with 3 weeks of left-sided shoulder pain. Concern for fracture/dislocation versus musculoskeletal sprain/strain versus other. Will obtain x-ray. Will reassess. X-ray without acute findings. Patient's symptoms most consistent with a muscular skeletal sprain/strain. Recommend continuing Tylenol, lidocaine patches, topical numbing creams. Recommend follow-up with PCP as soon as possible for further evaluation and referral to PT. ED return precautions discussed with patient. Patient verbalized understanding. Medical records reviewed: Yes <Pritesh Jordan DO - Last Filed: 01/28/24 10:31> [facility] Narrative Medical decision making narrative: 58-year-old male with past medical history COPD, atrial fibrillation, on Eliquis presents to the ED with 3 weeks of left-sided shoulder pain. Concern for fracture/dislocation versus musculoskeletal sprain/strain versus other. Will obtain x-ray. Will reassess. X-ray without acute findings. Patient's symptoms most consistent with a muscular skeletal sprain/strain. Recommend continuing Tylenol, lidocaine patches, topical numbing creams. Recommend follow-up with PCP as soon as possible for further evaluation and referral to PT. ED return precautions discussed with patient. Patient verbalized understanding. Medical records reviewed: Yes Dr. Jordan: I was immediately available in the department for consultation. Documentation has been reviewed. I agree with assessment and plan. Discharge Plan Departure Patient Disposition: Home Clinical Impression: Left shoulder pain Qualifiers: Chronicity: acute Qualified Code(s): M25.512 - Pain in left shoulder Instructions: DI for Shoulder Pain Activity Restrictions/Additional Instructions: You were evaluated in the ED today for left shoulder pain. Your x-ray was normal. Your symptoms are likely due to a musculoskeletal sprain/strain such as biceps tendinitis or a rotator cuff injury. It is recommended that you follow-up with your PCP as soon as possible for further evaluation and referral to physical therapy. You may take 1000 mg of Tylenol every 8 hours for pain. You may also apply topical lidocaine patches and use topical numbing creams. Return to the ED if you have worsening symptoms, numbness, tingling, weakness. Prescriptions: No Action atorvastatin [Lipitor] 20 MG tablet 20 mg PO HS Qty: 30 albuterol sulfate 2.5 mg /3 mL (0.083 %) solution for nebulization 2.5 mg INHALATION Q4-6H PRN (Reason: shortness of breath or wheezing) Qty: 90 0RF Spiriva Respimat 2.5 mcg/actuation mist 2 puff inhalation DAILY Qty: 4 11RF fluticasone propion-salmeterol [Advair Diskus] 250-50 mcg/dose blister with device 1 inh inhalation BID Qty: 60 11RF omeprazole 20 mg Capsule,Delayed Release(Dr/Ec) 40 mg PO DAILY Eliquis 5 mg tablet 5 mg PO BID metoprolol succinate 50 mg tablet extended release 24 hr 50 mg PO BID Qty: 60 0RF Trelegy Ellipta 200-62.5-25 mcg blister with device 1 inh inhalation DAILY Qty: 180 3RF finasteride 5 mg tablet 5 mg PO DAILY metformin 500 mg tablet 500 mg PO DAILY tamsulosin 0.4 mg capsule 0.4 mg PO BEDTIME diltiazem HCl 60 mg capsule,extended release 12 hr 60 mg PO BID lisinopril 10 mg tablet 10 mg PO DAILY prednisone 10 mg tablet 10 mg PO DIRECTED Qty: 20 1RF Rx Instructions: If needed, take 2 tabs daily for 5 days Referrals: ProviderUnique [Primary Care Provider] - Stand Alone Forms: Patient Portal/API
--- NOTE | 2024-01-27 12:40 | DI.RAD.S_ITS ---
PROCEDURE: XR SHOULDER LT MIN 2V INDICATIONS: Shoulder pain TECHNIQUE: 3 views of the shoulder were acquired. COMPARISON: [facility], CR, XR CHEST 2V, 01/08/2024, 10:28. FINDINGS: Bones: No fractures or dislocations. No suspicious bony lesions. Visualized ribs appear intact. Soft tissues: No suspicious soft tissue calcifications. IMPRESSION: No acute osseous abnormality. If pain persists with conservative management, consider repeat x-ray in 10-14 days or cross-sectional imaging. Dictated by: Blade Parker M.D. on 01/27/2024 at 13:17 Approved by: Blade Parker M.D. on 01/27/2024 at 13:17
[2024-01-27 13:36] VITALS: BP 144/72; PULSE 74; RESP 20; TEMP 36.6; O2SAT 100
== END 2024-01-27 13:37 | disposition home or self-care (01) ==
PROVIDERS: Emergency Provider Student in an Organized Health Care Education/Training Program
DX: M25.512 Pain in left shoulder (principal)
CPT/HCPCS: 73030; 99281; 99283

== ENCOUNTER 2024-02-15 12:50 | Emergency (ER) | payer OTHER, SELFPAY ==
[2023-08-08 16:17] VITALS: BMI 29.8
[2024-02-15 12:57] VITALS: BP 143/88; PULSE 74; RESP 16; TEMP 36.2; O2SAT 98
--- NOTE | 2024-02-15 13:06 | DI.US.S_ITS ---
PROCEDURE: US PERIPH VENOUS LOW EXTREM LT INDICATIONS: FOOT SWELLING SINCE 02/11/24. PROSTATECTOMY 02/06/24 TECHNIQUE: Real-time imaging, as well as color and pulse Doppler interrogation, were performed of the lower extremity deep veins from the inguinal ligament to the popliteal fossa, with documentation of the visualized calf veins. COMPARISON: None. FINDINGS: The common femoral, femoral, popliteal, and the visualized calf veins are normally compressible, and free of intraluminal thrombus. Color and pulse Doppler demonstrate normal phasic intraluminal flow. There is normal augmentation response to distal compression maneuver. IMPRESSION: No findings of lower extremity deep venous thrombosis. Dictated by: Joauqín Saxena M.D. on 02/15/2024 at 13:20 Approved by: Joaquín Saxena M.D. on 02/15/2024 at 13:20
--- NOTE | 2024-02-15 13:37 | ED.EXTPRO ---
HPI - Extremity Problem <Sophia Reynolds PA-C - Last Filed: 02/15/24 14:32> General Chief complaint: Extremity Problem,Nontraumatic Stated complaint: Left foot swelling might have blood clot Time Seen by Provider: 02/15/24 13:37 Source: patient Mode of arrival: Family Vehicle History of Present Illness HPI Narrative: Patient is a very pleasant 58-year-old male that presents to the emergency room department today complaining of left foot swelling and pain and discomfort. The patient just underwent a rattle called prostatectomy on 02/06/2024, currently has a indwelling catheter. Since this past Saturday which was 02/11/24 the patient has noticed left isolated foot swelling, he reached out to his surgeon who instructed him to reach out his primary care doctor which he was unable to get a hold of. He was then instructed to go to the emergency room department to be evaluated for possible DVT. Currently at this time the patient states that the swelling in his left foot has improved. He states that he has been sitting and the feet have been dangling quite a bit. He has no shortness of breath, has no chest pain, he has no calf pain, he has no pain with plantar or dorsiflexion, he has no pain with walking, he has no pain with pressure to the extremities. He has no other further complaints. Patient denies recent injury, trauma or fall. Related Data Home Medications Medication Instructions Recorded Confirmed atorvastatin 20 mg tablet (Lipitor) 20 mg PO HS #30 tabs 02/25/16 01/08/24 omeprazole 20 mg capsule,delayed 40 mg PO DAILY 05/22/18 01/08/24 release apixaban 5 mg tablet (Eliquis) 5 mg PO BID 12/03/22 01/08/24 diltiazem HCl 60 mg 60 mg PO BID 09/11/23 01/08/24 capsule,extended release 12 hr finasteride 5 mg tablet 5 mg PO DAILY 09/11/23 01/08/24 lisinopril 10 mg tablet 10 mg PO DAILY 09/11/23 01/08/24 metformin 500 mg tablet 500 mg PO DAILY 09/11/23 01/08/24 tamsulosin 0.4 mg capsule 0.4 mg PO BEDTIME 09/11/23 01/08/24 Previous Rx's Medication Instructions Recorded prednisone 10 mg tablet 10 mg PO DIRECTED #20 tabs 09/11/23 metoprolol succinate 50 mg 50 mg PO BID #60 tabs 11/25/23 tablet,extended release 24 hr albuterol sulfate 2.5 mg/3 mL 2.5 mg (3 mL) inhalation Q4-6H PRN 12/06/23 (0.083 %) solution for nebulization shortness of breath or wheezing #90 mL fluticasone 250 mcg-salmeterol 50 1 inh inhalation BID #60 ea 12/06/23 mcg/dose blistr powdr for inhalation (Advair Diskus) tiotropium bromide 2.5 2 puff inhalation DAILY #4 grams 12/06/23 mcg/actuation mist for inhalation (Spiriva Respimat) fluticasone fur. 200 mcg-umeclid 1 inh inhalation DAILY #180 ea 01/08/24 62.5 mcg-vilant 25 mcg inhalat.powder (Trelegy Ellipta) Allergies Allergy/AdvReac Type Severity Reaction Status Date / Time No Known Drug Allergies Allergy Verified 02/15/24 12:57 Review of Systems <Sophia Reynolds PA-C - Last Filed: 02/15/24 14:32> Review of Systems Narrative: Negative except as above Musculoskeletal Comments: Isolated left foot swelling that is actually improved since Saturday Patient History <Sophia Reynolds PA-C - Last Filed: 02/15/24 14:32> Medical History (Updated 02/15/24 @ 14:29 by Sophia Reynolds PA-C) Hypertension Hyperlipidemia Social History household members: significant other Smoking Status: Current some day smoker alcohol intake: current Smoking Status: Current some day smoker tobacco type: cigarettes alcohol intake frequency: holidays/special occasions only Alcohol type: beer Substance Use Type: does not use Exam <Sophia Reynolds PA-C - Last Filed: 02/15/24 14:32> Initial Vital Signs Initial Vital Signs: Vital Signs Temperature 97.2 F L 02/15/24 12:57 Pulse Rate 74 02/15/24 12:57 Respiratory Rate 16 02/15/24 12:57 Blood Pressure 143/88 H 02/15/24 12:57 Pulse Oximetry 98 02/15/24 12:57 Oxygen Delivery Method Room Air 02/15/24 12:57 Reviewed Const General: cooperative, healthy appearing, comfortable, well developed, well groomed, No acute distress, No in distress and No anxious Eyes General: Yes appearance normal, both eyes and all related structures Pupils: PERRL EOM: EOM intact bilaterally Skin Other: Warm pink and dry Neuro Other: Alert and oriented no acute distress. Motor is normal, gait is normal. Extrem Other: Range of motion, strength, pulses, cap refill preserved in the upper and lower extremities . Examination of the left lower extremity, no pain upon palpation of the calf, no cords are felt, no pain with plantar dorsiflexion, negative Homans sign, positive pulses, cap refill are preserved, trace edema to the left lower foot. No signs of infection, no erythema, no bruising is noted, he does have a leg bag associated with the catheter that was placed at the time of his radical prostatectomy on 02/06/24 <Usman Murillo MD - Last Filed: 02/15/24 19:31> Initial Vital Signs Initial Vital Signs: Vital Signs Temperature 97.2 F L 02/15/24 12:57 Pulse Rate 74 02/15/24 12:57 Respiratory Rate 16 02/15/24 12:57 Blood Pressure 143/88 H 02/15/24 12:57 Pulse Oximetry 98 02/15/24 12:57 Oxygen Delivery Method Room Air 02/15/24 12:57 Scores <Sophia Reynolds PA-C - Last Filed: 02/15/24 14:32> [facility] Citation: 15 Course <Sophia Reynolds PA-C - Last Filed: 02/15/24 14:32> Orders Ordered: ED Orders 02/15/24 13:06 periph venous low extrem lt Stat Vital Signs Vital signs: Vital Signs - 8 hr 02/15/24 12:57 Temperature 97.2 F L Pulse Rate 74 Respiratory Rate 16 Blood Pressure 143/88 H Pulse Oximetry 98 Oxygen Delivery Method Room Air Reviewed <Usman Murillo MD - Last Filed: 02/15/24 19:31> Orders Ordered: ED Orders 02/15/24 13:06 periph venous low extrem lt Stat Vital Signs Vital signs: Vital Signs - 8 hr 02/15/24 12:57 Temperature 97.2 F L Pulse Rate 74 Respiratory Rate 16 Blood Pressure 143/88 H Pulse Oximetry 98 Oxygen Delivery Method Room Air MDM - Extremity (Nontraumatic) <Sophia Reynolds PA-C - Last Filed: 02/15/24 14:32> Imaging Data Extremity x-ray #1: Radiologist's Impression: [address] [address] Ultrasound Report Signed Patient: Delvin Louis MR#: [id number] : 1965 Acct:[id number] Age/Sex: 58 / M Date of Service: 02/15/24 Loc: ED Accession Number: [id number] Procedure: US perip venous low extrem lt Ordering Provider: Usman Murillo MD PROCEDURE: US PERIP VENOUS LOW EXTREM LT INDICATIONS: FOOT SWELLING SINCE 02/11/24. PROSTATECTOMY 02/06/24 TECHNIQUE: Real-time imaging, as well as color and pulse Doppler interrogation, were performed of the lower extremity deep veins from the inguinal ligament to the popliteal fossa, with documentation of the visualized calf veins. COMPARISON: None. FINDINGS: The common femoral, femoral, popliteal, and the visualized calf veins are normally compressible, and free of intraluminal thrombus. Color and pulse Doppler demonstrate normal phasic intraluminal flow. There is normal augmentation response to distal compression maneuver. IMPRESSION: No findings of lower extremity deep venous thrombosis. Dictated by: Joaquín Saxena M.D. on 02/15/2024 at 13:20 Approved by: Joaquín Saxena M.D. on 02/15/2024 at 13:20 [facility] Narrative Medical decision making narrative: Pleasant 58-year-old male presents to the emergency department with isolated left foot swelling after radical prostatectomy had on 02/06/2024. Sent to the emergency department to rule out DVT Exam is negative for any concerning signs of possible DVT Ultrasound is negative for DVT Supportive therapy, ED precautions Encouraged the patient to follow up with his urologist for Pena care and removal Continue all medications as prescribed Differential diagnosis elevated left foot swelling most likely due to positioning and dependent fluid overload Discharge Plan Departure Patient Disposition: Home Clinical Impression: Edema of left foot Activity Restrictions/Additional Instructions: Your ultrasound is negative for DVT Follow up with your urologist Please elevate your feet Take your medications as prescribed Return to the emergency department as needed Prescriptions: No Action atorvastatin [Lipitor] 20 MG tablet 20 mg PO HS Qty: 30 albuterol sulfate 2.5 mg /3 mL (0.083 %) solution for nebulization 2.5 mg INHALATION Q4-6H PRN (Reason: shortness of breath or wheezing) Qty: 90 0RF Spiriva Respimat 2.5 mcg/actuation mist 2 puff inhalation DAILY Qty: 4 11RF fluticasone propion-salmeterol [Advair Diskus] 250-50 mcg/dose blister with device 1 inh inhalation BID Qty: 60 11RF omeprazole 20 mg Capsule,Delayed Release(Dr/Ec) 40 mg PO DAILY Eliquis 5 mg tablet 5 mg PO BID metoprolol succinate 50 mg tablet extended release 24 hr 50 mg PO BID Qty: 60 0RF Trelegy Ellipta 200-62.5-25 mcg blister with device 1 inh inhalation DAILY Qty: 180 3RF finasteride 5 mg tablet 5 mg PO DAILY metformin 500 mg tablet 500 mg PO DAILY tamsulosin 0.4 mg capsule 0.4 mg PO BEDTIME diltiazem HCl 60 mg capsule,extended release 12 hr 60 mg PO BID lisinopril 10 mg tablet 10 mg PO DAILY prednisone 10 mg tablet 10 mg PO DIRECTED Qty: 20 1RF Rx Instructions: If needed, take 2 tabs daily for 5 days Referrals: Provider[facility] [Primary Care Provider] - Stand Alone Forms: Patient Portal/API ED Sign-out <Usman Murillo MD - Last Filed: 02/15/24 19:31> Cosign ED Attending Siva Attestation: I was immediately available in the department for consultation. This documentation has been reviewed. Usman Murillo MD
== END 2024-02-15 14:49 | disposition home or self-care (01) ==
PROVIDERS: Emergency Provider Physician Assistant
DX: R60.0 Localized edema (principal)
CPT/HCPCS: 93971; 99283

== ENCOUNTER → 2024-03-20 14:09 | Outpatient (CLI) | payer OTHER, SELFPAY ==
[2023-08-08 16:17] VITALS: BMI 29.8
[2024-03-20 15:49] LABS: Prostate Specific Antigen < 0.064 ng/mL (0.10-4.00)
== END ==
PROVIDERS: Referring Provider Urology; Visit Provider Urology
DX: C61 Malignant neoplasm of prostate (principal)
CPT/HCPCS: 36415; 84153

== ENCOUNTER → 2024-09-14 14:26 | Outpatient (CLI) | payer OTHER, SELFPAY ==
[2023-08-08 16:17] VITALS: BMI 29.8
[2024-09-14 16:25] LABS: Prostate Specific Antigen < 0.064 ng/mL (0.10-4.00)
== END ==
PROVIDERS: Referring Provider Urology; Visit Provider Urology
DX: C61 Malignant neoplasm of prostate (principal)
CPT/HCPCS: 36415; 84153

== ENCOUNTER → 2024-10-11 11:36 | Outpatient (CLI) | payer OTHER, SELFPAY ==
[2023-08-08 16:17] VITALS: BMI 29.8
--- NOTE | 2024-10-11 11:38 | DI.CT.S_ITS ---
PROCEDURE: CT LUNG LOW DOSE SCREENING INDICATIONS: ACTIVE SMOKER TECHNIQUE: Noncontrast 2.0-2.5 mm thick sections acquired from the pulmonary apices to the posterior costophrenic angles. 7 mm thick axial MIP, and 5 mm coronal and sagittal reformats were then acquired. For radiation dose reduction, the following was used: automated exposure control, adjustment of mA and/or kV according to patient size. COMPARISON: None. FINDINGS: Image quality: Diagnostic. Lower Neck: No enlarged lymph nodes. Thyroid: No thyroid nodules which require sonographic follow up, per consensus guidelines. Axillae: No enlarged lymph nodes. Chest Wall: Unremarkable. Bones: Multiple bilateral old rib fractures. Old surrounding fracture. Lungs and Pleura: No pneumothorax or pleural effusions. No consolidation or suspicious nodules. Heart: Heart size is normal. No pericardial effusion. Thoracic Vessels: The aorta and pulmonary arteries demonstrate normal size. Mediastinum and Latha: No enlarged lymph nodes. Esophagus: No wall thickening. No hiatal hernia. Upper Abdomen: Visualized upper abdomen solid organs and bowel loops appear normal. IMPRESSION: No suspicious pulmonary nodules. LUNG-RADS 1; continued annual screening, if eligible. Dictated by: Blade Parker M.D. on 10/11/2024 at 13:17 Approved by: Blade Parker M.D. on 10/11/2024 at 13:21
== END ==
DX: Z12.2 Encounter for screening for malignant neoplasm of respiratory organs (principal); F17.210 Nicotine dependence, cigarettes, uncomplicated
CPT/HCPCS: 71271

== ENCOUNTER → 2025-03-19 10:36 | Outpatient (CLI) | payer OTHER, SELFPAY ==
[2023-08-08 16:17] VITALS: BMI 29.8
[2025-03-19 12:28] LABS: Prostate Specific Antigen < 0.064 ng/mL (0.10-4.00)
== END ==
PROVIDERS: Referring Provider Urology; Visit Provider Urology
DX: C61 Malignant neoplasm of prostate (principal)
CPT/HCPCS: 36415; 84153